=== PATIENT | female | born 1940 | race Caucasian/White ===

== ENCOUNTER → 2017-05-21 | Day surgery (SDC) | payer MEDICARE, OTHER ==
[2017-05-18 13:59] VITALS: BMI 57.5
== END ==
LOC: ORWHC2ENDO 09:18
PROVIDERS: ATTEND Internal Medicine Gastroenterology
DX: K29.70 Gastritis, unspecified, without bleeding (principal); K63.5 Polyp of colon; D50.9 Iron deficiency anemia, unspecified; R19.5 Other fecal abnormalities
CPT/HCPCS: 91110

== ENCOUNTER 2022-07-19 18:55 | Inpatient (IN) | payer MEDICARE, OTHER ==
[2022-07-19 19:47] LABS: Basophils % (A) 0 %; Eosinophils # (A) 0.2 k/uL (0-0.7); Eosinophils % (A) 2 %; HCT 33.3 % (34.0-46.0); Lymphocytes % (A) 31 %; MCH 34.3 pg (25.0-35.0); Macrocytosis Moderate; Mean Platelet Volume 8.3; Monocytes # (A) 0.5 k/uL (0-1.0); Monocytes % (A) 5 %; Neutrophils # (A) 5.8 k/uL (1.3-7.7); Neutrophils % (A) 60 %; Platelet Count 232 k/uL (150-450); RDW 14.8 % (11.5-15.5); WBC 9.7 k/uL (3.8-10.6)
[2022-07-19 20:03] LABS: Albumin 3.4 g/dL (3.5-5.0); Calcium 10.3 mg/dL (8.4-10.2); Potassium 3.9 mmol/L (3.5-5.1); Total Bilirubin 0.6 mg/dL (0.2-1.3); Total Protein 5.9 g/dL (6.3-8.2)
[2022-07-19 20:05] LABS: Glucose,Whole Blood 98 mg/dL (70-110)
[2022-07-19] MEDS ORDERED: SODIUM CHLORIDE 0.9% 1,000 ML IV ONE (20:17)
[2022-07-19 20:32] LABS: C Reactive Protein 3.2 mg/dL (<1.0)
[2022-07-19 21:44] LABS: Glucose,Whole Blood 142 mg/dL (70-110)
[2022-07-20 02:28] LABS: Glucose,Whole Blood 134 mg/dL (70-110)
[2022-07-20] MEDS: MORPHINE SULFATE 2 MG/ML SYRINGE IVP PRN ×2 (04:43→09:49)
[2022-07-20 06:15] LABS: Glucose,Whole Blood 133 mg/dL (70-110)
[2022-07-20] MEDS ORDERED: DEXTROSE 50% SYRINGE 50 ML IVP PRN ×2 (07:17)
[2022-07-20] MEDS: PANTOPRAZOLE 40 MG TABLET PO SCH (07:48)
[2022-07-20] MEDS: SODIUM CHLORIDE 0.9% 1,000 ML IV SCH ×2 (07:48→17:16)
[2022-07-20] MEDS: MAGNESIUM OXIDE 400 MG TAB PO SCH ×2 (07:48→20:31)
[2022-07-20] MEDS: allopurinoL 300 MG TAB PO SCH (07:48)
[2022-07-20] MEDS: LEVOTHYROXINE 100 MCG TAB PO SCH (07:51)
[2022-07-20 11:26] LABS: Glucose,Whole Blood 140 mg/dL (70-110)
[2022-07-20] MEDS: INSULIN ASPART (NovoLOG) 100 UNIT/ML VIAL SQ SCH ×3 (11:30→17:16)
--- NOTE | 2022-07-20 13:37 | P.GSCN ---
History of Present Illness Consult date: 07/20/22 History of present illness: CHIEF COMPLAINT: Abdominal pain HISTORY OF PRESENT ILLNESS: This is a 81-year-old female with a known history of chronic abdominal pain. She also has a history of abdominal wall hernia status post repair with mesh 30 years ago. Patient was a transfer from [facility]. She reports she has not had a bowel movement in 2 days. She denies any nausea or vomiting. She denies any flatus. She had recently been receiving treatment for UTI and on antibiotics. She had a CT scan of the abdomen completed at [place] that had shown clinical consideration for incarcerated hernia within the anterior lateral left lower abdomen. Obstruction is not evident at this time. Patient required a transfer for surgical evaluation. Patient's white count was normal. She does have a history of dealing with constipation and diarrhea. PAST MEDICAL HISTORY: Diabetes, hypothyroidism, morbid obesity, uterine cancer status post hysterectomy, breast cancer status post lumpectomy PAST SURGICAL HISTORY: Ventral hernia repair with mesh, cholecystectomy, hysterectomy MEDICATIONS: See list. ALLERGIES: See list. SOCIAL HISTORY: No illicit drug use. REVIEW OF SYSTEMS: CONSTITUTIONAL: Denies fever or chills. HEENT: Denies blurred vision, vision changes, or eye pain. Denies hemoptysis ENDOCRINE: Denies heat or cold intolerance. CARDIOVASCULAR: Denies chest pain or pressure. RESPIRATORY: No shortness of breath. GASTROINTESTINAL: Please refer to HPI with remarkable NEURO: Denies history of seizures. PSYCH: No depression or suicidal ideation HEMATOLOGIC: Denies bleeding disorders. LYMPHATIC: The patient denies any lumps and bumps around the neck. GENITOURINARY: Denies any blood in urine or increased urinary frequency. MUSCULOSKELETAL: Denies myalgias. Denies joint swelling. Denies decreased range of motion beyond patients baseline. SKIN: Denies pruitis. Denies rash. PHYSICAL EXAM: VITAL SIGNS: Reviewed GENERAL: Well-developed in no acute distress. HEENT: No sclera icterus. Extraocular movements grossly intact. Moist buccal mucosa. Head is atraumatic, normocephalic. Hears conversational speech. No nasal drainage. NECK: Supple without lymphadenopathy. CHEST: Non-labored respirations and equal bilateral excursions. CARDIOVASCULAR: Palpable 2+ radial pulses. ABDOMEN: Obese. Soft. Nondistended. Firmness noted above the umbilicus. Ventral wall hernia bulge noted when patient sits up MUSCULOSKELETAL: No clubbing or cyanosis. NEUROLOGIC: No focal or lateralizing signs. Cranial nerves II through XII grossly intact. PSYCH: Appropriate affect. Alert and oriented to person, place and time. SKIN: Well perfused. Good skin turgor. LABORATORY DATA: WBC is 9.7 hgb 11 platelets 104 Sodium 137 potassium 3.9 creatinine 1.41 Glucose 140 total bilirubin 0.6 AST 25 ALT 24 CRP 3.2 lipase 148 IMAGING: Computed tomography scan as stated above ASSESSMENT: 1. Abdominal pain 2. Incarcerated hernia within the anterior lateral lower left abdomen with no obstruction noted on computed tomography scan from [facility] 3. Diabetes mellitus 4. Acute kidney injury 5. History of ventral hernia repair with mesh 30 years ago 5. Morbid obesity PLAN: -Repeat computed tomography scan abdomen and pelvis with oral contrast for further evaluation of abdominal pain and possible incarcerated hernia -Nothing by mouth except for ice chips -Continue supportive care -continue IV fluids Physician Fish Drier note has been reviewed by physician. Signing provider agrees with the documented findings, assessment, and plan of care. Past Medical History Past Medical History: Cancer, Diabetes Mellitus, GERD/Reflux, Hypertension, Skin Disorder Additional Past Medical History / Comment(s): HX BREAST CA. HIATAL HERNIA. ABN HGB, HAD BLOOD TRANSFUSION X2, 04/05/17; HAD EGD, COLONSCOPY, BOTH POS FOR POLYPS. RECENT UTI. LT BREAST LUMPECTOMY 04/04/17, NOT HEALED YET. History of Any Multi-Drug Resistant Organisms: None Reported Past Surgical History: Breast Surgery, Cholecystectomy, Hernia Repair, Hysterectomy Additional Past Surgical History / Comment(s): LT BREAST LUMPECTOMY 04/04/17. EGD, COLONOSCOPY 04/09/17. Past Anesthesia/Blood Transfusion Reactions: Motion Sickness Past Psychological History: Anxiety, Depression Smoking Status: Never smoker Past Alcohol Use History: None Reported Past Drug Use History: None Reported - Past Family History Brother(s) Family Medical History: Cancer Medications and Allergies Home Medications Medication Instructions Recorded Confirmed Type Aspirin [Adult Low Dose Aspirin EC] 81 mg PO DAILY 05/18/17 07/19/22 History Cetirizine HCl [Zyrtec] 10 mg PO DAILY 05/18/17 07/19/22 History Levothyroxine Sodium [Synthroid] 100 mcg PO DAILY 05/18/17 07/19/22 History allopurinoL [Zyloprim] 300 mg PO DAILY 05/18/17 07/19/22 History glipiZIDE [Glucotrol] 10 mg PO DAILY 05/18/17 07/19/22 History metFORMIN HCL [Glucophage] 1,000 mg PO BID 05/18/17 07/19/22 History Ergocalciferol (Vitamin D2) 1,250 mcg PO TUFR 07/19/22 07/19/22 History [Drisdol (50,000 Iu)] Ferrous Sulfate [Feosol] 325 mg PO TUFR 07/19/22 07/19/22 History Magnesium Oxide [Mag-Ox] 400 mg PO BID 07/19/22 07/19/22 History Pantoprazole Sodium [Protonix] 20 mg PO DAILY 07/19/22 07/19/22 History Txk-Thky-Phton Acid 1 cap PO DAILY 07/19/22 07/19/22 History [-U Capsule (formulary)] hydroCHLOROthiazide 12.5 mg PO DAILY 07/19/22 07/19/22 History Allergies Allergy/AdvReac Type Severity Reaction Status Date / Time Iodinated Contrast Media Allergy Dyspnea Verified 07/19/22 20:57 [Iodinated Contrast- Oral and IV Dye] Penicillins Allergy Rash/Hives Verified 07/19/22 20:57 banana AdvReac CRAMPS IN Verified 07/19/22 20:57 LEGS pineapple AdvReac CRAMPS IN Verified 07/19/22 20:57 LEGS Surgical - Exam Vital Signs Temp Pulse Resp BP Pulse Ox 98.1 F 91 18 151/70 98 07/19/22 19:04 07/19/22 19:04 07/19/22 19:04 07/19/22 19:04 07/19/22 19:04 Results - Labs 07/19/22 19:36 07/19/22 19:36 Abnormal Lab Results - Last 24 Hours (Table) 07/19/22 07/19/22 07/19/22 Range/Units 19:36 19:36 21:42 RBC 3.20 L (3.80-5.40) m/uL Hgb 11.0 L (11.4-16.0) gm/dL Hct 33.3 L (34.0-46.0) % MCV 104.0 H (80.0-100.0) fL BUN 31 H (7-17) mg/dL Creatinine 1.41 H (0.52-1.04) mg/dL POC Glucose (mg/dL) 142 H (70-110) mg/dL Calcium 10.3 H (8.4-10.2) mg/dL C-Reactive Protein 3.2 H (<1.0) mg/dL Total Protein 5.9 L (6.3-8.2) g/dL Albumin 3.4 L (3.5-5.0) g/dL 07/20/22 07/20/22 Range/Units 02:25 06:14 RBC (3.80-5.40) m/uL Hgb (11.4-16.0) gm/dL Hct (34.0-46.0) % MCV (80.0-100.0) fL BUN (7-17) mg/dL Creatinine (0.52-1.04) mg/dL POC Glucose (mg/dL) 134 H 133 H (70-110) mg/dL Calcium (8.4-10.2) mg/dL C-Reactive Protein (<1.0) mg/dL Total Protein (6.3-8.2) g/dL Albumin (3.5-5.0) g/dL Diabetes panel 07/19/22 Range/Units 19:36 Sodium 137 (137-145) mmol/L Potassium 3.9 (3.5-5.1) mmol/L Chloride 101 (98-107) mmol/L Carbon Dioxide 29 (22-30) mmol/L BUN 31 H (7-17) mg/dL Creatinine 1.41 H (0.52-1.04) mg/dL Glucose 97 (74-99) mg/dL Calcium 10.3 H (8.4-10.2) mg/dL AST 25 (14-36) U/L ALT 24 (4-34) U/L Alkaline Phosphatase 57 (38-126) U/L Total Protein 5.9 L (6.3-8.2) g/dL Albumin 3.4 L (3.5-5.0) g/dL Calcium panel 07/19/22 Range/Units 19:36 Calcium 10.3 H (8.4-10.2) mg/dL Albumin 3.4 L (3.5-5.0) g/dL Pituitary panel 07/19/22 Range/Units 19:36 Sodium 137 (137-145) mmol/L Potassium 3.9 (3.5-5.1) mmol/L Chloride 101 (98-107) mmol/L Carbon Dioxide 29 (22-30) mmol/L BUN 31 H (7-17) mg/dL Creatinine 1.41 H (0.52-1.04) mg/dL Glucose 97 (74-99) mg/dL Calcium 10.3 H (8.4-10.2) mg/dL Adrenal panel 07/19/22 Range/Units 19:36 Sodium 137 (137-145) mmol/L Potassium 3.9 (3.5-5.1) mmol/L Chloride 101 (98-107) mmol/L Carbon Dioxide 29 (22-30) mmol/L BUN 31 H (7-17) mg/dL Creatinine 1.41 H (0.52-1.04) mg/dL Glucose 97 (74-99) mg/dL Calcium 10.3 H (8.4-10.2) mg/dL Total Bilirubin 0.6 (0.2-1.3) mg/dL AST 25 (14-36) U/L ALT 24 (4-34) U/L Alkaline Phosphatase 57 (38-126) U/L Total Protein 5.9 L (6.3-8.2) g/dL Albumin 3.4 L (3.5-5.0) g/dL
[2022-07-20] MEDS: BARIUM SULFATE 450 ML ORAL.SUSP BOTTLE PO PRN ×2 (13:45→16:41)
--- NOTE | 2022-07-20 16:07 | ED ---
Abdominal Pain HPI - General Chief Complaint: Abdominal Pain Stated Complaint: hernia Time Seen by Provider: 07/19/22 19:05 Source: patient Mode of arrival: EMS Limitations: no limitations - History of Present Illness Initial Comments: Please note this is a repeat dictation, the original has been lost in the system This patient is an 81-year-old woman transferred here from [facility]. The patient had gone there for 2 days of abdominal pain. She indicates the pain across the lower abdomen and periumbilical area. The other hospital had ordered computed tomography scan which showed a possible incarcerated left-sided abdominal hernia. On arrival here, the patient is denying symptoms of obstruction, no vomiting. Her last bowel movement was 2 days ago but she has passed flatus. No fevers. MD Complaint: abdominal pain Onset/Timin -: days(s) Location: periumbilical Radiation: none Migration to: no migration Severity: moderate Quality: aching Consistency: constant Improves With: nothing Worsens With: nothing Associated Symptoms: nausea - Related Data Home Medications Medication Instructions Recorded Confirmed Aspirin [Adult Low Dose Aspirin EC] 81 mg PO DAILY 05/18/17 07/19/22 Cetirizine HCl [Zyrtec] 10 mg PO DAILY 05/18/17 07/19/22 Levothyroxine Sodium [Synthroid] 100 mcg PO DAILY 05/18/17 07/19/22 allopurinoL [Zyloprim] 300 mg PO DAILY 05/18/17 07/19/22 glipiZIDE [Glucotrol] 10 mg PO DAILY 05/18/17 07/19/22 metFORMIN HCL [Glucophage] 1,000 mg PO BID 05/18/17 07/19/22 Ergocalciferol (Vitamin D2) 1,250 mcg PO TUFR 07/19/22 07/19/22 [Drisdol (50,000 Iu)] Ferrous Sulfate [Feosol] 325 mg PO FR 07/19/22 07/19/22 Magnesium Oxide [Mag-Ox] 400 mg PO BID 07/19/22 07/19/22 Pantoprazole Sodium [Protonix] 20 mg PO DAILY 07/19/22 07/19/22 Luw-Ruil-Ktwgi Acid 1 cap PO DAILY 07/19/22 07/19/22 [-U Capsule (formulary)] hydroCHLOROthiazide 12.5 mg PO DAILY 07/19/22 07/19/22 Allergies Allergy/AdvReac Type Severity Reaction Status Date / Time Iodinated Contrast Media Allergy Dyspnea Verified 07/19/22 20:57 [Iodinated Contrast- Oral and IV Dye] Penicillins Allergy Rash/Hives Verified 07/19/22 20:57 banana AdvReac CRAMPS IN Verified 07/19/22 20:57 LEGS pineapple AdvReac CRAMPS IN Verified 07/19/22 20:57 LEGS Review of Systems ROS Statement: Those systems with pertinent positive or pertinent negative responses have been documented in the HPI. ROS Other: All systems not noted in ROS Statement are negative. Constitutional: Denies: fever, chills Respiratory: Denies: cough, dyspnea Cardiovascular: Denies: chest pain, palpitations Gastrointestinal: Reports: abdominal pain, nausea. Denies: vomiting, diarrhea, constipation, melena, hematochezia Genitourinary: Denies: dysuria, hematuria Musculoskeletal: Denies: back pain Skin: Denies: rash Neurological: Denies: headache, weakness, numbness Past Medical History Past Medical History: Cancer, Diabetes Mellitus, GERD/Reflux, Hypertension, Skin Disorder Additional Past Medical History / Comment(s): HX BREAST CA. HIATAL HERNIA. ABN HGB, HAD BLOOD TRANSFUSION X2, 04/05/17; HAD EGD, COLONSCOPY, BOTH POS FOR POLYPS. RECENT UTI. LT BREAST LUMPECTOMY 04/04/17, NOT HEALED YET. History of Any Multi-Drug Resistant Organisms: None Reported Past Surgical History: Breast Surgery, Cholecystectomy, Hernia Repair, Hysterectomy Additional Past Surgical History / Comment(s): LT BREAST LUMPECTOMY 04/04/17. EGD, COLONOSCOPY 04/09/17. Past Anesthesia/Blood Transfusion Reactions: Motion Sickness Past Psychological History: Anxiety, Depression Smoking Status: Never smoker Past Alcohol Use History: None Reported Past Drug Use History: None Reported - Past Family History Brother(s) Family Medical History: Cancer General Exam General appearance: alert, in no apparent distress Head exam: Present: atraumatic, normocephalic Eye exam: Present: normal appearance. Absent: scleral icterus, conjunctival injection ENT exam: Present: normal oropharynx Neck exam: Present: normal inspection Respiratory exam: Present: normal lung sounds bilaterally. Absent: respiratory distress, wheezes, rales, rhonchi, stridor Cardiovascular Exam: Present: regular rate, normal rhythm, normal heart sounds. Absent: systolic murmur, diastolic murmur, rubs, gallop GI/Abdominal exam: Present: soft, tenderness (There is mild diffuse tenderness without rebound or guarding). Absent: distended, guarding, rebound, rigid, mass, pulsatile mass, hernia Extremities exam: Present: normal inspection, normal capillary refill. Absent: pedal edema, calf tenderness Back exam: Present: normal inspection. Absent: CVA tenderness (R), CVA tenderness (L) Neurological exam: Present: alert Skin exam: Present: warm, dry, intact, normal color. Absent: rash Course Vital Signs 07/19/22 07/19/22 19:04 21:00 Temperature 98.1 F Pulse Rate 91 86 Respiratory 18 16 Rate Blood Pressure 151/70 155/76 O2 Sat by Pulse 98 96 Oximetry Medical Decision Making - Medical Decision Making Patient is an 81-year-old woman transferred here from [facility] with concerns of possible incarcerated hernia. Review of the computed tomography scan with Dr. Ashley. Patient be admitted to have further evaluation but at this point does not appear to be obstructed. Was pt. sent in by a medical professional or institution (, PA, ASSISTANT SCIENTIST, urgent care, hospital, or usp...) When possible be specific @ -This patient is transferred from outside hospital Did you speak to anyone other than the patient for history (EMS, parent, family, police, friend...)? What history was obtained from this source @ -[No] Did you review nursing and triage notes (agree or disagree)? Why? @ -[I reviewed and agree with nursing and triage notes] Were old charts reviewed (outside hosp., previous admission, EMS record, old EKG, old radiological studies, urgent care reports/EKG's, usp records)? Report findings @ -[No old charts were reviewed] Differential Diagnosis (chest pain, altered mental status, abdominal pain women, abdominal pain men, vaginal bleeding, weakness, fever, dyspnea, syncope, headache, dizziness, GI bleed, back pain, seizure, CVA, palpatations, mental health, musculoskeletal)? @ -[Differential Abdominal Pain Women: Appendicitis, Cholecystitis, diverticulosis, ischemic bowel, pancreatitis, hepatitis, UTI, gastroenteritis, AAA, incarcerated hernia, bowel obstruction, constipation, inflammatory bowel, hepatitis, peptic ulcer disease, splenic infarction, perforated viscus, vulvitis, ovarian torsion, PID, kidney stone, placenta abruption, this is not meant to be an all-inclusive list EKG interpreted by me (3pts min.). @ -[] X-rays interpreted by me (1pt min.). @ -[None done] CT interpreted by me (1pt min.). @ -[None done] U/S interpreted by me (1pt. min.). @ -[None done] What testing was considered but not performed or refused? (CT, X-rays, U/S, labs)? Why? @ -[None] What meds were considered but not given or refused? Why? @ -[None] Did you discuss the management of the patient with other professionals (professionals i.e. , PA, ASSISTANT SCIENTIST, lab, RT, psych nurse, social services designee, lot attendant, teacher, event security officer, onsite case manager)? Give summary @ -[Case discussed with admitting physician and with Dr. Ashley Was smoking cessation discussed for >3mins.? @ -[No] Was critical care preformed (if so, how long)? @ -[No] Were there social determinants of health that impacted care today? How? (Homelessness, low income, unemployed, alcoholism, drug addiction, transporta tion, low edu. Level, literacy, decrease access to med. care, custodial, rehab)? @ -[No] Was there de-escalation of care discussed even if they declined (Discuss DNR or withdrawal of care, Hospice)? DNR status @ -[No] What co-morbidities impacted this encounter? (DM, HTN, Smoking, COPD, CAD, Cancer, CVA, ARF, Chemo, Hep., AIDS, mental health diagnosis, sleep apnea, morbid obesity)? @ -[None] Was patient admitted / discharged? Hospital course, mention meds given and route, prescriptions, significant lab abnormalities, going to OR and other pertinent info. @ -[Patient admitted Undiagnosed new problem with uncertain prognosis? @ -[No] Drug Therapy requiring intensive monitoring for toxicity (Heparin, Nitro, I nsulin, Cardizem)? @ -[No] Were any procedures done? @ -[No] Diagnosis/symptom? @ -[Abdominal pain, acute Possible incarcerated hernia Acute, or Chronic, or Acute on Chronic? @ -[default] Uncomplicated (without systemic symptoms) or Complicated (systemic symptoms)? @ -[Uncomplicated Side effects of treatment? @ -[No] Exacerbation, Progression, or Severe Exacerbation? @ -[No] Poses a threat to life or bodily function? How? (Chest pain, USA, VT, pneumonia, PE, COPD, DKA, ARF, appy, cholecystitis, CVA, Diverticulitis, Homicidal, Ramirez icidal, threat to staff... and all critical care pts) @ -[No] - Lab Data Result diagrams: 07/19/22 19:36 07/22/22 05:31 Lab Results 07/19/22 07/19/22 07/19/22 Range/Units 19:36 19:36 20:04 WBC 9.7 (3.8-10.6) k/uL RBC 3.20 L (3.80-5.40) m/uL Hgb 11.0 L (11.4-16.0) gm/dL Hct 33.3 L (34.0-46.0) % MCV 104.0 H (80.0-100.0) fL MCH 34.3 (25.0-35.0) pg MCHC 33.0 (31.0-37.0) g/dL RDW 14.8 (11.5-15.5) % Plt Count 232 (150-450) k/uL MPV 8.3 Neutrophils % 60 % Lymphocytes % 31 % Monocytes % 5 % Eosinophils % 2 % Basophils % 0 % Neutrophils # 5.8 (1.3-7.7) k/uL Lymphocytes # 3.0 (1.0-4.8) k/uL Monocytes # 0.5 (0-1.0) k/uL Eosinophils # 0.2 (0-0.7) k/uL Basophils # 0.0 (0-0.2) k/uL Macrocytosis Moderate Sodium 137 (137-145) mmol/L Potassium 3.9 (3.5-5.1) mmol/L Chloride 101 (98-107) mmol/L Carbon Dioxide 29 (22-30) mmol/L Anion Gap 7 mmol/L BUN 31 H (7-17) mg/dL Creatinine 1.41 H (0.52-1.04) mg/dL Est GFR (CKD-EPI)AfAm 40 (>60 ml/min/1.73 sqM) Est GFR (CKD-EPI)NonAf 35 (>60 ml/min/1.73 sqM) Glucose 97 (74-99) mg/dL POC Glucose (mg/dL) 98 (70-110) mg/dL POC Glu Reciprocating Drill Operator ID Beatrice Payne Calcium 10.3 H (8.4-10.2) mg/dL Total Bilirubin 0.6 (0.2-1.3) mg/dL AST 25 (14-36) U/L ALT 24 (4-34) U/L Alkaline Phosphatase 57 (38-126) U/L C-Reactive Protein 3.2 H (<1.0) mg/dL Total Protein 5.9 L (6.3-8.2) g/dL Albumin 3.4 L (3.5-5.0) g/dL Amylase 41 (30-110) U/L Lipase 142 (23-300) U/L Disposition Clinical Impression: Abdominal pain, Abdominal wall hernia Disposition: ADMITTED IP TO THIS HOSP Condition: Fair Is patient prescribed a controlled substance at d/c from ED?: No
--- NOTE | 2022-07-20 16:13 | P.HPIM ---
History of Present Illness H&P Date: 07/20/22 Chief Complaint: Abdominal pain This is a pleasant 81-year-old, follows with Dr. Church. Chronic stable medical conditions include diabetes, GERD, hypertension, hiatal hernia, anxiety depression. Patient does use electric chair to get about. Patient's had chronic abdominal p ain. Pain doesn't radiate. Normally has a bowel movement every 2 or 3 days. No fever no chills. Does not need between diarrhea and constipation. Patient initially presented to [facility]. Computed tomography scan showed possible incarcerated hernia within the anterior lateral left lower abdomen. No obvious obstruction. Patient was sent down here for higher level of care for surgical evaluation by Dr. Andre. Patient's appetite is otherwise fair. Review of systems: GEN.: None EYES: None HEENT: None NECK: None RESPIRATORY: None CARDIOVASCULAR: None GASTROINTESTINAL: As above GENITOURINARY: None MUSCULOSKELETAL: None LYMPHATICS: None HEMATOLOGICAL: None PSYCHIATRY: None NEUROLOGICAL: Uses a wheelchair Past medical history to include: Diabetes, GERD, hypertension, hiatal hernia, anxiety depression Social history: No smoking or alcohol. Does use electric chair. Lives in a senior apartment. Patient's daughter is the caregiver. Physical examination: VITAL SIGNS: 98.4, 92, 16, 1 27 x 64, 95% room air GENERAL: BMI 48.5, laying in bed awake not in distress. EYES: Pupils equal. Conjunctiva normal. HEENT: External appearance of nose and ears normal, oral cavity grossly normal. NECK: JVD unable to assess; masses not palpable. HEART: Heart sounds distant; no edema. LUNGS: Respiratory rate normal; breath sounds distant. ABDOMEN: Soft, left-sided tenderness, no guarding rigidity, liver spleen not palpable, no masses palpable. PSYCH: Alert and oriented x3; mood and affect normal. MUSCULOSKELETAL:No Clubbing/cyanosis;muscles-grossly intact NEUROLOGICAL: Cranial nerves grossly intact; no facial asymmetry, power and sensation grossly intact. LYMPHATICS: No lymph nodes palpable in the axilla and neck INVESTIGATIONS, reviewed in the clinical context: White count 9.7 hemoglobin 11.1 platelets 232 sodium 137 potassium 3.9 BUN 31 and creatinine 1.41 CRP 3.2 Computed tomography scan was done at [facility] Assessment and plan: -Possible left abdominal ventral wall hernia questionable incarcerated Patient was nothing by mouth. Dr. Andre consulted. IV fluids -Morbid obesity BMI 48.5 Weight loss measures -Hypothyroid Synthroid 100 g a day -Hyperuricemia Allopurinol 300 mg a day -Diabetes mellitus type 2 and oral hypoglycemic Hold Glucophage and Glucotrol. Follow Accu-Cheks with sliding scale -GERD Protonix -Evaluate for chronic kidney disease Renal ultrasound. Should repeat BMP in the morning. -Chronic medical debility, patient is at baseline uses electric wheelchair Nothing by mouth except medications. General surgery consulted. Care was discussed with the patient. IV fluids. Repeat labs in the morning. Past Medical History Past Medical History: Cancer, Diabetes Mellitus, GERD/Reflux, Hypertension, Skin Disorder Additional Past Medical History / Comment(s): HX BREAST CA. HIATAL HERNIA. ABN HGB, HAD BLOOD TRANSFUSION X2, 04/05/17; HAD EGD, COLONSCOPY, BOTH POS FOR POLYPS. RECENT UTI. LT BREAST LUMPECTOMY 04/04/17, NOT HEALED YET. History of Any Multi-Drug Resistant Organisms: None Reported Past Surgical History: Breast Surgery, Cholecystectomy, Hernia Repair, Hysterectomy Additional Past Surgical History / Comment(s): LT BREAST LUMPECTOMY 04/04/17. EGD, COLONOSCOPY 04/09/17. Past Anesthesia/Blood Transfusion Reactions: Motion Sickness Past Psychological History: Anxiety, Depression Smoking Status: Never smoker Past Alcohol Use History: None Reported Past Drug Use History: None Reported - Past Family History Brother(s) Family Medical History: Cancer Medications and Allergies Home Medications Medication Instructions Recorded Confirmed Type Aspirin [Adult Low Dose Aspirin EC] 81 mg PO DAILY 05/18/17 07/19/22 History Cetirizine HCl [Zyrtec] 10 mg PO DAILY 05/18/17 07/19/22 History Levothyroxine Sodium [Synthroid] 100 mcg PO DAILY 05/18/17 07/19/22 History allopurinoL [Zyloprim] 300 mg PO DAILY 05/18/17 07/19/22 History glipiZIDE [Glucotrol] 10 mg PO DAILY 05/18/17 07/19/22 History metFORMIN HCL [Glucophage] 1,000 mg PO BID 05/18/17 07/19/22 History Ergocalciferol (Vitamin D2) 1,250 mcg PO TUFR 07/19/22 07/19/22 History [Drisdol (50,000 Iu)] Ferrous Sulfate [Feosol] 325 mg PO TUFR 07/19/22 07/19/22 History Magnesium Oxide [Mag-Ox] 400 mg PO BID 07/19/22 07/19/22 History Pantoprazole Sodium [Protonix] 20 mg PO DAILY 07/19/22 07/19/22 History Cil-Tzpl-Stmms Acid 1 cap PO DAILY 07/19/22 07/19/22 History [-U Capsule (formulary)] hydroCHLOROthiazide 12.5 mg PO DAILY 07/19/22 07/19/22 History Allergies Allergy/AdvReac Type Severity Reaction Status Date / Time Iodinated Contrast Media Allergy Dyspnea Verified 07/19/22 20:57 [Iodinated Contrast- Oral and IV Dye] Penicillins Allergy Rash/Hives Verified 07/19/22 20:57 banana AdvReac CRAMPS IN Verified 07/19/22 20:57 LEGS pineapple AdvReac CRAMPS IN Verified 07/19/22 20:57 LEGS Physical Exam Vitals: Vital Signs Temp Pulse Pulse Resp BP BP Pulse Ox 07/20/22 02:00 97.7 F 90 17 147/77 95 07/19/22 21:39 98.1 F 87 18 162/74 97 07/19/22 21:00 86 16 155/76 96 07/19/22 19:04 98.1 F 91 18 151/70 98 Intake and Output 07/19/22 07/20/22 07/20/22 22:59 06:59 14:59 Output Total 250 Balance -250 Output: Urine 250 Other: Voiding Method External Catheter Weight 108.862 kg Results CBC & Chem 7: 07/19/22 19:36 07/19/22 19:36 Labs: Abnormal Lab Results - Last 24 Hours (Table) 07/19/22 07/19/22 07/19/22 Range/Units 19:36 19:36 21:42 RBC 3.20 L (3.80-5.40) m/uL Hgb 11.0 L (11.4-16.0) gm/dL Hct 33.3 L (34.0-46.0) % MCV 104.0 H (80.0-100.0) fL BUN 31 H (7-17) mg/dL Creatinine 1.41 H (0.52-1.04) mg/dL POC Glucose (mg/dL) 142 H (70-110) mg/dL Calcium 10.3 H (8.4-10.2) mg/dL C-Reactive Protein 3.2 H (<1.0) mg/dL Total Protein 5.9 L (6.3-8.2) g/dL Albumin 3.4 L (3.5-5.0) g/dL 07/20/22 07/20/22 Range/Units 02:25 06:14 RBC (3.80-5.40) m/uL Hgb (11.4-16.0) gm/dL Hct (34.0-46.0) % MCV (80.0-100.0) fL BUN (7-17) mg/dL Creatinine (0.52-1.04) mg/dL POC Glucose (mg/dL) 134 H 133 H (70-110) mg/dL Calcium (8.4-10.2) mg/dL C-Reactive Protein (<1.0) mg/dL Total Protein (6.3-8.2) g/dL Albumin (3.5-5.0) g/dL
[2022-07-20 16:40] LABS: Glucose,Whole Blood 150 mg/dL (70-110)
--- NOTE | 2022-07-20 18:24 | CT ---
EXAMINATION TYPE: CT abdomen pelvis wo con CT DLP: 1853.2 mGycm, Automated exposure control for dose reduction was used. DATE OF EXAM: 07/20/2022 6:09 PM COMPARISON: None CLINICAL INDICATION:Female, 81 years old with history of abdominal pain; evaluate for hernia left low er abdomen, abdominal pain TECHNIQUE: Axial CT of the abdomen and pelvis. Sagittal and coronal reformats were created on a [employer] workstation. Contrast used: None Oral contrast used: with Oral Contrast FINDINGS: LOWER CHEST: Unremarkable ABDOMEN LIVER: Unremarkable GALLBLADDER AND BILE DUCTS: Unremarkable. PANCREAS: Unremarkable. SPLEEN: Unremarkable. ADRENAL GLANDS: Mild nodular thickening suggested of adenomatous hypertrophy changes. The right adren al gland is unremarkable. KIDNEYS AND URETERS: No evidence of hydronephrosis or renal calculus. The ureters are unremarkable. PELVIS BLADDER: Unremarkable REPRODUCTIVE: The uterus is surgically absent. ABDOMEN & PELVIS STOMACH AND BOWEL: No evidence of bowel obstruction. PERITONEUM/RETROPERITONEUM: No evidence of pneumoperitoneum or free fluid. VASCULATURE: Mild atherosclerotic calcifications are present throughout the abdominal aorta and its b ranches. No evidence of aortic aneurysm. MUSCULOSKELETAL: No acute osseous abnormalities. Mild disc degeneration changes are present throughou t the thoracolumbar spine. LYMPH NODES: No gross evidence for lymphadenopathy. SOFT TISSUE/ABDOMINAL WALL: Left lower anterior abdominal wall fat stranding changes in the superfici al subcutaneous tissues near the abdominal wall with pocket of gas measuring 1.7 cm. There may be sma ll area of increased density which could represent oral contrast series 202 image 28. No evidence for bowel obstruction. The small bowel immediately adjacent to this is small bowel. Evaluation for wall thickness in this hernia is limited due to the blunting of soft tissues with similar density. IMPRESSION: Left lower abdominal wall subcutaneous fat stranding changes near the abdominal musculature with smal l focus of high density suggesting small bowel herniation possibly Painter's herniation. If there has been recent instrumentation this could represent infection/fistula in the appropriate clinical setti ng. Clinical correlation advised. Evaluation of the bowel rose within this possible hernia is extrem zoe limited for evaluation for stricture angulation given soft tissues and fat stranding changes whic h blended together.
--- NOTE | 2022-07-20 18:26 | P.PN ---
Progress Note - Text Progress Note Date: 07/20/22 Patient seen and evaluated. Her daughter is at bedside. Additional history obtained including hernia surgery and gynecological/pelvic surgery over 30 years ago. She reports hernia repair with mesh placement. Patient reports chronic abdominal pain for several months. She does report feeling somewhat better today compared to yesterday of the lower abdomen. She has pre-existing history of breast cancer and she has concerns of metastases to the abdomen. Clinical exam demonstrates questionable subcutaneous mass versus hernia of the left lower quadrant. CT of the abdomen and pelvis obtained. CT of the abdomen and pelvis independently reviewed demonstrating questionable incarcerated hernia with involvement of small bowel. Recommend urgent cardiac risk assessment for surgical intervention. We'll order an echo and recycle driver risk assessment. Overall, patient presents with elevated risks due to pre- existing comorbidities and morbid obesity, BMI over 40
[2022-07-20 19:02] LABS: Glucose,Whole Blood 139 mg/dL (70-110)
--- NOTE | 2022-07-20 20:06 | US ---
EXAMINATION TYPE: US kidneys/renal and bladder DATE OF EXAM: 07/20/2022 COMPARISON: CT: Today CLINICAL INDICATION: Female, 81 years old with history of Evaluate for CKd; eval for CKD EXAM MEASUREMENTS: Right Kidney: 9.2 x 5.2 x 5.1 cm Left Kidney: 9.5 x 4.4 x 4.4 cm Right Kidney: Hyperechoic area seen lateral kid measuring 1.1 x 1.0 x 0.5cm scattered cortical thinn ing. Left Kidney: No hydronephrosis or masses seen. scattered cortical thinning. Bladder: wnl Bilateral Jets seen: No, pt said it hurt scanning in the area. IMPRESSION: 1. No evidence of obstructive uropathy. 2. Right renal sinus hyperechoic lesion could represent prominent renal sinus fat versus ossificatio n.
[2022-07-21] MEDS: ONDANSETRON 4 MG/2 ML VIAL IVP PRN (00:38)
[2022-07-21] MEDS: MORPHINE SULFATE 2 MG/ML SYRINGE IVP PRN (00:38)
[2022-07-21] MEDS: LEVOTHYROXINE 100 MCG TAB PO SCH (05:25)
[2022-07-21 06:23] LABS: Glucose,Whole Blood 137 mg/dL (70-110)
[2022-07-21] MEDS: SODIUM CHLORIDE 0.9% 1,000 ML IV SCH ×2 (07:32→15:09)
[2022-07-21] MEDS: INSULIN ASPART (NovoLOG) 100 UNIT/ML VIAL SQ SCH ×4 (07:33→17:23)
[2022-07-21] MEDS: PANTOPRAZOLE 40 MG TABLET PO SCH (08:42)
[2022-07-21] MEDS: allopurinoL 300 MG TAB PO SCH (08:42)
[2022-07-21] MEDS: MAGNESIUM OXIDE 400 MG TAB PO SCH ×2 (08:42→21:27)
[2022-07-21 08:59] LABS: African American GFR (CKD) 48 (>60 ml/min/1.73 sqM); Anion Gap 8 mmol/L; Blood Urea Nitrogen 21 mg/dL (7-17); Calcium 8.9 mg/dL (8.4-10.2); Carbon Dioxide 26 mmol/L (22-30); Chloride 102 mmol/L (98-107); Glucose 137 mg/dL (74-99); Non-African American GFR(CKD) 41 (>60 ml/min/1.73 sqM); Potassium 3.9 mmol/L (3.5-5.1); Sodium 136 mmol/L (137-145)
[2022-07-21] MEDS ORDERED: ERGOCALCIFEROL 1,250 MCG (50,000 IU) CAPSULE PO SCH (09:00)
--- NOTE | 2022-07-21 09:00 | P.CRDCN ---
History of Present Illness Consult date: 07/21/22 Reason for Consult (text): cardiac arrhythmia preop clearance History of present illness: History of present illness: This is an 81-year-old female patient that does not follow with cardiology with past medical history of hypertension, diabetes mellitus type 2, gastroesophageal reflux disease, hypothyroidism, seasonal ALLERGIES. We have been asked to evaluate the patient for heart attack arrhythmia and clearance for surgery. She is scheduled for ventral hernia repair and bowel resection. Patient states that she normally is nonambulatory and uses a power chair due to deformities of the bilateral feet. She denies having any chest pain or shortness of breath. Blood pressure is 119/70 and heart rate in the 70s to 90s. We have no previous echocardiogram. EKG normal sinus rhythm WBC 9.7, hemoglobin 11, platelet count 232. Electrolytes normal. BUN 31 creatinine 1.41. Liver function tests within normal limits. Calcium 10.3. B lood sugar 142. C-reactive protein 3.2. Lipase 142. Echocardiogram reveals normal LV systolic function Home cardiac medications: Aspirin 81 mg daily, hydrochlorothiazide 12.5 mg daily, levothyroxine 100 g daily. Review Of Systems: At the time of my evaluation: Constitutional: No fever, no chills. EENT: No headache. No dizziness. Lungs: No shortness of breath, cough, no sputum production. No wheezing. Cardiovascular: No chest pain, no lower extremity edema. No palpitations. No paroxysmal nocturnal dyspnea. No orthopnea. No lightheadedness or dizziness. No syncopal episodes. Abdominal: No abdominal pain. No nausea, vomiting. No diarrhea. Musculoskeletal: No myalgias. INeurologic: No aphasia. No facial droop. No change in mentation. No head injury. No headache. Physical examination: Gen: This is a morbidly obese 81-year-old female. She is resting in bed and appears to be comfortable at rest. No respiratory distress is noted VS: reviewed HEENT: Head is atraumatic, normocephalic. Pupils equal, round. Sclerae is anicteric. NECK: Supple. No JVD. . LUNGS: Clear to auscultation. No wheezes or rhonchi. No intercostal retractions. HEART: Regular rate and rhythm. No murmur. ABDOMEN: Soft No tenderness. EXTREMITIES: No pedal edema. NEUROLOGICAL: Patient is awake, alert and oriented x3. Assessment: Abdominal pain with plan for ventral hernia repair and bowel resection Hypertension Diabetes mellitus type 2 Gastroesophageal reflux disease Hypothyroidism Seasonal ALLERGIES Morbid obesity with BMI of 48 Plan: Continue patient's current cardiac medications Patient found to have LV systolic function normal. She is sedentary and does not ambulate. Stress test was not done at this time and patient is a moderate to high risk for surgical intervention. Please use cautious fluid resuscitation and provide DVT prophylaxis. Patient is scheduled for surgical intervention on Sunday. We will follow-up with the patient following surgery. Thank you kindly for this consultation. Nurse practitioner note has been reviewed, I agree with documented findings and plan of care. Patient was seen and examined. Past Medical History Past Medical History: Cancer, Diabetes Mellitus, GERD/Reflux, Hypertension, Skin Disorder Additional Past Medical History / Comment(s): HX BREAST CA. HIATAL HERNIA. ABN HGB, HAD BLOOD TRANSFUSION X2, 04/05/17; HAD EGD, COLONSCOPY, BOTH POS FOR POLYPS. RECENT UTI. LT BREAST LUMPECTOMY 04/04/17, NOT HEALED YET. History of Any Multi-Drug Resistant Organisms: None Reported Past Surgical History: Breast Surgery, Cholecystectomy, Hernia Repair, Hysterectomy Additional Past Surgical History / Comment(s): LT BREAST LUMPECTOMY 04/04/17. EGD, COLONOSCOPY 04/09/17. Past Anesthesia/Blood Transfusion Reactions: Motion Sickness Past Psychological History: Anxiety, Depression Smoking Status: Never smoker Past Alcohol Use History: None Reported Past Drug Use History: None Reported - Past Family History Brother(s) Family Medical History: Cancer Medications and Allergies Home Medications Medication Instructions Recorded Confirmed Type Aspirin [Adult Low Dose Aspirin EC] 81 mg PO DAILY 05/18/17 07/19/22 History Cetirizine HCl [Zyrtec] 10 mg PO DAILY 05/18/17 07/19/22 History Levothyroxine Sodium [Synthroid] 100 mcg PO DAILY 05/18/17 07/19/22 History allopurinoL [Zyloprim] 300 mg PO DAILY 05/18/17 07/19/22 History glipiZIDE [Glucotrol] 10 mg PO DAILY 05/18/17 07/19/22 History metFORMIN HCL [Glucophage] 1,000 mg PO BID 05/18/17 07/19/22 History Ergocalciferol (Vitamin D2) 1,250 mcg PO TUFR 07/19/22 07/19/22 History [Drisdol (50,000 Iu)] Ferrous Sulfate [Feosol] 325 mg PO TUFR 07/19/22 07/19/22 History Magnesium Oxide [Mag-Ox] 400 mg PO BID 07/19/22 07/19/22 History Pantoprazole Sodium [Protonix] 20 mg PO DAILY 07/19/22 07/19/22 History Yps-Tqye-Wfltv Acid 1 cap PO DAILY 07/19/22 07/19/22 History [-U Capsule (formulary)] hydroCHLOROthiazide 12.5 mg PO DAILY 07/19/22 07/19/22 History Allergies Allergy/AdvReac Type Severity Reaction Status Date / Time Iodinated Contrast Media Allergy Dyspnea Verified 07/19/22 20:57 [Iodinated Contrast- Oral and IV Dye] Penicillins Allergy Rash/Hives Verified 07/19/22 20:57 banana AdvReac CRAMPS IN Verified 07/19/22 20:57 LEGS pineapple AdvReac CRAMPS IN Verified 07/19/22 20:57 LEGS Physical Exam Vitals: Vital Signs Temp Pulse Resp BP Pulse Ox 07/21/22 06:59 98.3 F 78 18 119/70 96 07/21/22 02:00 98.8 F 80 18 149/76 96 07/20/22 20:00 97.8 F 86 16 175/74 96 07/20/22 13:47 97.6 F 92 16 145/75 95 Intake and Output 07/20/22 07/21/22 07/21/22 22:59 06:59 14:59 Output Total 425 500 Balance -425 -500 Output: Urine 425 500 Other: Voiding Method External Catheter Results 07/19/22 19:36 07/21/22 07:17 Current Medications Generic Name Dose Route Start Last Admin Trade Name Freq PRN Reason Stop Dose Admin Allopurinol 300 mg 07/20/22 09:00 07/21/22 08:42 Allopurinol 300 Mg Tab PO 300 mg DAILY KRISTIN Administration Barium Sulfate 450 ml 07/20/22 13:14 07/20/22 16:41 Barium Sulfate 450 Ml Oral.Susp Bottle PO 07/21/22 13:16 450 ml Q3HR PRN Administration CT Scan Dextrose/Water 25 ml 07/20/22 07:17 Dextrose 50% Syringe 50 Ml IVP PER PROTOCOL PRN Hypoglycemia Protocol Dextrose/Water 50 ml 07/20/22 07:17 Dextrose 50% Syringe 50 Ml IVP PER PROTOCOL PRN Hypoglycemia Protocol Ergocalciferol 1,250 mcg 07/21/22 09:00 07/21/22 08:42 Ergocalciferol 1,250 Mcg (50,000 Iu) Capsule PO 1,250 mcg TUFR KRISTIN Administration Sodium Chloride 1,000 mls @ 100 mls/hr 07/20/22 07:45 07/21/22 07:32 Saline 0.9% IV Not Given .Q10H KRISTIN Insulin Aspart 0 unit 07/20/22 07:30 07/21/22 07:33 Insulin Aspart (Novolog) 100 Unit/Ml Vial SQ Not Given [facility] Protocol Levothyroxine Sodium 100 mcg 07/20/22 07:30 07/21/22 05:25 Levothyroxine 100 Mcg Tab PO Not Given 0630 [facility] Magnesium Oxide 400 mg 07/20/22 09:00 07/21/22 08:42 Magnesium Oxide 400 Mg Tab PO 400 mg BID KRISTIN Administration Morphine Sulfate 1 mg 07/20/22 03:16 07/21/22 00:38 Morphine Sulfate 2 Mg/Ml Syringe IVP 1 mg Q4HR PRN Administration Pain Ondansetron HCl 4 mg 07/20/22 13:36 07/21/22 00:38 Ondansetron 4 Mg/2 Ml Vial IVP 4 mg Q6HR PRN Administration Nausea And Vomiting Pantoprazole Sodium 40 mg 07/20/22 09:00 07/21/22 08:42 Pantoprazole 40 Mg Tablet PO 40 mg DAILY KRISTIN Administration Intake and Output 07/20/22 07/21/22 07/21/22 22:59 06:59 14:59 Output Total 425 500 Balance -425 -500 Output: Urine 425 500 Other: Voiding Method External Catheter 07/19/22 19:36 07/19/22 19:36
--- NOTE | 2022-07-21 09:57 | CA ---
Transthoracic Echo Report Name: Samanta Alvarenga Age: 81 Gender: F : 1940 Exam Date: 07/21/2022 08:05 Exam Location: [facility] Ht (in): 59 Wt (lb): 240 Ordering Physician: Sahra Ashley MD Attending/Referring Phys: Gabi GOLDSTEIN Incising Machine Operator Erma Wilder RDCS Procedure CPT: Indications: cardiac arrhythmia Cardiac Hx: Technical Quality: Fair Contrast 1: Total Dose (mL): Contrast 2: Total Dose (mL): MEASUREMENTS (Male / Female) Normal Values 2D ECHO LV Diastolic Diameter PLAX 4.8 cm 4.2 - 5.9 / 3.9 - 5.3 cm LV Systolic Diameter PLAX 3.4 cm IVS Diastolic Thickness 1.2 cm 0.6 - 1.0 / 0.6 - 0.9 cm LVPW Diastolic Thickness 1.3 cm 0.6 - 1.0 / 0.6 - 0.9 cm LV Relative Wall Thickness 0.5 RV Internal Dim ED PLAX 2.8 cm LA Systolic Diameter LX 3.6 cm 3.0 - 4.0 / 2.7 - 3.8 cm LV Diastolic Volume MOD 4C 76.8 cm??? LV Systolic Volume MOD 4C 46.5 cm??? LV Ejection Fraction MOD 4C 39.4 % LV Diastolic Length 4C 7.5 cm LV Systolic Length 4C 6.5 cm LV Diastolic Volume MOD 2C 106.5 cm??? LV Systolic Volume MOD 2C 59.7 cm??? LV Ejection Fraction MOD 2C 43.9 % LV Diastolic Length 2C 7.7 cm LV Systolic Length 2C 7.0 cm LA Volume 49.7 cm??? 18 - 58 / 22 - 52 cm??? M-MODE Aortic Root Diameter MM 3.0 cm MV E Point Septal Separation 0.6 cm AV Cusp Separation MM 1.7 cm DOPPLER AV Peak Velocity 140.5 cm/s AV Peak Gradient 7.9 mmHg MV Area PHT 4.2 cm??? Mitral E Point Velocity 92.1 cm/s Mitral A Point Velocity 127.0 cm/s Mitral E to A Ratio 0.7 MV Deceleration Time 181.1 ms MV E' Velocity 5.7 cm/s Mitral E to MV E' Ratio 16.1 FINDINGS Left Ventricle Left ventricular ejection fraction is estimated at 55 %. Left ventricular cavity size normal. Mild concentric left ventricular hypertrophy. Overall LV function is fairly well-preserved. Endocardial margins are not well seen Right Ventricle Normal right ventricular size and function. Unable to estimate the right ventricular systolic pressure. Right Atrium Normal right atrial size. Left Atrium Normal left atrial size. Mitral Valve Structurally normal mitral valve. No mitral stenosis, regurgitation or prolapse. Aortic Valve Trileaflet aortic valve. No aortic valve stenosis or regurgitation. Tricuspid Valve Structurally normal tricuspid valve. No tricuspid stenosis, regurgitation or prolapse. Pulmonic Valve Pulmonic valve not well visualized. Pericardium Normal pericardium. No pericardial effusion. Aorta Normal size aortic root and proximal ascending aorta. CONCLUSIONS Normal LV size and systolic function. No significant abnormality on the Doppler exam. No pericardial effusion. Endocardial margins are not very well seen. Previewed by: Dr. Kassie Grace MD (Electronically Signed) Final Date: 21 Jul 2022 09:56
[2022-07-21 11:15] LABS: Glucose,Whole Blood 184 mg/dL (70-110)
--- NOTE | 2022-07-21 16:05 | P.PN ---
Subjective Progress Note Date: 07/21/22 CHIEF COMPLAINT: Abdominal pain HISTORY OF PRESENT ILLNESS: Patient continues to complain of the same abdominal discomfort. She reports pain is controlled. Denies any nausea vomiting she did have a small bowel movement. She has been seen by cardiology and consider her a moderate to high risk for surgical intervention. Afebrile. Creatinine is down from 1.41-1.23 PHYSICAL EXAM: VITAL SIGNS: Reviewed GENERAL: Well-developed in no acute distress. HEENT: No sclera icterus. Extraocular movements grossly intact. Moist buccal mucosa. Head is atraumatic, normocephalic. Hears conversational speech. No nasal drainage. NECK: Supple without lymphadenopathy. CHEST: Non-labored respirations and equal bilateral excursions. CARDIOVASCULAR: Palpable 2+ radial pulses. ABDOMEN: Soft. Nondistended. Tender with palpation in the mid abdomen and left lower abdomen MUSCULOSKELETAL: No clubbing or cyanosis. NEUROLOGIC: No focal or lateralizing signs. Cranial nerves II through XII grossly intact. PSYCH: Appropriate affect. Alert and oriented to person, place and time. SKIN: Well perfused. Good skin turgor. ASSESSMENT: 1. Incarcerated ventral hernia with involvement of small bowel PLAN: -Patient scheduled for Robotic incarcerated ventral hernia repair with bowel resection on 07/24/[address] Ashley -Continue regular diet -Continue supportive care Physician Detention Officer note has been reviewed by physician. Signing provider agrees with the documented findings, assessment, and plan of care. Objective - Vital Signs Vital signs: Vital Signs Temp 98.3 F 07/21/22 06:59 Pulse 78 07/21/22 06:59 Resp 18 07/21/22 06:59 BP 119/70 07/21/22 06:59 Pulse Ox 96 07/21/22 06:59 FiO2 Intake & Output 07/20/22 07/21/22 07/21/22 18:59 06:59 18:59 Output Total 425 500 Balance -425 -500 Output: Urine 425 500 Other: Voiding Method External Catheter External Catheter - Labs CBC & Chem 7: 07/19/22 19:36 07/21/22 07:17 Labs: Abnormal Lab Results - Last 24 Hours (Table) 07/20/22 07/20/22 07/21/22 Range/Units 16:38 19:00 06:22 Sodium (137-145) mmol/L BUN (7-17) mg/dL Creatinine (0.52-1.04) mg/dL Glucose (74-99) mg/dL POC Glucose (mg/dL) 150 H 139 H 137 H (70-110) mg/dL 07/21/22 07/21/22 Range/Units 07:17 11:14 Sodium 136 L (137-145) mmol/L BUN 21 H (7-17) mg/dL Creatinine 1.23 H (0.52-1.04) mg/dL Glucose 137 H (74-99) mg/dL POC Glucose (mg/dL) 184 H (70-110) mg/dL
[2022-07-21 16:30] LABS: Glucose,Whole Blood 219 mg/dL (70-110)
--- NOTE | 2022-07-21 19:16 | P.PN ---
Progress Note - Text Progress Note Date: 07/21/22 Chief Complaint: Abdominal pain This is a pleasant 81-year-old, follows with Dr. Church. Chronic stable medical conditions include diabetes, GERD, hypertension, hiatal hernia, anxiety depression. Patient does use electric chair to get about. Patient's had chronic abdominal pain. Pain doesn't radiate. Normally has a bowel movement every 2 or 3 days. No fever no chills. Does not need between diarrhea and constipation. Patient initially presented to [facility]. Computed tomography scan showed possible incarcerated hernia within the anterior lateral left lower abdomen. No obvious obstruction. Patient was sent down here for higher level of care for surgical evaluation by Dr. Andre. Patient's appetite is otherwise fair. July 21: Still has abdominal pain. Some decrease in diarrhea. Patient placed on regular diet by surgery. Scheduled for surgery on Sunday by Dr. Andre. Active Medications Allopurinol (Allopurinol 300 Mg Tab) 300 mg PO DAILY [facility] Last Admin: 07/21/22 08:42 Dose: 300 mg Dextrose/Water (Dextrose 50% Syringe 50 Ml) 25 ml IVP PER PROTOCOL PRN; Protocol PRN Reason: Hypoglycemia Dextrose/Water (Dextrose 50% Syringe 50 Ml) 50 ml IVP PER PROTOCOL PRN; Protocol PRN Reason: Hypoglycemia Ergocalciferol (Ergocalciferol 1,250 Mcg (50,000 Iu) Capsule) 1,250 mcg PO TUFR [facility] Last Admin: 07/21/22 08:42 Dose: 1,250 mcg Sodium Chloride (Saline 0.9%) 1,000 mls @ 100 mls/hr IV .Q10H [facility] Last Admin: 07/21/22 15:09 Dose: Not Given Insulin Aspart (Insulin Aspart (Novolog) 100 Unit/Ml Vial) 0 unit SQ AC-TID [facility]; Protocol Last Admin: 07/21/22 17:23 Dose: 4 unit Levothyroxine Sodium (Levothyroxine 100 Mcg Tab) 100 mcg PO 0630 [facility] Last Admin: 07/21/22 05:25 Dose: Not Given Magnesium Oxide (Magnesium Oxide 400 Mg Tab) 400 mg PO BID [facility] Last Admin: 07/21/22 08:42 Dose: 400 mg Morphine Sulfate (Morphine Sulfate 2 Mg/Ml Syringe) 1 mg IVP Q4HR PRN PRN Reason: Pain Last Admin: 07/21/22 00:38 Dose: 1 mg Ondansetron HCl (Ondansetron 4 Mg/2 Ml Vial) 4 mg IVP Q6HR PRN PRN Reason: Nausea And Vomiting Last Admin: 07/21/22 00:38 Dose: 4 mg Pantoprazole Sodium (Pantoprazole 40 Mg Tablet) 40 mg PO DAILY [facility] Last Admin: 07/21/22 08:42 Dose: 40 mg Past medical history to include: Diabetes, GERD, hypertension, hiatal hernia, anxiety depression Social history: No smoking or alcohol. Does use electric chair. Lives in a senior apartment. Patient's daughter is the caregiver. Physical examination: VITAL SIGNS: 98.3, 78, 18, 119 with 70, 96% room air GENERAL: BMI 48.5, laying in bed , not in distress. EYES: Pupils equal. Conjunctiva normal. HEENT: External appearance of nose and ears normal, oral cavity grossly normal. NECK: JVD unable to assess; masses not palpable. HEART: Heart sounds distant; no edema. LUNGS: Respiratory rate normal; breath sounds distant. ABDOMEN: Soft, left-sided tenderness, no guarding rigidity, liver spleen not palpable, no masses palpable. PSYCH: Alert and oriented x3; mood and affect normal. MUSCULOSKELETAL:No Clubbing/cyanosis;muscles-grossly intact INVESTIGATIONS, reviewed in the clinical context: 2-D echocardiogram: EF 55%. Renal ultrasound: Right kidney some cortical thinning. Left kidney some cortica l thinning. July 21: Potassium 3.9 BUN 21 creatinine 1.23 White count 9.7 hemoglobin 11.1 platelets 232 sodium 137 potassium 3.9 BUN 31 and creatinine 1.41 CRP 3.2 Computed tomography scan was done at [facility] Assessment and plan: -Possible left abdominal ventral wall hernia possibly incarcerated on regular diet by Dr. Andre and patient scheduled for surgery on Sunday -Morbid obesity BMI 48.5 Weight loss measures -Hypothyroid Synthroid 100 g a day -Hyperuricemia Allopurinol 300 mg a day -Diabetes mellitus type 2 and oral hypoglycemic Hold Glucophage and Glucotrol. 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 -Chronic medical debility, patient is at baseline uses electric wheelchair Put on regular diet by surgery. Surgery scheduled on Sunday.
[2022-07-21 19:50] LABS: Glucose,Whole Blood 285 mg/dL (70-110)
[2022-07-21] MEDS: ENOXAPARIN 30 MG/0.3 ML SYRINGE SQ SCH (21:27)
[2022-07-21] MEDS: INSULIN DETEMIR (LEVEMIR) 100 UNIT/ML SYR SQ SCH (21:27)
[2022-07-22 05:57] LABS: Glucose,Whole Blood 187 mg/dL (70-110)
[2022-07-22] MEDS: SODIUM CHLORIDE 0.9% 1,000 ML IV SCH (06:22)
[2022-07-22] MEDS: LEVOTHYROXINE 100 MCG TAB PO SCH (06:23)
[2022-07-22] MEDS: INSULIN ASPART (NovoLOG) 100 UNIT/ML VIAL SQ SCH ×4 (06:23→17:12)
[2022-07-22 07:53] LABS: African American GFR (CKD) 45 (>60 ml/min/1.73 sqM); Anion Gap 6 mmol/L; Blood Urea Nitrogen 16 mg/dL (7-17); Calcium 8.6 mg/dL (8.4-10.2); Carbon Dioxide 28 mmol/L (22-30); Chloride 103 mmol/L (98-107); Glucose 152 mg/dL (74-99); Non-African American GFR(CKD) 39 (>60 ml/min/1.73 sqM); Potassium 4.1 mmol/L (3.5-5.1); Sodium 137 mmol/L (137-145)
[2022-07-22] MEDS: ENOXAPARIN 30 MG/0.3 ML SYRINGE SQ SCH (07:59)
[2022-07-22] MEDS: allopurinoL 300 MG TAB PO SCH (08:01)
[2022-07-22] MEDS: PANTOPRAZOLE 40 MG TABLET PO SCH (08:01)
[2022-07-22] MEDS: MAGNESIUM OXIDE 400 MG TAB PO SCH ×2 (08:01→20:39)
--- NOTE | 2022-07-22 10:40 | P.PN ---
Subjective Progress Note Date: 07/22/22 Principal diagnosis: Incarcerated ventral hernia Patient doing well today. She is sitting up in in the chair. Tolerating diet. No nausea or vomiting. Only mild abdominal discomfort. Objective - Vital Signs Vital signs: Vital Signs Temp 97.6 F 07/22/22 08:00 Pulse 75 07/22/22 08:00 Resp 17 07/22/22 08:00 BP 152/70 07/22/22 08:00 Pulse Ox 95 07/22/22 08:00 FiO2 Intake & Output 07/21/22 07/22/22 07/22/22 18:59 06:59 18:59 Intake Total 1080 Output Total 800 950 Balance 280 -950 Intake: Oral 1080 Output: Urine 800 950 Other: Voiding Method External Catheter External Catheter - Exam Abdomen: Soft, nondistended, mild tenderness at hernia site - Labs CBC & Chem 7: 07/19/22 19:36 07/22/22 05:31 Labs: Abnormal Lab Results - Last 24 Hours (Table) 07/21/22 07/21/22 07/21/22 Range/Units 11:14 16:29 19:49 Creatinine (0.52-1.04) mg/dL Glucose (74-99) mg/dL POC Glucose (mg/dL) 184 H 219 H 285 H (70-110) mg/dL 07/22/22 07/22/22 Range/Units 05:31 05:56 Creatinine 1.29 H (0.52-1.04) mg/dL Glucose 152 H (74-99) mg/dL POC Glucose (mg/dL) 187 H (70-110) mg/dL Assessment and Plan (1) Abdominal pain Narrative/Plan: 81-year-old female with abdominal wall hernia. Continue diet for now. Patient is scheduled for surgery on Sunday. Patient is requesting a sleeping pill. We'll provide. Current Visit: Yes Status: Acute Code(s): R10.9 - UNSPECIFIED ABDOMINAL PAIN SNOMED Code(s): 91279356
[2022-07-22] MEDS: MORPHINE SULFATE 2 MG/ML SYRINGE IVP PRN ×2 (10:57→21:36)
[2022-07-22 11:12] LABS: Glucose,Whole Blood 253 mg/dL (70-110)
--- NOTE | 2022-07-22 14:01 | P.PN ---
Progress Note - Text Progress Note Date: 07/22/22 Chief Complaint: Abdominal pain This is a pleasant 81-year-old, follows with Dr. Church. Chronic stable medical conditions include diabetes, GERD, hypertension, hiatal hernia, anxiety depression. Patient does use electric chair to get about. Patient's had chronic abdominal pain. Pain doesn't radiate. Normally has a bowel movement every 2 or 3 days. No fever no chills. Does not need between diarrhea and constipation. Patient initially presented to [facility]. Computed tomography scan showed possible incarcerated hernia within the anterior lateral left lower abdomen. No obvious obstruction. Patient was sent down here for higher level of care for surgical evaluation by Dr. Andre. Patient's appetite is otherwise fair. July 21: Still has abdominal pain. Some decrease in diarrhea. Patient placed on regular diet by surgery. Scheduled for surgery on Sunday by Dr. Andre. July 22: Up in a recliner. Some abdominal pain. Tolerating diet. Scheduled for surgery Sunday. No nausea vomiting. Active Medications Allopurinol (Allopurinol 300 Mg Tab) 300 mg PO DAILY [facility] Last Admin: 07/22/22 08:01 Dose: 300 mg Dextrose/Water (Dextrose 50% Syringe 50 Ml) 25 ml IVP PER PROTOCOL PRN; Protocol PRN Reason: Hypoglycemia Dextrose/Water (Dextrose 50% Syringe 50 Ml) 50 ml IVP PER PROTOCOL PRN; Protocol PRN Reason: Hypoglycemia Enoxaparin Sodium (Enoxaparin 30 Mg/0.3 Ml Syringe) 30 mg SQ DAILY [facility] Last Admin: 07/22/22 07:59 Dose: 30 mg Ergocalciferol (Ergocalciferol 1,250 Mcg (50,000 Iu) Capsule) 1,250 mcg PO TUFR [facility] Last Admin: 07/21/22 08:42 Dose: 1,250 mcg Sodium Chloride (Saline 0.9%) 1,000 mls @ 50 mls/hr IV .Q20H [facility] Last Admin: 07/22/22 06:22 Dose: 50 mls/hr Insulin Aspart (Insulin Aspart (Novolog) 100 Unit/Ml Vial) 0 unit SQ AC-TID [facility]; Protocol Last Admin: 07/22/22 12:03 Dose: 6 unit Insulin Detemir (Insulin Detemir (Levemir) 100 Unit/Ml Syr) 10 unit SQ HS [facility] Last Admin: 07/21/22 21:27 Dose: 10 unit Levothyroxine Sodium (Levothyroxine 100 Mcg Tab) 100 mcg PO 0630 [facility] Last Admin: 07/22/22 06:23 Dose: 100 mcg Magnesium Oxide (Magnesium Oxide 400 Mg Tab) 400 mg PO BID [facility] Last Admin: 07/22/22 08:01 Dose: 400 mg Morphine Sulfate (Morphine Sulfate 2 Mg/Ml Syringe) 1 mg IVP Q4HR PRN PRN Reason: Pain Last Admin: 07/22/22 10:57 Dose: 1 mg Ondansetron HCl (Ondansetron 4 Mg/2 Ml Vial) 4 mg IVP Q6HR PRN PRN Reason: Nausea And Vomiting Last Admin: 07/21/22 00:38 Dose: 4 mg Pantoprazole Sodium (Pantoprazole 40 Mg Tablet) 40 mg PO DAILY [facility] Last Admin: 07/22/22 08:01 Dose: 40 mg Zolpidem Tartrate (Zolpidem 5 Mg Tab) 5 mg PO HS PRN PRN Reason: Insomnia Past medical history to include: Diabetes, GERD, hypertension, hiatal hernia, anxiety depression Social history: No smoking or alcohol. Does use electric chair. Lives in a senior apartment. Patient's daughter is the caregiver. Physical examination: VITAL SIGNS: 97.6, 75, 17, 152/70, 95% room air GENERAL: BMI 48.5, and a recliner, not in distress. EYES: Pupils equal. Conjunctiva normal. HEENT: External appearance of nose and ears normal, oral cavity grossly normal. NECK: JVD unable to assess; masses not palpable. HEART: Heart sounds distant; no edema. LUNGS: Respiratory rate normal; breath sounds distant. ABDOMEN: Soft, left-sided tenderness, no guarding rigidity, liver spleen not palpable, no masses palpable. PSYCH: Alert and oriented x3; mood and affect normal. MUSCULOSKELETAL:No Clubbing/cyanosis;muscles-grossly intact INVESTIGATIONS, reviewed in the clinical context: July 22: Potassium 4.1 creatinine 1.29 2-D echocardiogram: EF 55%. Renal ultrasound: Right kidney some cortical thinning. Left kidney some cortical thinning. July 21: Potassium 3.9 BUN 21 creatinine 1.23 White count 9.7 hemoglobin 11.1 platelets 232 sodium 137 potassium 3.9 BUN 31 and creatinine 1.41 CRP 3.2 Computed tomography scan was done at [facility] Assessment and plan: -Possible left abdominal ventral wall hernia possibly incarcerated on regular diet by Dr. Andre and patient scheduled for surgery on Sunday -Morbid obesity BMI 48.5 Weight loss measures -Hypothyroid Synthroid 100 g a day -Hyperuricemia Allopurinol 300 mg a day -Diabetes mellitus type 2 and oral hypoglycemic Hold Glucophage and Glucotrol. 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 -Chronic medical debility, patient is at baseline uses electric wheelchair On regular diet. Scheduled for surgery Sunday. Discussed with patient.
[2022-07-22 16:27] LABS: Glucose,Whole Blood 217 mg/dL (70-110)
[2022-07-22] MEDS: INSULIN DETEMIR (LEVEMIR) 100 UNIT/ML SYR SQ SCH (20:39)
[2022-07-22] MEDS: ZOLPIDEM 5 MG TAB PO PRN (20:41)
[2022-07-22 21:27] LABS: Glucose,Whole Blood 200 mg/dL (70-110)
[2022-07-23] MEDS: SODIUM CHLORIDE 0.9% 1,000 ML IV SCH ×2 (00:50→20:54)
[2022-07-23 06:22] LABS: Glucose,Whole Blood 148 mg/dL (70-110)
[2022-07-23] MEDS: INSULIN ASPART (NovoLOG) 100 UNIT/ML VIAL SQ SCH ×3 (06:41→16:59)
[2022-07-23] MEDS: LEVOTHYROXINE 100 MCG TAB PO SCH (06:52)
[2022-07-23] MEDS: MORPHINE SULFATE 2 MG/ML SYRINGE IVP PRN ×3 (07:32→20:53)
[2022-07-23] MEDS: ENOXAPARIN 30 MG/0.3 ML SYRINGE SQ SCH (07:32)
[2022-07-23] MEDS: allopurinoL 300 MG TAB PO SCH (07:32)
[2022-07-23] MEDS: MAGNESIUM OXIDE 400 MG TAB PO SCH ×2 (07:32→20:53)
[2022-07-23] MEDS: PANTOPRAZOLE 40 MG TABLET PO SCH (07:32)
[2022-07-23] MEDS: LACTATED RINGERS 1,000 ML IV SCH (07:34)
--- NOTE | 2022-07-23 10:08 | P.PN ---
Subjective Progress Note Date: 07/23/22 Principal diagnosis: Incarcerated ventral hernia Patient doing well today. Denies pain. Tolerating diet. No nausea or vomiting. Objective - Vital Signs Vital signs: Vital Signs Temp 98 F 07/23/22 06:47 Pulse 71 07/23/22 06:47 Resp 20 07/23/22 06:47 BP 150/69 07/23/22 06:47 Pulse Ox 96 07/23/22 06:47 FiO2 Intake & Output 07/22/22 07/23/22 07/23/22 18:59 06:59 18:59 Intake Total 100 180 Output Total 900 250 Balance 100 -900 -70 Weight 108.862 kg Intake: Oral 100 180 Output: Urine 900 250 Other: Voiding Method External Catheter External Catheter # Voids 4 - Exam Abdomen: Soft, nondistended, mild tenderness at hernia site - Labs CBC & Chem 7: 07/19/22 19:36 07/22/22 05:31 Labs: Abnormal Lab Results - Last 24 Hours (Table) 07/22/22 07/22/22 07/22/22 Range/Units 11:11 16:26 21:26 POC Glucose (mg/dL) 253 H 217 H 200 H (70-110) mg/dL 07/23/22 Range/Units 06:21 POC Glucose (mg/dL) 148 H (70-110) mg/dL Assessment and Plan (1) Abdominal pain Narrative/Plan: Patient doing well at this time. Nothing by mouth after midnight for re-repair tomorrow. Current Visit: Yes Status: Acute Code(s): R10.9 - UNSPECIFIED ABDOMINAL PAIN SNOMED Code(s): 70320681
[2022-07-23 11:24] LABS: Glucose,Whole Blood 231 mg/dL (70-110)
[2022-07-23 16:48] LABS: Glucose,Whole Blood 250 mg/dL (70-110)
[2022-07-23 20:32] LABS: Glucose,Whole Blood 255 mg/dL (70-110)
[2022-07-23] MEDS: INSULIN DETEMIR (LEVEMIR) 100 UNIT/ML SYR SQ SCH (20:53)
[2022-07-23] MEDS: ZOLPIDEM 5 MG TAB PO PRN (20:53)
[2022-07-24] MEDS: LEVOTHYROXINE 100 MCG TAB PO SCH (05:24)
[2022-07-24 05:41] LABS: Glucose,Whole Blood 178 mg/dL (70-110)
[2022-07-24] MEDS: INSULIN ASPART (NovoLOG) 100 UNIT/ML VIAL SQ SCH ×3 (06:03→19:42)
[2022-07-24] MEDS ORDERED: HYDROmorphone 0.5 MG/0.5 ML SYRINGE IVP PRN (07:00)
[2022-07-24] MEDS: MORPHINE SULFATE 2 MG/ML SYRINGE IVP PRN ×2 (07:34→12:05)
[2022-07-24] MEDS: ENOXAPARIN 30 MG/0.3 ML SYRINGE SQ SCH (07:38)
[2022-07-24] MEDS: MAGNESIUM OXIDE 400 MG TAB PO SCH (07:38)
[2022-07-24] MEDS: PANTOPRAZOLE 40 MG TABLET PO SCH (07:38)
[2022-07-24] MEDS: allopurinoL 300 MG TAB PO SCH (07:38)
[2022-07-24 11:31] LABS: Glucose,Whole Blood 145 mg/dL (70-110)
[2022-07-24] MEDS: ONDANSETRON 4 MG/2 ML VIAL IVP PRN (12:05)
--- NOTE | 2022-07-24 16:12 | P.PN ---
Progress Note - Text Progress Note Date: 07/23/22 Chief Complaint: Abdominal pain This is a pleasant 81-year-old, follows with Dr. Church. Chronic stable medical conditions include diabetes, GERD, hypertension, hiatal hernia, anxiety depression. Patient does use electric chair to get about. Patient's had chronic abdominal pain. Pain doesn't radiate. Normally has a bowel movement every 2 or 3 days. No fever no chills. Does not need between diarrhea and constipation. Patient initially presented to [facility]. Computed tomography scan showed possible incarcerated hernia within the anterior lateral left lower abdomen. No obvious obstruction. Patient was sent down here for higher level of care for surgical evaluation by Dr. Andre. Patient's appetite is otherwise fair. July 21: Still has abdominal pain. Some decrease in diarrhea. Patient placed on regular diet by surgery. Scheduled for surgery on Sunday by Dr. Andre. July 22: Up in a recliner. Some abdominal pain. Tolerating diet. Scheduled for surgery Sunday. No nausea vomiting. July 23: Reclining in bed. Tired all pain present. No fever no chills. Pending surgery Current medications reviewed Past medical history to include: Diabetes, GERD, hypertension, hiatal hernia, anxiety depression Social history: No smoking or alcohol. Does use electric chair. Lives in a senior apartment. Patient's daughter is the caregiver. Physical examination: VITAL SIGNS: 98, 71, 20, 150/69, 96% room air GENERAL: BMI 48.5, in bed not in distress. EYES: Pupils equal. Conjunctiva normal. HEENT: External appearance of nose and ears normal, oral cavity grossly normal. NECK: JVD unable to assess; masses not palpable. HEART: Heart sounds distant; no edema. LUNGS: Respiratory rate normal; breath sounds distant. ABDOMEN: Soft, left-sided tenderness, no guarding rigidity, liver spleen not palpable, no masses palpable. PSYCH: Alert and oriented x3; mood and affect normal. MUSCULOSKELETAL:No Clubbing/cyanosis;muscles-grossly intact INVESTIGATIONS, reviewed in the clinical context: July 22: Potassium 4.1 creatinine 1.29 2-D echocardiogram: EF 55%. Renal ultrasound: Right kidney some cortical thinning. Left kidney some cortical thinning. July 21: Potassium 3.9 BUN 21 creatinine 1.23 White count 9.7 hemoglobin 11.1 platelets 232 sodium 137 potassium 3.9 BUN 31 and creatinine 1.41 CRP 3.2 Computed tomography scan was done at [facility] Assessment and plan: -Possible left abdominal ventral wall hernia possibly incarcerated on regular diet by Dr. Andre and patient scheduled for surgery on Sunday -Morbid obesity BMI 48.5 Weight loss measures -Hypothyroid Synthroid 100 g a day -Hyperuricemia Allopurinol 300 mg a day -Diabetes mellitus type 2 and oral hypoglycemic Hold Glucophage and Glucotrol. 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 -Chronic medical debility, patient is at baseline uses electric wheelchair regular diet. Scheduled for surgery Sunday. Continue current treatment.
--- NOTE | 2022-07-24 16:13 | P.PN ---
Progress Note - Text Progress Note Date: 07/24/22 Chief Complaint: Abdominal pain This is a pleasant 81-year-old, follows with Dr. Church. Chronic stable medical conditions include diabetes, GERD, hypertension, hiatal hernia, anxiety depression. Patient does use electric chair to get about. Patient's had chronic abdominal pain. Pain doesn't radiate. Normally has a bowel movement every 2 or 3 days. No fever no chills. Does not need between diarrhea and constipation. Patient initially presented to [facility]. Computed tomography scan showed possible incarcerated hernia within the anterior lateral left lower abdomen. No obvious obstruction. Patient was sent down here for higher level of care for surgical evaluation by Dr. Andre. Patient's appetite is otherwise fair. July 21: Still has abdominal pain. Some decrease in diarrhea. Patient placed on regular diet by surgery. Scheduled for surgery on Sunday by Dr. Andre. July 22: Up in a recliner. Some abdominal pain. Tolerating diet. Scheduled for surgery Sunday. No nausea vomiting. July 23: Reclining in bed. Tired all pain present. No fever no chills. Pending surgery July 24: Patient seen this morning. Pending surgery later today. Abdominal pain present. Nothing by mouth. Active Medications Allopurinol (Allopurinol 300 Mg Tab) 300 mg PO DAILY [facility] Last Admin: 07/24/22 07:38 Dose: Not Given Dextrose/Water (Dextrose 50% Syringe 50 Ml) 25 ml IVP PER PROTOCOL PRN; Protocol PRN Reason: Hypoglycemia Dextrose/Water (Dextrose 50% Syringe 50 Ml) 50 ml IVP PER PROTOCOL PRN; Protocol PRN Reason: Hypoglycemia Enoxaparin Sodium (Enoxaparin 30 Mg/0.3 Ml Syringe) 30 mg SQ DAILY [facility] Last Admin: 07/24/22 07:38 Dose: Not Given Ergocalciferol (Ergocalciferol 1,250 Mcg (50,000 Iu) Capsule) 1,250 mcg PO TUFR [facility] Last Admin: 07/21/22 08:42 Dose: 1,250 mcg Hydromorphone HCl (Hydromorphone 0.5 Mg/0.5 Ml Syringe) 0.5 mg IVP Q5M PRN PRN Reason: Phase 1 or 2 - Pain Control Stop: 07/24/22 23:00 Sodium Chloride (Saline 0.9%) 1,000 mls @ 50 mls/hr IV .Q20H [facility] Last Admin: 07/23/22 20:54 Dose: 50 mls/hr Lactated Ringer's (Lactated Ringers) 1,000 mls @ 20 mls/hr IV .Q24H [facility] Last Admin: 07/23/22 07:34 Dose: Not Given Insulin Aspart (Insulin Aspart (Novolog) 100 Unit/Ml Vial) 0 unit SQ AC-TID [facility]; Protocol Last Admin: 07/24/22 11:59 Dose: Not Given Insulin Detemir (Insulin Detemir (Levemir) 100 Unit/Ml Syr) 10 unit SQ HS [facility] Last Admin: 07/23/22 20:53 Dose: 10 unit Levothyroxine Sodium (Levothyroxine 100 Mcg Tab) 100 mcg PO 0630 [facility] Last Admin: 07/24/22 05:24 Dose: Not Given Magnesium Oxide (Magnesium Oxide 400 Mg Tab) 400 mg PO BID [facility] Last Admin: 07/24/22 07:38 Dose: Not Given Morphine Sulfate (Morphine Sulfate 2 Mg/Ml Syringe) 1 mg IVP Q4HR PRN PRN Reason: Pain Last Admin: 07/24/22 12:05 Dose: 1 mg Ondansetron HCl (Ondansetron 4 Mg/2 Ml Vial) 4 mg IVP Q6HR PRN PRN Reason: Nausea And Vomiting Last Admin: 07/24/22 12:05 Dose: 4 mg Pantoprazole Sodium (Pantoprazole 40 Mg Tablet) 40 mg PO DAILY [facility] Last Admin: 07/24/22 07:38 Dose: Not Given Zolpidem Tartrate (Zolpidem 5 Mg Tab) 5 mg PO HS PRN PRN Reason: Insomnia Last Admin: 07/23/22 20:53 Dose: 5 mg Past medical history to include: Diabetes, GERD, hypertension, hiatal hernia, anxiety depression Social history: No smoking or alcohol. Does use electric chair. Lives in a senior apartment. Patient's daughter is the caregiver. Physical examination: VITAL SIGNS: 98.7, 82, 18, 135/86, 94% room air GENERAL: BMI 48.5, in bed not in distress. EYES: Pupils equal. Conjunctiva normal. HEENT: External appearance of nose and ears normal, oral cavity grossly normal. NECK: JVD unable to assess; masses not palpable. HEART: Heart sounds distant; no edema. LUNGS: Respiratory rate normal; breath sounds distant. ABDOMEN: Soft, left-sided tenderness, no guarding rigidity, liver spleen not palpable, no masses palpable. PSYCH: Alert and oriented x3; mood and affect normal. MUSCULOSKELETAL:No Clubbing/cyanosis;muscles-grossly intact INVESTIGATIONS, reviewed in the clinical context: July 22: Potassium 4.1 creatinine 1.29 2-D echocardiogram: EF 55%. Renal ultrasound: Right kidney some cortical thinning. Left kidney some cortical thinning. July 21: Potassium 3.9 BUN 21 creatinine 1.23 White count 9.7 hemoglobin 11.1 platelets 232 sodium 137 potassium 3.9 BUN 31 and creatinine 1.41 CRP 3.2 Computed tomography scan was done at [facility] Assessment and plan: -Possible left abdominal ventral wall hernia possibly incarcerated Pending surgery this afternoon -Morbid obesity BMI 48.5 Weight loss measures -Hypothyroid Synthroid 100 g a day -Hyperuricemia Allopurinol 300 mg a day -Diabetes mellitus type 2 and oral hypoglycemic Hold Glucophage and Glucotrol. 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 -Chronic medical debility, patient is at baseline uses electric wheelchair Nothing by mouth. Pending surgery this afternoon.
[2022-07-24 16:22] LABS: Glucose,Whole Blood 149 mg/dL (70-110)
[2022-07-24] MEDS ORDERED: NEOSTIGMINE 1 MG/ML 10 ML VIAL ONE (18:06)
[2022-07-24] MEDS ORDERED: fentaNYL (PF) 50 MCG/ML 2 ML AMP ONE (18:06)
[2022-07-24] MEDS ORDERED: LIDOCAINE 2% INJ 20 MG/ML (2 ML VIAL) ONE (18:06)
[2022-07-24] MEDS ORDERED: ROCURONIUM 10 MG/ML (5 ML VIAL) IV ONE (18:06)
[2022-07-24] MEDS ORDERED: KETAMINE 10 MG/ML 20 ML VIAL ONE (18:06)
[2022-07-24] MEDS ORDERED: GLYCOPYRROLATE 0.2 MG/ML 2 ML VIAL ONE (18:06)
[2022-07-24] MEDS ORDERED: PROPOFOL 10 MG/ML 20 ML VIAL IV ONE (18:06)
[2022-07-24] MEDS ORDERED: SODIUM CHLORIDE 0.9% 50 ML with ceFAZolin 3,000 MG IV ONE ×2 (18:10)
[2022-07-24] MEDS ORDERED: SODIUM CHLORIDE 0.9% 1,000 ML IV ONE (18:10)
[2022-07-24] MEDS ORDERED: BUPIVACAINE (PF) 0.5% 30 ML VIAL SQ ONE (18:52)
[2022-07-24] MEDS: SODIUM CHLORIDE 0.9% 1,000 ML IV SCH (19:42)
[2022-07-24] MEDS: LACTATED RINGERS 1,000 ML IV SCH (19:46)
[2022-07-24] MEDS ORDERED: LACTATED RINGERS 1,000 ML IV ONE ×2 (19:54→23:40)
[2022-07-24] MEDS ORDERED: HYDROmorphone 0.5 MG/0.5 ML SYRINGE IVP ONE (23:57)
[2022-07-24] MEDS ORDERED: MIDAZOLAM 2 MG/2 ML VIAL IVP ONE (23:57)
[2022-07-25] MEDS ORDERED: HYDROmorphone 0.5 MG/0.5 ML SYRINGE IVP ONE ×2 (00:11→00:34)
[2022-07-25] MEDS ORDERED: MIDAZOLAM 2 MG/2 ML VIAL IVP ONE (00:12)
[2022-07-25] MEDS ORDERED: ACETAMINOPHEN IV (For NPO) 1,000 MG in EMPTY BAG 1 BAG IVPB ONE (00:15)
[2022-07-25] MEDS ORDERED: NALOXONE 0.4 MG/ML 1 ML VIAL IV PRN (00:15)
[2022-07-25 00:33] LABS: Glucose,Whole Blood 260 mg/dL (70-110)
--- NOTE | 2022-07-25 00:52 | P.OP ---
Date of Procedure: 07/24/22 Description of Procedure: SURGEON: EVELYN DUBOSE MD PREOPERATIVE DIAGNOSES: 1. Incarcerated recurrent incisional hernia abdominal pain 2. Morbid obesity due to excess calories 3. Body mass index of 48.5 4. Diabetes type 2, [id number]-sujymspgg 5. Gastroesophageal reflux disease 6. Gout 7. Hypothyroidism 8. History of breast cancer 9. Hiatal hernia 10. Generalized anxiety disorder 11. Depressive disorder 12. Chronic deficiency anemia POSTOPERATIVE DIAGNOSES: 1. 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 Morbid obesity due to excess calories 3. Body mass index of 48.5 4. Diabetes type 2, [id number]-thyyzinao 5. Gastroesophageal reflux disease 6. Gout 7. Hypothyroidism 8. History of breast cancer 9. Hiatal hernia 10. Generalized anxiety disorder 11. Depressive disorder 12. Chronic deficiency anemia 13. Severe intra-abdominal adhesions OPERATION: 1. Robotic assisted da Vicki Xi laparoscopic lysis of adhesions over 2 hours 2. Robotic assisted da Vicki Xi laparoscopic small bowel resection of enterocutaneous fistula with primary anastomosis 3. Robotic assisted da Vicki Xi laparoscopic repair of recurrent incarcerated incisional hernia with strangulation, 7 x 6 cm 4. Placement of flat #10 Kit-Mcneil drain in subcutaneous tissue ANESTHESIA: GETA and local ESTIMATED BLOOD LOSS: 10 mL SPECIMENS REMOVED: None. COMPLICATIONS: NONE. Operative Findings: 1. Recurrent incisional ventral hernia of the lower midline, 10 x 15 cm 2. Swish cheese defect of prior incisional hernia 3. Enterocutaneous fistula with the small bowel adherent to prior mesh repair from prior strangulated small bowel, left lateral abdominal wall 4. Resection of enterocutaneous fistula with 7 x 6 cm defect subcutaneous and fascial defect repaired with primary anastomosis and utilizing previous mesh 5. Small bowel resection, 20 cm of distal jejunum 6. Castellano catheter placed at the end of the case. INDICATIONS: Samanta Alvarenga is a 81-year-old female who presented as an emergency transfer from outside facility due to abnormal CT findings of incarcerated incisional hernia with abdominal pain. Cardiac risk assessment was obtained. Due to findings on computed tomography scan, repair of incisional hernia with possible small bowel resection was reviewed. Risks of bleeding, infection, need for further surgery, implantation of mesh were reviewed. Informed consent was obtained. DESCRIPTION: The patient was brought into the operating room theater. She was placed supine. She had received heparin subcutaneously for DVT prophylaxis. Second-generation was given preoperatively. After general induction, the abdomen was prepped and draped in standard sterile fashion. Ioban draping was placed along the abdomen. A timeout protocol was confirmed with the surgical team. A robotic da Vicki Xi system was prepped and primed. Incisions were proposed along the left lateral abdominal wall as her hernia was palpated just inferior to the umbilicus. A 5 mm 0 degrees laparoscopic trocar entry was performed along the left upper quadrant. The abdomen was insufflated to 15 mmHg pressure, which she tolerated well. Diagnostic laparoscopy demonstrated no injury to bowel, viscera, or mesentery. Severe midline adhesions from recurrent hernia was identified involving the small bowel and interloop adhesions. Three (3) Robotic 8 mm trochars were placed along the left lateral abdominal wall. The 5 mm trocar was exchanged for a 12 mm trocar. The patient was positioned with left side up, 3. The robot was docked over the left side of the patient. Using grasper for arm 3, a grasper for arm 1, including vessel sealer for arm 4, the robotic system was docked and primed as described. Instruments were interchanged by the certified physical therapist assistant including endoscissors, the needle limo driver, and stapler. I had sat at the console. Extensive lysis of adhesions using blunt dissection, vessel sealer and scissors with cauthery was used to free the small bowel from the abdominal wall including the mesh. Features of mesh was consistent with Marlex mesh. The small bowel was freed without enterotomy. Swish cheese defect was identified of a recurrent incisional hernia. Along the left lateral abdominal wall, the small bowel was densely adherent. Dissection was performed with finding of incarcerated small bowel creating an enterocutaneous fistula within the subcutaneous tissue. The small bowel was prepared for resection proximal and distal to the enterocutaneous fistula. Using robotic blue staple load 60 mm, the small bowel involving the enterocutaneous fistula was dissected. The mesentery was mobilized using vessel sealer. Hemostasis was excellent. Fascial defect corresponding to entero-cutaneous surgical resection was 6 cm width 7-cm length. To address the pocket, I re-scrubbed into the case for placement of a drain. #10 flat Kit-Mcneil drain was cut and placed within the subcutaneous tissue through the skin using a hemostat. I returned to the robot console. The fascia was closed using nonabsorbable #1 V LOC for the recurrent incisional hernia and incorporating the prior intact mesh with closure of small gambian cheese defects. I re-scrubbed into the case and the drain was tacked to the skin using 2-0 nylon. I had sat at the console. Attention was now brought to primary anastomosis of the small bowel resection. Enterotomies were placed along the antimesenteric border using hook cautery. 60 mm blue staple load was fired across to create a new lumen. The enterotomies were closed using similar 60 mm blue staple load. A stay suture 3-0 silk was placed on the seat of the anastomosis. The mesenteric defect was closed using absorbable 2-0 VLOC. An Endo Catch bag #10 was used for removal of the specimen at the left upper quadrant. I re-scrubbed into the case for removal specimens on the left upper quadrant trocar site. Turner Whiteside with 0 Vicryl was used to close the fascial defect. All instruments and pneumoperitoneum were evacuated from the abdominal cavity. The port correlating with the EEA stapler device was cleansed with normal saline solution and hydrogen peroxide. Optifoam dressing was placed. A bulb drain was placed to suction. The rest of incisions were reapproximated using 4-0 Monocryl in an interrupted subcuticular fashion. Local anesthetic was infiltrated along the skin for postop analgesia. Liquid glue was applied to the skin. OptiFoam dressing was placed along the EEA stapler and drain site. Castellano catheter was placed at the end of the case. At the end of the procedure, needle, sponge and instrument count had been ve rified correct by the surgical nurse practitioner. The patient had tolerated the procedure well and was extubated and taken to the postanesthesia unit in stable condition.
[2022-07-25] MEDS ORDERED: propofoL 100 ML IV ONE (01:34)
[2022-07-25 01:36] LABS: Glucose,Whole Blood 252 mg/dL (70-110)
[2022-07-25] MEDS ORDERED: INSULIN ASPART (NovoLOG) 100 UNIT/ML VIAL SQ SCH (01:45)
[2022-07-25] MEDS: INSULIN DETEMIR (LEVEMIR) 100 UNIT/ML SYR SQ SCH ×2 (02:13→21:04)
[2022-07-25 02:26] LABS: ABG Base Excess -3.5 mmol/L; ABG HCO3 23 mmol/L (21-25); ABG Oxygen Saturation 99.9 % (94-97); ABG PCO2 50 mmHg (35-45); ABG PH 7.28 (7.35-7.45); ABG PO2 239 mmHg (83-108); ABG TCO2 25 mmol/L (19-24); Allen Test Performed? Yes
[2022-07-25 02:46] LABS: Glucose,Whole Blood 254 mg/dL (70-110)
--- NOTE | 2022-07-25 03:06 | XR ---
EXAM: XR Chest, 1 View CLINICAL HISTORY: ITS.REASON XR Reason: Tube placement TECHNIQUE: Frontal view of the chest. COMPARISON: No relevant prior studies available. FINDINGS: Lungs: Shallow inspiration with vascular congestion and bibasilar atelectasis. Pleural space: Unremarkable. No pneumothorax. No pleural effusions. Heart: Unremarkable. No cardiomegaly. Mediastinum: Rotated film but otherwise unremarkable. Bones/joints: No acute osseous abnormalities. Tubes, lines and devices: Endotracheal tube with tip in the right mainstem bronchus. Nasogastric tube in position with tip coursing off the film. IMPRESSION: 1. Endotracheal tube with tip in the right mainstem bronchus. 2. Shallow inspiration with vascular congestion and bibasilar atelectasis.
[2022-07-25] MEDS: IPRATROPIUM-ALBUTEROL 3 ML NEB INHALATION SCH ×6 (04:05→20:45)
[2022-07-25 04:10] LABS: Basophils % (A) 0 %; Eosinophils % (A) 0 %; HCT 35.9 % (34.0-46.0); HGB 11.3 gm/dL (11.4-16.0); Hypochromasia Slight; Lymphocytes # (A) 0.7 k/uL (1.0-4.8); Lymphocytes % (A) 4 %; MCHC 31.5 g/dL (31.0-37.0); MCV 107.8 fL (80.0-100.0); Macrocytosis Marked; Mean Platelet Volume 9.1; Monocytes # (A) 0.8 k/uL (0-1.0); Monocytes % (A) 4 %; Neutrophils # (A) 19.1 k/uL (1.3-7.7); Neutrophils % (A) 92 %; Platelet Count 214 k/uL (150-450); RBC 3.33 m/uL (3.80-5.40); RDW 15.3 % (11.5-15.5); WBC 20.7 k/uL (3.8-10.6)
[2022-07-25 04:20] LABS: African American GFR (CKD) 49 (>60 ml/min/1.73 sqM); Anion Gap 9 mmol/L; Blood Urea Nitrogen 18 mg/dL (7-17); Calcium 8.5 mg/dL (8.4-10.2); Carbon Dioxide 23 mmol/L (22-30); Chloride 104 mmol/L (98-107); Glucose 269 mg/dL (74-99); Non-African American GFR(CKD) 42 (>60 ml/min/1.73 sqM); Sodium 136 mmol/L (137-145)
[2022-07-25 04:27] LABS: Magnesium 1.4 mg/dL (1.6-2.3); Potassium 5.1 mmol/L (3.5-5.1)
--- NOTE | 2022-07-25 04:46 | P.CNPUL ---
History of Present Illness Consult date: 07/25/22 Requesting physician: Sahra Ashley Reason for consult: other (ICU management) Chief complaint: post ventral hernia repair History of present illness: I am seeing this patient in new consultation today 07/25/2022 in the intensive care unit post incarcerated ventral hernia repair. Patient is a 81-year-old female with significant past medical history of previous ventral hernia repair, diabetes mellitus type 2, hypertension, hypothyroidism, GERD, breast cancer. Patient was transferred from [facility] on July 20. Apparently, the patient the patient had been experiencing abdominal pain the previous [address] of the abdomen pelvis without contrast on arrival to our facility showed left lower abdominal wall subcutaneous fat stranding changes near the abdominal musculature with small focus of high density suggesting small bowel herniation possibly a Painter's hernia. The patient was originally admitted to the general medical floor with supportive care. 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 While in recovery, the patient was initially extubated, but did reportedly have to be reintubated due to failure to progress. Patient was then transferred to the intensive care unit. Chest x-ray on arrival to the intensive care unit showed the endotracheal tube within the right mainstem bronchus, vascular congestion and bibasilar atelectasis, and an orogastric tube coursing below the diaphragm. The ET tube was withdrawn 3 cm. Initial ventilator settings were assist control, respiratory 18, tidal volume 350, FiO2 100%, and PEEP of 5. ABGs on these settings show a pO2 239, pCO2 50, pH is 7.28. Patient's respiratory rate was increased to 22 and FiO2 was dropped to 50%. Patient appears fairly comfortable, and is synchronous with mechanical ventilator. Propofol is infusing at 30 mics per kilogram per minute. Normal saline is infusing at 50 L per hour. Patient has not required any vasopressors. Repeat labs are pending. orogastric tube is to LIS. Vital signs are stable at this time. Patient will be monitored in the intensive care unit at least overnight. Review of Systems ROS unobtainable: due to endotracheal tube Past Medical History Past Medical History: Cancer, Diabetes Mellitus, GERD/Reflux, Hypertension, Skin Disorder Additional Past Medical History / Comment(s): HX BREAST CA. HIATAL HERNIA. ABN HGB, HAD BLOOD TRANSFUSION X2, 04/05/17; HAD EGD, COLONSCOPY, BOTH POS FOR POLYPS. RECENT UTI. LT BREAST LUMPECTOMY 04/04/17, NOT HEALED YET. History of Any Multi-Drug Resistant Organisms: None Reported Past Surgical History: Breast Surgery, Cholecystectomy, Hernia Repair, Hysterectomy Additional Past Surgical History / Comment(s): LT BREAST LUMPECTOMY 04/04/17. EGD, COLONOSCOPY 04/09/17. Past Anesthesia/Blood Transfusion Reactions: Motion Sickness Past Psychological History: Anxiety, Depression Smoking Status: Never smoker Past Alcohol Use History: None Reported Past Drug Use History: None Reported - Past Family History Brother(s) Family Medical History: Cancer Medications and Allergies Home Medications Medication Instructions Recorded Confirmed Type Aspirin [Adult Low Dose Aspirin EC] 81 mg PO DAILY 05/18/17 07/19/22 History Cetirizine HCl [Zyrtec] 10 mg PO DAILY 05/18/17 07/19/22 History Levothyroxine Sodium [Synthroid] 100 mcg PO DAILY 05/18/17 07/19/22 History allopurinoL [Zyloprim] 300 mg PO DAILY 05/18/17 07/19/22 History glipiZIDE [Glucotrol] 10 mg PO DAILY 05/18/17 07/19/22 History metFORMIN HCL [Glucophage] 1,000 mg PO BID 05/18/17 07/19/22 History Ergocalciferol (Vitamin D2) 1,250 mcg PO TUFR 07/19/22 07/19/22 History [Drisdol (50,000 Iu)] Ferrous Sulfate [Feosol] 325 mg PO FR 07/19/22 07/19/22 History Magnesium Oxide [Mag-Ox] 400 mg PO BID 07/19/22 07/19/22 History Pantoprazole Sodium [Protonix] 20 mg PO DAILY 07/19/22 07/19/22 History Nqh-Ormw-Pzxyt Acid 1 cap PO DAILY 07/19/22 07/19/22 History [-U Capsule (formulary)] hydroCHLOROthiazide 12.5 mg PO DAILY 07/19/22 07/19/22 History Allergies Allergy/AdvReac Type Severity Reaction Status Date / Time Iodinated Contrast Media Allergy Dyspnea Verified 07/19/22 20:57 [Iodinated Contrast- Oral and IV Dye] latex Allergy Rash/Hives Verified 07/24/22 12:10 Penicillins Allergy Rash/Hives Verified 07/19/22 20:57 banana AdvReac CRAMPS IN Verified 07/19/22 20:57 LEGS pineapple AdvReac CRAMPS IN Verified 07/19/22 20:57 LEGS Physical Exam Vitals: Vital Signs Temp Pulse Pulse Resp BP BP Pulse Ox 07/25/22 03:30 77 22 134/71 96 07/25/22 03:00 81 22 127/71 96 07/25/22 02:30 85 18 138/75 98 07/25/22 02:26 07/25/22 02:00 94 9 L 148/98 99 07/25/22 01:49 07/25/22 01:40 07/25/22 01:35 96.7 F L 129/60 98 07/25/22 01:30 07/25/22 01:15 94 16 173/79 100 07/25/22 01:00 93 16 167/74 100 07/25/22 00:45 92 16 156/72 100 07/25/22 00:30 93 16 160/74 100 07/25/22 00:15 91 16 119/58 99 07/25/22 00:00 98 16 129/53 98 07/24/22 23:30 72 14 124/72 90 L 07/24/22 13:56 98.8 F 95 18 125/64 91 L 07/24/22 07:16 98.7 F 82 18 135/86 94 L FiO2 07/25/22 03:30 07/25/22 03:00 07/25/22 02:30 07/25/22 02:26 50 07/25/22 02:00 07/25/22 01:49 100 07/25/22 01:40 100 07/25/22 01:35 07/25/22 01:30 100 07/25/22 01:15 07/25/22 01:00 07/25/22 00:45 07/25/22 00:30 07/25/22 00:15 07/25/22 00:00 07/24/22 23:30 07/24/22 13:56 07/24/22 07:16 Intake and Output 07/24/22 07/24/2223 14:59 22:59 06:59 Intake Total 1950 188.064 Output Total 210 Balance 1950 -21.936 Intake: IV 1950 175 Sodium Chloride 0.9% 1, 75 000 ml @ 50 mls/hr IV . Q20H KRISTIN Rx#:[id number] Intake, IV Titration 13.064 Amount propofoL 1,000 mg In 13.064 Empty Bag 1 bag @ 15 MCG/ KG/MIN 9.798 mls/hr IV . [id number] KRISTIN Rx#:[id number] Output: Urine 200 Estimated Blood Loss 10 Other: Voiding Method Diaper GENERAL EXAM: Sedated 81-year-old white female, intubated and synchronous with the mechanical ventilator HEAD: Normocephalic and atraumatic EYES: Normal reaction of pupils, equal size. NOSE: Clear with pink turbinates. THROAT: No erythema or exudates. NECK: No masses, no JVD. CHEST: No chest wall deformity. LUNGS: Diminished left-sided lung sounds. Intubated to the mechanical ventilator CVS: S1 and S2 normal with no audible murmur, regular rhythm. No extra heart sounds ABDOMEN: Obese abdomen, with multiple laparoscopic incisional sites which are c lean, dry, intact. No hepatosplenomegaly, bowel sounds are hypoactive, no guarding or rigidity. SPINE: No scoliosis or deformity SKIN: No rashes CENTRAL NERVOUS SYSTEM: No focal deficits, tone is normal in all 4 extremities. EXTREMITIES: There is no peripheral edema, clubbing, or cyanosis. Peripheral pulses are intact. Results - Laboratory Findings CBC and BMP: 07/19/22 19:36 07/22/22 05:31 ABG ABG pH 7.28 (7.35-7.45) L 07/25/22 02:23 ABG pCO2 50 mmHg (35-45) H 07/25/22 02:23 ABG pO2 239 mmHg (83-108) H 07/25/22 02:23 ABG O2 Saturation 99.9 % (94-97) H 07/25/22 02:23 Abnormal lab findings: Abnormal Labs 07/19/22 07/19/22 07/19/22 19:36 19:36 21:42 RBC 3.20 L Hgb 11.0 L Hct 33.3 L MCV 104.0 H ABG pH ABG pCO2 ABG pO2 ABG Total CO2 ABG O2 Saturation Sodium BUN 31 H Creatinine 1.41 H Glucose POC Glucose (mg/dL) 142 H Calcium 10.3 H C-Reactive Protein 3.2 H Total Protein 5.9 L Albumin 3.4 L 07/20/22 07/20/22 07/20/22 02:25 06:14 11:24 RBC Hgb Hct MCV ABG pH ABG pCO2 ABG pO2 ABG Total CO2 ABG O2 Saturation Sodium BUN Creatinine Glucose POC Glucose (mg/dL) 134 H 133 H 140 H Calcium C-Reactive Protein Total Protein Albumin 07/20/22 07/20/22 07/21/22 16:38 19:00 06:22 RBC Hgb Hct MCV ABG pH ABG pCO2 ABG pO2 ABG Total CO2 ABG O2 Saturation Sodium BUN Creatinine Glucose POC Glucose (mg/dL) 150 H 139 H 137 H Calcium C-Reactive Protein Total Protein Albumin 07/21/22 07/21/22 07/21/22 07:17 11:14 16:29 RBC Hgb Hct MCV ABG pH ABG pCO2 ABG pO2 ABG Total CO2 ABG O2 Saturation Sodium 136 L BUN 21 H Creatinine 1.23 H Glucose 137 H POC Glucose (mg/dL) 184 H 219 H Calcium C-Reactive Protein Total Protein Albumin 07/21/22 07/22/22 07/22/22 19:49 05:31 05:56 RBC Hgb Hct MCV ABG pH ABG pCO2 ABG pO2 ABG Total CO2 ABG O2 Saturation Sodium BUN Creatinine 1.29 H Glucose 152 H POC Glucose (mg/dL) 285 H 187 H Calcium C-Reactive Protein Total Protein Albumin 07/22/22 07/22/22 07/22/22 11:11 16:26 21:26 RBC Hgb Hct MCV ABG pH ABG pCO2 ABG pO2 ABG Total CO2 ABG O2 Saturation Sodium BUN Creatinine Glucose POC Glucose (mg/dL) 253 H 217 H 200 H Calcium C-Reactive Protein Total Protein Albumin 07/23/22 07/23/22 07/23/22 06:21 11:21 16:45 RBC Hgb Hct MCV ABG pH ABG pCO2 ABG pO2 ABG Total CO2 ABG O2 Saturation Sodium BUN Creatinine Glucose POC Glucose (mg/dL) 148 H 231 H 250 H Calcium C-Reactive Protein Total Protein Albumin 07/23/22 07/24/22 07/24/22 20:31 05:39 11:29 RBC Hgb Hct MCV ABG pH ABG pCO2 ABG pO2 ABG Total CO2 ABG O2 Saturation Sodium BUN Creatinine Glucose POC Glucose (mg/dL) 255 H 178 H 145 H Calcium C-Reactive Protein Total Protein Albumin 07/24/22 07/25/22 07/25/22 16:20 00:31 01:35 RBC Hgb Hct MCV ABG pH ABG pCO2 ABG pO2 ABG Total CO2 ABG O2 Saturation Sodium BUN Creatinine Glucose POC Glucose (mg/dL) 149 H 260 H 252 H Calcium C-Reactive Protein Total Protein Albumin 07/25/22 07/25/22 02:23 02:45 RBC Hgb Hct MCV ABG pH 7.28 L ABG pCO2 50 H ABG pO2 239 H ABG Total CO2 25 H ABG O2 Saturation 99.9 H Sodium BUN Creatinine Glucose POC Glucose (mg/dL) 254 H Calcium C-Reactive Protein Total Protein Albumin - Diagnostic Findings Chest x-ray: image reviewed Assessment and Plan Assessment: Postoperative day #1 for a robotic-assisted laparoscopic ventral hernia repair, small bowel resection of a enterocutaneous fistula with primary anastomosis, and lysis of adhesions. Postoperatively, the patient was extubated, however, developed some respiratory distress and required reintubation. diabetes mellitus type 2 hypertension hypothyroidism GERD History of previous ventral hernia repair History of breast cancer status post lumpectomy Plan: Patient's medications, labs, chest x-ray reviewed Continue mechanical ventilator Withdrawal the ET tube 3 cm Increase respiratory rate to 22 bpm and drop FIO2 to 50% Propofol for sedation Currently not requiring any vasopressors Repeat ABGs in the morning Repeat chest x-ray in the morning Postoperative labs are pending NovoLog insulin to scale Pain management DVT prophylaxis per surgical services Protonix for GI prophylaxis No further attempts to extubate tonight, and patient will continue to be monitored in the intensive care unit. I have personally seen and examined the patient, performed the documentation and the assessment and plan as written. Number of minutes spent on the visit:20 Time with Patient: Greater than 30
[2022-07-25 05:43] LABS: Glucose,Whole Blood 324 mg/dL (70-110)
[2022-07-25] MEDS ORDERED: SODIUM CHLORIDE 0.9% 1,000 ML IV ONE ×2 (06:07→18:29)
[2022-07-25] MEDS: INSULIN ASPART (NovoLOG) 100 UNIT/ML VIAL SQ SCH ×3 (06:11→17:56)
[2022-07-25] MEDS: MAGNESIUM SULFATE-D5W PMX 1 GM in DEXTROSE/WATER 1 100ML.BAG IVPB SCH ×2 (06:36→09:03)
--- NOTE | 2022-07-25 06:54 | XR ---
EXAMINATION TYPE: XR chest 1V portable DATE OF EXAM: 07/25/2022 Comparison: Earlier today Clinical History: 81-year-old female Tube placement Findings: ET tube and NG tube are satisfactory. Low lung volumes. Heart mild to moderately enlarged. Patient ro tated towards the right. Ectatic/tortuous thoracic aorta. Diffuse interstitial densities and some pat marylin retrocardiac opacity. Impression: 1. Fknm-mg-eaguaqme cardiomegaly and interstitial densities. Correlate for possible CHF with pulmonar y vascular congestion. 2. Overall low lung volumes. 3. Tortuous/ectatic thoracic aorta.
[2022-07-25] MEDS: SODIUM CHLORIDE 0.9% 1,000 ML IV SCH (07:38)
[2022-07-25] MEDS: HYDROmorphone 1 MG/ML 1 ML SYRINGE IVP PRN ×3 (08:58→21:04)
[2022-07-25] MEDS ORDERED: CHLORHEXIDINE GLUCONATE 15 ML CUP MUCOUS MEM SCH (09:00)
[2022-07-25] MEDS: ENOXAPARIN 30 MG/0.3 ML SYRINGE SQ SCH (09:04)
[2022-07-25] MEDS: PANTOPRAZOLE 40 MG TABLET PO SCH (09:04)
[2022-07-25] MEDS: LEVOTHYROXINE IVP 100 MCG/5 ML VIAL IV SCH (09:04)
[2022-07-25] MEDS ORDERED: FUROSEMIDE 10 MG/ML 4 ML VIAL IV STA (09:49)
[2022-07-25] MEDS ORDERED: FUROSEMIDE 10 MG/ML 4 ML VIAL ONE (09:51)
[2022-07-25 11:28] LABS: Glucose,Whole Blood 304 mg/dL (70-110)
[2022-07-25] MEDS: MORPHINE SULFATE 2 MG/ML SYRINGE IVP PRN (11:59)
--- NOTE | 2022-07-25 13:58 | P.PN ---
Subjective Progress Note Date: 07/25/22 CHIEF COMPLAINT: Abdominal pain HISTORY OF PRESENT ILLNESS: Patient is postop day #1 status post robotic- assisted laparoscopic lysis of adhesions, small bowel resection of enterocutaneous fistula with primary anastomosis, repair of recurrent incarcerated incisional hernia with strangulation. Patient is in the ICU. She's undergoing weaning trials today. JUAN LUIS drain with 40 mL serosanguineous output. Patient did have low urine output she was given IV fluid bolus and a dose of IV Lasix by critical care service. Afebrile. WBC is up at 20.7 H 11.3 platelets 214 signs 136 potassium is 5.1 creatinine 1.21 magnesium 1.4 Tachycardic PHYSICAL EXAM: VITAL SIGNS: Reviewed GENERAL: Well-developed in no acute distress. HEENT: No sclera icterus. Extraocular movements grossly intact. Moist buccal mucosa. Head is atraumatic, normocephalic. Hears conversational speech. No nasal drainage. NECK: Supple without lymphadenopathy. CHEST: Non-labored respirations and equal bilateral excursions. CARDIOVASCULAR: Palpable 2+ radial pulses. ABDOMEN: Soft. Nondistended. Incision sites clean dry and intact. JUAN LUIS drain with serous output. MUSCULOSKELETAL: No clubbing or cyanosis. NEUROLOGIC: Patient is intubated. Able to open her eyes. No focal or lateralizing signs. Cranial nerves II through XII grossly intact. SKIN: Well perfused. Good skin turgor. ASSESSMENT: 1. 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 Morbid obesity due to excess calories 3. Body mass index of 48.5 4. Diabetes type 2, fos-loizath-kjwefhrwr 5. Gastroesophageal reflux disease 6. Gout 7. Hypothyroidism 8. History of breast cancer 9. Hiatal hernia 10. Generalized anxiety disorder 11. Depressive disorder 12. Chronic deficiency anemia 13. Severe intra-abdominal adhesions PLAN: -Continue ICU management -Continue supportive care -Vent weaning management per critical care service -Continue monitor urine output -Magnesium is being replaced -Continue IV fluid -DVT prophylaxis Lovenox Physician Phlebotomy Lab Assistant note has been reviewed by physician. Signing provider agrees with the documented findings, assessment, and plan of care. Objective - Vital Signs Vital signs: Vital Signs Temp 97.5 F L 07/25/22 08:00 Pulse 111 H 07/25/22 10:00 Resp 22 07/25/22 10:00 BP 139/61 07/25/22 10:00 Pulse Ox 96 07/25/22 10:00 FiO2 50 07/25/22 08:00 Intake & Output 07/24/22 07/25/22 07/25/22 18:59 06:59 18:59 Intake Total 1050 1307.790 341.476 Output Total 290 35 Balance 1050 1017.790 306.476 Weight 117.8 kg Intake: IV 1050 1225 200 Sodium Chloride 0.9% 1, 225 200 000 ml @ 50 mls/hr IV . Q20H KRISTIN Rx#:[id number] Intake, IV Titration 82.790 141.476 Amount Magnesium Sulfate-D5w Pmx 100 1 gm In Dextrose/Water 1 100ml.bag @ 100 mls/hr IVPB Q1H KRISTIN Rx#: [id number] propofoL 1,000 mg In 82.790 41.476 Empty Bag 1 bag @ 15 MCG/ KG/MIN 9.798 mls/hr IV . [id number] KRISTIN Rx#:[id number] Output: Urine 280 35 Estimated Blood Loss 10 Other: Voiding Method Diaper Indwelling Catheter Indwelling Catheter - Labs CBC & Chem 7: 07/25/22 03:47 07/25/22 03:47 Labs: Abnormal Lab Results - Last 24 Hours (Table) 07/24/22 07/24/22 07/25/22 Range/Units 11:29 16:20 00:31 WBC (3.8-10.6) k/uL RBC (3.80-5.40) m/uL Hgb (11.4-16.0) gm/dL MCV (80.0-100.0) fL Neutrophils # (1.3-7.7) k/uL Lymphocytes # (1.0-4.8) k/uL Macrocytosis ABG pH (7.35-7.45) ABG pCO2 (35-45) mmHg ABG pO2 (83-108) mmHg ABG Total CO2 (19-24) mmol/L ABG O2 Saturation (94-97) % Sodium (137-145) mmol/L BUN (7-17) mg/dL Creatinine (0.52-1.04) mg/dL Glucose (74-99) mg/dL POC Glucose (mg/dL) 145 H 149 H 260 H (70-110) mg/dL Magnesium (1.6-2.3) mg/dL 07/25/22 07/25/22 07/25/22 Range/Units 01:35 02:23 02:45 WBC (3.8-10.6) k/uL RBC (3.80-5.40) m/uL Hgb (11.4-16.0) gm/dL MCV (80.0-100.0) fL Neutrophils # (1.3-7.7) k/uL Lymphocytes # (1.0-4.8) k/uL Macrocytosis ABG pH 7.28 L (7.35-7.45) ABG pCO2 50 H (35-45) mmHg ABG pO2 239 H (83-108) mmHg ABG Total CO2 25 H (19-24) mmol/L ABG O2 Saturation 99.9 H (94-97) % Sodium (137-145) mmol/L BUN (7-17) mg/dL Creatinine (0.52-1.04) mg/dL Glucose (74-99) mg/dL POC Glucose (mg/dL) 252 H 254 H (70-110) mg/dL Magnesium (1.6-2.3) mg/dL 07/25/22 07/25/22 07/25/22 Range/Units 03:47 03:47 05:41 WBC 20.7 H (3.8-10.6) k/uL RBC 3.33 L (3.80-5.40) m/uL Hgb 11.3 L (11.4-16.0) gm/dL MCV 107.8 H (80.0-100.0) fL Neutrophils # 19.1 H (1.3-7.7) k/uL Lymphocytes # 0.7 L (1.0-4.8) k/uL Macrocytosis Marked A ABG pH (7.35-7.45) ABG pCO2 (35-45) mmHg ABG pO2 (83-108) mmHg ABG Total CO2 (19-24) mmol/L ABG O2 Saturation (94-97) % Sodium 136 L (137-145) mmol/L BUN 18 H (7-17) mg/dL Creatinine 1.21 H (0.52-1.04) mg/dL Glucose 269 H (74-99) mg/dL POC Glucose (mg/dL) 324 H (70-110) mg/dL Magnesium 1.4 L (1.6-2.3) mg/dL Microbiology - Last 24 Hours (Table) 07/25/22 02:23 Sputum Culture - Preliminary Sputum
--- NOTE | 2022-07-25 14:27 | P.PN ---
Progress Note - Text Progress Note Date: 07/25/22 Chief Complaint: Abdominal pain This is a pleasant 81-year-old, follows with Dr. Church. Chronic stable medical conditions include diabetes, GERD, hypertension, hiatal hernia, anxiety depression. Patient does use electric chair to get about. Patient's had chronic abdominal pain. Pain doesn't radiate. Normally has a bowel movement every 2 or 3 days. No fever no chills. Does not need between diarrhea and constipation. Patient initially presented to [facility]. Computed tomography scan showed possible incarcerated hernia within the anterior lateral left lower abdomen. No obvious obstruction. Patient was sent down here for higher level of care for surgical evaluation by Dr. Andre. Patient's appetite is otherwise fair. July 21: Still has abdominal pain. Some decrease in diarrhea. Patient placed on regular diet by surgery. Scheduled for surgery on Sunday by Dr. Andre. July 22: Up in a recliner. Some abdominal pain. Tolerating diet. Scheduled for surgery Sunday. No nausea vomiting. July 23: Reclining in bed. Tired all pain present. No fever no chills. Pending surgery July 24: Patient seen this morning. Pending surgery later today. Abdominal pain present. Nothing by mouth. July 25: ICU. Yesterday on July [address] Andre patient underwent abdominal surgery. Several adhesions were removed. Partial small bowel was attached to the previous mesh for the enterocutaneous fistula. About 7 cm small bowel was removed. N to end anastomosis. JUAN LUIS drain was placed. Patient was extubated this morning. Propofol was removed. Remains on 3 L of oxygen. Abdominal binder in place. Nothing by mouth. Active Medications Albuterol/Ipratropium (Ipratropium-Albuterol 3 Ml Neb) 3 ml INHALATION RT-Q4H [facility] Last Admin: 07/25/22 11:32 Dose: 3 ml Chlorhexidine Gluconate (Chlorhexidine Gluconate 15 Ml Cup) 15 ml MUCOUS MEM BID [facility] Last Admin: 07/25/22 09:04 Dose: 15 ml Dextrose/Water (Dextrose 50% Syringe 50 Ml) 25 ml IVP PER PROTOCOL PRN; Protocol PRN Reason: Hypoglycemia Dextrose/Water (Dextrose 50% Syringe 50 Ml) 50 ml IVP PER PROTOCOL PRN; Protocol PRN Reason: Hypoglycemia Enoxaparin Sodium (Enoxaparin 30 Mg/0.3 Ml Syringe) 30 mg SQ DAILY [facility] Last Admin: 07/25/22 09:04 Dose: 30 mg Hydromorphone HCl (Hydromorphone 1 Mg/Ml 1 Ml Syringe) 1 mg IVP Q4HR PRN PRN Reason: Severe Pain (Scale 7 to 10) Last Admin: 07/25/22 08:58 Dose: 1 mg Sodium Chloride (Saline 0.9%) 1,000 mls @ 50 mls/hr IV .Q20H [facility] Last Admin: 07/25/22 07:38 Dose: 50 mls/hr Propofol 1,000 mg/ IV Solution 100 mls @ 9.798 mls/hr IV .[id number] [facility]; Protocol Last Titration: 07/25/22 07:40 Dose: 0 mcg/kg/min, 0 mls/hr Insulin Aspart (Insulin Aspart (Novolog) 100 Unit/Ml Vial) 0 unit SQ Q6H [facility]; Protocol Last Admin: 07/25/22 11:30 Dose: 8 unit Insulin Detemir (Insulin Detemir (Levemir) 100 Unit/Ml Syr) 10 unit SQ HS [facility] Last Admin: 07/25/22 02:13 Dose: Not Given Levothyroxine Sodium (Levothyroxine Ivp 100 Mcg/5 Ml Vial) 62.5 mcg IV DAILY [facility] Last Admin: 07/25/22 09:04 Dose: 62.5 mcg Morphine Sulfate (Morphine Sulfate 2 Mg/Ml Syringe) 1 mg IVP Q4HR PRN PRN Reason: Pain Last Admin: 07/25/22 11:59 Dose: 1 mg Naloxone HCl (Naloxone 0.4 Mg/Ml 1 Ml Vial) 0.2 mg IV Q2M PRN PRN Reason: Opioid Reversal Ondansetron HCl (Ondansetron 4 Mg/2 Ml Vial) 4 mg IVP Q6HR PRN PRN Reason: Nausea And Vomiting Last Admin: 07/24/22 12:05 Dose: 4 mg Pantoprazole Sodium (Pantoprazole 40 Mg Tablet) 40 mg PO DAILY [facility] Last Admin: 07/25/22 09:04 Dose: 40 mg Past medical history to include: Diabetes, GERD, hypertension, hiatal hernia, anxiety depression Social history: No smoking or alcohol. Does use electric chair. Lives in a senior apartment. Patient's daughter is the caregiver. Physical examination: VITAL SIGNS: 97.5, 105, 15, 126/56, 95% on 3 daughters GENERAL: Reclining in bed, awake, tired EYES: Pupils equal. Conjunctiva normal. HEENT: External appearance of nose and ears normal, oral cavity grossly normal. NECK: JVD unable to assess; masses not palpable. HEART: Heart sounds distant; no edema. LUNGS: Respiratory rate normal; breath sounds distant. ABDOMEN: Soft, abdominal binder, tenderness, no guarding rigidity, liver spleen not palpable, no masses palpable. JUAN LUIS drain PSYCH: Alert and oriented x3; mood and affect normal. MUSCULOSKELETAL:No Clubbing/cyanosis;muscles-grossly intact INVESTIGATIONS, reviewed in the clinical context: July 25: White count 20.7 hemoglobin 11.3 platelets 214 potassium 5.1 BUN 18 creatinine 1.21 July 22: Potassium 4.1 creatinine 1.29 2-D echocardiogram: EF 55%. Renal ultrasound: Right kidney some cortical thinning. Left kidney some cortical thinning. July 21: Potassium 3.9 BUN 21 creatinine 1.23 White count 9.7 hemoglobin 11.1 platelets 232 sodium 137 potassium 3.9 BUN 31 and creatinine 1.41 CRP 3.2 Computed tomography scan was done at [facility] Assessment and plan: - left abdominal ventral wall hernia possibly incarcerated July 24: Dr. Andre carried out lysis of adhesions. Next section of enterocutaneous fistula. 7 cm of small bowel removed. JUAN LUIS drain. Binder in place. Nothing by mouth -Ventilator assist overnight. Extubated this morning. -Morbid obesity BMI 48.5 Weight loss measures -Hypothyroid Synthroid 100 g a day -Hyperuricemia Allopurinol 300 mg a day -Diabetes mellitus type 2 and oral hypoglycemic Hold Glucophage and Glucotrol. 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 -Chronic medical debility, patient is at baseline uses electric wheelchair Nothing by mouth. IV fluids. JUAN LUIS drain. 3 L nasal cannula. Status post ventilator assist.
[2022-07-25] MEDS ORDERED: IPRATROPIUM-ALBUTEROL 3 ML NEB INHALATION PRN (15:40)
[2022-07-25 17:49] LABS: Glucose,Whole Blood 194 mg/dL (70-110)
[2022-07-25 20:49] LABS: Glucose,Whole Blood 134 mg/dL (70-110)
[2022-07-26 00:09] LABS: Glucose,Whole Blood 161 mg/dL (70-110)
[2022-07-26] MEDS ORDERED: Magnesium Replacement Protocol 1 EACH MISC MISCELLANE PRN (00:20)
[2022-07-26] MEDS: INSULIN ASPART (NovoLOG) 100 UNIT/ML VIAL SQ SCH ×5 (00:30→21:33)
[2022-07-26] MEDS: HYDROmorphone 1 MG/ML 1 ML SYRINGE IVP PRN ×3 (01:56→19:44)
[2022-07-26] MEDS: ONDANSETRON 4 MG/2 ML VIAL IVP PRN (01:56)
[2022-07-26 04:40] LABS: Basophils % (A) 0 %; Eosinophils % (A) 0 %; HCT 31.6 % (34.0-46.0); HGB 10.1 gm/dL (11.4-16.0); Lymphocytes # (A) 1.6 k/uL (1.0-4.8); Lymphocytes % (A) 12 %; MCH 33.9 pg (25.0-35.0); MCHC 31.8 g/dL (31.0-37.0); MCV 106.4 fL (80.0-100.0); Macrocytosis Moderate; Mean Platelet Volume 8.9; Monocytes # (A) 0.6 k/uL (0-1.0); Monocytes % (A) 4 %; Neutrophils # (A) 10.8 k/uL (1.3-7.7); Neutrophils % (A) 82 %; Platelet Count 218 k/uL (150-450); RBC 2.97 m/uL (3.80-5.40); WBC 13.3 k/uL (3.8-10.6)
[2022-07-26 04:53] LABS: Albumin 2.8 g/dL (3.5-5.0); Calcium 7.9 mg/dL (8.4-10.2); Potassium 4.3 mmol/L (3.5-5.1); Total Bilirubin 0.6 mg/dL (0.2-1.3); Total Protein 5.1 g/dL (6.3-8.2)
[2022-07-26 05:42] LABS: Glucose,Whole Blood 153 mg/dL (70-110)
--- NOTE | 2022-07-26 07:30 | XR ---
EXAMINATION TYPE: XR chest 1V portable DATE OF EXAM: 07/26/2022 6:14 AM COMPARISON: Chest radiographs from 07/26/2019 day TECHNIQUE: XR chest 1V portable Frontal view of the chest. CLINICAL INDICATION:Female, 81 years old with history of dyspnea; FINDINGS: Lungs/Pleura: Left lower lung airspace opacities. There is no evidence of pleural effusion or pneumot horax. Pulmonary vascularity: Unremarkable. Heart/mediastinum: Cardiomediastinal silhouette is enlarged and stable. Musculoskeletal: Degenerative changes of the shoulder joints. Interval removal of endotracheal nasogastric tubes. IMPRESSION: Improved aeration of the lungs. Interval removal of endotracheal nasogastric tubes. There remains shanda e left lower lung airspace opacities could represent atelectasis correlate for developing pneumonia.
[2022-07-26] MEDS ORDERED: MAGNESIUM SULFATE-D5W PMX 1 GM in DEXTROSE/WATER 1 100ML.BAG IVPB ONE (07:45)
[2022-07-26] MEDS: LEVOTHYROXINE IVP 100 MCG/5 ML VIAL IV SCH (08:04)
[2022-07-26] MEDS: ENOXAPARIN 30 MG/0.3 ML SYRINGE SQ SCH (08:05)
[2022-07-26] MEDS: PANTOPRAZOLE 40 MG/10 ML VIAL IVP SCH (08:06)
[2022-07-26] MEDS: IPRATROPIUM-ALBUTEROL 3 ML NEB INHALATION SCH ×4 (09:34→20:15)
--- NOTE | 2022-07-26 10:13 | P.PN ---
Subjective Progress Note Date: 07/26/22 I am seeing this patient in new consultation today 07/25/2022 in the intensive care unit post incarcerated ventral hernia repair. Patient is a 81-year-old female with significant past medical history of previous ventral hernia repair, diabetes mellitus type 2, hypertension, hypothyroidism, GERD, breast cancer. Patient was transferred from [facility] on July 20. Apparently, the patient the patient had been experiencing abdominal pain the previous [address] of the abdomen pelvis without contrast on arrival to our facility showed left lower abdominal wall subcutaneous fat stranding changes near the abdominal musculature with small focus of high density suggesting small bowel herniation p ossibly a Painter's hernia. The patient was originally admitted to the general medical floor with supportive care. 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 While in recovery, the patient was initially extubated, but did reportedly have to be reintubated due to failure to progress. Patient was then transferred to the intensive care unit. Chest x-ray on arrival to the intensive care unit showed the endotracheal tube within the right mainstem bronchus, vascular congestion and bibasilar atelectasis, and an orogastric tube coursing below the diaphragm. The ET tube was withdrawn 3 cm. Initial ventilator settings were assist control, respiratory 18, tidal volume 350, FiO2 100%, and PEEP of 5. ABGs on these settings show a pO2 239, pCO2 50, pH is 7.28. Patient's respiratory rate was increased to 22 and FiO2 was dropped to 50%. Patient appears fairly comfortable, and is synchronous with mechanical ventilator. Propofol is infusing at 30 mics per kilogram per minute. Normal saline is infusing at 50 L per hour. Patient has not required any vasopressors. Repeat labs are pending. orogastric tube is to LIS. Vital signs are stable at this time. Patient will be monitored in the intensive care unit at least overnight. The patient is seen today 07/26/2022 in follow-up in the intensive care unit. She was successfully extubated yesterday 07/25/2022 and is currently resting comfortably in bed. She is awake and alert. She is on oxygen 2 L/m per nasal cannula. Normal saline at 50 mL per hour. Chest x-ray shows improved aeration of the lungs. Some atelectasis in the left lower lobe. She is educated and encouraged regarding the increased use of the incentive spirometer. Sputum culture pending. White count 13.3. Hemoglobin 10.1. Platelets 218. Sodium 137. Potassium 4.3. Bicarb 24. BUN 23. Creatinine 1.57. Glucose 143. AST 24. ALT 23. She is continued on DuoNeb inhalations. Lovenox for DVT prophylaxis. She's been started on a clear liquid diet. Objective - Vital Signs Vital signs: Vital Signs Temp 99.3 F 07/26/22 08:00 Pulse 108 H 07/26/22 10:00 Resp 15 07/26/22 10:00 BP 106/60 07/26/22 10:00 Pulse Ox 93 L 07/26/22 10:00 FiO2 50 07/25/22 11:39 Intake & Output 07/25/22 07/26/22 07/26/22 18:59 06:59 18:59 Intake Total 579.671 4027 150 Output Total 560 355 130 Balance 137.337 2697 20 Weight 117.8 kg 123.2 kg Intake: IV 600 650 150 Sodium Chloride 0.9% 1, 600 650 150 000 ml @ 50 mls/hr IV . Q20H [facility] Rx#:[id number] Intake, IV Titration 177.545 3377 Amount Magnesium Sulfate-D5w Pmx 100 1 gm In Dextrose/Water 1 100ml.bag @ 100 mls/hr IVPB Q1H [facility] Rx#: [id number] Sodium Chloride 0.9% 1, 1000 000 ml @ 999 mls/hr IV . Q1H1M [facility] Rx#:[id number] propofoL 1,000 mg In 41.476 Empty Bag 1 bag @ 15 MCG/ KG/MIN 9.798 mls/hr IV . [id number] [facility] Rx#:[id number] Output: Gastric Drainage 150 Drainage 20 45 Right Abdomen 20 45 Urine 390 355 85 Other: Voiding Method Indwelling Catheter Indwelling Catheter Indwelling Catheter - Exam GENERAL EXAM: Awake, alert pleasant 81-year-old female, on 2 L nasal cannula, in no acute distress HEAD: Normocephalic and atraumatic EYES: Normal reaction of pupils, equal size. NOSE: Clear with pink turbinates. THROAT: No erythema or exudates. NECK: No masses, no JVD. CHEST: No chest wall deformity. LUNGS: Diminished left-sided lung sounds. CVS: S1 and S2 normal with no audible murmur, regular rhythm. No extra heart sounds ABDOMEN: Obese abdomen, with multiple laparoscopic incisional sites which are clean, dry, intact. Bowel sounds are hypoactive, no guarding or rigidity. SPINE: No scoliosis or deformity SKIN: No rashes CENTRAL NERVOUS SYSTEM: No focal deficits, tone is normal in all 4 extremities. EXTREMITIES: There is no peripheral edema, clubbing, or cyanosis. Peripheral pulses are intact. - Labs CBC & Chem 7: 07/26/22 04:01 07/26/22 04:01 Labs: Abnormal Lab Results - Last 24 Hours (Table) 07/25/22 07/25/22 07/25/22 Range/Units 11:26 17:47 20:47 WBC (3.8-10.6) k/uL RBC (3.80-5.40) m/uL Hgb (11.4-16.0) gm/dL Hct (34.0-46.0) % MCV (80.0-100.0) fL RDW (11.5-15.5) % Neutrophils # (1.3-7.7) k/uL BUN (7-17) mg/dL Creatinine (0.52-1.04) mg/dL Glucose (74-99) mg/dL POC Glucose (mg/dL) 304 H 194 H 134 H (70-110) mg/dL Calcium (8.4-10.2) mg/dL Total Protein (6.3-8.2) g/dL Albumin (3.5-5.0) g/dL 07/26/22 07/26/22 07/26/22 Range/Units 00:08 04:01 04:01 WBC 13.3 H (3.8-10.6) k/uL RBC 2.97 L (3.80-5.40) m/uL Hgb 10.1 L (11.4-16.0) gm/dL Hct 31.6 L (34.0-46.0) % MCV 106.4 H (80.0-100.0) fL RDW 16.0 H (11.5-15.5) % Neutrophils # 10.8 H (1.3-7.7) k/uL BUN 23 H (7-17) mg/dL Creatinine 1.57 H (0.52-1.04) mg/dL Glucose 143 H (74-99) mg/dL POC Glucose (mg/dL) 161 H (70-110) mg/dL Calcium 7.9 L (8.4-10.2) mg/dL Total Protein 5.1 L (6.3-8.2) g/dL Albumin 2.8 L (3.5-5.0) g/dL 07/26/22 Range/Units 05:41 WBC (3.8-10.6) k/uL RBC (3.80-5.40) m/uL Hgb (11.4-16.0) gm/dL Hct (34.0-46.0) % MCV (80.0-100.0) fL RDW (11.5-15.5) % Neutrophils # (1.3-7.7) k/uL BUN (7-17) mg/dL Creatinine (0.52-1.04) mg/dL Glucose (74-99) mg/dL POC Glucose (mg/dL) 153 H (70-110) mg/dL Calcium (8.4-10.2) mg/dL Total Protein (6.3-8.2) g/dL Albumin (3.5-5.0) g/dL Microbiology - Last 24 Hours (Table) 07/25/22 02:23 Sputum Culture - Preliminary Sputum Assessment and Plan Assessment: Postoperative day #2 for a robotic-assisted laparoscopic ventral hernia repair, small bowel resection of a enterocutaneous fistula with primary anastomosis, and lysis of adhesions. Postoperatively, the patient was extubated, however, developed some respiratory distress and required reintubation. Successfully extubated on 07/25/2022. Currently on 2 L nasal cannula. Diabetes mellitus type 2 Hypertension Hypothyroidism GERD History of previous ventral hernia repair History of breast cancer status post lumpectomy Plan: The patient was seen and evaluated Chest x-ray, labs and medications reviewed Currently stable and on 2 L nasal cannula Bonny bronchodilators Lovenox for DVT prophylaxis Advance diet per surgical services Increase her activity as tolerated We will continue to follow I have personally seen and examined the patient, performed the documentation and the assessment and plan as written. Number of minutes spent on the visit: 10.
--- NOTE | 2022-07-26 10:31 | P.PN ---
Subjective Progress Note Date: 07/26/22 CHIEF COMPLAINT: Abdominal pain HISTORY OF PRESENT ILLNESS: Patient is postop day #2 status post robotic- assisted laparoscopic lysis of adhesions, small bowel resection of enterocutaneous fistula with primary anastomosis, repair of recurrent incarcerated incisional hernia with strangulation. Patient is in the ICU. She was extubated yesterday. She is currently on 3 L of oxygen. She'll be transferred to [facility] floor later today. She did have a low-grade temp of 100.1 yesterday evening. White count has dropped from 20-13.3. Hgb is 10.1 platelets 218 na 137 potassium is 4.3 creatinine 1.56. mg 1.8 Patient has had no bowel movement or flatus. Denies any nausea or vomiting. Does complain of pain mid abdomen, JUAN LUIS drain 45ml output PHYSICAL EXAM: VITAL SIGNS: Reviewed GENERAL: Well-developed in no acute distress. HEENT: No sclera icterus. Extraocular movements grossly intact. Moist buccal mucosa. Head is atraumatic, normocephalic. Hears conversational speech. No nasal drainage. NECK: Supple without lymphadenopathy. CHEST: Non-labored respirations and equal bilateral excursions. CARDIOVASCULAR: Palpable 2+ radial pulses. ABDOMEN: Soft. Nondistended. Incision sites clean dry and intact. JUAN LUIS drain with serous output. MUSCULOSKELETAL: No clubbing or cyanosis. NEUROLOGIC: Patient is intubated. Able to open her eyes. No focal or lateralizing signs. Cranial nerves II through XII grossly intact. SKIN: Well perfused. Good skin turgor. ASSESSMENT: 1. 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 Morbid obesity due to excess calories 3. Body mass index of 48.5 4. Diabetes type 2, [id number] 5. Gastroesophageal reflux disease 6. Gout 7. Hypothyroidism 8. History of breast cancer 9. Hiatal hernia 10. Generalized anxiety disorder 11. Depressive disorder 12. Chronic deficiency anemia 13. Severe intra-abdominal adhesions PLAN: -Patient can be transferred out of the ICU to [facility] floor from surgical standpoint -Start clear liquid diet -Add IV Tylenol for pain -Continue supportive care -Continue IV fluid -DVT prophylaxis Lovenox Physician Organizational Effectiveness Director note has been reviewed by physician. Signing provider agrees with the documented findings, assessment, and plan of care. Objective - Vital Signs Vital signs: Vital Signs Temp 99.3 F 07/26/22 08:00 Pulse 110 H 07/26/22 09:44 Resp 18 07/26/22 09:44 BP 112/47 07/26/22 08:00 Pulse Ox 95 07/26/22 08:00 FiO2 50 07/25/22 11:39 Intake & Output 07/25/22 07/26/22 07/26/22 18:59 06:59 18:59 Intake Total 582.475 8087 50 Output Total 560 355 35 Balance 282.564 2469 15 Weight 117.8 kg 123.2 kg Intake: IV 600 650 50 Sodium Chloride 0.9% 1, 600 650 50 000 ml @ 50 mls/hr IV . Q20H [facility] Rx#:[id number] Intake, IV Titration 958.776 7735 Amount Magnesium Sulfate-D5w Pmx 100 1 gm In Dextrose/Water 1 100ml.bag @ 100 mls/hr IVPB Q1H [facility] Rx#: [id number] Sodium Chloride 0.9% 1, 1000 000 ml @ 999 mls/hr IV . Q1H1M [facility] Rx#:[id number] propofoL 1,000 mg In 41.476 Empty Bag 1 bag @ 15 MCG/ KG/MIN 9.798 mls/hr IV . [id number] [facility] Rx#:[id number] Output: Gastric Drainage 150 Drainage 20 15 Right Abdomen 20 15 Urine 390 355 20 Other: Voiding Method Indwelling Catheter Indwelling Catheter Indwelling Catheter - Labs CBC & Chem 7: 07/26/22 04:01 07/26/22 04:01 Labs: Abnormal Lab Results - Last 24 Hours (Table) 07/25/22 07/25/22 07/25/22 Range/Units 11:26 17:47 20:47 WBC (3.8-10.6) k/uL RBC (3.80-5.40) m/uL Hgb (11.4-16.0) gm/dL Hct (34.0-46.0) % MCV (80.0-100.0) fL RDW (11.5-15.5) % Neutrophils # (1.3-7.7) k/uL BUN (7-17) mg/dL Creatinine (0.52-1.04) mg/dL Glucose (74-99) mg/dL POC Glucose (mg/dL) 304 H 194 H 134 H (70-110) mg/dL Calcium (8.4-10.2) mg/dL Total Protein (6.3-8.2) g/dL Albumin (3.5-5.0) g/dL 07/26/22 07/26/22 07/26/22 Range/Units 00:08 04:01 04:01 WBC 13.3 H (3.8-10.6) k/uL RBC 2.97 L (3.80-5.40) m/uL Hgb 10.1 L (11.4-16.0) gm/dL Hct 31.6 L (34.0-46.0) % MCV 106.4 H (80.0-100.0) fL RDW 16.0 H (11.5-15.5) % Neutrophils # 10.8 H (1.3-7.7) k/uL BUN 23 H (7-17) mg/dL Creatinine 1.57 H (0.52-1.04) mg/dL Glucose 143 H (74-99) mg/dL POC Glucose (mg/dL) 161 H (70-110) mg/dL Calcium 7.9 L (8.4-10.2) mg/dL Total Protein 5.1 L (6.3-8.2) g/dL Albumin 2.8 L (3.5-5.0) g/dL 07/26/22 Range/Units 05:41 WBC (3.8-10.6) k/uL RBC (3.80-5.40) m/uL Hgb (11.4-16.0) gm/dL Hct (34.0-46.0) % MCV (80.0-100.0) fL RDW (11.5-15.5) % Neutrophils # (1.3-7.7) k/uL BUN (7-17) mg/dL Creatinine (0.52-1.04) mg/dL Glucose (74-99) mg/dL POC Glucose (mg/dL) 153 H (70-110) mg/dL Calcium (8.4-10.2) mg/dL Total Protein (6.3-8.2) g/dL Albumin (3.5-5.0) g/dL Microbiology - Last 24 Hours (Table) 07/25/22 02:23 Sputum Culture - Preliminary Sputum
--- NOTE | 2022-07-26 10:55 | P.PN ---
Progress Note - Text Progress Note Date: 07/26/22 Chief Complaint: Abdominal pain This is a pleasant 81-year-old, follows with Dr. Church. Chronic stable medical conditions include diabetes, GERD, hypertension, hiatal hernia, anxiety depression. Patient does use electric chair to get about. Patient's had chronic abdominal pain. Pain doesn't radiate. Normally has a bowel movement every 2 or 3 days. No fever no chills. Does not need between diarrhea and constipation. Patient initially presented to [facility]. Computed tomography scan showed possible incarcerated hernia within the anterior lateral left lower abdomen. No obvious obstruction. Patient was sent down here for higher level of care for surgical evaluation by Dr. Andre. Patient's appetite is otherwise fair. July 21: Still has abdominal pain. Some decrease in diarrhea. Patient placed on regular diet by surgery. Scheduled for surgery on Sunday by Dr. Andre. July 22: Up in a recliner. Some abdominal pain. Tolerating diet. Scheduled for surgery Sunday. No nausea vomiting. July 23: Reclining in bed. Tired all pain present. No fever no chills. Pending surgery July 24: Patient seen this morning. Pending surgery later today. Abdominal pain present. Nothing by mouth. July 25: ICU. Yesterday on July [address] Andre patient underwent abdominal surgery. Several adhesions were removed. Partial small bowel was attached to the previous mesh for the enterocutaneous fistula. About 7 cm small bowel was removed. N to end anastomosis. JUAN LUIS drain was placed. Patient was extubated this morning. Propofol was removed. Remains on 3 L of oxygen. Abdominal binder in place. Nothing by mouth. July 26: ICU. On 2 L nasal cannula. Nothing by mouth. No flatus. Abdominal binder. Little output through the JUAN LUIS. Started on clear liquids poor surgery. Sinus tachycardia. Some abdominal pain. Active Medications Albuterol/Ipratropium (Ipratropium-Albuterol 3 Ml Neb) 3 ml INHALATION RT-QID KRISTIN Last Admin: 07/26/22 09:34 Dose: 3 ml Albuterol/Ipratropium (Ipratropium-Albuterol 3 Ml Neb) 3 ml INHALATION RT-Q2H PRN PRN Reason: Shortness Of Breath Or Wheezing Dextrose/Water (Dextrose 50% Syringe 50 Ml) 25 ml IVP PER PROTOCOL PRN; Protocol PRN Reason: Hypoglycemia Dextrose/Water (Dextrose 50% Syringe 50 Ml) 50 ml IVP PER PROTOCOL PRN; Protocol PRN Reason: Hypoglycemia Enoxaparin Sodium (Enoxaparin 30 Mg/0.3 Ml Syringe) 30 mg SQ DAILY [facility] Last Admin: 07/26/22 08:05 Dose: 30 mg Hydromorphone HCl (Hydromorphone 1 Mg/Ml 1 Ml Syringe) 1 mg IVP Q4HR PRN PRN Reason: Severe Pain (Scale 7 to 10) Last Admin: 07/26/22 07:03 Dose: 1 mg Sodium Chloride (Saline 0.9%) 1,000 mls @ 50 mls/hr IV .Q20H [facility] Last Admin: 07/25/22 07:38 Dose: 50 mls/hr Acetaminophen 1,000 mg/ IV (Solution) 100 mls @ 400 mls/hr IVPB Q6HR [facility] Stop: 07/27/22 06:01 Insulin Aspart (Insulin Aspart (Novolog) 100 Unit/Ml Vial) 0 unit SQ [facility]; Protocol Insulin Detemir (Insulin Detemir (Levemir) 100 Unit/Ml Syr) 10 unit SQ [facility] Last Admin: 07/25/22 21:04 Dose: 10 unit Levothyroxine Sodium (Levothyroxine Ivp 100 Mcg/5 Ml Vial) 62.5 mcg IV DAILY [facility] Last Admin: 07/26/22 08:04 Dose: 62.5 mcg Miscellaneous Information (Magnesium Replacement Protocol 1 Each Misc) 1 each MISCELLANE DAILY PRN; Protocol PRN Reason: Per Protocol Morphine Sulfate (Morphine Sulfate 2 Mg/Ml Syringe) 1 mg IVP Q4HR PRN PRN Reason: Pain Last Admin: 07/25/22 11:59 Dose: 1 mg Naloxone HCl (Naloxone 0.4 Mg/Ml 1 Ml Vial) 0.2 mg IV Q2M PRN PRN Reason: Opioid Reversal Ondansetron HCl (Ondansetron 4 Mg/2 Ml Vial) 4 mg IVP Q6HR PRN PRN Reason: Nausea And Vomiting Last Admin: 07/26/22 01:56 Dose: 4 mg Pantoprazole Sodium (Pantoprazole 40 Mg/10 Ml Vial) 40 mg IVP DAILY [facility] Last Admin: 07/26/22 08:06 Dose: 40 mg Past medical history to include: Diabetes, GERD, hypertension, hiatal hernia, anxiety depression Social history: No smoking or alcohol. Does use electric chair. Lives in a senior apartment. Patient's daughter is the caregiver. Physical examination: VITAL SIGNS: 99.3, 110, 18, 106/60, 93% on 2 L GENERAL: Reclining in bed, awake, tired EYES: Pupils equal. Conjunctiva normal. HEENT: External appearance of nose and ears normal, oral cavity grossly normal. NECK: JVD unable to assess; masses not palpable. HEART: Heart sounds distant; no edema. LUNGS: Respiratory rate normal; breath sounds distant. ABDOMEN: Soft, abdominal binder, tenderness, no guarding rigidity, liver spleen not palpable, no masses palpable. JUAN LUIS drain PSYCH: Alert and oriented x3; mood and affect normal. MUSCULOSKELETAL:No Clubbing/cyanosis;muscles-grossly intact INVESTIGATIONS, reviewed in the clinical context: July 26: WBC 13.3 hemoglobin 10.1 platelets 200 potassium 4.3 BUN 23 creatinine 1.57 July 25: White count 20.7 hemoglobin 11.3 platelets 214 potassium 5.1 BUN 18 creatinine 1.21 July 22: Potassium 4.1 creatinine 1.29 2-D echocardiogram: EF 55%. Renal ultrasound: Right kidney some cortical thinning. Left kidney some cortical thinning. July 21: Potassium 3.9 BUN 21 creatinine 1.23 White count 9.7 hemoglobin 11.1 platelets 232 sodium 137 potassium 3.9 BUN 31 and creatinine 1.41 CRP 3.2 Computed tomography scan was done at [facility] Assessment and plan: - left abdominal ventral wall hernia possibly incarcerated July 24: Dr. Andre carried out lysis of adhesions. Next section of enterocutaneous fistula. 7 cm of small bowel removed. JUAN LUIS drain. Binder in place. Started on clear liquids -Status post Ventilator assist overnight -Morbid obesity BMI 48.5 Weight loss measures -Hypothyroid Synthroid 100 g a day -Hyperuricemia Allopurinol 300 mg a day -Diabetes mellitus type 2 and oral hypoglycemic Hold Glucophage and Glucotrol. 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 -Chronic medical debility, patient is at baseline uses electric wheelchair Liquids. IV fluids. JUAN LUIS drain. 2 L nasal cannula. Patient moved out of the ICU
[2022-07-26 11:27] LABS: Glucose,Whole Blood 176 mg/dL (70-110)
[2022-07-26] MEDS: SODIUM CHLORIDE 0.9% 1,000 ML IV SCH (11:29)
[2022-07-26] MEDS: ACETAMINOPHEN IV (For NPO) 1,000 MG in EMPTY BAG 1 BAG IVPB SCH ×3 (11:31→23:45)
[2022-07-26] MEDS: LACTATED RINGERS 1,000 ML IV SCH ×2 (11:32→19:09)
[2022-07-26] MEDS: guaiFENesin 600 MG TABLET.ER PO SCH ×3 (12:34→21:33)
[2022-07-26 17:00] LABS: Glucose,Whole Blood 187 mg/dL (70-110)
[2022-07-26] MEDS: MAGNESIUM OXIDE 400 MG TAB PO SCH (19:09)
[2022-07-26 21:22] LABS: Glucose,Whole Blood 183 mg/dL (70-110)
[2022-07-26] MEDS: ZOLPIDEM 5 MG TAB PO PRN (21:33)
[2022-07-26] MEDS: INSULIN DETEMIR (LEVEMIR) 100 UNIT/ML SYR SQ SCH (21:33)
[2022-07-27 06:22] LABS: Glucose,Whole Blood 128 mg/dL (70-110)
[2022-07-27] MEDS: INSULIN ASPART (NovoLOG) 100 UNIT/ML VIAL SQ SCH ×4 (06:25→21:01)
[2022-07-27] MEDS: ACETAMINOPHEN IV (For NPO) 1,000 MG in EMPTY BAG 1 BAG IVPB SCH (06:29)
[2022-07-27] MEDS: IPRATROPIUM-ALBUTEROL 3 ML NEB INHALATION SCH ×4 (07:20→20:19)
[2022-07-27] MEDS: PANTOPRAZOLE 40 MG/10 ML VIAL IVP SCH (07:45)
[2022-07-27] MEDS: HYDROmorphone 1 MG/ML 1 ML SYRINGE IVP PRN ×3 (07:45→21:04)
[2022-07-27] MEDS: ENOXAPARIN 30 MG/0.3 ML SYRINGE SQ SCH (07:45)
[2022-07-27] MEDS: guaiFENesin 600 MG TABLET.ER PO SCH ×4 (07:45→21:01)
[2022-07-27] MEDS: LEVOTHYROXINE IVP 100 MCG/5 ML VIAL IV SCH (08:56)
[2022-07-27 09:35] LABS: African American GFR (CKD) 38 (>60 ml/min/1.73 sqM); Anion Gap 4 mmol/L; Blood Urea Nitrogen 23 mg/dL (7-17); Calcium 7.8 mg/dL (8.4-10.2); Carbon Dioxide 24 mmol/L (22-30); Chloride 105 mmol/L (98-107); Glucose 118 mg/dL (74-99); Non-African American GFR(CKD) 33 (>60 ml/min/1.73 sqM); Potassium 4.3 mmol/L (3.5-5.1); Sodium 133 mmol/L (137-145)
[2022-07-27 10:53] LABS: HCT 26.5 % (37.2-46.3); HGB 8.5 g/dL (12.0-15.0); MCH 33.7 pg (27.0-32.0); MCHC 32.1 g/dL (32.0-37.0); MCV 105.2 fL (80.0-97.0); Mean Platelet Volume 11.2 fL (9.5-12.2); NRBC Per 100 WBC 0 /100 WBCS (0.0-0.0); Platelet Count 201 X 10*3/uL (140-440); RBC 2.52 X 10*6/uL (4.10-5.20); RDW 15.7 % (11.5-14.5); WBC 10.76 X 10*3/uL (4.50-10.00)
[2022-07-27 11:30] LABS: Glucose,Whole Blood 177 mg/dL (70-110)
[2022-07-27] MEDS: LACTATED RINGERS 1,000 ML IV SCH ×2 (11:54)
--- NOTE | 2022-07-27 11:59 | P.PN ---
Subjective Progress Note Date: 07/27/22 Principal diagnosis: Abdominal pain. I am seeing this patient in new consultation today 07/25/2022 in the intensive care unit post incarcerated ventral hernia repair. Patient is a 81-year-old female with significant past medical history of previous ventral hernia repair, diabetes mellitus type 2, hypertension, hypothyroidism, GERD, breast cancer. Patient was transferred from [facility] on July 20. Apparently, the patient the patient had been experiencing abdominal pain the previous [address] of the abdomen pelvis without contrast on arrival to our facility showed left lower abdominal wall subcutaneous fat stranding changes near the abdominal musculature with small focus of high density suggesting small bowel herniation possibly a Painter's hernia. The patient was originally admitted to the general medical floor with supportive care. 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 While in recovery, the patient was initially extubated, but did reportedly have to be reintubated due to failure to progress. Patient was then transferred to the intensive care unit. Chest x-ray on arrival to the intensive care unit showed the endotracheal tube within the right mainstem bronchus, vascular congestion and bibasilar atelectasis, and an orogastric tube coursing below the diaphragm. The ET tube was withdrawn 3 cm. Initial ventilator settings were assist control, respiratory 18, tidal volume 350, FiO2 100%, and PEEP of 5. ABGs on these settings show a pO2 239, pCO2 50, pH is 7.28. Patient's respiratory rate was increased to 22 and FiO2 was dropped to 50%. Patient appears fairly comfortable, and is synchronous with mechanical ventilator. Propofol is infusing at 30 mics per kilogram per minute. Normal saline is infusing at 50 L per hour. Patient has not required any vasopressors. Repeat labs are pending. orogastric tube is to LIS. Vital signs are stable at this time. Patient will be monitored in the intensive care unit at least overnight. The patient is seen today 07/26/2022 in follow-up in the intensive care unit. She was successfully extubated yesterday 07/25/2022 and is currently resting comfortably in bed. She is awake and alert. She is on oxygen 2 L/m per nasal cannula. Normal saline at 50 mL per hour. Chest x-ray shows improved aeration of the lungs. Some atelectasis in the left lower lobe. She is educated and encouraged regarding the increased use of the incentive spirometer. Sputum culture pending. White count 13.3. Hemoglobin 10.1. Platelets 218. Sodium 137. Potassium 4.3. Bicarb 24. BUN 23. Creatinine 1.57. Glucose 143. AST 24. ALT 23. She is continued on DuoNeb inhalations. Lovenox for DVT prophylaxis. She's been started on a clear liquid diet. Progress note dated 07/27/2022. The patient is seen today in room 450. She was admitted with a diagnosis of incarcerated hernia. She's currently on room air. She's getting lactated Ringer's at 75 mL an hour. The patient has no complaints today. She was successfully extubated from mechanical ventilation on July 25. White count 10.76, hemoglobin 8.5, hematocrit 26.5, with a normal platelet count. Sodium 133, potassium 4.3, chlorides 105, CO2 24, BUN 23, and creatinine 1.48. Chest x-rays from yesterday shows either atelectasis, or pneumonic infiltrate, left lung base. Objective - Vital Signs Vital signs: Vital Signs Temp 98.4 F 07/27/22 07:05 Pulse 100 07/27/22 11:23 Resp 16 07/27/22 07:05 BP 113/65 07/27/22 07:05 Pulse Ox 92 L 07/27/22 07:05 FiO2 50 07/25/22 11:39 Intake & Output 07/26/22 07/27/22 07/27/22 18:59 06:59 18:59 Intake Total 150 110 Output Total 130 Balance 20 110 Intake: IV 150 Sodium Chloride 0.9% 1, 150 000 ml @ 50 mls/hr IV . Q20H [facility] Rx#:[id number] Oral 110 Output: Drainage 45 Right Abdomen 45 Urine 85 Other: Voiding Method Indwelling Catheter Indwelling Catheter Indwelling Catheter - Exam No acute distress, oriented 3. Currently on room air. No respiratory distress or difficulty. HEENT examination is grossly unremarkable. Neck supple. Full range of motion. No adenopathy thyromegaly or neck vein distention. Cardiovascular examination reveals regular rhythm rate. S1-S2 normal. No S3 or S4. No discernible murmur noted. Heart rate 100 bpm. Lungs reveal mostly normal breath sounds. Minimal scattered rhonchi. No wheezes. No crackles. Breath sounds equal bilaterally. Room air saturation is 94%. Abdomen soft, with minimal tenderness. Extremities are intact. No cyanosis clubbing or edema. Skin is without rash or lesion. Neurologic examination is brief but nonfocal. - Labs CBC & Chem 7: 07/27/22 07:22 07/27/22 07:22 Labs: Abnormal Lab Results - Last 24 Hours (Table) 07/26/22 07/26/22 07/27/22 Range/Units 16:58 21:20 06:20 WBC (4.50-10.00) X 10*3/uL RBC (4.10-5.20) X 10*6/uL Hgb (12.0-15.0) g/dL Hct (37.2-46.3) % MCV (80.0-97.0) fL MCH (27.0-32.0) pg RDW (11.5-14.5) % Sodium (137-145) mmol/L BUN (7-17) mg/dL Creatinine (0.52-1.04) mg/dL Glucose (74-99) mg/dL POC Glucose (mg/dL) 187 H 183 H 128 H (70-110) mg/dL Calcium (8.4-10.2) mg/dL 07/27/22 07/27/22 07/27/22 Range/Units 07:22 07:22 11:29 WBC 10.76 H (4.50-10.00) X 10*3/uL RBC 2.52 L (4.10-5.20) X 10*6/uL Hgb 8.5 L (12.0-15.0) g/dL Hct 26.5 L (37.2-46.3) % MCV 105.2 H (80.0-97.0) fL MCH 33.7 H (27.0-32.0) pg RDW 15.7 H (11.5-14.5) % Sodium 133 L (137-145) mmol/L BUN 23 H (7-17) mg/dL Creatinine 1.48 H (0.52-1.04) mg/dL Glucose 118 H (74-99) mg/dL POC Glucose (mg/dL) 177 H (70-110) mg/dL Calcium 7.8 L (8.4-10.2) mg/dL Microbiology - Last 24 Hours (Table) 07/25/22 02:23 Gram Stain - Final Sputum Sputum Culture - Final Assessment and Plan Assessment: Postop day #3, status post robotically assisted laparoscopic ventral hernia repair, 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 Status post extubation from mechanical ventilation, 07/25/2022. Type 2 diabetes mellitus. Essential hypertension. Hypothyroidism. GERD. Previous history of ventral hernia repair. History of breast cancer, status post lumpectomy. Plan: Plan dated 07/27/2022. The patient appears to be doing relatively well. The patient is currently on room air. She's getting lactated Ringer's at 75 mL an hour. She denies any significant abdominal pain or discomfort. She's not having any respiratory distress or difficulty. Labs, x-rays, and medications are reviewed. Prognosis is guarded. We continue to recommend deep breathing, coughing, and clearing his secretions, and hourly use of the incentive spirometer. Time with Patient: Less than 30
[2022-07-27 12:28] LABS: Basophils # (A) 0.03 X 10*3/uL (0.00-0.10); Basophils % (A) 0.3 %; Eosinophils # (A) 0.24 X 10*3/uL (0.04-0.35); Eosinophils % (A) 2.2 %; Immature Grans, Automated 0.6 %; Lymphocytes # (A) 2.26 X 10*3/uL (0.90-5.00); Monocytes # (A) 0.74 X 10*3/uL (0.20-1.00); Monocytes % (A) 6.9 %; Neutrophils # (A) 7.43 X 10*3/uL (1.80-7.70)
--- NOTE | 2022-07-27 15:27 | P.PN ---
Subjective Progress Note Date: 07/27/22 CHIEF COMPLAINT: Abdominal pain HISTORY OF PRESENT ILLNESS: Patient is postop day #3 status post robotic- assisted laparoscopic lysis of adhesions, small bowel resection of enterocutaneous fistula with primary anastomosis, repair of recurrent incarcerated incisional hernia with strangulation. Patient on regular medical floor. She did work with physical therapy and was able to sit up in bed. She denies any bowel activity. Denies any nausea or vomiting. She does complain of abdominal pain. But her pain is controlled. Patient did have a low-grade temp of 100.2 yesterday afternoon. WBC is down from 13.3-10.76 Hgb is 8.5 platelets 201 creatinine 1.48 PHYSICAL EXAM: VITAL SIGNS: Reviewed GENERAL: Well-developed in no acute distress. HEENT: No sclera icterus. Extraocular movements grossly intact. Moist buccal mucosa. Head is atraumatic, normocephalic. Hears conversational speech. No nasal drainage. NECK: Supple without lymphadenopathy. CHEST: Non-labored respirations and equal bilateral excursions. CARDIOVASCULAR: Palpable 2+ radial pulses. ABDOMEN: Soft. Nondistended. Incision sites clean dry and intact. JUAN LUIS drain with serosanguineous output. MUSCULOSKELETAL: No clubbing or cyanosis. NEUROLOGIC: Patient is intubated. Able to open her eyes. No focal or lateralizing signs. Cranial nerves II through XII grossly intact. SKIN: Well perfused. Good skin turgor. ASSESSMENT: 1. 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 Morbid obesity due to excess calories 3. Body mass index of 48.5 4. Diabetes type 2, [id number] 5. Gastroesophageal reflux disease 6. Gout 7. Hypothyroidism 8. History of breast cancer 9. Hiatal hernia 10. Generalized anxiety disorder 11. Depressive disorder 12. Chronic deficiency anemia 13. Severe intra-abdominal adhesions PLAN: -Advance diet to full liquids -Add Entereg to help stimulate bowel movement -Encouraged patient to work with physical therapy -Continue supportive care -Continue IV fluid -Encouraged patient to use incentive spirometer -DVT prophylaxis Lovenox Physician Glost Tile Sorter note has been reviewed by physician. Signing provider agrees with the documented findings, assessment, and plan of care. Objective - Vital Signs Vital signs: Vital Signs Temp 98.4 F 07/27/22 13:30 Pulse 100 07/27/22 15:14 Resp 16 07/27/22 13:30 BP 123/75 07/27/22 13:30 Pulse Ox 97 07/27/22 13:30 FiO2 50 07/25/22 11:39 Intake & Output 07/26/22 07/27/22 07/27/22 18:59 06:59 18:59 Intake Total 150 110 Output Total 130 Balance 20 110 Intake: IV 150 Sodium Chloride 0.9% 1, 150 000 ml @ 50 mls/hr IV . Q20H [facility] Rx#:[id number] Oral 110 Output: Drainage 45 Right Abdomen 45 Urine 85 Other: Voiding Method Indwelling Catheter Indwelling Catheter Indwelling Catheter - Labs CBC & Chem 7: 07/27/22 07:22 07/27/22 07:22 Labs: Abnormal Lab Results - Last 24 Hours (Table) 07/26/22 07/26/22 07/27/22 Range/Units 16:58 21:20 06:20 WBC (4.50-10.00) X 10*3/uL RBC (4.10-5.20) X 10*6/uL Hgb (12.0-15.0) g/dL Hct (37.2-46.3) % MCV (80.0-97.0) fL MCH (27.0-32.0) pg RDW (11.5-14.5) % Immature Gran # (0.00-0.04) X 10*3/uL Sodium (137-145) mmol/L BUN (7-17) mg/dL Creatinine (0.52-1.04) mg/dL Glucose (74-99) mg/dL POC Glucose (mg/dL) 187 H 183 H 128 H (70-110) mg/dL Calcium (8.4-10.2) mg/dL 07/27/22 07/27/22 07/27/22 Range/Units 07:22 07:22 11:29 WBC 10.76 H (4.50-10.00) X 10*3/uL RBC 2.52 L (4.10-5.20) X 10*6/uL Hgb 8.5 L (12.0-15.0) g/dL Hct 26.5 L (37.2-46.3) % MCV 105.2 H (80.0-97.0) fL MCH 33.7 H (27.0-32.0) pg RDW 15.7 H (11.5-14.5) % Immature Gran # 0.06 H (0.00-0.04) X 10*3/uL Sodium 133 L (137-145) mmol/L BUN 23 H (7-17) mg/dL Creatinine 1.48 H (0.52-1.04) mg/dL Glucose 118 H (74-99) mg/dL POC Glucose (mg/dL) 177 H (70-110) mg/dL Calcium 7.8 L (8.4-10.2) mg/dL Microbiology - Last 24 Hours (Table) 07/25/22 02:23 Gram Stain - Final Sputum Sputum Culture - Final
[2022-07-27 16:26] LABS: Glucose,Whole Blood 161 mg/dL (70-110)
--- NOTE | 2022-07-27 16:49 | P.PN ---
Progress Note - Text Progress Note Date: 07/27/22 Chief Complaint: Abdominal pain This is a pleasant 81-year-old, follows with Dr. Church. Chronic stable medical conditions include diabetes, GERD, hypertension, hiatal hernia, anxiety depression. Patient does use electric chair to get about. Patient's had chronic abdominal pain. Pain doesn't radiate. Normally has a bowel movement every 2 or 3 days. No fever no chills. Does not need between diarrhea and constipation. Patient initially presented to [facility]. Computed tomography scan showed possible incarcerated hernia within the anterior lateral left lower abdomen. No obvious obstruction. Patient was sent down here for higher level of care for surgical evaluation by Dr. Andre. Patient's appetite is otherwise fair. July 21: Still has abdominal pain. Some decrease in diarrhea. Patient placed on regular diet by surgery. Scheduled for surgery on Sunday by Dr. Andre. July 22: Up in a recliner. Some abdominal pain. Tolerating diet. Scheduled for surgery Sunday. No nausea vomiting. July 23: Reclining in bed. Tired all pain present. No fever no chills. Pending surgery July 24: Patient seen this morning. Pending surgery later today. Abdominal pain present. Nothing by mouth. July 25: ICU. Yesterday on July [address] Andre patient underwent abdominal surgery. Several adhesions were removed. Partial small bowel was attached to the previous mesh for the enterocutaneous fistula. About 7 cm small bowel was removed. N to end anastomosis. JUAN LUIS drain was placed. Patient was extubated this morning. Propofol was removed. Remains on 3 L of oxygen. Abdominal binder in place. Nothing by mouth. July 26: ICU. On 2 L nasal cannula. Nothing by mouth. No flatus. Abdominal binder. Little output through the JUAN LUIS. Started on clear liquids poor surgery. Sinus tachycardia. Some abdominal pain. July 27: Reclining in bed. Comfortable. No flatus. Some output through the JUAN LUIS drain. Abdominal binder in place. On clear liquid diet. Advance to full liquids by surgery. Active Medications Albuterol/Ipratropium (Ipratropium-Albuterol 3 Ml Neb) 3 ml INHALATION RT-QID KRI[facility] Last Admin: 07/27/22 15:02 Dose: 3 ml Albuterol/Ipratropium (Ipratropium-Albuterol 3 Ml Neb) 3 ml INHALATION RT-Q2H PRN PRN Reason: Shortness Of Breath Or Wheezing Alvimopan (Alvimopan 12 Mg Capsule) 12 mg PO BID [facility] Stop: 08/03/22 09:01 Dextrose/Water (Dextrose 50% Syringe 50 Ml) 25 ml IVP PER PROTOCOL PRN; Protoc ol PRN Reason: Hypoglycemia Dextrose/Water (Dextrose 50% Syringe 50 Ml) 50 ml IVP PER PROTOCOL PRN; Protocol PRN Reason: Hypoglycemia Enoxaparin Sodium (Enoxaparin 30 Mg/0.3 Ml Syringe) 30 mg SQ DAILY [facility] Last Admin: 07/27/22 07:45 Dose: 30 mg Guaifenesin (Guaifenesin 600 Mg Tablet.Er) 600 mg PO QID [facility] Last Admin: 07/27/22 11:53 Dose: 600 mg Hydromorphone HCl (Hydromorphone 1 Mg/Ml 1 Ml Syringe) 1 mg IVP Q4HR PRN PRN Reason: Severe Pain (Scale 7 to 10) Last Admin: 07/27/22 12:58 Dose: 1 mg Lactated Ringer's (Lactated Ringers) 1,000 mls @ 75 mls/hr IV .[id number] [facility] Last Admin: 07/27/22 11:54 Dose: 75 mls/hr Insulin Aspart (Insulin Aspart (Novolog) 100 Unit/Ml Vial) 0 unit SQ ACHS [facility]; Protocol Last Admin: 07/27/22 11:54 Dose: 2 unit Insulin Detemir (Insulin Detemir (Levemir) 100 Unit/Ml Syr) 10 unit SQ HS [facility] Last Admin: 07/26/22 21:33 Dose: 10 unit Levothyroxine Sodium (Levothyroxine Ivp 100 Mcg/5 Ml Vial) 62.5 mcg IV DAILY [facility] Last Admin: 07/27/22 08:56 Dose: 62.5 mcg Miscellaneous Information (Magnesium Replacement Protocol 1 Each Misc) 1 each MISCELLANE DAILY PRN; Protocol PRN Reason: Per Protocol Morphine Sulfate (Morphine Sulfate 2 Mg/Ml Syringe) 1 mg IVP Q4HR PRN PRN Reason: Pain Last Admin: 07/25/22 11:59 Dose: 1 mg Naloxone HCl (Naloxone 0.4 Mg/Ml 1 Ml Vial) 0.2 mg IV Q2M PRN PRN Reason: Opioid Reversal Ondansetron HCl (Ondansetron 4 Mg/2 Ml Vial) 4 mg IVP Q6HR PRN PRN Reason: Nausea And Vomiting Last Admin: 07/26/22 01:56 Dose: 4 mg Pantoprazole Sodium (Pantoprazole 40 Mg/10 Ml Vial) 40 mg IVP DAILY [facility] Last Admin: 07/27/22 07:45 Dose: 40 mg Zolpidem Tartrate (Zolpidem 5 Mg Tab) 5 mg PO HS PRN PRN Reason: Insomnia Last Admin: 07/26/22 21:33 Dose: 5 mg Past medical history include: Diabetes, GERD, hypertension, hiatal hernia, anxiety depression Social history: No smoking or alcohol. Does use electric chair. Lives in a senior apartment. Patient's daughter is the caregiver. Physical examination: VITAL SIGNS: 98.4, 95, 16, 123% he 5, 97% room air GENERAL: Reclining in bed, awake, EYES: Pupils equal. Conjunctiva normal. HEENT: External appearance of nose and ears normal, oral cavity grossly normal. NECK: JVD unable to assess; masses not palpable. HEART: Heart sounds distant; no edema. LUNGS: Respiratory rate normal; breath sounds distant. ABDOMEN: Soft, abdominal binder, tenderness, no guarding rigidity, liver spleen not palpable, no masses palpable. JUAN LUIS drain PSYCH: Alert and oriented x3; mood and affect normal. MUSCULOSKELETAL:No Clubbing/cyanosis;muscles-grossly intact INVESTIGATIONS, reviewed in the clinical context: Weight 25th: WBC 10.7 hemoglobin 8.5 platelets 201 potassium 4.3 BUN 23 creatinine 1.48 July 26: WBC 13.3 hemoglobin 10.1 platelets 200 potassium 4.3 BUN 23 creatinine 1.57 July 25: White count 20.7 hemoglobin 11.3 platelets 214 potassium 5.1 BUN 18 creatinine 1.21 July 22: Potassium 4.1 creatinine 1.29 2-D echocardiogram: EF 55%. Renal ultrasound: Right kidney some cortical thinning. Left kidney some cortical thinning. July 21: Potassium 3.9 BUN 21 creatinine 1.23 White count 9.7 hemoglobin 11.1 platelets 232 sodium 137 potassium 3.9 BUN 31 and creatinine 1.41 CRP 3.2 Computed tomography scan was done at [facility] Assessment and plan: - left abdominal ventral wall hernia - incarcerated July 24: Dr. Andre carried out lysis of adhesions. Resection of enterocutaneous fistula. 7 cm of small bowel removed. JUAN LUIS drain. Binder in place. Advance to full liquids -Status post Ventilator assist overnight -Morbid obesity BMI 48.5 Weight loss measures -Hypothyroid Synthroid 100 g a day -Hyperuricemia Allopurinol 300 mg a day -Diabetes mellitus type 2 and oral hypoglycemic Resume Follow Accu-Cheks with sliding scale -GERD Protonix -Chronic kidney disease stage III likely nephrosclerosis and diabetic nephropathy Renal ultrasound shows cortical thinning. -Chronic medical debility, patient is at baseline uses electric wheelchair Follow Liquids. IV fluids. JUAN LUIS drain. Resume Glucophage
[2022-07-27] MEDS: metFORMIN 500 MG TAB PO SCH (17:18)
[2022-07-27 20:39] LABS: Glucose,Whole Blood 179 mg/dL (70-110)
[2022-07-27] MEDS: ALVIMOPAN 12 MG CAPSULE PO SCH (21:01)
[2022-07-27] MEDS: INSULIN DETEMIR (LEVEMIR) 100 UNIT/ML SYR SQ SCH (21:02)
[2022-07-28] MEDS: HYDROmorphone 1 MG/ML 1 ML SYRINGE IVP PRN ×5 (02:19→20:35)
[2022-07-28] MEDS: LACTATED RINGERS 1,000 ML IV SCH (04:22)
[2022-07-28 06:10] LABS: Glucose,Whole Blood 98 mg/dL (70-110)
[2022-07-28] MEDS: INSULIN ASPART (NovoLOG) 100 UNIT/ML VIAL SQ SCH ×4 (06:11→21:36)
[2022-07-28] MEDS: metFORMIN 500 MG TAB PO SCH ×2 (06:16→17:15)
[2022-07-28 06:44] LABS: Glucose,Whole Blood 98 mg/dL (70-110)
[2022-07-28] MEDS: ENOXAPARIN 30 MG/0.3 ML SYRINGE SQ SCH (08:37)
[2022-07-28] MEDS: PANTOPRAZOLE 40 MG/10 ML VIAL IVP SCH (08:37)
[2022-07-28] MEDS: ALVIMOPAN 12 MG CAPSULE PO SCH ×2 (08:38→21:36)
[2022-07-28] MEDS: LEVOTHYROXINE IVP 100 MCG/5 ML VIAL IV SCH (08:38)
[2022-07-28] MEDS: guaiFENesin 600 MG TABLET.ER PO SCH ×4 (08:38→21:36)
[2022-07-28] MEDS: IPRATROPIUM-ALBUTEROL 3 ML NEB INHALATION SCH ×4 (08:55→21:26)
[2022-07-28] MEDS ORDERED: HEPARIN SODIUM 1,000 UN/ML (10ML VL) IV ONE (10:06)
[2022-07-28] MEDS: METOPROLOL SUCCINATE (ER) 50 MG TAB.ER.24H PO SCH (10:40)
--- NOTE | 2022-07-28 10:52 | P.PN ---
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 This morning, patient went into atrial fibrillation. Case discussed with cardiology. May start heparin drip for 48 hours followed by Johanna with stable hemoglobin. Patient does report abdominal distention with full liquid diet. We'll obtain abdominal x-rays. Currently, patient is a regular diet. Overall, patient clinically doing well. Continue Entereg. Ambulation encouraged. PTOT advised. Will need inpatient rehab Objective - Vital Signs Vital signs: Vital Signs Temp 97.9 F 07/28/22 07:01 Pulse 92 07/28/22 09:06 Resp 16 07/28/22 07:01 BP 148/67 07/28/22 07:01 Pulse Ox 93 L 07/28/22 07:01 FiO2 50 07/25/22 11:39 Intake & Output 07/27/22 07/28/22 07/28/22 18:59 06:59 18:59 Intake Total 960 Output Total 1230 1425 800 Balance -1230 -465 -800 Intake: Intake, IV Titration 600 Amount Lactated Ringers 1,000 ml 600 @ 75 mls/hr IV .[id number] [facility] Rx#:[id number] Oral 360 Output: Drainage 30 Right Abdomen 30 Urine 1200 1425 800 Uretheral (Castellano) 800 800 Other: Voiding Method Indwelling Catheter Indwelling Catheter Indwelling Catheter - Labs CBC & Chem 7: 07/27/22 07:22 07/27/22 07:22 Labs: Abnormal Lab Results - Last 24 Hours (Table) 07/27/22 07/27/22 07/27/22 Range/Units 07:22 11:29 16:25 WBC 10.76 H (4.50-10.00) X 10*3/uL RBC 2.52 L (4.10-5.20) X 10*6/uL Hgb 8.5 L (12.0-15.0) g/dL Hct 26.5 L (37.2-46.3) % MCV 105.2 H (80.0-97.0) fL MCH 33.7 H (27.0-32.0) pg RDW 15.7 H (11.5-14.5) % Immature Gran # 0.06 H (0.00-0.04) X 10*3/uL POC Glucose (mg/dL) 177 H 161 H (70-110) mg/dL 07/27/22 Range/Units 20:35 WBC (4.50-10.00) X 10*3/uL RBC (4.10-5.20) X 10*6/uL Hgb (12.0-15.0) g/dL Hct (37.2-46.3) % MCV (80.0-97.0) fL MCH (27.0-32.0) pg RDW (11.5-14.5) % Immature Gran # (0.00-0.04) X 10*3/uL POC Glucose (mg/dL) 179 H (70-110) mg/dL Microbiology - Last 24 Hours (Table) 07/25/22 02:23 Gram Stain - Final Sputum Sputum Culture - Final
[2022-07-28 11:11] LABS: Glucose,Whole Blood 157 mg/dL (70-110)
[2022-07-28 11:28] LABS: INR 0.9 (<1.2); Partial Thromboplastin Time 24.8 sec (22.0-30.0); Prothrombin Time 10.1 sec (9.0-12.0)
[2022-07-28 11:36] LABS: Basophils % (A) 0 %; Eosinophils # (A) 0.2 k/uL (0-0.7); Eosinophils % (A) 2 %; HCT 31.9 % (34.0-46.0); HGB 10.2 gm/dL (11.4-16.0); Hypochromasia Moderate; Lymphocytes # (A) 1.8 k/uL (1.0-4.8); Lymphocytes % (A) 18 %; MCH 34.9 pg (25.0-35.0); Macrocytosis Marked; Mean Platelet Volume 9.6; Monocytes # (A) 0.5 k/uL (0-1.0); Monocytes % (A) 5 %; Neutrophils # (A) 7.4 k/uL (1.3-7.7); Neutrophils % (A) 74 %; Platelet Count 234 k/uL (150-450); RBC 2.93 m/uL (3.80-5.40); RDW 15.5 % (11.5-15.5)
--- NOTE | 2022-07-28 11:49 | P.CRDCN ---
History of Present Illness History of present illness: HISTORY OF PRESENT ILLNESS: This is a 81-year-old female with a past medical history significant for hypertension and diabetes. Patient does not follow with a flight engineer performance qualified. We have been asked to see the patient in consultation for onset atrial fibrillation. Patient examined at the bedside. Patient is status post hernia repair with Dr. Ashley. Patient went into atrial fibrillation with RVR yesterday. The EKG is in the patient's chart and is supposed to be scanned into the EMR by the admin secretary. She is maintaining sinus mechanism this morning. She denies a history of atrial fibrillation. She denies chest pain or pressure. She denies shortness of breath. * EKG reveals atrial fibrillation with RVR. * Chest xray improved aeration of the lungs. * Laboratory data: WBC 10.0. Hemoglobin 10.2. Platelet count 234. Sodium 133. Potassium 4.3. BUN 23. Creatinine 1.48. * Current home cardiac medications include hydrochlorothiazide 12.5 mg daily. * Most recent echocardiogram obtained in July 2022 revealed ejection fraction 55% REVIEW OF SYSTEMS: At the time of my exam: CONSTITUTIONAL: Denies fever or chills. HEENT: Denies blurred vision, vision changes, or eye pain. Denies hemoptysis CARDIOVASCULAR: Denies chest pain. Denies orthopnea. Denies PND. Denies palpitations RESPIRATORY: Denies shortness of breath. GASTROINTESTINAL: Denies abdominal pain. Denies nausea or vomiting. HEMATOLOGIC: Denies bleeding disorders. GENITOURINARY: Denies any blood in urine. SKIN: Denies pruitis. Denies rash. PHYSICAL EXAM: VITAL SIGNS: Reviewed. GENERAL: Well-developed in no acute distress. HEENT: Head is normocephalic. Pupils are equal, round. Sclerae anicteric. Mucous membranes of the mouth are moist. Neck supple. No JVD or thyromegaly LUNGS: Respirations even and unlabored. Lungs essentially clear to auscultation bilaterally. HEART: Regular rate and rhythm. S1 and S2 heard. ABDOMEN: Soft. Nondistended. Nontender. EXTREMITIES: Normal range of motion. No clubbing or cyanosis. Peripheral pul ses intact. No lower extremity edema NEUROLOGIC: Awake and alert. Oriented x 3. ASSESSMENT: Status post repair of incarcerated recurrent incisional hernia New-onset atrial fibrillation with RVR, currently maintaining sinus mechanism Chronic kidney disease Hypertension Diabetes PLAN: No need to repeat echocardiogram as this was performed earlier this month Add metoprolol succinate 50 mg daily Case discussed with Dr. Ashley who is agreeable to beginning anticoagulation. She is requesting IV heparin for 48 hours and then will transition to Eliquis 5mg BID Check TSH Continue telemetry monitoring Further recommendations pending patient's course Nurse practitioner note has been reviewed by physician. Signing provider agrees with the documented findings, assessment, and plan of care. Past Medical History Past Medical History: Cancer, Diabetes Mellitus, GERD/Reflux, Hypertension, Skin Disorder Additional Past Medical History / Comment(s): HX BREAST CA. HIATAL HERNIA. ABN HGB, HAD BLOOD TRANSFUSION X2, 04/05/17; HAD EGD, COLONSCOPY, BOTH POS FOR POLYPS. RECENT UTI. LT BREAST LUMPECTOMY 04/04/17, NOT HEALED YET. History of Any Multi-Drug Resistant Organisms: None Reported Past Surgical History: Breast Surgery, Cholecystectomy, Hernia Repair, Hysterectomy Additional Past Surgical History / Comment(s): LT BREAST LUMPECTOMY 04/04/17. EGD, COLONOSCOPY 04/09/17. Past Anesthesia/Blood Transfusion Reactions: Motion Sickness Past Psychological History: Anxiety, Depression Smoking Status: Never smoker Past Alcohol Use History: None Reported Past Drug Use History: None Reported - Past Family History Brother(s) Family Medical History: Cancer Medications and Allergies Home Medications Medication Instructions Recorded Confirmed Type Aspirin [Adult Low Dose Aspirin EC] 81 mg PO DAILY 05/18/17 07/19/22 History Cetirizine HCl [Zyrtec] 10 mg PO DAILY 05/18/17 07/19/22 History Levothyroxine Sodium [Synthroid] 100 mcg PO DAILY 05/18/17 07/19/22 History allopurinoL [Zyloprim] 300 mg PO DAILY 05/18/17 07/19/22 History glipiZIDE [Glucotrol] 10 mg PO DAILY 05/18/17 07/19/22 History metFORMIN HCL [Glucophage] 1,000 mg PO BID 05/18/17 07/19/22 History Ergocalciferol (Vitamin D2) 1,250 mcg PO TUFR 07/19/22 07/19/22 History [Drisdol (50,000 Iu)] Ferrous Sulfate [Feosol] 325 mg PO TUFR 07/19/22 07/19/22 History Magnesium Oxide [Mag-Ox] 400 mg PO BID 07/19/22 07/19/22 History Pantoprazole Sodium [Protonix] 20 mg PO DAILY 07/19/22 07/19/22 History Her-Nmik-Vgyaj Acid 1 cap PO DAILY 07/19/22 07/19/22 History [-U Capsule (formulary)] hydroCHLOROthiazide 12.5 mg PO DAILY 07/19/22 07/19/22 History Allergies Allergy/AdvReac Type Severity Reaction Status Date / Time Iodinated Contrast Media Allergy Dyspnea Verified 07/19/22 20:57 [Iodinated Contrast- Oral and IV Dye] latex Allergy Rash/Hives Verified 07/24/22 12:10 Penicillins Allergy Rash/Hives Verified 07/19/22 20:57 banana AdvReac CRAMPS IN Verified 07/19/22 20:57 LEGS pineapple AdvReac CRAMPS IN Verified 07/19/22 20:57 LEGS Physical Exam Vitals: Vital Signs Temp Pulse Pulse Pulse Pulse Resp BP 07/28/22 11:30 88 07/28/22 09:06 92 07/28/22 08:55 90 07/28/22 07:01 97.9 F 84 16 148/67 07/28/22 01:52 98.6 F 97 18 131/73 07/27/22 20:38 104 H 07/27/22 20:19 100 07/27/22 20:00 97.8 F 105 H 19 153/60 07/27/22 15:14 100 07/27/22 15:02 100 07/27/22 13:30 98.4 F 95 16 123/75 Pulse Ox 07/28/22 11:30 07/28/22 09:06 07/28/22 08:55 07/28/22 07:01 93 L 07/28/22 01:52 100 07/27/22 20:38 07/27/22 20:19 07/27/22 20:00 99 07/27/22 15:14 07/27/22 15:02 07/27/22 13:30 97 Intake and Output 07/27/22 07/28/22 07/28/22 22:59 06:59 14:59 Intake Total 960 Output Total 2029 966 800 Balance -2029 335 -800 Intake: Intake, IV Titration 600 Amount Lactated Ringers 1,000 ml 600 @ 75 mls/hr IV .[id number] [facility] Rx#:[id number] Oral 360 Output: Drainage 30 Right Abdomen 30 Urine 2000 625 800 Uretheral (Castellano) 800 800 Other: Voiding Method Indwelling Catheter Indwelling Catheter Results 07/28/22 10:22 07/27/22 07:22 Coagulation 07/28/22 Range/Units 10: PT 10.1 (9.0-12.0) sec APTT 24.8 (22.0-30.0) sec CBC 07/28/22 Range/Units 10: WBC 10.0 (3.8-10.6) k/uL RBC 2.93 L (3.80-5.40) m/uL Hgb 10.2 L (11.4-16.0) gm/dL Hct 31.9 L (34.0-46.0) % Plt Count 234 (150-450) k/uL Current Medications Generic Name Dose Route Start Last Admin Trade Name Freq PRN Reason Stop Dose Admin Albuterol/Ipratropium 3 ml 07/25/22 16:00 07/28/22 11:30 Ipratropium-Albuterol 3 Ml Neb INHALATION 3 ml RT-QID [facility] Administration Albuterol/Ipratropium 3 ml 07/25/22 15:40 Ipratropium-Albuterol 3 Ml Neb INHALATION RT-Q2H PRN Shortness Of Breath Or Wheezing Alvimopan 12 mg 07/27/22 21:00 07/28/22 08:38 Alvimopan 12 Mg Capsule PO 08/03/22 09:01 12 mg BID KRISTIN Administration Dextrose/Water 25 ml 07/20/22 07:17 Dextrose 50% Syringe 50 Ml IVP PER PROTOCOL PRN Hypoglycemia Protocol Dextrose/Water 50 ml 07/20/22 07:17 Dextrose 50% Syringe 50 Ml IVP PER PROTOCOL PRN Hypoglycemia Protocol Guaifenesin 600 mg 07/26/22 13:00 07/28/22 08:38 Guaifenesin 600 Mg Tablet.Er PO 600 mg QID [facility] Administration Heparin Sodium (Porcine) 0 unit 07/28/22 10:06 Heparin Sodium 1,000 Un/Ml (10ml Vl) IV PER PROTOCOL PRN Low PTT Protocol Hydromorphone HCl 1 mg 05/23/23 00:15 07/28/22 10:41 Hydromorphone 1 Mg/Ml 1 Ml Syringe IVP 1 mg Q4HR PRN Administration Severe Pain (Scale 7 to 10) Lactated Ringer's 1,000 mls @ 75 mls/hr 07/26/22 11:00 07/28/22 04:22 Lactated Ringers IV Not Given .[id number] [facility] Heparin Sodium/Sodium Chloride 250 mls @ 10 mls/hr 07/28/22 10:15 25,000 unit/ Sodium Chloride IV .Q24H [facility] Protocol 8.1168 UNITS/KG/HR Insulin Aspart 0 unit 07/26/22 12:30 07/28/22 06:11 Insulin Aspart (Novolog) 100 Unit/Ml Vial SQ Not Given ACHS [facility] Protocol Insulin Detemir 10 unit 07/21/22 21:00 07/27/22 21:02 Insulin Detemir (Levemir) 100 Unit/Ml Syr SQ 10 unit HS [facility] Administration Levothyroxine Sodium 62.5 mcg 07/25/22 09:00 07/28/22 08:38 Levothyroxine Ivp 100 Mcg/5 Ml Vial IV 62.5 mcg DAILY [facility] Administration Metformin HCl 1,000 mg 07/27/22 17:30 07/28/22 06:16 Metformin 500 Mg Tab PO 1,000 mg AC-BID [facility]IS[facility] Administration Metoprolol Succinate 50 mg 07/28/22 09:30 07/28/22 10:40 Metoprolol Succinate (Er) 50 Mg Tab.Er.24h PO 50 mg DAILY [facility] Administration Miscellaneous Information 1 each 07/26/22 00:20 Magnesium Replacement Protocol 1 Each Misc MISCELLANE DAILY PRN Per Protocol Protocol Morphine Sulfate 1 mg 07/20/22 03:16 07/25/22 11:59 Morphine Sulfate 2 Mg/Ml Syringe IVP 1 mg Q4HR PRN Administration Pain Naloxone HCl 0.2 mg 07/25/22 00:15 Naloxone 0.4 Mg/Ml 1 Ml Vial IV Q2M PRN Opioid Reversal Ondansetron HCl 4 mg 07/20/22 13:36 07/26/22 01:56 Ondansetron 4 Mg/2 Ml Vial IVP 4 mg Q6HR PRN Administration Nausea And Vomiting Pantoprazole Sodium 40 mg 07/26/22 09:00 07/28/22 08:37 Pantoprazole 40 Mg/10 Ml Vial IVP 40 mg DAILY [facility] Administration Simethicone 160 mg 07/28/22 11:15 Simethicone 80 Mg Chewable PO TID [facility] Zolpidem Tartrate 5 mg 07/26/22 19:56 07/26/22 21:33 Zolpidem 5 Mg Tab PO 5 mg HS PRN Administration Insomnia Intake and Output 07/27/22 07/28/22 07/28/22 22:59 06:59 14:59 Intake Total 960 Output Total 2029 625 800 Balance -2029 335 -800 Intake: Intake, IV Titration 600 Amount Lactated Ringers 1,000 ml 600 @ 75 mls/hr IV .[id number] [facility] Rx#:[id number] Oral 360 Output: Drainage 30 Right Abdomen 30 Urine 2000 625 800 Uretheral (Castellano) 800 800 Other: Voiding Method Indwelling Catheter Indwelling Catheter 07/28/22 10:22 07/27/22 07:22
--- NOTE | 2022-07-28 12:12 | P.PN ---
Progress Note - Text Progress Note Date: 07/28/22 Chief Complaint: Abdominal pain This is a pleasant 81-year-old, follows with Dr. Church. Chronic stable medical conditions include diabetes, GERD, hypertension, hiatal hernia, anxiety depression. Patient does use electric chair to get about. Patient's had chronic abdominal pain. Pain doesn't radiate. Normally has a bowel movement every 2 or 3 days. No fever no chills. Does not need between diarrhea and constipation. Patient initially presented to [facility]. Computed tomography scan showed possible incarcerated hernia within the anterior lateral left lower abdomen. No obvious obstruction. Patient was sent down here for higher level of care for surgical evaluation by Dr. Andre. Patient's appetite is otherwise fair. July 21: Still has abdominal pain. Some decrease in diarrhea. Patient placed on regular diet by surgery. Scheduled for surgery on Sunday by Dr. Andre. July 22: Up in a recliner. Some abdominal pain. Tolerating diet. Scheduled for surgery Sunday. No nausea vomiting. July 23: Reclining in bed. Tired all pain present. No fever no chills. Pending surgery July 24: Patient seen this morning. Pending surgery later today. Abdominal pain present. Nothing by mouth. July 25: ICU. Yesterday on July [address] Andre patient underwent abdominal surgery. Several adhesions were removed. Partial small bowel was attached to the previous mesh for the enterocutaneous fistula. About 7 cm small bowel was removed. N to end anastomosis. JUAN LUIS drain was placed. Patient was extubated this morning. Propofol was removed. Remains on 3 L of oxygen. Abdominal binder in place. Nothing by mouth. July 26: ICU. On 2 L nasal cannula. Nothing by mouth. No flatus. Abdominal binder. Little output through the JUAN LUIS. Started on clear liquids poor surgery. Sinus tachycardia. Some abdominal pain. July 27: Reclining in bed. Comfortable. No flatus. Some output through the JUAN LUIS drain. Abdominal binder in place. On clear liquid diet. Advance to full liquids by surgery. July 28: Patient went into A. fib with rapid ventricular rate. Overnight. This morning went back into sinus rhythm. Was started on Toprol XL 50 mg day. Cardiology discussed with surgery and IV heparin for 48 hours then transitioned eliquis. No flatus. By surgery advanced to regular diet. Active Medications Albuterol/Ipratropium (Ipratropium-Albuterol 3 Ml Neb) 3 ml INHALATION RT-QID [facility] Last Admin: 07/28/22 11:30 Dose: 3 ml Albuterol/Ipratropium (Ipratropium-Albuterol 3 Ml Neb) 3 ml INHALATION RT-Q2H PRN PRN Reason: Shortness Of Breath Or Wheezing Alvimopan (Alvimopan 12 Mg Capsule) 12 mg PO BID [facility] Stop: 08/03/22 09:01 Last Admin: 07/28/22 08:38 Dose: 12 mg Dextrose/Water (Dextrose 50% Syringe 50 Ml) 25 ml IVP PER PROTOCOL PRN; Protocol PRN Reason: Hypoglycemia Dextrose/Water (Dextrose 50% Syringe 50 Ml) 50 ml IVP PER PROTOCOL PRN; Protocol PRN Reason: Hypoglycemia Guaifenesin (Guaifenesin 600 Mg Tablet.Er) 600 mg PO QID [facility] Last Admin: 07/28/22 08:38 Dose: 600 mg Heparin Sodium (Porcine) (Heparin Sodium 1,000 Un/Ml (10ml Vl)) 0 unit IV PER PROTOCOL PRN; Protocol PRN Reason: Low PTT Hydromorphone HCl (Hydromorphone 1 Mg/Ml 1 Ml Syringe) 1 mg IVP Q4HR PRN PRN Reason: Severe Pain (Scale 7 to 10) Last Admin: 07/28/22 10:41 Dose: 1 mg Lactated Ringer's (Lactated Ringers) 1,000 mls @ 75 mls/hr IV .[id number] [facility] Last Admin: 07/28/22 04:22 Dose: Not Given Heparin Sodium/Sodium Chloride (25,000 unit/ Sodium Chloride) 250 mls @ 10 mls/hr IV .Q24H [facility]; Protocol Insulin Aspart (Insulin Aspart (Novolog) 100 Unit/Ml Vial) 0 unit SQ ACHS [facility]; Protocol Last Admin: 07/28/22 06:11 Dose: Not Given Insulin Detemir (Insulin Detemir (Levemir) 100 Unit/Ml Syr) 10 unit SQ HS [facility] Last Admin: 07/27/22 21:02 Dose: 10 unit Levothyroxine Sodium (Levothyroxine Ivp 100 Mcg/5 Ml Vial) 62.5 mcg IV DAILY [facility] Last Admin: 07/28/22 08:38 Dose: 62.5 mcg Metformin HCl (Metformin 500 Mg Tab) 1,000 mg PO AC-BID [facility] Last Admin: 07/28/22 06:16 Dose: 1,000 mg Metoprolol Succinate (Metoprolol Succinate (Er) 50 Mg Tab.Er.24h) 50 mg PO DAILY [facility] Last Admin: 07/28/22 10:40 Dose: 50 mg Miscellaneous Information (Magnesium Replacement Protocol 1 Each Misc) 1 each MISCELLANE DAILY PRN; Protocol PRN Reason: Per Protocol Morphine Sulfate (Morphine Sulfate 2 Mg/Ml Syringe) 1 mg IVP Q4HR PRN PRN Reason: Pain Last Admin: 07/25/22 11:59 Dose: 1 mg Naloxone HCl (Naloxone 0.4 Mg/Ml 1 Ml Vial) 0.2 mg IV Q2M PRN PRN Reason: Opioid Reversal Ondansetron HCl (Ondansetron 4 Mg/2 Ml Vial) 4 mg IVP Q6HR PRN PRN Reason: Nausea And Vomiting Last Admin: 07/26/22 01:56 Dose: 4 mg Pantoprazole Sodium (Pantoprazole 40 Mg/10 Ml Vial) 40 mg IVP DAILY [facility] Last Admin: 07/28/22 08:37 Dose: 40 mg Simethicone (Simethicone 80 Mg Chewable) 160 mg PO TID [facility] Zolpidem Tartrate (Zolpidem 5 Mg Tab) 5 mg PO HS PRN PRN Reason: Insomnia Last Admin: 07/26/22 21:33 Dose: 5 mg Past medical history include: Diabetes, GERD, hypertension, hiatal hernia, anxiety depression Social history: No smoking or alcohol. Does use electric chair. Lives in a senior apartment. Patient's daughter is the caregiver. Physical examination: VITAL SIGNS: 97.9, 84, 16, 140 /67, 93% room air GENERAL: Reclining in bed, awake, EYES: Pupils equal. Conjunctiva normal. HEENT: External appearance of nose and ears normal, oral cavity grossly normal. NECK: JVD unable to assess; masses not palpable. HEART: Heart sounds distant; no edema. LUNGS: Respiratory rate normal; breath sounds distant. ABDOMEN: Soft, abdominal binder, tenderness, no guarding rigidity, liver spleen not palpable, no masses palpable. JUAN LUIS drain PSYCH: Alert and oriented x3; mood and affect normal. MUSCULOSKELETAL:No Clubbing/cyanosis;muscles-grossly intact INVESTIGATIONS, reviewed in the clinical context: July 28: WBC 10 hemoglobin 10.2 July 27: WBC 10.7 hemoglobin 8.5 platelets 201 potassium 4.3 BUN 23 creatinine 1.48 July 26: WBC 13.3 hemoglobin 10.1 platelets 200 potassium 4.3 BUN 23 creatinine 1.57 July 25: White count 20.7 hemoglobin 11.3 platelets 214 potassium 5.1 BUN 18 creatinine 1.21 July 22: Potassium 4.1 creatinine 1.29 2-D echocardiogram: EF 55%. Renal ultrasound: Right kidney some cortical thinning. Left kidney some cortical thinning. July 21: Potassium 3.9 BUN 21 creatinine 1.23 White count 9.7 hemoglobin 11.1 platelets 232 sodium 137 potassium 3.9 BUN 31 and creatinine 1.41 CRP 3.2 Computed tomography scan was done at [facility] Assessment and plan: - left abdominal ventral wall hernia - incarcerated July 24: Dr. Andre carried out lysis of adhesions. Resection of enterocutaneous fistula. 7 cm of small bowel removed. JUAN LUIS drain. Binder in place. Advance to regular diet -Paroxysmal atrial fibrillation with rapid ventricular rate. Now back in sinus rhythm. Seen by cardiology. IV heparin. Transition to eliquis in 48 hours -Status post Ventilator assist overnight -Morbid obesity BMI 48.5 Weight loss measures -Hypothyroid Synthroid 100 g a day -Hyperuricemia Allopurinol 300 mg a day -Diabetes mellitus type 2 and oral hypoglycemic Resume Follow Accu-Cheks with sliding scale -GERD Protonix -Chronic kidney disease stage III likely nephrosclerosis and diabetic nephropathy Renal ultrasound shows cortical thinning. -Chronic medical debility, patient is at baseline uses electric wheelchair Per surgery advanced to regular diet. IV heparin. Discussed with patient.
[2022-07-28] MEDS: HEPARIN SOD,PORK IN 0.45% NACL 25,000 UNIT in 0.45% NACL 1 250ML.BAG IV SCH (12:13)
[2022-07-28] MEDS: SIMETHICONE 80 MG CHEWABLE PO SCH ×3 (12:16→21:36)
[2022-07-28 12:29] VITALS: BMI 54.8
--- NOTE | 2022-07-28 13:48 | XR ---
EXAMINATION TYPE: XR abdomen complete w decub DATE OF EXAM: 07/28/2022 CLINICAL HISTORY: Distention following recent bowel resection. TECHNIQUE: Supine and upright views of the abdomen are obtained. COMPARISON: CT abdomen and pelvis 8 days ago FINDINGS: Gas seen in nondistended stomach. Some Paucity of bowel gas. Some gas seen in nondistended small and large bowel loops. Prominent gas-filled bowel loop in the left lower quadrant. Residual Con trast seen in nondistended distal colon. Percutaneous drainage catheter overlies the pelvis. Cholecys tectomy clips are redemonstrated. Multilevel spurring throughout the thoracolumbar spine. No free air . Surgical sutures suspected in the right pelvis. IMPRESSION: Overall nonspecific bowel gas pattern.
[2022-07-28] MEDS: ONDANSETRON 4 MG/2 ML VIAL IVP PRN (13:53)
--- NOTE | 2022-07-28 14:02 | P.PN ---
Subjective Progress Note Date: 07/28/22 Principal diagnosis: Abdominal pain. I am seeing this patient in new consultation today 07/25/2022 in the intensive care unit post incarcerated ventral hernia repair. Patient is a 81-year-old female with significant past medical history of previous ventral hernia repair, diabetes mellitus type 2, hypertension, hypothyroidism, GERD, breast cancer. Patient was transferred from [facility] on July 20. Apparently, the patient the patient had been experiencing abdominal pain the previous [address] of the abdomen pelvis without contrast on arrival to our facility showed left lower abdominal wall subcutaneous fat stranding changes near the abdominal musculature with small focus of high density suggesting small bowel herniation possibly a Painter's hernia. The patient was originally admitted to the general medical floor with supportive care. 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 While in recovery, the patient was initially extubated, but did reportedly have to be reintubated due to failure to progress. Patient was then transferred to the intensive care unit. Chest x-ray on arrival to the intensive care unit showed the endotracheal tube within the right mainstem bronchus, vascular congestion and bibasilar atelectasis, and an orogastric tube coursing below the diaphragm. The ET tube was withdrawn 3 cm. Initial ventilator settings were assist control, respiratory 18, tidal volume 350, FiO2 100%, and PEEP of 5. ABGs on these settings show a pO2 239, pCO2 50, pH is 7.28. Patient's respiratory rate was increased to 22 and FiO2 was dropped to 50%. Patient appears fairly comfortable, and is synchronous with mechanical ventilator. Propofol is infusing at 30 mics per kilogram per minute. Normal saline is infusing at 50 L per hour. Patient has not required any vasopressors. Repeat labs are pending. orogastric tube is to LIS. Vital signs are stable at this time. Patient will be monitored in the intensive care unit at least overnight. The patient is seen today 07/26/2022 in follow-up in the intensive care unit. She was successfully extubated yesterday 07/25/2022 and is currently resting comfortably in bed. She is awake and alert. She is on oxygen 2 L/m per nasal cannula. Normal saline at 50 mL per hour. Chest x-ray shows improved aeration of the lungs. Some atelectasis in the left lower lobe. She is educated and encouraged regarding the increased use of the incentive spirometer. Sputum culture pending. White count 13.3. Hemoglobin 10.1. Platelets 218. Sodium 137. Potassium 4.3. Bicarb 24. BUN 23. Creatinine 1.57. Glucose 143. AST 24. ALT 23. She is continued on DuoNeb inhalations. Lovenox for DVT prophylaxis. She's been started on a clear liquid diet. Progress note dated 07/27/2022. The patient is seen today in room 450. She was admitted with a diagnosis of incarcerated hernia. She's currently on room air. She's getting lactated Ringer's at 75 mL an hour. The patient has no complaints today. She was successfully extubated from mechanical ventilation on July 25. White count 10.76, hemoglobin 8.5, hematocrit 26.5, with a normal platelet count. Sodium 133, potassium 4.3, chlorides 105, CO2 24, BUN 23, and creatinine 1.48. Chest x-rays from yesterday shows either atelectasis, or pneumonic infiltrate, left lung base. Progress note dated 07/28/2022. This is a 81-year-old female again seen in room 450. She was admitted with a diagnosis of incarcerated hernia, and had it repaired by one of the surgeons. Currently, the patient's doing very well. She is on room air. She is getting lactated Ringer's at 75 mL an hour. White count is 10, hemoglobin 10.2, hematocrit 31.9, with a normal platelet count. Coagulation studies are normal. TSH is normal. Glucose is 157. Her respiratory status is been stable for a number of days. Objective - Vital Signs Vital signs: Vital Signs Temp 97.9 F 07/28/22 07:01 Pulse 88 07/28/22 11:47 Resp 16 07/28/22 07:01 BP 148/67 07/28/22 07:01 Pulse Ox 93 L 07/28/22 07:01 FiO2 50 07/25/22 11:39 Intake & Output 07/27/22 07/28/22 07/28/22 18:59 06:59 18:59 Intake Total 960 Output Total 1230 1425 800 Balance -1230 -465 -800 Weight 123.2 kg Intake: Intake, IV Titration 600 Amount Lactated Ringers 1,000 ml 600 @ 75 mls/hr IV .[id number] [facility] Rx#:[id number] Oral 360 Output: Drainage 30 Right Abdomen 30 Urine 1200 1425 800 Uretheral (Castellano) 800 800 Other: Voiding Method Indwelling Catheter Indwelling Catheter Indwelling Catheter - Exam No acute distress, oriented 3. Currently on room air. No respiratory distress or difficulty. HEENT examination is grossly unremarkable. Neck supple. Full range of motion. No adenopathy thyromegaly or neck vein distention. Cardiovascular examination reveals regular rhythm rate. S1-S2 normal. No S3 or S4. No discernible murmur noted. Heart rate 88 bpm. Lungs reveal mostly normal breath sounds. Minimal scattered rhonchi. No wheezes. No crackles. Breath sounds equal bilaterally. Room air saturation is 95 %. Abdomen soft, with minimal tenderness. Extremities are intact. No cyanosis clubbing or edema. Skin is without rash or lesion. Neurologic examination is brief but nonfocal. - Labs CBC & Chem 7: 07/28/22 10:22 07/27/22 07:22 Labs: Abnormal Lab Results - Last 24 Hours (Table) 07/27/22 07/27/22 07/28/22 Range/Units 16:25 20:35 10:22 RBC 2.93 L (3.80-5.40) m/uL Hgb 10.2 L (11.4-16.0) gm/dL Hct 31.9 L (34.0-46.0) % MCV 109.0 H (80.0-100.0) fL Macrocytosis Marked A POC Glucose (mg/dL) 161 H 179 H (70-110) mg/dL 07/28/22 Range/Units 11:09 RBC (3.80-5.40) m/uL Hgb (11.4-16.0) gm/dL Hct (34.0-46.0) % MCV (80.0-100.0) fL Macrocytosis POC Glucose (mg/dL) 157 H (70-110) mg/dL Microbiology - Last 24 Hours (Table) 07/25/22 02:23 Gram Stain - Final Sputum Sputum Culture - Final Assessment and Plan Assessment: Postop day #4, status post robotically assisted laparoscopic ventral hernia repair, 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 Status post extubation from mechanical ventilation, 07/25/2022. Type 2 diabetes mellitus. Essential hypertension. Hypothyroidism. GERD. Previous history of ventral hernia repair. History of breast cancer, status post lumpectomy. Plan: Plan dated 07/27/2022. The patient appears to be doing relatively well. The patient is currently on room air. She's getting lactated Ringer's at 75 mL an hour. She denies any significant abdominal pain or discomfort. She's not having any respiratory distress or difficulty. Labs, x-rays, and medications are reviewed. Prognosis is guarded. We continue to recommend deep breathing, coughing, and clearing his secretions, and hourly use of the incentive spirometer. Plan dated 07/28/2022. The patient's doing well. Her respiratory status is been stable. We continue to encourage her to deep breathe, cough, and clear any secretions. In addition, we recommended continued use of incentive spirometer. We will continue to follow the patient, only if she develops any respiratory issues. Since that portion of her evaluation is stable, we will see her when necessary, moving forward. Time with Patient: Less than 30
[2022-07-28 16:48] LABS: Glucose,Whole Blood 168 mg/dL (70-110)
[2022-07-28 18:54] LABS: Glucose,Whole Blood 184 mg/dL (70-110)
[2022-07-28] MEDS: INSULIN DETEMIR (LEVEMIR) 100 UNIT/ML SYR SQ SCH (21:37)
[2022-07-29] MEDS: LACTATED RINGERS 1,000 ML IV SCH ×3 (01:43→15:32)
[2022-07-29] MEDS: HYDROmorphone 1 MG/ML 1 ML SYRINGE IVP PRN ×4 (02:31→19:28)
[2022-07-29] MEDS: metFORMIN 500 MG TAB PO SCH ×2 (06:10→17:08)
[2022-07-29 06:17] LABS: Glucose,Whole Blood 137 mg/dL (70-110)
[2022-07-29] MEDS: INSULIN ASPART (NovoLOG) 100 UNIT/ML VIAL SQ SCH ×4 (06:40→20:50)
[2022-07-29] MEDS: guaiFENesin 600 MG TABLET.ER PO SCH ×4 (08:15→20:50)
[2022-07-29] MEDS: ALVIMOPAN 12 MG CAPSULE PO SCH ×2 (08:16→20:50)
[2022-07-29] MEDS: METOPROLOL SUCCINATE (ER) 50 MG TAB.ER.24H PO SCH (08:16)
[2022-07-29] MEDS: PANTOPRAZOLE 40 MG/10 ML VIAL IVP SCH (08:17)
[2022-07-29] MEDS: LEVOTHYROXINE IVP 100 MCG/5 ML VIAL IV SCH (08:17)
[2022-07-29] MEDS: SIMETHICONE 80 MG CHEWABLE PO SCH ×3 (08:18→20:50)
[2022-07-29] MEDS: IPRATROPIUM-ALBUTEROL 3 ML NEB INHALATION SCH ×4 (08:20→20:43)
--- NOTE | 2022-07-29 09:53 | P.PN ---
Progress Note - Text Progress Note Date: 07/29/22 Patient is resting in her bed. She has complaints of incisional pain and nausea. On exam vital signs are stable. Abdomen soft. Wound is stable. Patient will be observed. She'll K receive supportive care.
[2022-07-29 10:55] LABS: Basophils # (A) 0.1 X 10*3/uL (0.00-0.10); Basophils % (A) 0 %; Eosinophils # (A) 0.3 X 10*3/uL (0.04-0.35); Eosinophils % (A) 3 %; HCT 28.2 % (37.2-46.3); HGB 8.9 g/dL (12.0-15.0); Immature Grans, Automated 0.9 %; Lymphocytes # (A) 2.8 X 10*3/uL (0.90-5.00); Lymphocytes % (A) 24 %; MCH 33.1 pg (27.0-32.0); MCHC 31.6 g/dL (32.0-37.0); MCV 104.8 fL (80.0-97.0); Mean Platelet Volume 11.7 fL (9.5-12.2); Monocytes # (A) 0.9 X 10*3/uL (0.20-1.00); Monocytes % (A) 8 %; NRBC Per 100 WBC 0.3 /100 WBCS (0.0-0.0); Neutrophils # (A) 7.6 X 10*3/uL (1.80-7.70); Neutrophils % (A) 65 %; Platelet Count 250 X 10*3/uL (140-440); RBC 2.69 X 10*6/uL (4.10-5.20); RDW 15.4 % (11.5-14.5); WBC 11.7 X 10*3/uL (4.50-10.00)
[2022-07-29] MEDS: HEPARIN SODIUM 1,000 UN/ML (10ML VL) IV PRN (11:14)
[2022-07-29] MEDS: HEPARIN SOD,PORK IN 0.45% NACL 25,000 UNIT in 0.45% NACL 1 250ML.BAG IV SCH (11:16)
[2022-07-29 11:21] LABS: Glucose,Whole Blood 156 mg/dL (70-110)
--- NOTE | 2022-07-29 12:22 | P.PN ---
Subjective Progress Note Date: 07/29/22 This is Marcus Tucker NP, I'm dictating on behalf of Dr. Arroyo's H&P and A&P. Patient was interviewed and examined. Patient is a pleasant 81-year-old female who presented to the hospital with a hernia repair, and went into atrial fibrillation postop. Patient is feeling okay today. She is still appreciating some postoperative pain, but denies heart palpitations, chest pain, shortness of breath. Patient is maintaining normal sinus rhythm at this time, with the addition of metoprolol. Patient continues on heparin. GENERAL: Well-appearing, well-nourished and in no acute distress. NECK: Supple without JVD or thyromegaly. LUNGS: Breath sounds clear to auscultation bilaterally. Respiration equal and unlabored. No wheezes, rales or rhonchi. HEART: Regular rate and rhythm without murmurs, rubs or gallops. S1 and S2 heard. EXTREMITIES: Normal range of motion, no edema. No clubbing or cyanosis. Peripheral pulses intact and strong. VITALS: Temp 98.6, pulse 76, respirations 18, blood pressure 155/76, O2 saturation 95% on room air TELEMETRY: Normal sinus rhythm LABS: White count 11.7, hemoglobin 8.9, platelets 250, TSH 2.65 IMPRESSION: 1. Status post repair of incarcerated recurrent incisional hernia 2. New-onset atrial fibrillation with rapid ventricular response, currently maintaining sinus mechanism 3. Chronic kidney disease 4. Hypertension 5. Diabetes PLAN: Continue metoprolol succinate 50 mg daily Continue heparin. Plan to discontinue heparin tomorrow and transitioned Eliquis 5 mg twice a day. Continue telemetry monitoring. Further recommendations based on patient's clinical course. Objective - Vital Signs Vital signs: Vital Signs Temp 98.6 F 07/29/22 07:06 Pulse 82 07/29/22 12:01 Resp 18 07/29/22 07:06 BP 155/76 07/29/22 07:06 Pulse Ox 95 07/29/22 07:06 FiO2 50 07/25/22 11:39 Intake & Output 07/28/22 07/29/22 07/29/22 18:59 06:59 18:59 Intake Total 1080 900 231.403 Output Total 820 10 Balance 260 900 221.403 Weight 123.2 kg Intake: Intake, IV Titration 900 231.403 Amount Heparin Sod,Pork in 0.45% 231.403 NaCl 25,000 unit In 0.45 % NaCl 1 250ml.bag @ 8. 1168 UNITS/KG/HR 10 mls/ hr IV .Q24H [facility] Rx#: [id number] Lactated Ringers 1,000 ml 900 @ 75 mls/hr IV .[id number] [facility] Rx#:[id number] Oral 1080 Output: Drainage 20 10 Right Abdomen 20 10 Urine 800 Uretheral (Castellano) 800 Other: Voiding Method Indwelling Catheter Diaper Diaper # Voids 3 1 - Labs CBC & Chem 7: 07/29/22 05:51 07/27/22 07:22 Labs: Abnormal Lab Results - Last 24 Hours (Table) 07/28/22 07/28/22 07/28/22 Range/Units 16:46 17:59 18:52 WBC (4.50-10.00) k/uL RBC (4.10-5.20) m/uL Hgb (12.0-15.0) gm/dL Hct (37.2-46.3) % MCV (80.0-97.0) fL MCH (27.0-32.0) pg MCHC (32.0-37.0) g/dL RDW (11.5-14.5) % Absolute Nucleated RBC (0.00-0.00) X 10*3/uL Immature Gran # (0.00-0.04) X 10*3/uL NRBC/100 WBC Diff (0.0-0.0) /100 WBCS APTT 44.8 H (22.0-30.0) sec POC Glucose (mg/dL) 168 H 184 H (70-110) mg/dL 07/29/22 07/29/22 07/29/22 Range/Units 05:51 06:16 10:17 WBC 11.7 H (4.50-10.00) k/uL RBC 2.69 L (4.10-5.20) m/uL Hgb 8.9 L (12.0-15.0) gm/dL Hct 28.2 L (37.2-46.3) % MCV 104.8 H (80.0-97.0) fL MCH 33.1 H (27.0-32.0) pg MCHC 31.6 L (32.0-37.0) g/dL RDW 15.4 H (11.5-14.5) % Absolute Nucleated RBC 0.03 H (0.00-0.00) X 10*3/uL Immature Gran # 0.10 H (0.00-0.04) X 10*3/uL NRBC/100 WBC Diff 0.3 H (0.0-0.0) /100 WBCS APTT 39.1 H (22.0-30.0) sec POC Glucose (mg/dL) 137 H (70-110) mg/dL 07/29/22 Range/Units 11:20 WBC (4.50-10.00) k/uL RBC (4.10-5.20) m/uL Hgb (12.0-15.0) gm/dL Hct (37.2-46.3) % MCV (80.0-97.0) fL MCH (27.0-32.0) pg MCHC (32.0-37.0) g/dL RDW (11.5-14.5) % Absolute Nucleated RBC (0.00-0.00) X 10*3/uL Immature Gran # (0.00-0.04) X 10*3/uL NRBC/100 WBC Diff (0.0-0.0) /100 WBCS APTT (22.0-30.0) sec POC Glucose (mg/dL) 156 H (70-110) mg/dL
[2022-07-29 13:23] LABS: INR 0.97 (0.90-1.11)
[2022-07-29 16:51] LABS: Glucose,Whole Blood 137 mg/dL (70-110)
--- NOTE | 2022-07-29 17:42 | P.PN ---
Subjective Progress Note Date: 07/29/22 81-year-old, follows with Dr. Church. Chronic stable medical conditions include diabetes, GERD, hypertension, hiatal hernia, anxiety depression. Patient does use electric chair to get about. Patient's had chronic abdominal pain. Pain doesn't radiate. Normally has a bowel movement every 2 or 3 days. No fever no chills. Does not need between diarrhea and constipation. Patient initially presented to [facility]. Computed tomography scan showed possible incarcerated hernia within the anterior lateral left lower abdomen. No obvious obstruction. Patient was sent down here for higher level of care for surgical evaluation by Dr. Andre. Patient's appetite is otherwise fair. Objective - Vital Signs Vital signs: Vital Signs Temp 98.6 F 07/29/22 07:06 Pulse 82 07/29/22 12:01 Resp 18 07/29/22 07:06 BP 155/76 07/29/22 07:06 Pulse Ox 95 07/29/22 07:06 FiO2 50 07/25/22 11:39 Intake & Output 07/28/22 07/29/22 07/29/22 18:59 06:59 18:59 Intake Total 1080 900 231.403 Output Total 820 10 Balance 260 900 221.403 Weight 123.2 kg Intake: Intake, IV Titration 900 231.403 Amount Heparin Sod,Pork in 0.45% 231.403 NaCl 25,000 unit In 0.45 % NaCl 1 250ml.bag @ 8. 1168 UNITS/KG/HR 10 mls/ hr IV .Q24H [facility] Rx#: [id number] Lactated Ringers 1,000 ml 900 @ 75 mls/hr IV .[id number] [facility] Rx#:[id number] Oral 1080 Output: Drainage 20 10 Right Abdomen 20 10 Urine 800 Uretheral (Castellano) 800 Other: Voiding Method Indwelling Catheter Diaper Diaper # Voids 3 1 - Exam GENERAL: Reclining in bed, awake, EYES: Pupils equal. Conjunctiva normal. HEENT: External appearance of nose and ears normal, oral cavity grossly normal. NECK: JVD unable to assess; masses not palpable. HEART: Heart sounds distant; no edema. LUNGS: Respiratory rate normal; breath sounds distant. ABDOMEN: Soft, abdominal binder, tenderness, no guarding rigidity, liver spleen not palpable, no masses palpable. JUAN LUIS drain PSYCH: Alert and oriented x3; mood and affect normal. MUSCULOSKELETAL:No Clubbing/cyanosis;muscles-grossly intact - Labs CBC & Chem 7: 07/29/22 05:51 07/27/22 07:22 Labs: Abnormal Lab Results - Last 24 Hours (Table) 07/28/22 07/28/22 07/28/22 Range/Units 16:46 17:59 18:52 WBC (4.50-10.00) k/uL RBC (4.10-5.20) m/uL Hgb (12.0-15.0) gm/dL Hct (37.2-46.3) % MCV (80.0-97.0) fL MCH (27.0-32.0) pg MCHC (32.0-37.0) g/dL RDW (11.5-14.5) % Absolute Nucleated RBC (0.00-0.00) X 10*3/uL Immature Gran # (0.00-0.04) X 10*3/uL NRBC/100 WBC Diff (0.0-0.0) /100 WBCS APTT 44.8 H (22.0-30.0) sec POC Glucose (mg/dL) 168 H 184 H (70-110) mg/dL 07/29/22 07/29/22 07/29/22 Range/Units 05:51 06:16 10:17 WBC 11.7 H (4.50-10.00) k/uL RBC 2.69 L (4.10-5.20) m/uL Hgb 8.9 L (12.0-15.0) gm/dL Hct 28.2 L (37.2-46.3) % MCV 104.8 H (80.0-97.0) fL MCH 33.1 H (27.0-32.0) pg MCHC 31.6 L (32.0-37.0) g/dL RDW 15.4 H (11.5-14.5) % Absolute Nucleated RBC 0.03 H (0.00-0.00) X 10*3/uL Immature Gran # 0.10 H (0.00-0.04) X 10*3/uL NRBC/100 WBC Diff 0.3 H (0.0-0.0) /100 WBCS APTT 39.1 H (22.0-30.0) sec POC Glucose (mg/dL) 137 H (70-110) mg/dL 07/29/22 Range/Units 11:20 WBC (4.50-10.00) k/uL RBC (4.10-5.20) m/uL Hgb (12.0-15.0) gm/dL Hct (37.2-46.3) % MCV (80.0-97.0) fL MCH (27.0-32.0) pg MCHC (32.0-37.0) g/dL RDW (11.5-14.5) % Absolute Nucleated RBC (0.00-0.00) X 10*3/uL Immature Gran # (0.00-0.04) X 10*3/uL NRBC/100 WBC Diff (0.0-0.0) /100 WBCS APTT (22.0-30.0) sec POC Glucose (mg/dL) 156 H (70-110) mg/dL Assessment and Plan Assessment: - left abdominal ventral wall hernia - incarcerated July 24: Dr. Andre carried out lysis of adhesions. Resection of enterocutaneous fistula. 7 cm of small bowel removed. JUAN LUIS drain. Binder in place. Advance to regular diet -Paroxysmal atrial fibrillation with rapid ventricular rate. Now back in sinus rhythm. Seen by cardiology. IV heparin. Transition to eliquis in 48 hours -Status post Ventilator assist overnight -Morbid obesity BMI 48.5 Weight loss measures -Hypothyroid Synthroid 100 g a day -Hyperuricemia Allopurinol 300 mg a day -Diabetes mellitus type 2 and oral hypoglycemic Resume Follow Accu-Cheks with sliding scale -GERD Protonix -Chronic kidney disease stage III likely nephrosclerosis and diabetic nephropathy Renal ultrasound shows cortical thinning. -Chronic medical debility, patient is at baseline uses electric wheelchair
[2022-07-29 20:35] LABS: Glucose,Whole Blood 178 mg/dL (70-110)
[2022-07-29] MEDS: INSULIN DETEMIR (LEVEMIR) 100 UNIT/ML SYR SQ SCH (20:50)
[2022-07-29] MEDS: ZOLPIDEM 5 MG TAB PO PRN (20:50)
[2022-07-30] MEDS: HYDROmorphone 1 MG/ML 1 ML SYRINGE IVP PRN ×4 (03:47→20:43)
[2022-07-30 05:57] LABS: Glucose,Whole Blood 104 mg/dL (70-110)
[2022-07-30] MEDS: INSULIN ASPART (NovoLOG) 100 UNIT/ML VIAL SQ SCH ×4 (06:19→20:50)
[2022-07-30] MEDS: metFORMIN 500 MG TAB PO SCH ×2 (06:20→16:48)
[2022-07-30] MEDS: PANTOPRAZOLE 40 MG/10 ML VIAL IVP SCH (08:33)
[2022-07-30] MEDS: METOPROLOL SUCCINATE (ER) 50 MG TAB.ER.24H PO SCH (08:33)
[2022-07-30] MEDS: guaiFENesin 600 MG TABLET.ER PO SCH ×4 (08:33→20:44)
[2022-07-30] MEDS: LEVOTHYROXINE IVP 100 MCG/5 ML VIAL IV SCH (08:34)
[2022-07-30] MEDS: SIMETHICONE 80 MG CHEWABLE PO SCH ×3 (08:34→20:44)
[2022-07-30] MEDS: LACTATED RINGERS 1,000 ML IV SCH ×2 (08:35→20:50)
[2022-07-30] MEDS: IPRATROPIUM-ALBUTEROL 3 ML NEB INHALATION SCH ×4 (08:42→20:17)
[2022-07-30] MEDS: HEPARIN SOD,PORK IN 0.45% NACL 25,000 UNIT in 0.45% NACL 1 250ML.BAG IV SCH (10:22)
--- NOTE | 2022-07-30 10:30 | P.PN ---
Progress Note - Text Progress Note Date: 07/30/22 Patient remains stable. She is sleeping in her bed. She states she does have some abdominal discomfort. She appears to be tolerating her diet. On exam vital signs appear stable. Abdomen soft. Status post repair of incisional hernia with small bowel resection. Patient can receive supportive care.
[2022-07-30] MEDS: HEPARIN SODIUM 1,000 UN/ML (10ML VL) IV PRN (10:31)
[2022-07-30] MEDS: APIXABAN 5 MG TAB PO SCH ×2 (10:56→20:44)
[2022-07-30 11:05] LABS: Glucose,Whole Blood 144 mg/dL (70-110)
--- NOTE | 2022-07-30 12:17 | P.PN ---
Subjective Progress Note Date: 07/30/22 This is Marcus Tucker NP, I'm dictating on behalf of Dr. Arroyo's H&P and A&P. Patient was interviewed and examined. Patient is a pleasant 81-year-old female who presented to the hospital with a hernia repair, and went into atrial fibrillation postop. Patient is feeling "lousy" today. She is still appreciating some postoperative incisional pain, but denies heart palpitations, chest pain, shortness of breath. Patient is maintaining normal sinus rhythm at this time, with the addition of metoprolol. Patient continues on heparin. GENERAL: Well-appearing, well-nourished and in no acute distress. NECK: Supple without JVD or thyromegaly. LUNGS: Breath sounds clear to auscultation bilaterally. Respiration equal and unlabored. No wheezes, rales or rhonchi. HEART: Regular rate and rhythm without murmurs, rubs or gallops. S1 and S2 heard. EXTREMITIES: Normal range of motion, no edema. No clubbing or cyanosis. Peripheral pulses intact and strong. VITALS: Temp 98.1, pulse 67, respirations 18, blood pressure 146/71, O2 saturation 97% on room air TELEMETRY: Normal sinus rhythm LABS: Reviewed, no new labs since 07/29/2022 IMPRESSION: 1. Status post repair of incarcerated recurrent incisional hernia 2. New-onset atrial fibrillation with rapid ventricular response, currently maintaining sinus mechanism 3. Chronic kidney disease 4. Hypertension 5. Diabetes PLAN: Continue metoprolol succinate 50 mg daily Discontinue heparin. Begin Eliquis 5 mg twice a day. Continue telemetry monitoring. Further recommendations based on patient's clinical course. Objective - Vital Signs Vital signs: Vital Signs Temp 98.1 F 07/30/22 07:01 Pulse 72 07/30/22 11:33 Resp 18 07/30/22 07:01 BP 146/71 07/30/22 07:01 Pulse Ox 97 07/30/22 07:01 FiO2 50 07/25/22 11:39 Intake & Output 07/29/22 07/30/22 07/30/22 18:59 06:59 18:59 Intake Total 231.403 250 Output Total 10 900 Balance 221.403 -900 250 Intake: Intake, IV Titration 231.403 250 Amount Heparin Sod,Pork in 0.45% 231.403 250 NaCl 25,000 unit In 0.45 % NaCl 1 250ml.bag @ 8. 1168 UNITS/KG/HR 10 mls/ hr IV .Q24H [facility] Rx#: [id number] Output: Drainage 10 Right Abdomen 10 Urine 900 Other: Voiding Method Diaper Diaper # Voids 1 3 # Bowel Movements 2 1 - Labs CBC & Chem 7: 07/29/22 05:51 07/27/22 07:22 Labs: Abnormal Lab Results - Last 24 Hours (Table) 07/29/22 07/29/22 07/29/22 Range/Units 16:33 16:49 20:33 APTT 56.1 H (22.0-30.0) sec POC Glucose (mg/dL) 137 H 178 H (70-110) mg/dL 07/30/22 Range/Units 11:04 APTT (22.0-30.0) sec POC Glucose (mg/dL) 144 H (70-110) mg/dL
[2022-07-30 16:09] LABS: Glucose,Whole Blood 193 mg/dL (70-110)
--- NOTE | 2022-07-30 17:05 | P.PN ---
Subjective Progress Note Date: 07/30/22 81-year-old, follows with Dr. Church. Chronic stable medical conditions include diabetes, GERD, hypertension, hiatal hernia, anxiety depression. Patient does use electric chair to get about. Patient's had chronic abdominal pain. Pain doesn't radiate. Normally has a bowel movement every 2 or 3 days. No fever no chills. Does not need between diarrhea and constipation. Patient initially presented to [facility]. Computed tomography scan showed possible incarcerated hernia within the anterior lateral left lower abdomen. No obvious obstruction. Patient was sent down here for higher level of care for surgical evaluation by Dr. Andre. Patient's appetite is otherwise fair. 24 hour interval change 07/30/2022 Patient is seen and evaluated in room at bedside; discussed with nursing staff; no specific complaints reported Patient is status post robot-assisted laparoscopic ventral hernia repair for incarcerated hernia; POD #5 -- Complicated by A. fib with RVR; patient has been placed on IV heparin and is recommended oral anticoagulation -- Cardiology on board; recommending to discontinue heparin and start patient on L Garrido for new onset atrial fibrillation Objective - Vital Signs Vital signs: Vital Signs Temp 98.1 F 07/30/22 07:01 Pulse 72 07/30/22 11:33 Resp 18 07/30/22 07:01 BP 146/71 07/30/22 07:01 Pulse Ox 97 07/30/22 07:01 FiO2 50 07/25/22 11:39 Intake & Output 07/29/22 07/30/22 07/30/22 18:59 06:59 18:59 Intake Total 231.403 250 Output Total 10 900 20 Balance 221.403 -900 230 Intake: Intake, IV Titration 231.403 250 Amount Heparin Sod,Pork in 0.45% 231.403 250 NaCl 25,000 unit In 0.45 % NaCl 1 250ml.bag @ 8. 1168 UNITS/KG/HR 10 mls/ hr IV .Q24H [facility] Rx#: [id number] Output: Drainage 10 20 Right Abdomen 10 20 Urine 900 Other: Voiding Method Diaper Diaper # Voids 1 3 # Bowel Movements 2 1 - Exam GENERAL: Reclining in bed, awake, EYES: Pupils equal. Conjunctiva normal. HEENT: External appearance of nose and ears normal, oral cavity grossly normal. NECK: JVD unable to assess; masses not palpable. HEART: Heart sounds distant; no edema. LUNGS: Respiratory rate normal; breath sounds distant. ABDOMEN: Soft, abdominal binder, tenderness, no guarding rigidity, liver spleen not palpable, no masses palpable. JUAN LUIS drain PSYCH: Alert and oriented x3; mood and affect normal. MUSCULOSKELETAL:No Clubbing/cyanosis;muscles-grossly intact - Labs CBC & Chem 7: 07/29/22 05:51 07/27/22 07:22 Labs: Abnormal Lab Results - Last 24 Hours (Table) 07/29/22 07/29/22 07/29/22 Range/Units 16:33 16:49 20:33 APTT 56.1 H (22.0-30.0) sec POC Glucose (mg/dL) 137 H 178 H (70-110) mg/dL 07/30/22 Range/Units 11:04 APTT (22.0-30.0) sec POC Glucose (mg/dL) 144 H (70-110) mg/dL Assessment and Plan Assessment: - left abdominal ventral wall hernia - incarcerated July 24: Dr. Andre carried out lysis of adhesions. Resection of enterocutaneous fistula. 7 cm of small bowel removed. JUAN LUIS drain. Binder in place. Advance to regular diet -Paroxysmal atrial fibrillation with rapid ventricular rate. Now back in sinus rhythm. Seen by cardiology. IV heparin. Transition to eliquis in 48 hours -Status post Ventilator assist overnight -Morbid obesity BMI 48.5 Weight loss measures -Hypothyroid Synthroid 100 g a day -Hyperuricemia Allopurinol 300 mg a day -Diabetes mellitus type 2 and oral hypoglycemic Resume Follow Accu-Cheks with sliding scale -GERD Protonix -Chronic kidney disease stage III likely nephrosclerosis and diabetic n ephropathy Renal ultrasound shows cortical thinning. -Chronic medical debility, patient is at baseline uses electric wheelchair
[2022-07-30] MEDS: INSULIN DETEMIR (LEVEMIR) 100 UNIT/ML SYR SQ SCH (20:43)
[2022-07-30] MEDS: ZOLPIDEM 5 MG TAB PO PRN (20:44)
[2022-07-30 20:45] LABS: Glucose,Whole Blood 142 mg/dL (70-110)
[2022-07-31] MEDS: HYDROmorphone 1 MG/ML 1 ML SYRINGE IVP PRN ×4 (05:48→21:03)
[2022-07-31] MEDS: metFORMIN 500 MG TAB PO SCH ×2 (05:57→16:45)
[2022-07-31 06:18] LABS: Glucose,Whole Blood 153 mg/dL (70-110)
[2022-07-31] MEDS: LEVOTHYROXINE IVP 100 MCG/5 ML VIAL IV SCH (07:29)
[2022-07-31] MEDS: PANTOPRAZOLE 40 MG/10 ML VIAL IVP SCH (07:29)
[2022-07-31] MEDS: INSULIN ASPART (NovoLOG) 100 UNIT/ML VIAL SQ SCH ×4 (07:29→21:03)
[2022-07-31] MEDS: APIXABAN 5 MG TAB PO SCH ×2 (07:30→21:03)
[2022-07-31] MEDS: guaiFENesin 600 MG TABLET.ER PO SCH ×4 (07:30→21:03)
[2022-07-31] MEDS: METOPROLOL SUCCINATE (ER) 50 MG TAB.ER.24H PO SCH (07:30)
[2022-07-31] MEDS: LACTATED RINGERS 1,000 ML IV SCH (07:31)
[2022-07-31] MEDS: SIMETHICONE 80 MG CHEWABLE PO SCH ×3 (07:31→21:02)
[2022-07-31] MEDS: IPRATROPIUM-ALBUTEROL 3 ML NEB INHALATION SCH ×4 (08:33→21:50)
[2022-07-31 09:11] LABS: Basophils # (A) 0.04 X 10*3/uL (0.00-0.10); Basophils % (A) 0.4 %; Eosinophils # (A) 0.26 X 10*3/uL (0.04-0.35); Eosinophils % (A) 2.5 %; HCT 30.5 % (37.2-46.3); HGB 9.6 g/dL (12.0-15.0); Immature Grans, Automated 1.4 %; Lymphocytes # (A) 2.48 X 10*3/uL (0.90-5.00); Lymphocytes % (A) 23.7 %; MCHC 31.5 g/dL (32.0-37.0); MCV 108.2 fL (80.0-97.0); Mean Platelet Volume 11.2 fL (9.5-12.2); Monocytes # (A) 0.75 X 10*3/uL (0.20-1.00); Monocytes % (A) 7.2 %; NRBC Per 100 WBC 0.5 /100 WBCS (0.0-0.0); Neutrophils # (A) 6.79 X 10*3/uL (1.80-7.70); Neutrophils % (A) 64.8 %; Platelet Count 247 X 10*3/uL (140-440); RBC 2.82 X 10*6/uL (4.10-5.20); RDW 15.9 % (11.5-14.5); WBC 10.47 X 10*3/uL (4.50-10.00)
--- NOTE | 2022-07-31 09:29 | P.PN ---
Progress Note - Text Progress Note Date: 07/31/22 The patient is resting in bed. She states she feels about the same. She has some complaints of some mild nausea and abdominal pain. On exam vital signs appear stable. Abdomen soft. Incision sites are clean dry tach. Status post repair of incisional hernia. Patient can receive supportive care.
[2022-07-31 11:20] LABS: Glucose,Whole Blood 112 mg/dL (70-110)
--- NOTE | 2022-07-31 11:42 | P.PN ---
Subjective Progress Note Date: 07/31/22 This is Marcus Tucker NP, I'm dictating on behalf of Dr. Arroyo's H&P and A&P. Patient was interviewed and examined. Patient is a pleasant 81-year-old female who presented to the hospital with a hernia repair, and went into atrial fibrillation postop. Patient reports that she is doing better today. Her heart rate is controlled on metoprolol. Blood pressure has remained stable. She is denying chest pain, shortness of breath and heart palpitations today. Patient was transitioned from heparin to Eliquis yesterday. GENERAL: Well-appearing, well-nourished and in no acute distress. NECK: Supple without JVD or thyromegaly. LUNGS: Breath sounds clear to auscultation bilaterally. Respiration equal and unlabored. No wheezes, rales or rhonchi. HEART: Regular rate and rhythm without murmurs, rubs or gallops. S1 and S2 heard. EXTREMITIES: Normal range of motion, no edema. No clubbing or cyanosis. Peripheral pulses intact and strong. VITALS: Temp 98.0, pulse 73, respirations 18, blood pressure 114/56, O2 saturation 96% on room air TELEMETRY: Normal sinus rhythm LABS: White count 10.4, hemoglobin 9.6, platelet 247 IMPRESSION: 1. Status post repair of incarcerated recurrent incisional hernia 2. New-onset atrial fibrillation with rapid ventricular response, currently maintaining sinus mechanism 3. Chronic kidney disease 4. Hypertension 5. Diabetes PLAN: Continue metoprolol succinate 50 mg daily at discharge. Continue Eliquis 5 mg twice a day. Patient may be discharged from a cardiology standpoint. Thank you for allowing us to participate in the care of this patient. Objective - Vital Signs Vital signs: Vital Signs Temp 98.0 F 07/31/22 06:50 Pulse 73 07/31/22 06:50 Resp 18 07/31/22 06:50 BP 114/56 07/31/22 06:50 Pulse Ox 96 07/31/22 06:50 FiO2 50 07/25/22 11:39 Intake & Output 07/30/22 07/31/22 07/31/22 18:59 06:59 18:59 Intake Total 250 Output Total 7942 078 174 Balance -2143 -756 -229 Intake: Intake, IV Titration 250 Amount Heparin Sod,Pork in 0.45% 250 NaCl 25,000 unit In 0.45 % NaCl 1 250ml.bag @ 8. 1168 UNITS/KG/HR 10 mls/ hr IV .Q24H [facility] Rx#: [id number] Output: Drainage 20 Right Abdomen 20 Urine 1825 690 300 Other: Voiding Method Diaper Diaper External Catheter # Bowel Movements 1 - Labs CBC & Chem 7: 07/31/22 05:23 07/27/22 07:22 Labs: Abnormal Lab Results - Last 24 Hours (Table) 07/30/22 07/30/22 07/31/22 Range/Units 16:08 20:43 05:23 WBC 10.47 H (4.50-10.00) X 10*3/uL RBC 2.82 L (4.10-5.20) X 10*6/uL Hgb 9.6 L (12.0-15.0) g/dL Hct 30.5 L (37.2-46.3) % MCV 108.2 H (80.0-97.0) fL MCH 34.0 H (27.0-32.0) pg MCHC 31.5 L (32.0-37.0) g/dL RDW 15.9 H (11.5-14.5) % Absolute Nucleated RBC 0.05 H (0.00-0.00) X 10*3/uL Immature Gran # 0.15 H (0.00-0.04) X 10*3/uL NRBC/100 WBC Diff 0.5 H (0.0-0.0) /100 WBCS POC Glucose (mg/dL) 193 H 142 H (70-110) mg/dL 07/31/22 07/31/22 Range/Units 06:15 11:19 WBC (4.50-10.00) X 10*3/uL RBC (4.10-5.20) X 10*6/uL Hgb (12.0-15.0) g/dL Hct (37.2-46.3) % MCV (80.0-97.0) fL MCH (27.0-32.0) pg MCHC (32.0-37.0) g/dL RDW (11.5-14.5) % Absolute Nucleated RBC (0.00-0.00) X 10*3/uL Immature Gran # (0.00-0.04) X 10*3/uL NRBC/100 WBC Diff (0.0-0.0) /100 WBCS POC Glucose (mg/dL) 153 H 112 H (70-110) mg/dL
[2022-07-31 13:06] LABS: African American GFR (CKD) 53.4 (60.0-200.0); Anion Gap 12.3 mmol/L (10.00-18.00); BUN/Creat Ratio 13.13 Ratio (12.00-20.00); Blood Urea Nitrogen 14.7 mg/dL (9.0-27.0); Calcium 8.6 mg/dL (8.7-10.3); Carbon Dioxide 20.8 mmol/L (20.0-27.5); Potassium 4.2 mmol/L (3.5-5.5)
--- NOTE | 2022-07-31 15:38 | P.PN ---
Subjective Progress Note Date: 07/31/22 81-year-old, follows with Dr. Church. Chronic stable medical conditions include diabetes, GERD, hypertension, hiatal hernia, anxiety depression. Patient does use electric chair to get about. Patient's had chronic abdominal pain. Pain doesn't radiate. Normally has a bowel movement every 2 or 3 days. No fever no chills. Does not need between diarrhea and constipation. Patient initially presented to [facility]. Computed tomography scan showed possible incarcerated hernia within the anterior lateral left lower abdomen. No obvious obstruction. Patient was sent down here for higher level of care for surgical evaluation by Dr. Andre. Patient's appetite is otherwise fair. 24 hour interval change 07/31/2022 Patient is seen and evaluated in room at bedside; She is denying chest pain, shortness of breath and heart palpitations today. Patient was transitioned from heparin to Eliquis yesterday. Patient is status post robot-assisted laparoscopic ventral hernia repair for incarcerated hernia; POD #5 -- Complicated by A. fib with RVR; patient has been placed on IV heparin and is recommended oral anticoagulation -- Cardiology on board; recommending to discontinue heparin and start patient on Eliquiss for new onset atrial fibrillation. Continue metoprolol succinate 50 mg daily at discharge Objective - Vital Signs Vital signs: Vital Signs Temp 98.0 F 07/31/22 06:50 Pulse 73 07/31/22 06:50 Resp 18 07/31/22 06:50 BP 114/56 07/31/22 06:50 Pulse Ox 96 07/31/22 06:50 FiO2 50 07/25/22 11:39 Intake & Output 07/30/22 07/31/22 07/31/22 18:59 06:59 18:59 Intake Total 250 Output Total 1845 690 Balance -3430 -690 Intake: Intake, IV Titration 250 Amount Heparin Sod,Pork in 0.45% 250 NaCl 25,000 unit In 0.45 % NaCl 1 250ml.bag @ 8. 1168 UNITS/KG/HR 10 mls/ hr IV .Q24H [facility] Rx#: [id number] Output: Drainage 20 Right Abdomen 20 Urine 1825 690 Other: Voiding Method Diaper Diaper External Catheter # Bowel Movements 1 - Exam GENERAL: Reclining in bed, awake, EYES: Pupils equal. Conjunctiva normal. HEENT: External appearance of nose and ears normal, oral cavity grossly normal. NECK: JVD unable to assess; masses not palpable. HEART: Heart sounds distant; no edema. LUNGS: Respiratory rate normal; breath sounds distant. ABDOMEN: Soft, abdominal binder, tenderness, no guarding rigidity, liver spleen not palpable, no masses palpable. JUAN LUIS drain PSYCH: Alert and oriented x3; mood and affect normal. MUSCULOSKELETAL:No Clubbing/cyanosis;muscles-grossly intact - Labs CBC & Chem 7: 07/31/22 05:07/31/22 05: Labs: Abnormal Lab Results - Last 24 Hours (Table) 07/30/22 07/30/22 07/30/22 Range/Units 11:04 16:08 20:43 WBC (4.50-10.00) X 10*3/uL RBC (4.10-5.20) X 10*6/uL Hgb (12.0-15.0) g/dL Hct (37.2-46.3) % MCV (80.0-97.0) fL MCH (27.0-32.0) pg MCHC (32.0-37.0) g/dL RDW (11.5-14.5) % Absolute Nucleated RBC (0.00-0.00) X 10*3/uL Immature Gran # (0.00-0.04) X 10*3/uL NRBC/100 WBC Diff (0.0-0.0) /100 WBCS POC Glucose (mg/dL) 144 H 193 H 142 H (70-110) mg/dL 07/31/22 07/31/22 Range/Units 05:23 06:15 WBC 10.47 H (4.50-10.00) X 10*3/uL RBC 2.82 L (4.10-5.20) X 10*6/uL Hgb 9.6 L (12.0-15.0) g/dL Hct 30.5 L (37.2-46.3) % MCV 108.2 H (80.0-97.0) fL MCH 34.0 H (27.0-32.0) pg MCHC 31.5 L (32.0-37.0) g/dL RDW 15.9 H (11.5-14.5) % Absolute Nucleated RBC 0.05 H (0.00-0.00) X 10*3/uL Immature Gran # 0.15 H (0.00-0.04) X 10*3/uL NRBC/100 WBC Diff 0.5 H (0.0-0.0) /100 WBCS POC Glucose (mg/dL) 153 H (70-110) mg/dL Assessment and Plan Assessment: - left abdominal ventral wall hernia - incarcerated July 24: Dr. Andre carried out lysis of adhesions. Resection of enterocutaneous fistula. 7 cm of small bowel removed. JUAN LUIS drain. Binder in place. Advance to regular diet -Paroxysmal atrial fibrillation with rapid ventricular rate. Now back in sinus rhythm. Seen by cardiology. IV heparin. Transition to eliquis in 48 hours -Status post Ventilator assist overnight -Morbid obesity BMI 48.5 Weight loss measures -Hypothyroid Synthroid 100 g a day -Hyperuricemia Allopurinol 300 mg a day -Diabetes mellitus type 2 and oral hypoglycemic Resume Follow Accu-Cheks with sliding scale -GERD Protonix -Chronic kidney disease stage III likely nephrosclerosis and diabetic nephropathy Renal ultrasound shows cortical thinning. -Chronic medical debility, patient is at baseline uses electric wheelchair
[2022-07-31 16:34] LABS: Glucose,Whole Blood 177 mg/dL (70-110)
[2022-07-31 20:28] LABS: Glucose,Whole Blood 176 mg/dL (70-110)
[2022-07-31] MEDS: ZOLPIDEM 5 MG TAB PO PRN (21:02)
[2022-07-31] MEDS: INSULIN DETEMIR (LEVEMIR) 100 UNIT/ML SYR SQ SCH (21:03)
[2022-08-01 05:59] LABS: Glucose,Whole Blood 134 mg/dL (70-110)
[2022-08-01] MEDS: INSULIN ASPART (NovoLOG) 100 UNIT/ML VIAL SQ SCH ×5 (06:42→21:56)
[2022-08-01] MEDS: LACTATED RINGERS 1,000 ML IV SCH ×2 (06:42→15:13)
[2022-08-01] MEDS: metFORMIN 500 MG TAB PO SCH ×2 (06:44→17:02)
[2022-08-01] MEDS: HYDROmorphone 1 MG/ML 1 ML SYRINGE IVP PRN ×3 (06:46→22:09)
[2022-08-01] MEDS: IPRATROPIUM-ALBUTEROL 3 ML NEB INHALATION SCH ×4 (08:59→20:14)
[2022-08-01] MEDS ORDERED: ACETAMINOPHEN TAB 325 MG TAB PO PRN (09:28)
[2022-08-01] MEDS: LEVOTHYROXINE IVP 100 MCG/5 ML VIAL IV SCH (09:33)
[2022-08-01] MEDS ORDERED: LEVOTHYROXINE 100 MCG TAB PO STA (09:35)
[2022-08-01] MEDS: SIMETHICONE 80 MG CHEWABLE PO SCH ×3 (09:39→22:02)
[2022-08-01] MEDS: traMADol 50 MG TAB PO PRN ×2 (09:40→15:33)
[2022-08-01] MEDS: guaiFENesin 600 MG TABLET.ER PO SCH ×4 (09:41→22:02)
[2022-08-01] MEDS: METOPROLOL SUCCINATE (ER) 50 MG TAB.ER.24H PO SCH (09:41)
[2022-08-01] MEDS: PANTOPRAZOLE 40 MG/10 ML VIAL IVP SCH (09:42)
[2022-08-01] MEDS: APIXABAN 5 MG TAB PO SCH ×2 (09:42→22:02)
[2022-08-01 11:05] LABS: African American GFR (CKD) 54.5 (60.0-200.0); Anion Gap 11.3 mmol/L (10.00-18.00); BUN/Creat Ratio 12.36 Ratio (12.00-20.00); Blood Urea Nitrogen 13.6 mg/dL (9.0-27.0); Calcium 8.8 mg/dL (8.7-10.3); Carbon Dioxide 24.7 mmol/L (20.0-27.5); Potassium 4.3 mmol/L (3.5-5.5)
[2022-08-01 11:18] LABS: Glucose,Whole Blood 157 mg/dL (70-110)
[2022-08-01] MEDS ORDERED: bisacodyL 10 MG SUPP RECTAL STA (13:01)
--- NOTE | 2022-08-01 13:35 | P.PN ---
Subjective Progress Note Date: 08/01/22 CHIEF COMPLAINT: Abdominal pain HISTORY OF PRESENT ILLNESS: Patient is status post robotic-assisted laparoscopic lysis of adhesions, small bowel resection of enterocutaneous fistula with primary anastomosis, repair of recurrent incarcerated incisional hernia with strangulation on 07/25/22. Patient is lying in bed comfortably. Reports that her abdominal pain is improving. It is been a few days since her last bowel movement. She is passing flatus. Denies any nausea or vomiting. She is tolerating regular diet. Afebrile. Sodium 137 potassium is 4.3 creatinine 1.1 PHYSICAL EXAM: VITAL SIGNS: Reviewed GENERAL: Well-developed in no acute distress. HEENT: No sclera icterus. Extraocular movements grossly intact. Moist buccal mucosa. Head is atraumatic, normocephalic. Hears conversational speech. No nasal drainage. NECK: Supple without lymphadenopathy. CHEST: Non-labored respirations and equal bilateral excursions. CARDIOVASCULAR: Palpable 2+ radial pulses. ABDOMEN: Soft. Nondistended. Incision sites clean dry and intact. MUSCULOSKELETAL: No clubbing or cyanosis. NEUROLOGIC: Patient is intubated. Able to open her eyes. No focal or lateralizing signs. Cranial nerves II through XII grossly intact. SKIN: Well perfused. Good skin turgor. ASSESSMENT: 1. 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 Morbid obesity due to excess calories 3. Body mass index of 48.5 4. Diabetes type 2, [id number] 5. Gastroesophageal reflux disease 6. Gout 7. Hypothyroidism 8. History of breast cancer 9. Hiatal hernia 10. Generalized anxiety disorder 11. Depressive disorder 12. Chronic deficiency anemia 13. Severe intra-abdominal adhesions PLAN: -Dulcolax suppository ordered for constipation -Patient can be discharged from surgical standpoint when medically cleared -Agree with discharging patient to ECF -Continue Tylenol PRN for pain management at discharge -Patient can shower Physician Hose Tender note has been reviewed by physician. Signing provider agrees with the documented findings, assessment, and plan of care. Objective - Vital Signs Vital signs: Vital Signs Temp 98.4 F 08/01/22 06:35 Pulse 70 08/01/22 08:59 Resp 16 08/01/22 06:35 BP 155/77 08/01/22 06:35 Pulse Ox 97 08/01/22 06:35 FiO2 50 07/25/22 11:39 Intake & Output 07/31/22 08/01/22 08/01/22 18:59 06:59 18:59 Output Total 806 660 393 Balance -466 -956 -001 Output: Drainage 5 Right Abdomen 5 Urine 800 800 850 Other: Voiding Method Diaper Diaper External Catheter External Catheter External Catheter - Labs CBC & Chem 7: 07/31/22 05:23 08/01/22 06:39 Labs: Abnormal Lab Results - Last 24 Hours (Table) 07/31/22 07/31/22 07/31/22 Range/Units 05: 16:32 20:21 Est GFR (CKD-EPI)AfAm 53.4 L (60.0-200.0) Est GFR (CKD-EPI)NonAf 46.0 L (60.0-200.0) Glucose 130 H (70-110) mg/dL POC Glucose (mg/dL) 177 H 176 H (70-110) mg/dL Calcium 8.6 L (8.7-10.3) mg/dL 08/01/22 08/01/22 08/01/22 Range/Units 05:55 06:39 11:17 Est GFR (CKD-EPI)AfAm 54.5 L (60.0-200.0) Est GFR (CKD-EPI)NonAf 47.0 L (60.0-200.0) Glucose 126 H (70-110) mg/dL POC Glucose (mg/dL) 134 H 157 H (70-110) mg/dL Calcium (8.7-10.3) mg/dL
[2022-08-01] MEDS: LORATADINE 10 MG TAB PO SCH (15:34)
[2022-08-01] MEDS: FLUTICASONE 50MCG/SPRAY NASAL 16GM EA NOSTRIL SCH (15:37)
[2022-08-01 16:42] LABS: Glucose,Whole Blood 156 mg/dL (70-110)
--- NOTE | 2022-08-01 17:45 | P.PN ---
Subjective Progress Note Date: 08/01/22 This is an 81 year old female reported to the hospital for abdominal pain and was found to have a possible incarcerated hernia within the anterior lateral left lower abdomen. No obvious obstruction. Patient was sent down here for higher level of care for surgical evaluation by Dr. Andre. Patient is now postoperative day #6 laproscopic hernia repair. JUAN LUIS drain in place with minimal output which will be removed prior to discharge. Patient reports passing some gas today after sitting on the edge of the bed has had 1 BM since surgery, abdomen is soft and nondistended, patient will be given a suppository today. Patient does complain of sinus congestion mucous and reports ear pain and fullness to the right ear. Patient will be given mucinex, claritin and daily flonase and monitor symptoms. Cleared by cardiology and general surgery for discharge patient is pending authorization for [place] swing bed possibly in the next 24. Patient uses an electric wheel chair at baseline currently with diffuse weakness unable to bear weight and has fallen in the hospital after attempting to transfer back to bed. Patients labs remain stable, kidney function is normal, and white count is trending down, afebrile and on room air. Review of Systems Constitutional: Reports fatigue denied any fever. Cardio vascular: denied any chest pain, palpitations Gastrointestinal: denied any nausea, vomiting, diarrhea, reports abdominal pain and soreness Pulmonary: Denied any shortness of breath cough Neurologic denied any new focal deficits All inpatient medications were reviewed and appropriate changes in these medications as dictated in the interval history and assessment and plan. PHYSICAL EXAMINATION: GENERAL: The patient is alert and oriented x3, not in any acute distress. Well developed, well nourished. Obese HEENT: Pupils are round and equally reacting to light. EOMI. No scleral icterus. No conjunctival pallor. Normocephalic, atraumatic. No pharyngeal erythema. No thyromegaly. CARDIOVASCULAR: S1 and S2 present. No murmurs, rubs, or gallops. PULMONARY: Chest is clear to auscultation, no wheezing or crackles. ABDOMEN: Soft, nontender, nondistended, normoactive bowel sounds. No palpable or ganomegaly. Post surgical abdomen with small shadowing on dresssing over the laproscopic umbilical surgery site. MUSCULOSKELETAL: No joint swelling or deformity. EXTREMITIES: No cyanosis, clubbing, or pedal edema. NEUROLOGICAL: Gross neurological examination did not reveal any focal deficits. Diffuse generalized weakness. SKIN: No rashes. Assessment Left abdominal ventral wall hernia - incarcerated, status post lysis of adhesions, resection of enterocutaneous fistula, 7 cm of small bowel removed. Paroxysmal atrial fibrillation with rapid ventricular rate currently in sinus rhythm and anticoagulated with eliquis -Morbid obesity BMI 54.9 -Hypothyroid -Hyperuricemia -Diabetes mellitus type 2 -GERD -Chronic kidney disease stage III likely nephrosclerosis and diabetic nephropathy -Chronic medical debility, uses electric wheelchair with increased weakness post surgical -Leukocytosis improving -Acute sinusitis likely allergic with supportive care in place -Hypertension GI prophylaxis DVT prophylaxis Eliquis Full Code Plan JUAN LUIS drain to be removed and patient is given suppository, tolerating oral diet Patient is started on oral pain medication and recommend to use dilaudid for break through pain Transitioned back to oral levothyroxine Encourage incentive spirometer Flonase, Claritin, and Mucinex Patient to discharge to [facility] in the next 24 hours The impression and plan of care has been dictated by Tracey Mckeon, Nurse Practitioner as directed. Dr. Carlos MD I have performed a history and physical examination and medical decision making of this patient, discussed the same with the dictator, and agree with the dictators assessment and plan as written, documented as a scribe. Based on total visit time, I have performed more than 50% of this visit. Objective - Vital Signs Vital signs: Vital Signs Temp 98.2 F 08/01/22 13:38 Pulse 65 08/01/22 13:38 Resp 18 08/01/22 13:38 BP 145/65 08/01/22 13:38 Pulse Ox 97 08/01/22 13:38 FiO2 50 07/25/22 11:39 Intake & Output 07/31/22 08/01/22 08/01/22 18:59 06:59 18:59 Output Total 805 800 850 Balance -804 -800 -850 Weight 123.2 kg Output: Drainage 5 Right Abdomen 5 Urine 800 800 850 Other: Voiding Method Diaper Diaper External Catheter External Catheter External Catheter - Labs CBC & Chem 7: 07/31/22 05:23 08/01/22 06:39 Labs: Abnormal Lab Results - Last 24 Hours (Table) 07/31/22 07/31/22 08/01/22 Range/Units 16:32 20:21 05:55 Est GFR (CKD-EPI)AfAm (60.0-200.0) Est GFR (CKD-EPI)NonAf (60.0-200.0) Glucose (70-110) mg/dL POC Glucose (mg/dL) 177 H 176 H 134 H (70-110) mg/dL 08/01/22 08/01/22 Range/Units 06:39 11:17 Est GFR (CKD-EPI)AfAm 54.5 L (60.0-200.0) Est GFR (CKD-EPI)NonAf 47.0 L (60.0-200.0) Glucose 126 H (70-110) mg/dL POC Glucose (mg/dL) 157 H (70-110) mg/dL Assessment and Plan Time with Patient: Less than 30
[2022-08-01 20:56] LABS: Glucose,Whole Blood 144 mg/dL (70-110)
[2022-08-01] MEDS: INSULIN DETEMIR (LEVEMIR) 100 UNIT/ML SYR SQ SCH (22:01)
[2022-08-02] MEDS: LACTATED RINGERS 1,000 ML IV SCH (03:30)
[2022-08-02 05:25] LABS: Glucose,Whole Blood 113 mg/dL (70-110)
[2022-08-02] MEDS: HYDROmorphone 1 MG/ML 1 ML SYRINGE IVP PRN ×2 (05:27→11:55)
[2022-08-02] MEDS: INSULIN ASPART (NovoLOG) 100 UNIT/ML VIAL SQ SCH ×2 (06:14→11:53)
[2022-08-02] MEDS ORDERED: LEVOTHYROXINE 100 MCG TAB PO SCH (06:30)
[2022-08-02] MEDS: metFORMIN 500 MG TAB PO SCH (06:36)
[2022-08-02] MEDS: PANTOPRAZOLE 40 MG/10 ML VIAL IVP SCH (08:41)
[2022-08-02] MEDS: SIMETHICONE 80 MG CHEWABLE PO SCH (08:42)
[2022-08-02] MEDS: LORATADINE 10 MG TAB PO SCH (08:43)
[2022-08-02] MEDS: METOPROLOL SUCCINATE (ER) 50 MG TAB.ER.24H PO SCH (08:44)
[2022-08-02] MEDS: APIXABAN 5 MG TAB PO SCH (08:44)
[2022-08-02] MEDS: guaiFENesin 600 MG TABLET.ER PO SCH ×2 (08:44→11:52)
[2022-08-02] MEDS ORDERED: bisacodyL 5 MG TABLET.DR PO PRN (08:47)
[2022-08-02] MEDS: IPRATROPIUM-ALBUTEROL 3 ML NEB INHALATION SCH ×2 (08:52→11:50)
[2022-08-02] MEDS: traMADol 50 MG TAB PO PRN (08:56)
[2022-08-02] MEDS: FLUTICASONE 50MCG/SPRAY NASAL 16GM EA NOSTRIL SCH (10:02)
[2022-08-02] MEDS ORDERED: LACTULOSE 20 GM/30 ML CUP PO ONE (10:24)
[2022-08-02] MEDS ORDERED: MAGNESIUM HYDROXIDE 2,400 MG/10 ML CUP PO ONE (10:24)
--- NOTE | 2022-08-02 11:30 | P.PN ---
Subjective Progress Note Date: 08/02/22 CHIEF COMPLAINT: Abdominal pain HISTORY OF PRESENT ILLNESS: Patient is status post robotic-assisted laparoscopic lysis of adhesions, small bowel resection of enterocutaneous fistula with primary anastomosis, repair of recurrent incarcerated incisional hernia with strangulation on 07/25/22. Patient is lying in bed and receiving a breathing treatment. She complains of pain throughout her whole body. She reports that she's had this pain, even the chest discomfort that does improve with ice pack, since she had her fall a few days ago. She reports her abdominal pain is controlled. Patient is having flatus. She does still do not have a bowel movement with the Dulcolax suppository. JUAN LUIS drain was removed yesterday. She is afebrile. She is awaiting insurance authorization for ECF placement. She is tolerating diet. PHYSICAL EXAM: VITAL SIGNS: Reviewed GENERAL: Well-developed in no acute distress. HEENT: No sclera icterus. Extraocular movements grossly intact. Moist buccal mucosa. Head is atraumatic, normocephalic. Hears conversational speech. No nasal drainage. NECK: Supple without lymphadenopathy. CHEST: Non-labored respirations and equal bilateral excursions. CARDIOVASCULAR: Palpable 2+ radial pulses. ABDOMEN: Soft. Nondistended. Incision sites clean dry and intact. MUSCULOSKELETAL: No clubbing or cyanosis. NEUROLOGIC: Patient is intubated. Able to open her eyes. No focal or lateralizing signs. Cranial nerves II through XII grossly intact. SKIN: Well perfused. Good skin turgor. ASSESSMENT: 1. 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 Morbid obesity due to excess calories 3. Body mass index of 48.5 4. Diabetes type 2, [id number]-vjprogsad 5. Gastroesophageal reflux disease 6. Gout 7. Hypothyroidism 8. History of breast cancer 9. Hiatal hernia 10. Generalized anxiety disorder 11. Depressive disorder 12. Chronic deficiency anemia 13. Severe intra-abdominal adhesions PLAN: -Lactulose and milk of magnesia x1 ordered for constipation -Patient can be discharged from surgical standpoint when medically cleared -Agree with discharging patient to ECF -Continue Tylenol PRN for pain management at discharge -Patient can shower Physician Customer Servicer note has been reviewed by physician. Signing provider agrees with the documented findings, assessment, and plan of care. Objective - Vital Signs Vital signs: Vital Signs Temp 98.1 F 08/02/22 07:00 Pulse 64 08/02/22 09:01 Resp 18 08/02/22 09:01 BP 158/75 08/02/22 07:00 Pulse Ox 95 08/02/22 07:00 FiO2 50 07/25/22 11:39 Intake & Output 08/01/22 08/02/22 08/02/22 18:59 06:59 18:59 Output Total 1465 700 900 Balance -1465 -700 -900 Weight 123.2 kg Output: Drainage 15 Right Abdomen 15 Urine 1450 700 900 Other: Voiding Method External Catheter Diaper Incontinent External Catheter # Voids 1 2 1 # Bowel Movements 1 - Labs CBC & Chem 7: 07/31/22 05:23 08/01/22 06:39 Labs: Abnormal Lab Results - Last 24 Hours (Table) 08/01/22 08/01/22 08/02/22 Range/Units 16:41 20:55 05:23 POC Glucose (mg/dL) 156 H 144 H 113 H (70-110) mg/dL
[2022-08-02 11:35] LABS: Glucose,Whole Blood 153 mg/dL (70-110)
[2022-08-02] MEDS ORDERED: ACETAMINOPHEN TAB 500 MG TAB PO SCH (12:00)
--- NOTE | 2022-08-02 13:09 | P.DS ---
Providers Date of admission: 07/21/22 12:27 Attending physician: Dano Perez Consults: 07/19/22 20:17 Consult Physician Routine Consulting Provider: Sahra Ashley Consult Reason/Comments: abdominal pain Do you want consulting provider notified?: Already Contacted 07/25/22 01:17 Consult Physician Stat Consulting Provider: Georgi Ulloa Consult Reason/Comments: Mech Vent post op Do you want consulting provider notified?: Yes 07/27/22 22:24 Consult Physician Urgent Consulting Provider: Tee Selby Consult Reason/Comments: new onset A-Fib Do you want consulting provider notified?: Yes Primary care physician: Georges Church [facility] Course: Final Diagnosis -Left abdominal ventral wall hernia - incarcerated, status post lysis of adhesions, resection of enterocutaneous fistula, 7 cm of small bowel removed. -Paroxysmal atrial fibrillation with rapid ventricular rate currently in sinus rhythm and anticoagulated with eliquis -Leukocytosis improving -Acute sinusitis likely allergic with supportive care in place -Hypertension -Morbid obesity BMI 54.9 -Hypothyroid -Hyperuricemia -Diabetes mellitus type 2 -GERD -Chronic kidney disease stage III likely nephrosclerosis and diabetic nephropathy -Chronic medical debility, uses electric wheelchair with increased weakness post surgical Full Code Discharge Disposition Patient is stable for discharge to [facility]hab[facility]. Patient recommended to follow up with primary provider Dr. Church, General surgeon Dr. Ashley, and cardiology. Patient recommended to stop hydrochlorothiazide on discharge. Patient has been started on eliquis BID and metoprolol for the atrial fibrillation. Tramadol for pain management. Patient needs encouragement to work with physical therapy and recommend to continue with incentive spirometer 10 x an hour while awake. Patient to continue supportive care with claritin, flonase and mucinex for the acute sinusitis. Recommend to repeat labs in 2 to 3 days. Hospital Course This is an 81 year old female who follows with Dr. Church, chronic stable medical conditions include diabetes, GERD, hypertension, hiatal hernia, anxiety depression. Patient presented to [facility] for abdominal pain with alternating diarrhea/constipation. Patient was found to have a possible incarcerated hernia within the anterior lateral left lower abdomen. No obvious obstruction. Patient was sent down here for higher level of care for surgical evaluation by Dr. Andre. Hospital stay was complicated by atrial fibrillation with rapid ventricular rate, patient was evaluated by cardiology and started on metoprolol and eliquis. Had echocardiogram done showing normal LV size and systolic function no pericardial effusions, endocardial margins are not very well seen. Patient is now postoperative day #7 laproscopic hernia repair for the left abdominal ventral wall hernia which was incarcerated patient also underwent lysis of adhesions, resection of enterocutaneous fistula with 7 cm of small bowel removed. Patient had JUAN LUIS drain in place with minimal output which has been removed. Patient reports passing gas and had bowel movement. Abdomen is soft and nondistended. Patient does complain of sinus congestion mucous and reports ear pain and fullness to the right ear. Patient will be given mucinex, claritin and daily flonase and monitor symptoms. Cleared by cardiology and general surgery for discharge. Patient uses an electric wheel chair at baseline currently with diffuse weakness unable to bear weight and has fallen in the hospital after attempting to transfer back to bed. Patient does report some musculoskeletal discomfort across the chest since the fall mostly from trying to get herself back up with help from staff. Pain is reproducible with no limited mobility. Patient denies shortness of breath, no chest pain. No nausea vomiting or diarrhea. Tolerating diet. Alert x 3 with diffuse generalized weakness and no focal neurological deficits. Lungs are clear, S1 S2 auscultated, abdomen is soft and nontender. Patients labs remain stable, kidney function is normal, and white count is at 10.47. Patient remains afebrile, heart rate 64, blood pressure 158/75, 95% on room air. Discharge to subacute rehab. Please see medication reconciliation for a list of current medication. Thank you for allowing us to participate in the care of this patient. The impression and plan of care has been dictated by Tracey Mckeon, Nurse Practitioner as directed. Dr. Carlos MD I have performed a history and physical examination and medical decision making of this patient, discussed the same with the dictator, and agree with the dictators assessment and plan as written, documented as a scribe. Based on total visit time, I have performed more than 50% of this visit. Patient Condition at Discharge: Fair Plan - Discharge Summary Discharge Rx Participant: No New Discharge Prescriptions: New Apixaban [Eliquis] 5 mg PO BID tab Insulin Detemir (Levemir) [Levemir] 10 unit SQ HS each guaiFENesin [Mucinex] 600 mg PO QID tab Simethicone Chew [Mylicon Chew] 160 mg PO TID PRN tab PRN Reason: Gi Upset INSULIN ASPART (NovoLOG) [NovoLOG (formulary)] 0 unit SQ ACHS each Metoprolol Succinate (ER) [Toprol XL] 50 mg PO DAILY tab Levothyroxine Sodium [Synthroid] 100 mcg PO DAILY@0630 tab traMADol HCl [Ultram] 50 mg PO QID PRN #8 tab PRN Reason: Moderate Pain (Scale 4 To 6) Acetaminophen Tab [Tylenol] 1,000 mg PO Q6HR PRN #30 tablet PRN Reason: Pain Continue Cetirizine HCl [Zyrtec] 10 mg PO DAILY metFORMIN HCL [Glucophage] 1,000 mg PO BID glipiZIDE [Glucotrol] 10 mg PO DAILY allopurinoL [Zyloprim] 300 mg PO DAILY Aspirin [Adult Low Dose Aspirin EC] 81 mg PO DAILY Gke-Omjo-Btfso Acid [-U Capsule (formulary)] 1 cap PO DAILY Ergocalciferol (Vitamin D2) [Drisdol (50,000 Iu)] 1,250 mcg PO TUFR Pantoprazole Sodium [Protonix] 20 mg PO DAILY Magnesium Oxide [Mag-Ox] 400 mg PO BID Ferrous Sulfate [Iron (65 MG Elemental)] 325 mg PO TUFR Discontinued Levothyroxine Sodium [Synthroid] 100 mcg PO DAILY hydroCHLOROthiazide 12.5 mg PO DAILY Discharge Medication List Aspirin [Adult Low Dose Aspirin EC] 81 mg PO DAILY 05/18/17 [History] Cetirizine HCl [Zyrtec] 10 mg PO DAILY 05/18/17 [History] allopurinoL [Zyloprim] 300 mg PO DAILY 05/18/17 [History] glipiZIDE [Glucotrol] 10 mg PO DAILY 05/18/17 [History] metFORMIN HCL [Glucophage] 1,000 mg PO BID 05/18/17 [History] Ergocalciferol (Vitamin D2) [Drisdol (50,000 Iu)] 1,250 mcg PO TUFR 07/19/22 [History] Ferrous Sulfate [Iron (65 MG Elemental)] 325 mg PO TUFR 07/19/22 [History] Magnesium Oxide [Mag-Ox] 400 mg PO BID 07/19/22 [History] Pantoprazole Sodium [Protonix] 20 mg PO DAILY 07/19/22 [History] Cxf-Woca-Ypntf Acid [-U Capsule (formulary)] 1 cap PO DAILY 07/19/22 [History] Apixaban [Eliquis] 5 mg PO BID tab 08/01/22 [Rx] INSULIN ASPART (NovoLOG) [NovoLOG (formulary)] 0 unit SQ ACHS each 08/01/22 [Rx] Insulin Detemir (Levemir) [Levemir] 10 unit SQ HS each 08/01/22 [Rx] Levothyroxine Sodium [Synthroid] 100 mcg PO DAILY@0630 tab 08/01/22 [Rx] Metoprolol Succinate (ER) [Toprol XL] 50 mg PO DAILY tab 08/01/22 [Rx] Simethicone Chew [Mylicon Chew] 160 mg PO TID PRN tab 08/01/22 [Rx] guaiFENesin [Mucinex] 600 mg PO QID tab 08/01/22 [Rx] traMADol HCl [Ultram] 50 mg PO QID PRN #8 tab 08/01/22 [Rx] Acetaminophen Tab [Tylenol] 1,000 mg PO Q6HR PRN #30 tablet 08/02/22 [Rx] Follow up Appointment(s)/Referral(s): [facility] [NON-STAFF] - 1-2 Days Anselmo Arroyo MD [STAFF PHYSICIAN] - 1 Week Georges Church MD [Primary Care Provider] - 1 Week Sahra Ashley MD [STAFF PHYSICIAN] - 1 Week Ambulatory/Diagnostic Orders: Basic Metabolic Panel [LAB.AMB] Time Frame: 3 Days, Location: None Selected Complete Blood Count w/diff [LAB.AMB] Time Frame: 3 Days, Location: None Selected Activity/Diet/Wound Care/Special Instructions: [facility] Discharge Disposition: TRANSFER TO SNF/F
[2022-08-02 14:12] VITALS: BP 135/82; PULSE 70; RESP 16; TEMP 98.2
--- NOTE | 2022-08-04 10:35 | CDI ---
Documentation Clarification Form Date: 08/04/2022 10:30:06 AM From: Deborah Thompson Admit Date: 07/21/2022 12:27:00 PM Patient Name: Samanta Alvarenga Visit Number: [id number] Discharge Date: 08/02/2022 02:59:00 PM ATTENTION: The Clinical Documentation Specialists (CDI) and [facility] Coding Staff appreciate your assistance in clarifying documentation. Please respond to the clarification below the line at the bottom and electronically sign. The CDI & [facility] Coding staff will review the response and follow-up if needed. Please note: Queries are made part of the Legal Health Record. If you have any questions, please contact the author of this message via ITS. Dr. Georgi Ulloa Per your consult "Postoperatively the patient was extubated, however, developed some respiratory distress and required reintubation." Additional clarification regarding the etiology of respiratory distress is requested. History/Risk Factors: Clinical Indicators: ABG/CBG: pH 7.28 pCO2 50 pHCO3 23 Lactate Vital Signs: Respirations 16 129/53 98% on mechanical vent Treatment: reintubation mechanical vent Please clarify the etiology of respiratory distress, if known: [ ] Acute Respiratory Distress [ ] Acute Respiratory Failure [ ] Acute on Chronic Respiratory Failure [ ] Chronic Respiratory Failure [ ] Postoperative complication [ ] Other, please specify [ ] Unable to determine MTDD
--- NOTE | 2022-08-07 11:59 | CDI ---
Documentation Clarification Form Date: 08/07/2022 11:53:02 AM From: Deborah Thompson Admit Date: 07/21/2022 12:27:00 PM Patient Name: Samanta Alvarenga Visit Number: [id number] Discharge Date: 08/02/2022 02:59:00 PM ATTENTION: The Clinical Documentation Specialists (CDI) and [facility] Coding Staff appreciate your assistance in clarifying documentation. Please respond to the clarification below the line at the bottom and electronically sign. The CDI & [facility] Coding staff will review the response and follow-up if needed. Please note: Queries are made part of the Legal Health Record. If you have any questions, please contact the author of this message via ITS. Dr. Georgi Ulloa Per your consult: "Postoperatively, the patient was extubated, however, developed some respiratory distress and rquired reintubation." Additional clarification regarding the etiology of respiratory distress is requested. History/Risk Factors: Clinical Indicators: ABG/CBG: pH 7.28 pCO2 50 pHCO3 23 Vital Signs: Respirations 16 129/53 98% on mechanical vents Treatment: Re-intubation on mechanical vent Please clarify the etiology of respiratory distress, if known: [ ] Acute Respiratory Distress [ ] Postoperative Complication [ ] Acute Respiratory Failure [ ] Acute on Chronic Respiratory Failure [ ] Chronic Respiratory Failure [ ] Other, please specify [ ] Unable to determine Acute Resp. Distress MTDD
== END 2022-08-02 14:59 | DRG 330 ==
LOC: EC 18:55 → 4SSUR 20:20 → OBSVTOIN 07-21 12:27 → 2SICU 07-25 02:27 → 4SSUR 07-26 18:12
PROVIDERS: ADMIT Hospitalist; ATTEND Hospitalist
PROC: 0WBF4ZZ Excision of Abdominal Wall, Percutaneous Endoscopic Approach (ICD-10-PCS; principal; 2022-07-25)
PROC: 8E0W4CZ Robotic Assisted Procedure of Trunk Region, Percutaneous Endoscopic Approach (ICD-10-PCS; principal; 2022-07-25)
PROC: 0WQF4ZZ Repair Abdominal Wall, Percutaneous Endoscopic Approach (ICD-10-PCS; principal; 2022-07-25)
PROC: 0DB84ZZ Excision of Small Intestine, Percutaneous Endoscopic Approach (ICD-10-PCS; principal; 2022-07-25)
PROC: 0DN84ZZ Release Small Intestine, Percutaneous Endoscopic Approach (ICD-10-PCS; principal; 2022-07-25)
PROC: 5A1935Z Respiratory Ventilation, Less than 24 Consecutive Hours (ICD-10-PCS; 2022-07-25)
PROC: 0BH17EZ Insertion of Endotracheal Airway into Trachea, Via Natural or Artificial Opening (ICD-10-PCS; 2022-07-25)
DX: K46.0 Unspecified abdominal hernia with obstruction, without gangrene (principal); J98.11 Atelectasis; K63.2 Fistula of intestine; Z68.42 Body mass index [BMI] 45.0-49.9, adult; K43.0 Incisional hernia with obstruction, without gangrene; D53.9 Nutritional anemia, unspecified; E03.9 Hypothyroidism, unspecified; E11.22 Type 2 diabetes mellitus with diabetic chronic kidney disease; E11.649 Type 2 diabetes mellitus with hypoglycemia without coma; E66.01 Morbid (severe) obesity due to excess calories; F32.A Depression, unspecified; F41.1 Generalized anxiety disorder; G47.00 Insomnia, unspecified; G89.29 Other chronic pain; I12.9 Hypertensive chronic kidney disease with stage 1 through stage 4 chronic kidney disease, or unspecified chronic kidney disease; I48.0 Paroxysmal atrial fibrillation; J01.90 Acute sinusitis, unspecified; J30.2 Other seasonal allergic rhinitis; N18.30 Chronic kidney disease, stage 3 unspecified; K21.9 Gastro-esophageal reflux disease without esophagitis; K44.9 Diaphragmatic hernia without obstruction or gangrene; K66.0 Peritoneal adhesions (postprocedural) (postinfection); R06.03 Acute respiratory distress; M10.9 Gout, unspecified; Z87.440 Personal history of urinary (tract) infections; Z79.01 Long term (current) use of anticoagulants; Z79.4 Long term (current) use of insulin; Z79.82 Long term (current) use of aspirin; Z79.84 Long term (current) use of oral hypoglycemic drugs; Z79.890 Hormone replacement therapy; Z79.899 Other long term (current) drug therapy; Z85.3 Personal history of malignant neoplasm of breast; Z85.42 Personal history of malignant neoplasm of other parts of uterus; Z90.710 Acquired absence of both cervix and uterus; Z86.010 Personal history of colon polyps
CPT/HCPCS: 36415; 36600; 71045; 74021; 74176; 76770; 80048; 80053; 82150; 82805; 83690; 83735; 84443; 85025; 85610; 85730; 86140; 87070; 87205; 88307; 93005; 93306; 94002; 94640; 96360; 99285

== ENCOUNTER 2022-08-29 12:25 | Inpatient (IN) | payer MEDICARE, OTHER ==
[2022-08-29] MEDS ORDERED: methylPREDNISolone SOD SUCCI 125 MG/2 ML VIAL IV STA (12:41)
[2022-08-29] MEDS ORDERED: FAMOTIDINE 20 MG/2 ML VIAL IV STA (12:41)
[2022-08-29] MEDS ORDERED: diphenhydrAMINE 50 MG/ML 1 ML VIAL IVP STA (12:41)
[2022-08-29 13:06] LABS: Basophils % (A) 0 %; Eosinophils # (A) 0.2 k/uL (0-0.7); Eosinophils % (A) 2 %; HCT 32.8 % (34.0-46.0); HGB 10.5 gm/dL (11.4-16.0); Hypochromasia Slight; Lymphocytes # (A) 3.3 k/uL (1.0-4.8); Lymphocytes % (A) 39 %; MCV 106.3 fL (80.0-100.0); Macrocytosis Moderate; Monocytes # (A) 0.5 k/uL (0-1.0); Monocytes % (A) 6 %; Neutrophils # (A) 4.2 k/uL (1.3-7.7); Neutrophils % (A) 51 %; Platelet Count 295 k/uL (150-450); RBC 3.09 m/uL (3.80-5.40); RDW 15.2 % (11.5-15.5); WBC 8.3 k/uL (3.8-10.6)
[2022-08-29 13:37] LABS: ALT 16 U/L (4-34); AST 19 U/L (14-36); African American GFR (CKD) 46 (>60 ml/min/1.73 sqM); Albumin 3.4 g/dL (3.5-5.0); Alkaline Phosphatase 46 U/L (38-126); Anion Gap 6 mmol/L; Blood Urea Nitrogen 32 mg/dL (7-17); Calcium 9.9 mg/dL (8.4-10.2); Carbon Dioxide 27 mmol/L (22-30); Chloride 102 mmol/L (98-107); Glucose 135 mg/dL (74-99); Non-African American GFR(CKD) 40 (>60 ml/min/1.73 sqM); Potassium 4.7 mmol/L (3.5-5.1); Sodium 135 mmol/L (137-145); Total Bilirubin 0.4 mg/dL (0.2-1.3); Total Protein 5.8 g/dL (6.3-8.2)
--- NOTE | 2022-08-29 15:14 | CT ---
EXAMINATION TYPE: CT abdomen pelvis w con DATE OF EXAM: 08/29/2022 HISTORY: Post op hernia, pain, bleeding at incision. CT DLP: 2701.9mGycm Automated Exposure Control for Dose Reduction was Utilized. CONTRAST: CT scan of the abdomen and pelvis is performed without oral and with IV Contrast, patient injected wi th 80 mL of Isovue 300. COMPARISON: Prior CT July 20, 2022 FINDINGS: LUNG BASES: No significant abnormality is appreciated. LIVER/GB: Cholecystectomy clips are redemonstrated. PANCREAS: No significant abnormality is seen. SPLEEN: No significant abnormality is seen. ADRENALS: Some thickening to both adrenal glands with slight nodularity on the right axial image 32 i s redemonstrated favored benign. KIDNEYS: No significant abnormality is seen. BOWEL: Surgical sutures involving bowel loop anterior left pelvis axial image 67 now present. No susp icious small or large bowel dilatation. UTERUS/ADNEXA: Uterus is surgically absent or markedly atrophic. LYMPH NODES: No greater than 1cm abdominal or pelvic lymph nodes are appreciated. OSSEOUS STRUCTURES: Moderate to severe axial joint space loss in both hips redemonstrated. Slight sco liotic curvature with multilevel spurring in the thoracolumbar spine redemonstrated. Multilevel disc space narrowing greatest in the upper lumbar spine redemonstrated. OTHER: There are small thin walled fluid collection in the anterior wall of the pelvis measuring appr oximately 5.9 x 2.1 cm. Ill-defined fluid extends superiorly where there is focal linear scarring casimiro r axial image 67 on current study. Mild subcutaneous edema involving the left lateral abdominal wall is now present. There is additional mild fluid or fat stranding over the anterior wall of the pelvis near axial image 86 with slightly more focal fluid and air near axial image 84 is redemonstrated. No herniated bowel on current study. IMPRESSION: There is new Nonspecific 5.9 x 2.1 cm focal thin-walled fluid collection in the deep subc utaneous tissue of the anterior pelvis. Postsurgical seroma would be favored. Some adjacent ill-defin ed fluid and fat stranding redemonstrated slightly more prominent versus prior study. No herniated aris wel clearly seen on current study. There are new surgical sutures suspected in the anterior bowel loo ps left of midline in the pelvis.
[2022-08-29] MEDS ORDERED: NALOXONE 0.4 MG/ML 1 ML VIAL IV PRN (16:03)
--- NOTE | 2022-08-29 16:03 | ED ---
Abdominal Pain HPI - General Chief Complaint: Abdominal Pain Stated Complaint: Recheck Time Seen by Provider: 08/29/22 16:00 Source: patient Mode of arrival: EMS Limitations: no limitations - History of Present Illness Initial Comments: 82-year-old female presents to the emergency department from [facility]. Patient had surgery by Dr. Andre on the . She had an incarcerated hernia and had a bowel resection. States that starting yesterday she began having increasing drainage from her surgical site. States it's purulent. Denies fevers. Does admit to some increasing abdominal pain. [facility] performed an ultrasound which demonstrated abscess versus seroma. No changes in her bowel or bladder habits. No other alleviating, precipitating or modifying factors - Related Data Home Medications Medication Instructions Recorded Confirmed Aspirin [Adult Low Dose Aspirin EC] 81 mg PO DAILY 05/18/17 08/29/22 Cetirizine HCl [Zyrtec] 10 mg PO DAILY 05/18/17 08/29/22 allopurinoL [Zyloprim] 300 mg PO DAILY 05/18/17 08/29/22 Ergocalciferol (Vitamin D2) 1,250 mcg PO Q7D 07/19/22 08/29/22 [Drisdol (50,000 Iu)] Ferrous Sulfate [Iron (65 MG 325 mg PO TUFR 07/19/22 08/29/22 Elemental)] Magnesium Oxide [Mag-Ox] 400 mg PO BID 07/19/22 08/29/22 Cyanocobalamin (Vitamin B-12) 1,000 mcg PO DAILY 08/29/22 08/29/22 [Vitamin B-12] Insulin Glargine-Yfgn [Semglee 10 units SQ HS 08/29/22 08/29/22 (Yfgn) Pen] Levothyroxine Sodium [Synthroid] 100 mcg PO DAILY 08/29/22 08/29/22 Omeprazole [PriLOSEC] 20 mg PO DAILY 08/29/22 08/29/22 Simethicone Chew [Mylicon Chew] 160 mg PO PC-TID 08/29/22 08/29/22 glipiZIDE 5 mg PO DAILY 08/29/22 08/29/22 guaiFENesin [guaiFENesin ER] 600 mg PO BID 08/29/22 08/29/22 metFORMIN HCL [Glucophage] 850 mg PO BID 08/29/22 08/29/22 Previous Rx's Medication Instructions Recorded Apixaban [Eliquis] 5 mg PO BID tab 08/01/22 Metoprolol Succinate (ER) [Toprol 50 mg PO DAILY tab 08/01/22 XL] Acetaminophen Tab [Tylenol] 1,000 mg PO Q6HR PRN #30 tablet 08/02/22 Ciprofloxacin HCl [Cipro] 500 mg PO Q12HR 10 Days #20 tab 09/01/22 metroNIDAZOLE [Flagyl] 500 mg PO TID 10 Days #30 tab 09/01/22 Lactulose [Cephulac] 20 gm PO DAILY ml 09/04/22 Psyllium Husk (with Sugar) 0 gm PO DAILY #575 gm 09/04/22 [Metamucil Powder] Allergies Allergy/AdvReac Type Severity Reaction Status Date / Time Iodinated Contrast Media Allergy Dyspnea Verified 08/30/22 19:05 [Iodinated Contrast- Oral and IV Dye] latex Allergy Rash/Hives Verified 08/30/22 19:05 Penicillins Allergy Rash/Hives Verified 08/30/22 19:05 banana AdvReac CRAMPS IN Verified 08/30/22 19:05 LEGS pineapple AdvReac CRAMPS IN Verified 08/30/22 19:05 LEGS Review of Systems ROS Statement: Those systems with pertinent positive or pertinent negative responses have been documented in the HPI. ROS Other: All systems not noted in ROS Statement are negative. Past Medical History Past Medical History: Cancer, Diabetes Mellitus, GERD/Reflux, Hypertension, Skin Disorder Additional Past Medical History / Comment(s): HX BREAST CA. HIATAL HERNIA. ABN HGB, HAD BLOOD TRANSFUSION X2, 04/05/17; HAD EGD, COLONSCOPY, BOTH POS FOR POLYPS. RECENT UTI. LT BREAST LUMPECTOMY 04/04/17, NOT HEALED YET. History of Any Multi-Drug Resistant Organisms: None Reported Past Surgical History: Breast Surgery, Cholecystectomy, Hernia Repair, Hysterectomy Additional Past Surgical History / Comment(s): LT BREAST LUMPECTOMY 04/04/17. EGD, COLONOSCOPY 04/09/17. Past Anesthesia/Blood Transfusion Reactions: Motion Sickness Past Psychological History: Anxiety, Depression Smoking Status: Never smoker Past Alcohol Use History: None Reported Past Drug Use History: None Reported - Past Family History Brother(s) Family Medical History: Cancer General Exam Limitations: no limitations General appearance: alert, in no apparent distress Head exam: Present: atraumatic, normocephalic, normal inspection Eye exam: Present: normal appearance, PERRL, EOMI. Absent: scleral icterus, conjunctival injection, periorbital swelling ENT exam: Present: normal exam, mucous membranes moist Neck exam: Present: normal inspection. Absent: tenderness, meningismus, lymphadenopathy Respiratory exam: Present: normal lung sounds bilaterally. Absent: respiratory distress, wheezes, rales, rhonchi, stridor Cardiovascular Exam: Present: regular rate, normal rhythm, normal heart sounds. Absent: systolic murmur, diastolic murmur, rubs, gallop, clicks GI/Abdominal exam: Present: soft, normal bowel sounds, other (midline incision draining purulent perez discharge. adjacent area is indurated). Absent: di stended, tenderness, guarding, rebound, rigid Extremities exam: Present: normal inspection, full ROM, normal capillary refill. Absent: tenderness, pedal edema, joint swelling, calf tenderness Back exam: Present: normal inspection Neurological exam: Present: alert, oriented X3, CN II-XII intact Psychiatric exam: Present: normal affect, normal mood Skin exam: Present: warm, dry, intact, normal color. Absent: rash Course Vital Signs 08/29/22 08/29/22 08/29/22 17:21 19:00 20:43 Temperature 98.8 F Pulse Rate 71 68 66 Respiratory 18 16 18 Rate Blood Pressure 157/66 157/66 152/79 O2 Sat by Pulse 97 96 98 Oximetry Procedures - [place] Protocol (Time Out) Nurse: Marlene Gregory Medical Decision Making - Medical Decision Making Was pt. sent in by a medical professional or institution ([facility] Carpenter, MECHANICAL OXIDIZER, urgent care, hospital, or group home...) When possible be specific @ -ECF Did you speak to anyone other than the patient for history (EMS, parent, family, police, friend...)? What history was obtained from this source @ -EMS Did you review nursing and triage notes (agree or disagree)? Why? @ -I reviewed and agree with nursing and triage notes Were old charts reviewed (outside hosp., previous admission, EMS record, old EKG, old radiological studies, urgent care reports/EKG's, group home records)? Report findings @ -old charts were reviewed - operative note from dr. avendano. ECF notes - us completed yesterday of abdomen showing seroma vs abscess Differential Diagnosis (chest pain, altered mental status, abdominal pain women, abdominal pain men, vaginal bleeding, weakness, fever, dyspnea, syncope, headache, dizziness, GI bleed, back pain, seizure, CVA, palpatations, mental health, musculoskeletal)? @ -seroma, abscess, fistula, sepsis EKG interpreted by me (3pts min.). @ -not done X-rays interpreted by me (1pt min.). @ -None done CT interpreted by me (1pt min.). @ -yes- abscess vs seroma U/S interpreted by me (1pt. min.). @ -None done What testing was considered but not performed or refused? (CT, X-rays, U/S, labs)? Why? @ -None What meds were considered but not given or refused? Why? @ -None Did you discuss the management of the patient with other professionals (professionals i.e. , PA, MECHANICAL OXIDIZER, lab, RT, psych nurse, social media sr strategy manager, powder blender, teacher, principal gifts officer, geriatric case manager)? Give summary @ -dr avendano who accepts admission of patient Was smoking cessation discussed for >3mins.? @ -No Was critical care preformed (if so, how long)? @ -No Were there social determinants of health that impacted care today? How? (Homelessness, low income, unemployed, alcoholism, drug addiction, transportation, low edu. Level, literacy, decrease access to med. care, alf, rehab)? @ -No Was there de-escalation of care discussed even if they declined (Discuss DNR or withdrawal of care, Hospice)? DNR status @ -No What co-morbidities impacted this encounter? (DM, HTN, Smoking, COPD, CAD, Cancer, CVA, ARF, Chemo, Hep., AIDS, mental health diagnosis, sleep apnea, morbid obesity)? @ -obesity Was patient admitted / discharged? Hospital course, mention meds given and route, prescriptions, significant lab abnormalities, going to OR and other pertinent info. @ -Upon arrival patient was placed into room 2. Thorough history and physical exam is performed. IV access established laboratory studies were conducted. Lactic acid 2.3. CT is performed which demonstrates abscess versus seroma m easuring 5.9 x 2.[address] Avendano. Patient will be covered with antibiotics and admitted for infectious disease consult Undiagnosed new problem with uncertain prognosis? @ -yes Drug Therapy requiring intensive monitoring for toxicity (Heparin, Nitro, Insulin, Cardizem)? @ -No Were any procedures done? @ -No Diagnosis/symptom? @ -acute abd pain, incisional drainage, abscess vs seroma Acute, or Chronic, or Acute on Chronic? @ -acute Uncomplicated (without systemic symptoms) or Complicated (systemic symptoms)? @ -complicated Side effects of treatment? @ -No Exacerbation, Progression, or Severe Exacerbation? @ -No Poses a threat to life or bodily function? How? (Chest pain, [place], [place], pneumonia, PE, COPD, DKA, ARF, appy, cholecystitis, CVA, Diverticulitis, Homicidal, Suicidal, threat to staff... and all critical care pts) @ -No - Lab Data Result diagrams: 09/03/22 04:37 09/03/22 04:37 Lab Results 08/29/22 08/29/22 08/29/22 Range/Units 12:46 12:46 12:46 WBC 8.3 (3.8-10.6) k/uL RBC 3.09 L (3.80-5.40) m/uL Hgb 10.5 L (11.4-16.0) gm/dL Hct 32.8 L (34.0-46.0) % MCV 106.3 H (80.0-100.0) fL MCH 34.0 (25.0-35.0) pg MCHC 32.0 (31.0-37.0) g/dL RDW 15.2 (11.5-15.5) % Plt Count 295 (150-450) k/uL MPV 8.0 Neutrophils % 51 % Lymphocytes % 39 % Monocytes % 6 % Eosinophils % 2 % Basophils % 0 % Neutrophils # 4.2 (1.3-7.7) k/uL Lymphocytes # 3.3 (1.0-4.8) k/uL Monocytes # 0.5 (0-1.0) k/uL Eosinophils # 0.2 (0-0.7) k/uL Basophils # 0.0 (0-0.2) k/uL Hypochromasia Slight Macrocytosis Moderate Sodium 135 L (137-145) mmol/L Potassium 4.7 (3.5-5.1) mmol/L Chloride 102 (98-107) mmol/L Carbon Dioxide 27 (22-30) mmol/L Anion Gap 6 mmol/L BUN 32 H (7-17) mg/dL Creatinine 1.26 H (0.52-1.04) mg/dL Est GFR (CKD-EPI)AfAm 46 (>60 ml/min/1.73 sqM) Est GFR (CKD-EPI)NonAf 40 (>60 ml/min/1.73 sqM) Glucose 135 H (74-99) mg/dL Lactic Ac Sepsis Rflx Plasma Lactic Acid Jalen 2.3 H* (0.7-2.0) mmol/L Calcium 9.9 (8.4-10.2) mg/dL Total Bilirubin 0.4 (0.2-1.3) mg/dL AST 19 (14-36) U/L ALT 16 (4-34) U/L Alkaline Phosphatase 46 (38-126) U/L Total Protein 5.8 L (6.3-8.2) g/dL Albumin 3.4 L (3.5-5.0) g/dL 08/29/22 08/29/22 Range/Units 13:28 15:44 WBC (3.8-10.6) k/uL RBC (3.80-5.40) m/uL Hgb (11.4-16.0) gm/dL Hct (34.0-46.0) % MCV (80.0-100.0) fL MCH (25.0-35.0) pg MCHC (31.0-37.0) g/dL RDW (11.5-15.5) % Plt Count (150-450) k/uL MPV Neutrophils % % Lymphocytes % % Monocytes % % Eosinophils % % Basophils % % Neutrophils # (1.3-7.7) k/uL Lymphocytes # (1.0-4.8) k/uL Monocytes # (0-1.0) k/uL Eosinophils # (0-0.7) k/uL Basophils # (0-0.2) k/uL Hypochromasia Macrocytosis Sodium (137-145) mmol/L Potassium (3.5-5.1) mmol/L Chloride (98-107) mmol/L Carbon Dioxide (22-30) mmol/L Anion Gap mmol/L BUN (7-17) mg/dL Creatinine (0.52-1.04) mg/dL Est GFR (CKD-EPI)AfAm (>60 ml/min/1.73 sqM) Est GFR (CKD-EPI)NonAf (>60 ml/min/1.73 sqM) Glucose (74-99) mg/dL Lactic Ac Sepsis Rflx Y Plasma Lactic Acid Jalen 2.0 (0.7-2.0) mmol/L Calcium (8.4-10.2) mg/dL Total Bilirubin (0.2-1.3) mg/dL AST (14-36) U/L ALT (4-34) U/L Alkaline Phosphatase (38-126) U/L Total Protein (6.3-8.2) g/dL Albumin (3.5-5.0) g/dL Disposition Clinical Impression: Drainage from surgical wound, Seroma Disposition: ADMITTED IP TO THIS [facility] Condition: Stable Is patient prescribed a controlled substance at d/c from ED?: No Time of Disposition: 16:03 Decision to Admit Reason: Admit from EC Decision Date: 08/29/22 Decision Time: 16:03
[2022-08-29] MEDS ORDERED: IBUPROFEN 400 MG TAB PO PRN (16:09)
[2022-08-29] MEDS ORDERED: CLINDAMYCIN 600 MG in DEXTROSE 5% IN WATER 50 ML IVPB ONE ×2 (16:15)
[2022-08-29] MEDS: ACETAMINOPHEN TAB 325 MG TAB PO PRN (17:27)
[2022-08-29] MEDS: CLINDAMYCIN 600 MG in DEXTROSE 5% IN WATER 50 ML IVPB SCH ×2 (22:42)
[2022-08-30 06:14] LABS: Glucose,Whole Blood 296 mg/dL (70-110)
[2022-08-30 08:50] LABS: BUN/Creat Ratio 23.71 Ratio (12.00-20.00); Blood Urea Nitrogen 33.2 mg/dL (9.0-27.0); Calcium 9.7 mg/dL (8.7-10.3); Carbon Dioxide 19.1 mmol/L (21.6-31.8); Chloride 98 mmol/L (96-109); Glucose 258 mg/dL (70-110); HCT 32.4 % (37.2-46.3); HGB 10.5 d/dL (12.0-15.0); MCH 33.9 pg (27.0-32.0); MCHC 32.4 d/dL (32.0-37.0); MCV 104.5 FL (80.0-97.0); Platelet Count 288 X 10*3/uL (140-440); Potassium 5.2 mmol/L (3.5-5.5); RDW 15.8 % (11.5-14.5); Sodium 135 mmol/L (135-145); WBC 8.96 X 10*3/uL (4.50-10.00)
[2022-08-30 08:51] LABS: Basophils # (A) 0.01 X 10*3/uL (0.00-0.10); Basophils % (A) 0.1 %; Eosinophils # (A) 0 X 10*3/uL (0.04-0.35); Eosinophils % (A) 0 %; Monocytes # (A) 0.09 X 10*3/uL (0.20-1.00); NRBC Per 100 WBC 0 X 10*3/uL (0.00-0.01); Neutrophils # (A) 7.08 X 10*3/uL (1.80-7.70)
[2022-08-30] MEDS: CLINDAMYCIN 600 MG in DEXTROSE 5% IN WATER 50 ML IVPB SCH ×2 (08:57)
[2022-08-30] MEDS ORDERED: VANCOMYCIN IV PER PHARMACY 1 EACH MISC MISCELLANE PRN (10:13)
[2022-08-30] MEDS ORDERED: CEFEPIME 2 GM in SODIUM CHLORIDE 0.9% 100 ML IVPB SCH (10:15)
[2022-08-30] MEDS: CEFEPIME 1 GM in SODIUM CHLORIDE 0.9% 50 ML IVPB SCH ×2 (10:50→22:04)
[2022-08-30] MEDS ORDERED: VANCOMYCIN 1,750 MG in SODIUM CHLORIDE 0.9% 500 ML 500 ML IVPB ONE (11:00)
[2022-08-30 11:22] LABS: Glucose,Whole Blood 307 mg/dL (70-110)
[2022-08-30 13:47] VITALS: BMI 50.5
[2022-08-30] MEDS ORDERED: traMADol 50 MG TAB PO PRN (14:10)
--- NOTE | 2022-08-30 14:20 | P.HPIM ---
History of Present Illness 82-year-old female came in for surgical site infection with in duration, nonpurulent drainage from the right lower quadrant incision from her recent bowel resection surgery for incarcerated hernia in of this month. Patient doesn't have any fever does have leukocytosis patient was on antibiotic doxycycline at home. Patient was started on the cefepime and vancomycin. Wound cultures were obtained patient the will probably will undergo incision and drainage. Patient is also on anticoagulation at home for atrial fibrillation which is being held as patient will undergo surgical intervention today.. REVIEW OF SYSTEMS: CONSTITUTIONAL: No fever, no malaise, no fatigue. HEENT: No recent visual problems or hearing problems. Denied any sore throat. CARDIOVASCULAR: No chest pain, orthopnea, PND, no palpitations, no syncope. PULMONARY: No shortness of breath, no cough, no hemoptysis. GASTROINTESTINAL: No diarrhea, no nausea, no vomiting, no abdominal pain. NEUROLOGICAL: No headaches, no weakness, no numbness. HEMATOLOGICAL: Denies any bleeding or petechiae. GENITOURINARY: Denies any burning micturition, frequency, or urgency. MUSCULOSKELETAL/RHEUMATOLOGICAL: Denies any joint pain, swelling, or any muscle pain. ENDOCRINE: Denies any polyuria or polydipsia. The rest of the 14-point review of systems is negative. PHYSICAL EXAMINATION: GENERAL: The patient is alert and oriented x3, not in any acute distress. Well developed, well nourished. HEENT: Pupils are round and equally reacting to light. EOMI. No scleral icterus. No conjunctival pallor. Normocephalic, atraumatic. No pharyngeal erythema. No thyromegaly. CARDIOVASCULAR: S1 and S2 present. No murmurs, rubs, or gallops. PULMONARY: Chest is clear to auscultation, no wheezing or crackles. ABDOMEN: Soft, nontender, nondistended, normoactive bowel sounds. No palpable organomegaly. MUSCULOSKELETAL: No joint swelling or deformity. EXTREMITIES: No cyanosis, clubbing, or pedal edema. NEUROLOGICAL: Gross neurological examination did not reveal any focal deficits. SKIN: Surgical site infection as mentioned above Assessment and plan DVT prophylaxis: -Infected surgical site: Continue with cefepime and vancomycin, follow-up on wound cultures possible incision and drainage. 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 HIATAL HERNIA. ABN HGB, HAD BLOOD TRANSFUSION X2, 04/05/17; HAD EGD, COLONSCOPY, BOTH POS FOR POLYPS. RECENT UTI. LT BREAST LUMPECTOMY 04/04/17, NOT HEALED YET. History of Any Multi-Drug Resistant Organisms: None Reported Past Surgical History: Breast Surgery, Cholecystectomy, Hernia Repair, Hysterectomy Additional Past Surgical History / Comment(s): LT BREAST LUMPECTOMY 04/04/17. EGD, COLONOSCOPY 04/09/17. Past Anesthesia/Blood Transfusion Reactions: Motion Sickness Past Psychological History: Anxiety, Depression Smoking Status: Never smoker Past Alcohol Use History: None Reported Past Drug Use History: None Reported - Past Family History Brother(s) Family Medical History: Cancer Medications and Allergies Home Medications Medication Instructions Recorded Confirmed Type Aspirin [Adult Low Dose Aspirin EC] 81 mg PO DAILY 05/18/17 08/29/22 History Cetirizine HCl [Zyrtec] 10 mg PO DAILY 05/18/17 08/29/22 History allopurinoL [Zyloprim] 300 mg PO DAILY 05/18/17 08/29/22 History Ergocalciferol (Vitamin D2) 1,250 mcg PO Q7D 07/19/22 08/29/22 History [Drisdol (50,000 Iu)] Ferrous Sulfate [Iron (65 MG 325 mg PO TUFR 07/19/22 08/29/22 History Elemental)] Magnesium Oxide [Mag-Ox] 400 mg PO BID 07/19/22 08/29/22 History Apixaban [Eliquis] 5 mg PO BID tab 08/01/22 08/29/22 Rx Metoprolol Succinate (ER) [Toprol 50 mg PO DAILY tab 08/01/22 08/29/22 Rx XL] traMADol HCl [Ultram] 50 mg PO QID PRN #8 tab 08/01/22 08/29/22 Rx Acetaminophen Tab [Tylenol] 1,000 mg PO Q6HR PRN #30 tablet 08/02/22 08/29/22 Rx Cyanocobalamin (Vitamin B-12) 1,000 mcg PO DAILY 08/29/22 08/29/22 History [Vitamin B-12] Doxycycline Monohydrate [Monodox] 100 mg PO BID 08/29/22 08/29/22 History Insulin Glargine-Yfgn [Semglee 10 units SQ HS 08/29/22 08/29/22 History (Yfgn) Pen] Levothyroxine Sodium [Synthroid] 100 mcg PO DAILY 08/29/22 08/29/22 History Omeprazole [PriLOSEC] 20 mg PO DAILY 08/29/22 08/29/22 History Simethicone Chew [Mylicon Chew] 160 mg PO PC-TID 08/29/22 08/29/22 History glipiZIDE 5 mg PO DAILY 08/29/22 08/29/22 History guaiFENesin [guaiFENesin ER] 600 mg PO BID 08/29/22 08/29/22 History metFORMIN HCL [Glucophage] 850 mg PO BID 08/29/22 08/29/22 History Allergies Allergy/AdvReac Type Severity Reaction Status Date / Time Iodinated Contrast Media Allergy Dyspnea Verified 08/29/22 16:27 [Iodinated Contrast- Oral and IV Dye] latex Allergy Rash/Hives Verified 08/29/22 16:27 Penicillins Allergy Rash/Hives Verified 08/29/22 16:27 banana AdvReac CRAMPS IN Verified 08/29/22 16:27 LEGS pineapple AdvReac CRAMPS IN Verified 08/29/22 16:27 LEGS Physical Exam Vitals: Vital Signs Temp Pulse Pulse Resp BP BP Pulse Ox 08/30/22 13:36 98.5 F 76 20 141/76 95 08/30/22 07:36 99.0 F 82 19 161/67 94 L 08/30/22 01:15 98.1 F 82 18 134/72 94 L 08/29/22 21:07 98.7 F 79 18 155/75 95 08/29/22 20:43 98.8 F 66 18 152/79 98 08/29/22 19:00 68 16 157/66 96 08/29/22 17:21 71 18 157/66 97 Intake and Output 08/29/22 08/30/22 08/30/22 22:59 06:59 14:59 Output Total 500 Balance -500 Output: Urine 500 Other: # Voids 1 Weight 113.398 kg 113.398 kg Results CBC & Chem 7: 08/30/22 05:12 08/30/22 05:12 Labs: Abnormal Lab Results - Last 24 Hours (Table) 08/30/22 08/30/22 08/30/22 Range/Units 05:12 05:12 06:12 RBC 3.10 L (4.10-5.20) X 10*6/uL Hgb 10.5 L (12.0-15.0) d/dL Hct 32.4 L (37.2-46.3) % MCV 104.5 H (80.0-97.0) FL MCH 33.9 H (27.0-32.0) pg RDW 15.8 H (11.5-14.5) % Monocytes # 0.09 L (0.20-1.00) X 10*3/uL Eosinophils # 0 L (0.04-0.35) X 10*3/uL Carbon Dioxide 19.1 L (21.6-31.8) mmol/L Anion Gap 17.90 H (4.00-12.00) mmol/L BUN 33.2 H (9.0-27.0) mg/dL Est GFR (CKD-EPI) 38 L (>=60) BUN/Creatinine Ratio 23.71 H (12.00-20.00) Ratio Glucose 258 H (70-110) mg/dL POC Glucose (mg/dL) 296 H (70-110) mg/dL 08/30/22 Range/Units 11:21 RBC (4.10-5.20) X 10*6/uL Hgb (12.0-15.0) d/dL Hct (37.2-46.3) % MCV (80.0-97.0) FL MCH (27.0-32.0) pg RDW (11.5-14.5) % Monocytes # (0.20-1.00) X 10*3/uL Eosinophils # (0.04-0.35) X 10*3/uL Carbon Dioxide (21.6-31.8) mmol/L Anion Gap (4.00-12.00) mmol/L BUN (9.0-27.0) mg/dL Est GFR (CKD-EPI) (>=60) BUN/Creatinine Ratio (12.00-20.00) Ratio Glucose (70-110) mg/dL POC Glucose (mg/dL) 307 H (70-110) mg/dL Microbiology - Last 24 Hours (Table) 08/29/22 15:51 Gram Stain - Preliminary Abdomen Thrombosis Risk Factor Assmnt - Choose All That Apply Each Risk Factor Represents 3 Points: Age 75 years or older Thrombosis Risk Factor Assessment Total Risk Factor Score: 3 Thrombosis Risk Factor Assessment Level: Moderate Risk
[2022-08-30] MEDS: metroNIDAZOLE 500 MG TAB PO SCH ×2 (16:15→22:05)
--- NOTE | 2022-08-30 16:22 | P.GSHP ---
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 Ashley. Patient has been currently at an [facility] for rehab. She was noted to have increased pain and purulent drainage from her surgical incision on the left of the abdomen. Patient reports that had been draining blood and pus. Patient reports that now that it's draining her pain has decreased. She denies any nausea or vomiting. She is tolerating regular diet. She had a computed tomography scan completed that reports a new nonspecific 5.9 x 2.1 cm focal thin-walled fluid collection in the deep subcutaneous tissue of the anterior pelvis. Postsurgical seroma would be favored. Some adjacent ill-defined fluid and fat stranding we demonstrated slightly more prominent versus prior study. No herniated bowel close seen on the current study. There are new surgical suture suspected in the anterior bowel loops left of the midline in the pelvis. Patient has been started on IV antibiotics and infectious disease has been consulted. Patient does take Eliquis for history of A. fib. PAST MEDICAL HISTORY: See list. PAST SURGICAL HISTORY: See list. MEDICATIONS: See list. ALLERGIES: See list. SOCIAL HISTORY: No illicit drug use. REVIEW OF SYSTEMS: CONSTITUTIONAL: Denies fever or chills. HEENT: Denies blurred vision, vision changes, or eye pain. Denies hemoptysis ENDOCRINE: Denies heat or cold intolerance. CARDIOVASCULAR: Denies chest pain or pressure. RESPIRATORY: No shortness of breath. GASTROINTESTINAL: Denies abdominal pain. Denies nausea or vomiting. NEURO: Denies history of seizures. PSYCH: No depression or suicidal ideation HEMATOLOGIC: Denies bleeding disorders. LYMPHATIC: The patient denies any lumps and bumps around the neck. GENITOURINARY: Denies any blood in urine or increased urinary frequency. MUSCULOSKELETAL: Denies myalgias. Denies joint swelling. Denies decreased range of motion beyond patients baseline. SKIN: Denies pruitis. Denies rash. PHYSICAL EXAM: VITAL SIGNS: Reviewed GENERAL: Well-developed in no acute distress. HEENT: No sclera icterus. Extraocular movements grossly intact. Moist buccal mucosa. Head is atraumatic, normocephalic. Hears conversational speech. No nasal drainage. NECK: Supple without lymphadenopathy. CHEST: Non-labored respirations and equal bilateral excursions. CARDIOVASCULAR: Palpable 2+ radial pulses. ABDOMEN: Soft. Nondistended. Surgical incision on the left side abdomen with purulent drainage. Mild area of induration. Mild tenderness with palpation MUSCULOSKELETAL: No clubbing or cyanosis. NEUROLOGIC: No focal or lateralizing signs. Cranial nerves II through XII grossly intact. PSYCH: Appropriate affect. Alert and oriented to person, place and time. SKIN: Well perfused. Good skin turgor. LABORATORY DATA: WBC is 8.96 Hgb 10.5 platelets 288 Sodium 135 potassium 5.2 creatinine 1.4 Glucose elevated at 307 Lactic acid 2.3-2.0 LFTs normal Culture of drainage pending IMAGING: Computed tomography scan as stated above ASSESSMENT: 1. Fluid collection in the deep subcutaneous tissue of the anterior pelvis possible postsurgical seroma vs abscess 2. Incisional drainage 3. Abdominal pain 4. 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 Diabetes with elevated blood sugar 6. History of atrial fibrillation PLAN: -Patient scheduled for drainage of complex abdominal wall abscess -Keep patient nothing by mouth -Consult infectious disease for antibiotic recommendations -Consult medicine service for medical management -Hold Eliquis for surgical intervention Physician Muffler Installer note has been reviewed by physician. Signing provider agrees with the documented findings, assessment, and plan of care. Past Medical History Past Medical History: Cancer, Diabetes Mellitus, GERD/Reflux, Hypertension, Skin Disorder Additional Past Medical History / Comment(s): HX BREAST CA. HIATAL HERNIA. ABN HGB, HAD BLOOD TRANSFUSION X2, 04/05/17; HAD EGD, COLONSCOPY, BOTH POS FOR POLYPS. RECENT UTI. LT BREAST LUMPECTOMY 04/04/17, NOT HEALED YET. History of Any Multi-Drug Resistant Organisms: None Reported Past Surgical History: Breast Surgery, Cholecystectomy, Hernia Repair, Hysterectomy Additional Past Surgical History / Comment(s): LT BREAST LUMPECTOMY 04/04/17. EGD, COLONOSCOPY 04/09/17. Past Anesthesia/Blood Transfusion Reactions: Motion Sickness Past Psychological History: Anxiety, Depression Smoking Status: Never smoker Past Alcohol Use History: None Reported Past Drug Use History: None Reported - Past Family History Brother(s) Family Medical History: Cancer Medications and Allergies Home Medications Medication Instructions Recorded Confirmed Type Aspirin [Adult Low Dose Aspirin EC] 81 mg PO DAILY 05/18/17 08/29/22 History Cetirizine HCl [Zyrtec] 10 mg PO DAILY 05/18/17 08/29/22 History allopurinoL [Zyloprim] 300 mg PO DAILY 05/18/17 08/29/22 History Ergocalciferol (Vitamin D2) 1,250 mcg PO Q7D 07/19/22 08/29/22 History [Drisdol (50,000 Iu)] Ferrous Sulfate [Iron (65 MG 325 mg PO TUFR 07/19/22 08/29/22 History Elemental)] Magnesium Oxide [Mag-Ox] 400 mg PO BID 07/19/22 08/29/22 History Apixaban [Eliquis] 5 mg PO BID tab 08/01/22 08/29/22 Rx Metoprolol Succinate (ER) [Toprol 50 mg PO DAILY tab 08/01/22 08/29/22 Rx XL] traMADol HCl [Ultram] 50 mg PO QID PRN #8 tab 08/01/22 08/29/22 Rx Acetaminophen Tab [Tylenol] 1,000 mg PO Q6HR PRN #30 tablet 08/02/22 08/29/22 Rx Cyanocobalamin (Vitamin B-12) 1,000 mcg PO DAILY 08/29/22 08/29/22 History [Vitamin B-12] Doxycycline Monohydrate [Monodox] 100 mg PO BID 08/29/22 08/29/22 History Insulin Glargine-Yfgn [Semglee 10 units SQ HS 08/29/22 08/29/22 History (Yfgn) Pen] Levothyroxine Sodium [Synthroid] 100 mcg PO DAILY 08/29/22 08/29/22 History Omeprazole [PriLOSEC] 20 mg PO DAILY 08/29/22 08/29/22 History Simethicone Chew [Mylicon Chew] 160 mg PO PC-TID 08/29/22 08/29/22 History glipiZIDE 5 mg PO DAILY 08/29/22 08/29/22 History guaiFENesin [guaiFENesin ER] 600 mg PO BID 08/29/22 08/29/22 History metFORMIN HCL [Glucophage] 850 mg PO BID 08/29/22 08/29/22 History Allergies Allergy/AdvReac Type Severity Reaction Status Date / Time Iodinated Contrast Media Allergy Dyspnea Verified 08/29/22 16:27 [Iodinated Contrast- Oral and IV Dye] latex Allergy Rash/Hives Verified 08/29/22 16:27 Penicillins Allergy Rash/Hives Verified 08/29/22 16:27 banana AdvReac CRAMPS IN Verified 08/29/22 16:27 LEGS pineapple AdvReac CRAMPS IN Verified 08/29/22 16:27 LEGS Surgical - Exam Vital Signs Pulse Resp BP Pulse Ox 71 18 157/66 97 08/29/22 17:21 08/29/22 17:21 08/29/22 17:21 08/29/22 17:21 Results - Labs 08/30/22 05:12 08/30/22 05:12 Abnormal Lab Results - Last 24 Hours (Table) 08/29/22 08/29/22 08/29/22 Range/Units 12:46 12:46 12:46 RBC 3.09 L (3.80-5.40) m/uL Hgb 10.5 L (11.4-16.0) gm/dL Hct 32.8 L (34.0-46.0) % MCV 106.3 H (80.0-100.0) fL MCH (27.0-32.0) pg RDW (11.5-14.5) % Monocytes # (0.20-1.00) X 10*3/uL Eosinophils # (0.04-0.35) X 10*3/uL Sodium 135 L (137-145) mmol/L Carbon Dioxide (21.6-31.8) mmol/L Anion Gap (4.00-12.00) mmol/L BUN 32 H (7-17) mg/dL Creatinine 1.26 H (0.52-1.04) mg/dL Est GFR (CKD-EPI) (>=60) BUN/Creatinine Ratio (12.00-20.00) Ratio Glucose 135 H (74-99) mg/dL POC Glucose (mg/dL) (70-110) mg/dL Plasma Lactic Acid Jalen 2.3 H* (0.7-2.0) mmol/L Total Protein 5.8 L (6.3-8.2) g/dL Albumin 3.4 L (3.5-5.0) g/dL 08/30/22 08/30/22 08/30/22 Range/Units 05:12 05:12 06:12 RBC 3.10 L (3.80-5.40) m/uL Hgb 10.5 L (11.4-16.0) gm/dL Hct 32.4 L (34.0-46.0) % MCV 104.5 H (80.0-100.0) fL MCH 33.9 H (27.0-32.0) pg RDW 15.8 H (11.5-14.5) % Monocytes # 0.09 L (0.20-1.00) X 10*3/uL Eosinophils # 0 L (0.04-0.35) X 10*3/uL Sodium (137-145) mmol/L Carbon Dioxide 19.1 L (21.6-31.8) mmol/L Anion Gap 17.90 H (4.00-12.00) mmol/L BUN 33.2 H (7-17) mg/dL Creatinine (0.52-1.04) mg/dL Est GFR (CKD-EPI) 38 L (>=60) BUN/Creatinine Ratio 23.71 H (12.00-20.00) Ratio Glucose 258 H (74-99) mg/dL POC Glucose (mg/dL) 296 H (70-110) mg/dL Plasma Lactic Acid Jalen (0.7-2.0) mmol/L Total Protein (6.3-8.2) g/dL Albumin (3.5-5.0) g/dL 08/30/22 Range/Units 11:21 RBC (3.80-5.40) m/uL Hgb (11.4-16.0) gm/dL Hct (34.0-46.0) % MCV (80.0-100.0) fL MCH (27.0-32.0) pg RDW (11.5-14.5) % Monocytes # (0.20-1.00) X 10*3/uL Eosinophils # (0.04-0.35) X 10*3/uL Sodium (137-145) mmol/L Carbon Dioxide (21.6-31.8) mmol/L Anion Gap (4.00-12.00) mmol/L BUN (7-17) mg/dL Creatinine (0.52-1.04) mg/dL Est GFR (CKD-EPI) (>=60) BUN/Creatinine Ratio (12.00-20.00) Ratio Glucose (74-99) mg/dL POC Glucose (mg/dL) 307 H (70-110) mg/dL Plasma Lactic Acid Jalen (0.7-2.0) mmol/L Total Protein (6.3-8.2) g/dL Albumin (3.5-5.0) g/dL Microbiology - Last 24 Hours (Table) 08/29/22 15:51 Gram Stain - Preliminary Abdomen Diabetes panel 08/29/22 08/30/22 Range/Units 12:46 05:12 Sodium 135 L 135 (137-145) mmol/L Potassium 4.7 5.2 (3.5-5.1) mmol/L Chloride 102 98 (98-107) mmol/L Carbon Dioxide 27 19.1 L (22-30) mmol/L BUN 32 H 33.2 H (7-17) mg/dL Creatinine 1.26 H 1.4 (0.52-1.04) mg/dL Glucose 135 H 258 H (74-99) mg/dL Calcium 9.9 9.7 (8.4-10.2) mg/dL AST 19 (14-36) U/L ALT 16 (4-34) U/L Alkaline Phosphatase 46 (38-126) U/L Total Protein 5.8 L (6.3-8.2) g/dL Albumin 3.4 L (3.5-5.0) g/dL Calcium panel 08/29/22 08/30/22 Range/Units 12:46 05:12 Calcium 9.9 9.7 (8.4-10.2) mg/dL Albumin 3.4 L (3.5-5.0) g/dL Pituitary panel 08/29/22 08/30/22 Range/Units 12:46 05:12 Sodium 135 L 135 (137-145) mmol/L Potassium 4.7 5.2 (3.5-5.1) mmol/L Chloride 102 98 (98-107) mmol/L Carbon Dioxide 27 19.1 L (22-30) mmol/L BUN 32 H 33.2 H (7-17) mg/dL Creatinine 1.26 H 1.4 (0.52-1.04) mg/dL Glucose 135 H 258 H (74-99) mg/dL Calcium 9.9 9.7 (8.4-10.2) mg/dL Adrenal panel 08/29/22 08/30/22 Range/Units 12:46 05:12 Sodium 135 L 135 (137-145) mmol/L Potassium 4.7 5.2 (3.5-5.1) mmol/L Chloride 102 98 (98-107) mmol/L Carbon Dioxide 27 19.1 L (22-30) mmol/L BUN 32 H 33.2 H (7-17) mg/dL Creatinine 1.26 H 1.4 (0.52-1.04) mg/dL Glucose 135 H 258 H (74-99) mg/dL Calcium 9.9 9.7 (8.4-10.2) mg/dL Total Bilirubin 0.4 (0.2-1.3) mg/dL AST 19 (14-36) U/L ALT 16 (4-34) U/L Alkaline Phosphatase 46 (38-126) U/L Total Protein 5.8 L (6.3-8.2) g/dL Albumin 3.4 L (3.5-5.0) g/dL
[2022-08-30 16:30] LABS: Glucose,Whole Blood 188 mg/dL (70-110)
[2022-08-30] MEDS: INSULIN ASPART (NovoLOG) 100 UNIT/ML VIAL SQ SCH ×2 (17:25→22:24)
[2022-08-30] MEDS: SIMETHICONE 80 MG CHEWABLE PO SCH (17:35)
[2022-08-30] MEDS ORDERED: LACTATED RINGERS 1,000 ML IV ONE (18:54)
[2022-08-30] MEDS ORDERED: IV FLUID CONTINUATION 1,000 ML IV ONE (18:54)
[2022-08-30] MEDS ORDERED: fentaNYL (PF) 50 MCG/ML 2 ML AMP ONE (19:23)
[2022-08-30] MEDS ORDERED: SUCCINYLCHOLINE CHLORIDE 200 MG/10 ML VIAL IV ONE (19:23)
[2022-08-30] MEDS ORDERED: PROPOFOL 10 MG/ML 20 ML VIAL IV ONE (19:23)
[2022-08-30] MEDS ORDERED: LIDOCAINE 2% INJ 20 MG/ML (2 ML VIAL) ONE (19:23)
--- NOTE | 2022-08-30 19:29 | P.HPADDEND ---
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 She reports spontaneous drainage in the last 2-3 days. Diagnostic studies outside institution including CT of the abdomen and pelvis times 2 subcutaneous abscess. Patient presents with moderate pain. Drainage of complex abdominal wall described with placement of [place] drain reviewed. Patient gave informed consent.
[2022-08-30] MEDS ORDERED: BUPIVACAINE (PF) 0.25% 30 ML VIAL SQ ONE (19:54)
[2022-08-30] MEDS: SODIUM CHLORIDE 0.9% 1,000 ML IV SCH (22:05)
[2022-08-30 22:10] LABS: Glucose,Whole Blood 171 mg/dL (70-110)
--- NOTE | 2022-08-30 22:15 | P.CONS ---
History of Present Illness - Reason for Consult Consult date: 08/30/22 abd wall abscess vs seroma Requesting physician: Aliya Villavicencio - Chief Complaint abd wall pain and draiange x 1 day - History of Present Illness Patient is a 82-year-old female with a past medical history significant for repair of incarcerated hernia and bowel resection patient was subsequently stabilized and discharged to the local [place] [facility] patient mention yesterday she noticed to have increasing drainage from her right lower abdominal surgical site patient complaining of pain patient went in touch mostly dull aching 5-6 out of 10 no radiation and did have some purulent drainage [place] [facility] perform ultrasound which demonstrated abscess versus seroma and the patient was subsequently transferred to [facility] for further evaluation on presentation to the hospital the patient was afebrile did have a low-grade fever of 99 F this morning patient was not tachycardic or hypotensive patient had normal white count creatinine has been normal patient did have a CT of abdominal pelvis new nonspecific 5.9X 2.1 cm focal thin of wall fluid collection in the deep subcutaneous tissue of anterior breath pelvis concerning for seroma local cultures were obtained patient was admitted to hospital she was started on clindamycin infectious disease was consulted for further management of antibiotic therapy Review of Systems Positive point and negatives has been mentioned in the HPI, complete review of systems was performed and all other systems are negative Past Medical History Past Medical History: Cancer, Diabetes Mellitus, GERD/Reflux, Hypertension, Skin Disorder Additional Past Medical History / Comment(s): HX BREAST CA. HIATAL HERNIA. ABN HGB, HAD BLOOD TRANSFUSION X2, 04/05/17; HAD EGD, COLONSCOPY, BOTH POS FOR POLYPS. RECENT UTI. LT BREAST LUMPECTOMY 04/04/17, NOT HEALED YET. History of Any Multi-Drug Resistant Organisms: None Reported Past Surgical History: Breast Surgery, Cholecystectomy, Hernia Repair, Hysterectomy Additional Past Surgical History / Comment(s): LT BREAST LUMPECTOMY 04/04/17. EGD, COLONOSCOPY 04/09/17. Past Anesthesia/Blood Transfusion Reactions: Motion Sickness Past Psychological History: Anxiety, Depression Smoking Status: Never smoker Past Alcohol Use History: None Reported Past Drug Use History: None Reported - Past Family History Brother(s) Family Medical History: Cancer Medications and Allergies Home Medications Medication Instructions Recorded Confirmed Type Aspirin [Adult Low Dose Aspirin EC] 81 mg PO DAILY 05/18/17 08/29/22 History Cetirizine HCl [Zyrtec] 10 mg PO DAILY 05/18/17 08/29/22 History allopurinoL [Zyloprim] 300 mg PO DAILY 05/18/17 08/29/22 History Ergocalciferol (Vitamin D2) 1,250 mcg PO Q7D 07/19/22 08/29/22 History [Drisdol (50,000 Iu)] Ferrous Sulfate [Iron (65 MG 325 mg PO TUFR 07/19/22 08/29/22 History Elemental)] Magnesium Oxide [Mag-Ox] 400 mg PO BID 07/19/22 08/29/22 History Apixaban [Eliquis] 5 mg PO BID tab 08/01/22 08/29/22 Rx Metoprolol Succinate (ER) [Toprol 50 mg PO DAILY tab 08/01/22 08/29/22 Rx XL] Acetaminophen Tab [Tylenol] 1,000 mg PO Q6HR PRN #30 tablet 08/02/22 08/29/22 Rx Cyanocobalamin (Vitamin B-12) 1,000 mcg PO DAILY 08/29/22 08/29/22 History [Vitamin B-12] Insulin Glargine-Yfgn [Semglee 10 units SQ HS 08/29/22 08/29/22 History (Yfgn) Pen] Levothyroxine Sodium [Synthroid] 100 mcg PO DAILY 08/29/22 08/29/22 History Omeprazole [PriLOSEC] 20 mg PO DAILY 08/29/22 08/29/22 History Simethicone Chew [Mylicon Chew] 160 mg PO PC-TID 08/29/22 08/29/22 History glipiZIDE 5 mg PO DAILY 08/29/22 08/29/22 History guaiFENesin [guaiFENesin ER] 600 mg PO BID 08/29/22 08/29/22 History metFORMIN HCL [Glucophage] 850 mg PO BID 08/29/22 08/29/22 History Ciprofloxacin HCl [Cipro] 500 mg PO Q12HR 10 Days #20 tab 09/01/22 Rx metroNIDAZOLE [Flagyl] 500 mg PO TID 10 Days #30 tab 09/01/22 Rx Lactulose [Cephulac] 20 gm PO DAILY ml 09/04/22 Rx Psyllium Husk (with Sugar) 0 gm PO DAILY #575 gm 09/04/22 Rx [Metamucil Powder] Allergies Allergy/AdvReac Type Severity Reaction Status Date / Time Iodinated Contrast Media Allergy Dyspnea Verified 08/30/22 19:05 [Iodinated Contrast- Oral and IV Dye] latex Allergy Rash/Hives Verified 08/30/22 19:05 Penicillins Allergy Rash/Hives Verified 08/30/22 19:05 banana AdvReac CRAMPS IN Verified 08/30/22 19:05 LEGS pineapple AdvReac CRAMPS IN Verified 08/30/22 19:05 LEGS Physical Exam Vitals: Vital Signs Temp Pulse Pulse Resp BP BP Pulse Ox 08/30/22 07:36 99.0 F 82 19 161/67 94 L 08/30/22 01:15 98.1 F 82 18 134/72 94 L 08/29/22 21:07 98.7 F 79 18 155/75 95 08/29/22 20:43 98.8 F 66 18 152/79 98 08/29/22 19:00 68 16 157/66 96 08/29/22 17:21 71 18 157/66 97 Intake and Output 08/29/22 08/30/22 08/30/22 22:59 06:59 14:59 Output Total 500 Balance -500 Output: Urine 500 Other: # Voids 1 Weight 113.398 kg GENERAL DESCRIPTION: Elderly female lying in bed, no distress. No tachypnea or accessory muscle of respiration use. HEENT: Shows Pallor , no scleral icterus. Oral mucous membrane is dry. NECK: Trachea central, no thyromegaly. LUNGS: Unlabored breathing. Clear to auscultation anteriorly. No wheeze or crackle. HEART: S1, S2, regular rate and rhythm. ABDOMEN: Soft, lower abd wall induration and tenderness EXTREMITIES: No edema of feet. SKIN: No rash, no masses palpable. NEUROLOGICAL: The patient is awake, alert, oriented x3, mood and affect normal. Results CBC & Chem 7: 09/03/22 04:37 09/03/22 04:37 Labs: Abnormal Lab Results - Last 24 Hours (Table) 08/29/22 08/29/22 08/29/22 Range/Units 12:46 12:46 12:46 RBC 3.09 L (3.80-5.40) m/uL Hgb 10.5 L (11.4-16.0) gm/dL Hct 32.8 L (34.0-46.0) % MCV 106.3 H (80.0-100.0) fL MCH (27.0-32.0) pg RDW (11.5-14.5) % Monocytes # (0.20-1.00) X 10*3/uL Eosinophils # (0.04-0.35) X 10*3/uL Sodium 135 L (137-145) mmol/L Carbon Dioxide (21.6-31.8) mmol/L Anion Gap (4.00-12.00) mmol/L BUN 32 H (7-17) mg/dL Creatinine 1.26 H (0.52-1.04) mg/dL Est GFR (CKD-EPI) (>=60) BUN/Creatinine Ratio (12.00-20.00) Ratio Glucose 135 H (74-99) mg/dL POC Glucose (mg/dL) (70-110) mg/dL Plasma Lactic Acid Jalen 2.3 H* (0.7-2.0) mmol/L Total Protein 5.8 L (6.3-8.2) g/dL Albumin 3.4 L (3.5-5.0) g/dL 08/30/22 08/30/22 08/30/22 Range/Units 05:12 05:12 06:12 RBC 3.10 L (3.80-5.40) m/uL Hgb 10.5 L (11.4-16.0) gm/dL Hct 32.4 L (34.0-46.0) % MCV 104.5 H (80.0-100.0) fL MCH 33.9 H (27.0-32.0) pg RDW 15.8 H (11.5-14.5) % Monocytes # 0.09 L (0.20-1.00) X 10*3/uL Eosinophils # 0 L (0.04-0.35) X 10*3/uL Sodium (137-145) mmol/L Carbon Dioxide 19.1 L (21.6-31.8) mmol/L Anion Gap 17.90 H (4.00-12.00) mmol/L BUN 33.2 H (7-17) mg/dL Creatinine (0.52-1.04) mg/dL Est GFR (CKD-EPI) 38 L (>=60) BUN/Creatinine Ratio 23.71 H (12.00-20.00) Ratio Glucose 258 H (74-99) mg/dL POC Glucose (mg/dL) 296 H (70-110) mg/dL Plasma Lactic Acid Jalen (0.7-2.0) mmol/L Total Protein (6.3-8.2) g/dL Albumin (3.5-5.0) g/dL Microbiology - Last 24 Hours (Table) 08/29/22 15:51 Gram Stain - Preliminary Abdomen Assessment and Plan (1) Abdominal wall abscess Status: Acute Code(s): L02.211 - CUTANEOUS ABSCESS OF ABDOMINAL WALL SNOMED Code(s): 18155157 Plan: 1patient present to hospital right lower quadrant abdominal pain and drainage in this patient with recent history of incarcerated abdominal hernia repair with evidence of thin-walled fluid collection concerning for possible postoperative seroma versus abscess 2-patient with a penicillin allergy that would limit the number of antibiotics safe to use 3-discontinue clindamycin 4-he was started patient cefepime and vancomycin while waiting for the culture to finalize We will follow on clinical condition and cultures to further adjust medication if needed Thank you for this consultation we will follow the patient along with you Time with Patient: Greater than 30
[2022-08-30] MEDS: ACETAMINOPHEN TAB 325 MG TAB PO PRN (22:23)
[2022-08-31 05:46] LABS: Glucose,Whole Blood 136 mg/dL (70-110)
[2022-08-31] MEDS: LEVOTHYROXINE 100 MCG TAB PO SCH (05:52)
[2022-08-31] MEDS: PANTOPRAZOLE 40 MG TABLET PO SCH (05:52)
--- NOTE | 2022-08-31 08:51 | P.OP ---
Date of Procedure: 08/30/22 Description of Procedure: SURGEON: EVELYN DUBOSE MD PREOPERATIVE DIAGNOSES: 1. Abdominal pain due to abdominal wall abscess 2. Morbid obesity due to excess calories, BMI 50.5 3. Generalized debility 4. Abnormal CT scan for abdominal wall abscess POSTOPERATIVE DIAGNOSES: 1. Abdominal pain due to abdominal wall seroma 2. Morbid obesity due to excess calories, BMI 50.5 3. Generalized debility OPERATION: 1. Incision and drainage of complex abdominal wall deep subcutaneous seroma 2. Intraoperative ultrasound, soft tissue abdominal wall ANESTHESIA: General and local ESTIMATED BLOOD LOSS: 5 mL SPECIMENS: None COMPLICATIONS: NONE. FINDINGS: 1. Abdominal wall seroma, deep subcutaneous tissue without abscess 2. No recurrent abdominal wall hernia identified. INDICATIONS: The patient is a 82-year-old female who over a month ago had emergency surgery for incarcerated hernia with fistula. Patient was recovering retirement with persistent abdominal pain. Outside facility obtained ultrasound demonstrating abscess hence patient was transferred to the hospital. Additional imaging demonstrated fluid collection for possibility of abscess. Urgent surgical intervention with incision and drainage described. Benefits and risks were reviewed. Informed consent was obtained. DESCRIPTION OF PROCEDURE: Patient was brought to the operating room, laid in supine position. After adequate IV sedation, the borders of the abdominal wall seroma were marked using an indelible marker. At the right lower quadrant, approximately 3 fingerbreadths above the right inguinal canal, a 22-gauge needle was used to localize the abdominal wall. A total of 40 mL of 0.25% Marcaine was injected along the right lower quadrant at the proposed incision, including along the umbilicus and epigastrium. Using an 18-gauge needle, a fine-needle aspiration was used to enter the seroma pocket. Immediate aspirate was sent for aerobic and anaerobic culture of approximately 30 mL and the needle was removed. Next a Cordis sheath was placed over a guidewire which had been exchanged through a 16-gauge seeker needle into the seroma pocket. The sheath was attached to suction. To be able to place a drain, a counter incision was made along the prominence of the abdominal wall at her proposed umbilicus. The skin had been prior localized. A transverse 2 cm incision was made into subcutaneous tissue. Next, the incision was deepened down to the plane of the anterior abdominal wall at the superficial fascial system. Next, using a hemostat, the seroma pocket was punctured and widened. A Yankauer suction was placed and used to aspirate all quadrants of the seroma pocket until the abdominal wall was completely deflated. A large Lin was inserted into the umbilical incision towards the right lower quadrant site of the Cordis. A round #19 Efren drain was positioned into the abdominal cavity using the Lin. A 2-0 nylon stitch was placed for the drain. The transverse umbilical incision was reapproximated using 3-0 Vicryl for the deep dermis and subcutaneous tissue. A running suture of 4-0 Monocryl was placed. Dermabond was then applied to the skin. A JUAN LUIS bulb was attached. Once dried, an abdominal binder was placed. At the end of the procedure, needle, sponge and instrument count had been verified correct by the nursing surgical services director. The patient was taken to the Postanesthesia Care Unit in stable condition. A total of 1500 mL of a complex hematoma/seroma was aspirated from the abdominal wall. This information was reviewed with the patient's . Strict postoperative care includes keeping the JUAN LUIS drain until minimal outputs of less than 20 mL daily. Additionally she must wear her abdominal binder at all times to completely compress the pocket.
[2022-08-31 09:18] LABS: BUN/Creat Ratio 25.54 Ratio (12.00-20.00); Blood Urea Nitrogen 33.2 mg/dL (9.0-27.0); Calcium 9.3 mg/dL (8.7-10.3); Carbon Dioxide 21.2 mmol/L (21.6-31.8); Chloride 104 mmol/L (96-109); Glucose 120 mg/dL (70-110); Potassium 4.6 mmol/L (3.5-5.5); Sodium 138 mmol/L (135-145)
[2022-08-31] MEDS: INSULIN ASPART (NovoLOG) 100 UNIT/ML VIAL SQ SCH ×4 (09:39→22:33)
[2022-08-31] MEDS: ASPIRIN 81 MG PO SCH (09:40)
[2022-08-31] MEDS: metroNIDAZOLE 500 MG TAB PO SCH ×3 (09:40→22:34)
[2022-08-31] MEDS: LORATADINE 10 MG TAB PO SCH (09:41)
[2022-08-31] MEDS: allopurinoL 300 MG TAB PO SCH (09:41)
[2022-08-31] MEDS: METOPROLOL SUCCINATE (ER) 50 MG TAB.ER.24H PO SCH (09:41)
[2022-08-31] MEDS: CEFEPIME 1 GM in SODIUM CHLORIDE 0.9% 50 ML IVPB SCH ×2 (09:44→22:33)
[2022-08-31] MEDS: SIMETHICONE 80 MG CHEWABLE PO SCH ×3 (09:44→17:27)
[2022-08-31 10:49] LABS: Basophils % (A) 0 %; Eosinophils # (A) 0.1 k/uL (0-0.7); Eosinophils % (A) 1 %; HCT 31.8 % (34.0-46.0); HGB 10.2 gm/dL (11.4-16.0); Hypochromasia Slight; Lymphocytes # (A) 3.1 k/uL (1.0-4.8); Lymphocytes % (A) 24 %; MCH 34.3 pg (25.0-35.0); MCHC 32.1 g/dL (31.0-37.0); MCV 106.8 fL (80.0-100.0); Macrocytosis Marked; Mean Platelet Volume 9.8; Monocytes # (A) 0.7 k/uL (0-1.0); Monocytes % (A) 6 %; Neutrophils # (A) 8.8 k/uL (1.3-7.7); Neutrophils % (A) 68 %; Platelet Count 293 k/uL (150-450); RBC 2.97 m/uL (3.80-5.40); RDW 15.7 % (11.5-15.5)
[2022-08-31] MEDS ORDERED: VANCOMYCIN 1,750 MG in SODIUM CHLORIDE 0.9% 500 ML 500 ML IVPB ONE (11:00)
[2022-08-31] MEDS: SODIUM CHLORIDE 0.9% 1,000 ML IV SCH ×2 (11:39→18:13)
--- NOTE | 2022-08-31 11:44 | P.PN ---
Subjective Progress Note Date: 08/31/22 CHIEF COMPLAINT: Abdominal pain HISTORY OF PRESENT ILLNESS: Patient sitting up in bed. Her pain is less today. She is postop day #1, status post incision and drainage of complex abdominal wall deep subcutaneous seroma. Cultures are pending. Patient denies any nausea or vomiting. She is tolerating diet. Afebrile. WBC is up at 13 Hgb is 10.2 platelets 293 creatinine 1.3 PHYSICAL EXAM: VITAL SIGNS: Reviewed GENERAL: Well-developed in no acute distress. HEENT: No sclera icterus. Extraocular movements grossly intact. Moist buccal mucosa. Head is atraumatic, normocephalic. Hears conversational speech. No nasal drainage. NECK: Supple without lymphadenopathy. CHEST: Non-labored respirations and equal bilateral excursions. CARDIOVASCULAR: Palpable 2+ radial pulses. ABDOMEN: Soft. Nondistended. Incisional dressings clean dry and intact MUSCULOSKELETAL: No clubbing or cyanosis. NEUROLOGIC: No focal or lateralizing signs. Cranial nerves II through XII grossly intact. PSYCH: Appropriate affect. Alert and oriented to person, place and time. SKIN: Well perfused. Good skin turgor. ASSESSMENT: 1. Abdominal pain due to abdominal wall seroma status post incision and drainage 2. Morbid obesity due to excess calories, BMI 50.5 3. Generalized debility 4. 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 Diabetes with elevated blood sugar 6. History of atrial fibrillation 7. Leukocytosis PLAN: -Continue antibiotics per ID service -Add abdominal binder -Continue to monitor CBC -Continue supportive care -Continue regular diet -Continue pain management -Okay to resume Eliquis tomorrow Physician Valet Service Attendant note has been reviewed by physician. Signing provider agrees with the documented findings, assessment, and plan of care. Objective - Vital Signs Vital signs: Vital Signs Temp 97.7 F 08/31/22 07:05 Pulse 65 08/31/22 07:05 Resp 18 08/31/22 07:05 BP 132/69 08/31/22 07:05 Pulse Ox 99 08/31/22 09:12 FiO2 Intake & Output 08/30/22 08/31/22 08/31/22 18:59 06:59 18:59 Intake Total 550 100 Output Total 200 505 Balance 350 -405 Weight 113.398 kg 113.398 kg Intake: IV 550 100 Output: Urine 200 500 Estimated Blood Loss 5 Other: # Voids 2 - Labs CBC & Chem 7: 08/31/22 05:47 08/31/22 05:47 Labs: Abnormal Lab Results - Last 24 Hours (Table) 08/30/22 08/30/22 08/31/22 Range/Units 16:28 22:08 05:45 WBC (3.8-10.6) k/uL RBC (3.80-5.40) m/uL Hgb (11.4-16.0) gm/dL Hct (34.0-46.0) % MCV (80.0-100.0) fL RDW (11.5-15.5) % Macrocytosis Carbon Dioxide (21.6-31.8) mmol/L Anion Gap (4.00-12.00) mmol/L BUN (9.0-27.0) mg/dL Est GFR (CKD-EPI) (>=60) BUN/Creatinine Ratio (12.00-20.00) Ratio Glucose (70-110) mg/dL POC Glucose (mg/dL) 188 H 171 H 136 H (70-110) mg/dL 08/31/22 08/31/22 Range/Units 05:47 05:47 WBC 13.0 H (3.8-10.6) k/uL RBC 2.97 L (3.80-5.40) m/uL Hgb 10.2 L (11.4-16.0) gm/dL Hct 31.8 L (34.0-46.0) % MCV 106.8 H (80.0-100.0) fL RDW 15.7 H (11.5-15.5) % Macrocytosis Marked A Carbon Dioxide 21.2 L (21.6-31.8) mmol/L Anion Gap 12.80 H (4.00-12.00) mmol/L BUN 33.2 H (9.0-27.0) mg/dL Est GFR (CKD-EPI) 41 L (>=60) BUN/Creatinine Ratio 25.54 H (12.00-20.00) Ratio Glucose 120 H (70-110) mg/dL POC Glucose (mg/dL) (70-110) mg/dL
[2022-08-31 12:06] LABS: Glucose,Whole Blood 155 mg/dL (70-110)
[2022-08-31 16:59] LABS: Glucose,Whole Blood 197 mg/dL (70-110)
[2022-08-31 20:09] LABS: Glucose,Whole Blood 214 mg/dL (70-110)
[2022-08-31] MEDS: HEPARIN SODIUM,PORCINE/PF 5,000 UNIT/0.5 ML SYRINGE SQ SCH (22:34)
--- NOTE | 2022-09-01 05:30 | P.PN ---
Subjective Progress Note Date: 08/31/22 82-year-old female came in for surgical site infection with in duration, nonpurulent drainage from the right lower quadrant incision from her recent bowel resection surgery for incarcerated hernia in of this month. Patient doesn't have any fever does have leukocytosis patient was on antibiotic dox ycycline at home. Patient was started on the cefepime and vancomycin. Wound cultures were obtained patient the will probably will undergo incision and drainage. Patient is also on anticoagulation at home for atrial fibrillation which is being held as patient will undergo surgical intervention today.. 08/31/2022 Patient is seen and evaluated in follow-up today and is status post incision and drainage of seroma with approximately 1500 mL of blood removed during surgery. Patient was continued on oral anticoagulation which is currently being held and will continue subcutaneous heparin for DVT prophylaxis for now. Okay to resume anti-coagulation in 24 hours per surgery. Recommend follow-up labs to monitor hemoglobin. Patient is afebrile and maintained on IV antibiotics while awaiting for cultures to finalize. Infectious disease is following. Awaiting abdominal binder. Patient reports she is having some increased secretions that she is unable to expectorate difficulty with swallowing pills. Will consult speech. Patient denies nausea or vomiting and reported not eating much. Will continue sliding scale and blood sugars elevate will resume long-acting insulin at night. Review of systems: Constitutional: No reports of fatigue, fever, or chills Cardiovascular: No reports of chest pain or palpitations Respiratory: No reports of shortness of breath or cough GI: No reports of nausea, vomiting, or diarrhea, reports of difficulty in swallowing : No reports of dysuria or retention Neurovascular: reports of generalized weakness All medications have been reviewed PHYSICAL EXAMINATION: GENERAL: The patient is alert and oriented x3, not in any acute distress. Well developed, well nourished. Morbidly obese HEENT: Pupils are round and equally reacting to light. EOMI. No scleral icterus. No conjunctival pallor. Normocephalic, atraumatic. No pharyngeal erythema. No thyromegaly. CARDIOVASCULAR: S1 and S2 present. No murmurs, rubs, or gallops. PULMONARY: Chest is clear to auscultation, no wheezing or crackles. ABDOMEN: Soft, obese, nontender, nondistended, normoactive bowel sounds. No palpable organomegaly. MUSCULOSKELETAL: No joint swelling or deformity. EXTREMITIES: No cyanosis, clubbing, or pedal edema. NEUROLOGICAL: Gross neurological examination did not reveal any focal deficits. 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 Infectious disease following and awaiting finalized cultures of the wound to determine discharge antibiotics Culture showing Morganella morganii and will be continued on antibiotics per ID Patient had incision and drainage with a large seroma with approximately 1500 ml blood removed and hemoglobin is stable. Would recommend follow-up labs to monitor hemoglobin Diet has been resumed recommend diabetic diet and continued on Accu-Cheks and sliding scale. Blood sugars minimally elevated and will resume long-acting at night Recommend speech therapy consultation is patient reports is having increased secretions with difficulty swallowing them in swallowing her pills Recommend follow-up labs to monitor CBC as well as kidney functions Awaiting abdominal binder Encouraged increased activity as tolerated We will continue to follow general surgery during hospitalization. Thank you kindly for this consultation. The impression and plan of care has been dictated by Meggan Ruiz, Nurse Practitioner as directed. MD Martin I have performed a history and examination and MDM of this patient, discussed the same with the dictator, and agree with the dictator's assessment and plan as written ,documented as a scribe. Based on total visit time, I have performed more than 50% of the visit. Objective - Vital Signs Vital signs: Vital Signs Temp 97.7 F 08/31/22 07:05 Pulse 65 08/31/22 07:05 Resp 18 08/31/22 07:05 BP 132/69 08/31/22 07:05 Pulse Ox 99 08/31/22 09:12 FiO2 Intake & Output 08/30/22 08/31/22 08/31/22 18:59 06:59 18:59 Intake Total 550 100 Output Total 200 505 Balance 350 -405 Weight 113.398 kg 113.398 kg Intake: IV 550 100 Output: Urine 200 500 Estimated Blood Loss 5 Other: # Voids 2 - Labs CBC & Chem 7: 08/31/22 05:47 08/31/22 05:47 Labs: Abnormal Lab Results - Last 24 Hours (Table) 08/30/22 08/30/22 08/30/22 Range/Units 11:21 16:28 22:08 Carbon Dioxide (21.6-31.8) mmol/L Anion Gap (4.00-12.00) mmol/L BUN (9.0-27.0) mg/dL Est GFR (CKD-EPI) (>=60) BUN/Creatinine Ratio (12.00-20.00) Ratio Glucose (70-110) mg/dL POC Glucose (mg/dL) 307 H 188 H 171 H (70-110) mg/dL 08/31/22 08/31/22 Range/Units 05:45 05:47 Carbon Dioxide 21.2 L (21.6-31.8) mmol/L Anion Gap 12.80 H (4.00-12.00) mmol/L BUN 33.2 H (9.0-27.0) mg/dL Est GFR (CKD-EPI) 41 L (>=60) BUN/Creatinine Ratio 25.54 H (12.00-20.00) Ratio Glucose 120 H (70-110) mg/dL POC Glucose (mg/dL) 136 H (70-110) mg/dL
[2022-09-01 06:17] LABS: Glucose,Whole Blood 131 mg/dL (70-110)
[2022-09-01] MEDS: LEVOTHYROXINE 100 MCG TAB PO SCH (06:33)
[2022-09-01] MEDS: INSULIN ASPART (NovoLOG) 100 UNIT/ML VIAL SQ SCH ×4 (06:36→22:35)
[2022-09-01] MEDS: PANTOPRAZOLE 40 MG TABLET PO SCH (06:51)
[2022-09-01 06:55] LABS: African American GFR (CKD) 38 (>60 ml/min/1.73 sqM); Non-African American GFR(CKD) 33 (>60 ml/min/1.73 sqM)
[2022-09-01] MEDS: SODIUM CHLORIDE 0.9% 1,000 ML IV SCH (06:55)
[2022-09-01 06:56] LABS: African American GFR (CKD) 39 (>60 ml/min/1.73 sqM); Anion Gap 7 mmol/L; Blood Urea Nitrogen 39 mg/dL (7-17); Calcium 8.7 mg/dL (8.4-10.2); Carbon Dioxide 22 mmol/L (22-30); Chloride 105 mmol/L (98-107); Glucose 114 mg/dL (74-99); Non-African American GFR(CKD) 34 (>60 ml/min/1.73 sqM); Potassium 4.7 mmol/L (3.5-5.1); Sodium 134 mmol/L (137-145)
[2022-09-01] MEDS: LORATADINE 10 MG TAB PO SCH (08:01)
[2022-09-01] MEDS: HEPARIN SODIUM,PORCINE/PF 5,000 UNIT/0.5 ML SYRINGE SQ SCH ×2 (08:01→20:34)
[2022-09-01] MEDS: ASPIRIN 81 MG PO SCH (08:01)
[2022-09-01] MEDS: METOPROLOL SUCCINATE (ER) 50 MG TAB.ER.24H PO SCH (08:01)
[2022-09-01] MEDS: SIMETHICONE 80 MG CHEWABLE PO SCH ×3 (08:01→17:03)
[2022-09-01] MEDS: allopurinoL 300 MG TAB PO SCH (08:01)
[2022-09-01] MEDS: CEFEPIME 1 GM in SODIUM CHLORIDE 0.9% 50 ML IVPB SCH ×2 (08:01→20:34)
[2022-09-01] MEDS: metroNIDAZOLE 500 MG TAB PO SCH ×3 (08:02→22:36)
--- NOTE | 2022-09-01 08:21 | P.PN ---
Subjective Progress Note Date: 08/31/22 Principal diagnosis: Abdominal wall abscess Patient is a 82-year-old female with a past medical history significant for repair of incarcerated hernia and bowel resection patient was subsequently stabilized and discharged to the local alf patient mention yesterday she noticed to have increasing drainage from her right lower abdominal surgical site, patient did have a CT abdominal pelvis concerning for 5.9X 2.1 cm thin focal abdominal low wall fluid collection. Patient did have a bedside drainage of this fluid collection by surgeon concerning for possible seroma cultures has been obtained which are pending. On today's evaluation that is 08/31/2022, patient denies having any fever or any chills, the patient is breathing comfortably on 3 L nasal cannula oxygen denies any chest pain shortness of breath or cough abdominal pain has decreased in intensity no nausea vomiting or diarrhea. Objective - Vital Signs Vital signs: Vital Signs Temp 97.7 F 08/31/22 07:05 Pulse 65 08/31/22 07:05 Resp 18 08/31/22 07:05 BP 132/69 08/31/22 07:05 Pulse Ox 99 08/31/22 09:12 FiO2 Intake & Output 08/30/22 08/31/22 08/31/22 18:59 06:59 18:59 Intake Total 550 100 Output Total 200 505 Balance 350 -405 Weight 113.398 kg 113.398 kg Intake: IV 550 100 Output: Urine 200 500 Estimated Blood Loss 5 Other: # Voids 2 - Exam GENERAL DESCRIPTION: Elderly female lying in bed in no distress RESPIRATORY SYSTEM: Unlabored breathing , decreased breath sounds at bases HEART: S1 S2 regular rate and rhythm ,no loud murmurs ABDOMEN: Soft abdominal wound is currently dressed EXTREMITIES: No edema feet - Labs CBC & Chem 7: 08/31/22 05:47 09/01/22 06:04 Labs: Abnormal Lab Results - Last 24 Hours (Table) 08/30/22 08/30/22 08/31/22 Range/Units 16:28 22:08 05:45 WBC (3.8-10.6) k/uL RBC (3.80-5.40) m/uL Hgb (11.4-16.0) gm/dL Hct (34.0-46.0) % MCV (80.0-100.0) fL RDW (11.5-15.5) % Neutrophils # (1.3-7.7) k/uL Macrocytosis Carbon Dioxide (21.6-31.8) mmol/L Anion Gap (4.00-12.00) mmol/L BUN (9.0-27.0) mg/dL Est GFR (CKD-EPI) (>=60) BUN/Creatinine Ratio (12.00-20.00) Ratio Glucose (70-110) mg/dL POC Glucose (mg/dL) 188 H 171 H 136 H (70-110) mg/dL 08/31/22 08/31/22 08/31/22 Range/Units 05:47 05:47 12:05 WBC 13.0 H (3.8-10.6) k/uL RBC 2.97 L (3.80-5.40) m/uL Hgb 10.2 L (11.4-16.0) gm/dL Hct 31.8 L (34.0-46.0) % MCV 106.8 H (80.0-100.0) fL RDW 15.7 H (11.5-15.5) % Neutrophils # 8.8 H (1.3-7.7) k/uL Macrocytosis Marked A Carbon Dioxide 21.2 L (21.6-31.8) mmol/L Anion Gap 12.80 H (4.00-12.00) mmol/L BUN 33.2 H (9.0-27.0) mg/dL Est GFR (CKD-EPI) 41 L (>=60) BUN/Creatinine Ratio 25.54 H (12.00-20.00) Ratio Glucose 120 H (70-110) mg/dL POC Glucose (mg/dL) 155 H (70-110) mg/dL Assessment and Plan (1) Abdominal wall abscess Current Visit: Yes Status: Acute Code(s): L02.211 - CUTANEOUS ABSCESS OF ABDOMINAL WALL SNOMED Code(s): 34716660 Plan: 1patient present to hospital right lower quadrant abdominal pain and drainage in this patient with recent history of incarcerated abdominal hernia repair with evidence of thin-walled fluid collection concerning for possible postoperative seroma versus abscess ,, Patient is status post bedside drainage by surgeon cultures are currently pending 2-patient with a penicillin allergy that would limit the number of antibiotics safe to use 3-Patient to continue with cefepime and vancomycin while waiting for the culture to finalize Time with Patient: Less than 30
[2022-09-01 11:12] LABS: HCT 28.9 % (37.2-46.3); MCH 33.1 pg (27.0-32.0); MCHC 31.1 d/dL (32.0-37.0); MCV 106.3 FL (80.0-97.0); Mean Platelet Volume 11.4 FL (9.5-12.2); NRBC Per 100 WBC 0 X 10*3/uL (0.00-0.01); Platelet Count 255 X 10*3/uL (140-440); RBC 2.72 X 10*6/uL (4.10-5.20); RDW 16.2 % (11.5-14.5); WBC 10.68 X 10*3/uL (4.50-10.00)
[2022-09-01 12:06] LABS: Basophils # (A) 0.05 X 10*3/uL (0.00-0.10); Basophils % (A) 0.5 %; Eosinophils # (A) 0.14 X 10*3/uL (0.04-0.35); Eosinophils % (A) 1.3 %; Lymphocytes # (A) 4.19 X 10*3/uL (0.90-5.00); Lymphocytes % (A) 39.2 %; Macrocytosis (M) 2+; Monocytes # (A) 0.99 X 10*3/uL (0.20-1.00); Monocytes % (A) 9.3 %; Neutrophils # (A) 5.28 X 10*3/uL (1.80-7.70); Neutrophils % (A) 49.4 %
[2022-09-01 12:13] LABS: Glucose,Whole Blood 183 mg/dL (70-110)
--- NOTE | 2022-09-01 14:24 | P.DS ---
Providers Date of admission: 08/29/22 16:14 Expected date of discharge: 09/01/22 Attending physician: Sahra Ashley Consults: 08/29/22 16:09 Consult Physician Urgent Consulting Provider: Henry Arriaga Consult Reason/Comments: abd wall abscess vs seroma Do you want consulting provider notified?: Yes 08/30/22 12:26 Consult Physician Routine Consulting Provider: Raffaele Gonzalez Consult Reason/Comments: medical management Do you want consulting provider notified?: Yes Primary care physician: [facility] Course: Discharge diagnosis 1. Abdominal pain due to abdominal wall seroma status post incision and drainage 2. Morbid obesity due to excess calories, BMI 50.5 3. Generalized debility 4. 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 Diabetes with elevated blood sugar 6. History of atrial fibrillation 7. Leukocytosis improving Hospital course This is a 82-year-old female who is status post robotic-assisted laparoscopic lysis of adhesions, small bowel resection of entrocutaneous fistula with primary anastomosis and repair of recurrent incarcerated incisional hernia with strangulation on 07/25/[address] Ashley. Patient has been currently at an [facility] for rehab. She was noted to have increased pain and purulent drainage from her surgical incision on the left of the abdomen. Patient reports that had been draining blood and pus. She had a computed tomography scan completed that reports a new nonspecific 5.9 x 2.1 cm focal thin-walled fluid collection in the deep subcutaneous tissue of the anterior pelvis. Postsurgical seroma would be favored. Some adjacent ill-defined fluid and fat stranding we demonstrated slightly more prominent versus prior study. No herniated bowel close seen on the current study. There are new surgical suture suspected in the anterior bowel loops left of the midline in the pelvis. Patient is status post incision and drainage of abdominal wall seroma. Her pain has improved. She is afebrile. She has been up and ambulating. She is tolerating diet. Infectious disease recommended oral antibiotics for 10 days at discharge. Patient is stable for discharge. Please refer to chart for any further details. Physician Bank Runner note has been reviewed by physician. Signing provider agrees with the documented findings, assessment, and plan of care. Patient Condition at Discharge: Stable Plan - Discharge Summary Discharge Rx Participant: No New Discharge Prescriptions: New Ciprofloxacin HCl [Cipro] 500 mg PO Q12HR 10 Days #20 tab metroNIDAZOLE [Flagyl] 500 mg PO TID 10 Days #30 tab No Action Cetirizine HCl [Zyrtec] 10 mg PO DAILY allopurinoL [Zyloprim] 300 mg PO DAILY Aspirin [Adult Low Dose Aspirin EC] 81 mg PO DAILY Ergocalciferol (Vitamin D2) [Drisdol (50,000 Iu)] 1,250 mcg PO Q7D Apixaban [Eliquis] 5 mg PO BID tab Simethicone Chew [Mylicon Chew] 160 mg PO PC-TID metFORMIN HCL [Glucophage] 850 mg PO BID Insulin Glargine-Yfgn [Semglee (Yfgn) Pen] 10 units SQ HS guaiFENesin [guaiFENesin ER] 600 mg PO BID glipiZIDE 5 mg PO DAILY Doxycycline Monohydrate [Monodox] 100 mg PO BID Magnesium Oxide [Mag-Ox] 400 mg PO BID Ferrous Sulfate [Iron (65 MG Elemental)] 325 mg PO TUFR Metoprolol Succinate (ER) [Toprol XL] 50 mg PO DAILY tab traMADol HCl [Ultram] 50 mg PO QID PRN #8 tab PRN Reason: Moderate Pain (Scale 4 To 6) Acetaminophen Tab [Tylenol] 1,000 mg PO Q6HR PRN #30 tablet PRN Reason: Pain Cyanocobalamin (Vitamin B-12) [Vitamin B-12] 1,000 mcg PO DAILY Omeprazole [PriLOSEC] 20 mg PO DAILY Levothyroxine Sodium [Synthroid] 100 mcg PO DAILY Discharge Medication List Aspirin [Adult Low Dose Aspirin EC] 81 mg PO DAILY 05/18/17 [History] Cetirizine HCl [Zyrtec] 10 mg PO DAILY 05/18/17 [History] allopurinoL [Zyloprim] 300 mg PO DAILY 05/18/17 [History] Ergocalciferol (Vitamin D2) [Drisdol (50,000 Iu)] 1,250 mcg PO Q7D 07/19/22 [History] Ferrous Sulfate [Iron (65 MG Elemental)] 325 mg PO TUFR 07/19/22 [History] Magnesium Oxide [Mag-Ox] 400 mg PO BID 07/19/22 [History] Apixaban [Eliquis] 5 mg PO BID tab 08/01/22 [Rx] Metoprolol Succinate (ER) [Toprol XL] 50 mg PO DAILY tab 08/01/22 [Rx] traMADol HCl [Ultram] 50 mg PO QID PRN #8 tab 08/01/22 [Rx] Acetaminophen Tab [Tylenol] 1,000 mg PO Q6HR PRN #30 tablet 08/02/22 [Rx] Cyanocobalamin (Vitamin B-12) [Vitamin B-12] 1,000 mcg PO DAILY 08/29/22 [History] Doxycycline Monohydrate [Monodox] 100 mg PO BID 08/29/22 [History] Insulin Glargine-Yfgn [Semglee (Yfgn) Pen] 10 units SQ HS 08/29/22 [History] Levothyroxine Sodium [Synthroid] 100 mcg PO DAILY 08/29/22 [History] Omeprazole [PriLOSEC] 20 mg PO DAILY 08/29/22 [History] Simethicone Chew [Mylicon Chew] 160 mg PO PC-TID 08/29/22 [History] glipiZIDE 5 mg PO DAILY 08/29/22 [History] guaiFENesin [guaiFENesin ER] 600 mg PO BID 08/29/22 [History] metFORMIN HCL [Glucophage] 850 mg PO BID 08/29/22 [History] Ciprofloxacin HCl [Cipro] 500 mg PO Q12HR 10 Days #20 tab 09/01/22 [Rx] metroNIDAZOLE [Flagyl] 500 mg PO TID 10 Days #30 tab 09/01/22 [Rx] Follow up Appointment(s)/Referral(s): [facility] [NON-STAFF] - 1-2 Days Georges Church MD [Primary Care Provider] - 1-2 days Sahra Ashley MD [STAFF PHYSICIAN] - 09/06/22 Activity/Diet/Wound Care/Special Instructions: Wear abdominal binder at all times for comfort. No lifting over 4 pounds in 4 weeks You May shower. No bath tub soaks for two weeks Use Tylenol scheduled for the next 24-48 hours for best pain relief. Discharge Disposition: HOME WITH HOME HEALTH SERVICES
--- NOTE | 2022-09-01 16:40 | P.PN ---
Subjective Progress Note Date: 09/01/22 82-year-old female came in for surgical site infection with in duration, nonpurulent drainage from the right lower quadrant incision from her recent bowel resection surgery for incarcerated hernia in of this month. Patient doesn't have any fever does have leukocytosis patient was on antibiotic dox ycycline at home. Patient was started on the cefepime and vancomycin. Wound cultures were obtained patient the will probably will undergo incision and drainage. Patient is also on anticoagulation at home for atrial fibrillation which is being held as patient will undergo surgical intervention today.. 08/31/2022 Patient is seen and evaluated in follow-up today and is status post incision and drainage of seroma with approximately 1500 mL of blood removed during surgery. Patient was continued on oral anticoagulation which is currently being held and will continue subcutaneous heparin for DVT prophylaxis for now. Okay to resume anti-coagulation in 24 hours per surgery. Recommend follow-up labs to monitor hemoglobin. Patient is afebrile and maintained on IV antibiotics while awaiting for cultures to finalize. Infectious disease is following. Awaiting abdominal binder. Patient reports she is having some increased secretions that she is unable to expectorate difficulty with swallowing pills. Will consult speech. Patient denies nausea or vomiting and reported not eating much. Will continue sliding scale and blood sugars elevate will resume long-acting insulin at night. 09/01/2022 Patient seen and evaluated in follow-up today currently sitting up at the side of the bed. Patient was evaluated by speech recommending dysphasia chopped diet with no difficulty swallowing. Patient is able to take all medications with no problems. Wound cultures finalized showing Morganella morganii with infectious disease following and will be continued on oral antibiotics on discharge. Patient is okay to resume oral anticoagulation and will this evening. Patient received abdominal binder and continue using with close outpatient follow-up with general surgery. Patient is medically stable and will be going to [facility] bed later today. Patient is afebrile with no reports of chest pain or shortness of breath noted. Patient is tolerating diet. Review of systems: Constitutional: No reports of fatigue, fever, or chills Cardiovascular: No reports of chest pain or palpitations Respiratory: No reports of shortness of breath or cough GI: No reports of nausea, vomiting, or diarrhea : No reports of dysuria or retention Neurovascular: reports of generalized weakness All medications have been reviewed PHYSICAL EXAMINATION: GENERAL: The patient is alert and oriented x3, not in any acute distress. Well developed, well nourished. Morbidly obese HEENT: Pupils are round and equally reacting to light. EOMI. No scleral icterus. No conjunctival pallor. Normocephalic, atraumatic. No pharyngeal erythema. No thyromegaly. CARDIOVASCULAR: S1 and S2 present. No murmurs, rubs, or gallops. PULMONARY: Chest is clear to auscultation, no wheezing or crackles. ABDOMEN: Soft, obese, nontender, nondistended, normoactive bowel sounds. No palpable organomegaly. Abdominal surgical site is dry and intact MUSCULOSKELETAL: No joint swelling or deformity. EXTREMITIES: No cyanosis, clubbing, or pedal edema. NEUROLOGICAL: Gross neurological examination did not reveal any focal deficits. 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 Infectious disease following and finalized cultures of the wound showing Morganella morganii and will continue on oral antibiotics per ID recommendations to determine Patient had incision and drainage with a large seroma with approximately 1500 ml blood removed and hemoglobin is stable. hemoglobin is stable with no bleeding noted and will be resumed on eliquis this evening Diet has been resumed recommend diabetic diet and continued on Accu-Cheks and sliding scale. Blood sugars minimally elevated and will resume long-acting at night speech therapy evaluated the patient recommending dysphasia chopped diet Would recommend outpatient labs to monitor hemoglobin and kidney functions Recommend to continue with abdominal binder per surgery recommendations Encouraged increased activity as tolerated We will continue to follow general surgery during hospitalization. Thank you kindly for this consultation. The patient is being discharged to [facility] today. Patient is [facility] stable for discharge. The impression and plan of care has been dictated by Meggan Ruiz, Nurse Practitioner as directed. MD Martin I have performed a history and examination and MDM of this patient, discussed the same with the dictator, and agree with the dictator's assessment and plan as written ,documented as a scribe. Based on total visit time, I have performed more than 50% of the visit. Objective - Vital Signs Vital signs: Vital Signs Temp 98.1 F 09/01/22 07:50 Pulse 68 09/01/22 07:50 Resp 19 09/01/22 07:50 BP 126/71 09/01/22 07:50 Pulse Ox 98 09/01/22 07:50 FiO2 Intake & Output 08/31/22 09/01/22 09/01/22 18:59 06:59 18:59 Other: # Voids 2 2 - Labs CBC & Chem 7: 09/01/22 06:04 09/01/22 06:04 Labs: Abnormal Lab Results - Last 24 Hours (Table) 08/31/22 08/31/22 09/01/22 Range/Units 16:58 20:08 06:04 WBC 10.68 H (4.50-10.00) X 10*3/uL RBC 2.72 L (4.10-5.20) X 10*6/uL Hgb 9.0 L (12.0-15.0) d/dL Hct 28.9 L (37.2-46.3) % MCV 106.3 H (80.0-97.0) FL MCH 33.1 H (27.0-32.0) pg MCHC 31.1 L (32.0-37.0) d/dL RDW 16.2 H (11.5-14.5) % Macrocytosis (manual) 2+ A Sodium (137-145) mmol/L BUN (7-17) mg/dL Creatinine (0.52-1.04) mg/dL Glucose (74-99) mg/dL POC Glucose (mg/dL) 197 H 214 H (70-110) mg/dL 09/01/22 09/01/22 09/01/22 Range/Units 06:04 06:04 06:15 WBC (4.50-10.00) X 10*3/uL RBC (4.10-5.20) X 10*6/uL Hgb (12.0-15.0) d/dL Hct (37.2-46.3) % MCV (80.0-97.0) FL MCH (27.0-32.0) pg MCHC (32.0-37.0) d/dL RDW (11.5-14.5) % Macrocytosis (manual) Sodium 134 L (137-145) mmol/L BUN 39 H (7-17) mg/dL Creatinine 1.47 H 1.43 H (0.52-1.04) mg/dL Glucose 114 H (74-99) mg/dL POC Glucose (mg/dL) 131 H (70-110) mg/dL 09/01/22 Range/Units 12:11 WBC (4.50-10.00) X 10*3/uL RBC (4.10-5.20) X 10*6/uL Hgb (12.0-15.0) d/dL Hct (37.2-46.3) % MCV (80.0-97.0) FL MCH (27.0-32.0) pg MCHC (32.0-37.0) d/dL RDW (11.5-14.5) % Macrocytosis (manual) Sodium (137-145) mmol/L BUN (7-17) mg/dL Creatinine (0.52-1.04) mg/dL Glucose (74-99) mg/dL POC Glucose (mg/dL) 183 H (70-110) mg/dL Microbiology - Last 24 Hours (Table) 08/29/22 15:51 Gram Stain - Final Abdomen Wound Culture - Final Morganella morganii
[2022-09-01 16:56] LABS: Glucose,Whole Blood 162 mg/dL (70-110)
[2022-09-01 21:47] LABS: Glucose,Whole Blood 169 mg/dL (70-110)
--- NOTE | 2022-09-01 22:25 | P.PN ---
Subjective Progress Note Date: 09/01/22 Principal diagnosis: Abdominal wall abscess Patient is a 82-year-old female with a past medical history significant for repair of incarcerated hernia and bowel resection patient was subsequently stabilized and discharged to the local long-term patient mention yesterday she noticed to have increasing drainage from her right lower abdominal surgical site, patient did have a CT abdominal pelvis concerning for 5.9X 2.1 cm thin focal abdominal low wall fluid collection. Patient did have a bedside drainage of this fluid collection by surgeon concerning for possible seroma cultures has been obtained which are pending. On today's evaluation that is 09/01/2022, the patient denies having any fever or any chills the patient is breathing comfortably abdominal pain had decreased intensity of nausea vomiting and no diarrhea, denies any chest pain shortness of breath or cough Objective - Vital Signs Vital signs: Vital Signs Temp 98.1 F 09/01/22 07:50 Pulse 68 09/01/22 07:50 Resp 19 09/01/22 07:50 BP 126/71 09/01/22 07:50 Pulse Ox 98 09/01/22 07:50 FiO2 Intake & Output 08/31/22 09/01/22 09/01/22 18:59 06:59 18:59 Other: # Voids 2 2 - Exam GENERAL DESCRIPTION: Elderly female lying in bed in no distress RESPIRATORY SYSTEM: Unlabored breathing , decreased breath sounds at bases HEART: S1 S2 regular rate and rhythm ,no loud murmurs ABDOMEN: Soft, abdominal induration has decreased EXTREMITIES: No edema feet - Labs CBC & Chem 7: 09/01/22 06:04 09/01/22 06:04 Labs: Abnormal Lab Results - Last 24 Hours (Table) 08/31/22 08/31/22 09/01/22 Range/Units 16:58 20:08 06:04 WBC 10.68 H (4.50-10.00) X 10*3/uL RBC 2.72 L (4.10-5.20) X 10*6/uL Hgb 9.0 L (12.0-15.0) d/dL Hct 28.9 L (37.2-46.3) % MCV 106.3 H (80.0-97.0) FL MCH 33.1 H (27.0-32.0) pg MCHC 31.1 L (32.0-37.0) d/dL RDW 16.2 H (11.5-14.5) % Macrocytosis (manual) 2+ A Sodium (137-145) mmol/L BUN (7-17) mg/dL Creatinine (0.52-1.04) mg/dL Glucose (74-99) mg/dL POC Glucose (mg/dL) 197 H 214 H (70-110) mg/dL 09/01/22 09/01/22 09/01/22 Range/Units 06:04 06:04 06:15 WBC (4.50-10.00) X 10*3/uL RBC (4.10-5.20) X 10*6/uL Hgb (12.0-15.0) d/dL Hct (37.2-46.3) % MCV (80.0-97.0) FL MCH (27.0-32.0) pg MCHC (32.0-37.0) d/dL RDW (11.5-14.5) % Macrocytosis (manual) Sodium 134 L (137-145) mmol/L BUN 39 H (7-17) mg/dL Creatinine 1.47 H 1.43 H (0.52-1.04) mg/dL Glucose 114 H (74-99) mg/dL POC Glucose (mg/dL) 131 H (70-110) mg/dL 09/01/22 Range/Units 12:11 WBC (4.50-10.00) X 10*3/uL RBC (4.10-5.20) X 10*6/uL Hgb (12.0-15.0) d/dL Hct (37.2-46.3) % MCV (80.0-97.0) FL MCH (27.0-32.0) pg MCHC (32.0-37.0) d/dL RDW (11.5-14.5) % Macrocytosis (manual) Sodium (137-145) mmol/L BUN (7-17) mg/dL Creatinine (0.52-1.04) mg/dL Glucose (74-99) mg/dL POC Glucose (mg/dL) 183 H (70-110) mg/dL Microbiology - Last 24 Hours (Table) 08/29/22 15:51 Gram Stain - Final Abdomen Wound Culture - Final Morganella morganii Assessment and Plan (1) Abdominal wall abscess Current Visit: Yes Status: Acute Code(s): L02.211 - CUTANEOUS ABSCESS OF ABDOMINAL WALL SNOMED Code(s): 71869953 Plan: 1patient present to hospital right lower quadrant abdominal pain and drainage in this patient with recent history of incarcerated abdominal hernia repair with evidence of thin-walled fluid collection concerning for possible postoperative seroma versus abscess ,, Patient is status post bedside drainage by surgeon cultures are currently pending 2-patient with a penicillin allergy that would limit the number of antibiotics safe to use 3-Local cultures currently growing Morganella patient to continue with cefepime vancomycin has been discontinued however patient will be able to finish therapy with oral Cipro and Flagyl x10 days discussed with the surgical MACHINE INSTALLER working on discharge Time with Patient: Less than 30
[2022-09-02] MEDS: SODIUM CHLORIDE 0.9% 1,000 ML IV SCH ×2 (02:46→10:07)
[2022-09-02 06:19] LABS: Glucose,Whole Blood 181 mg/dL (70-110)
[2022-09-02] MEDS: PANTOPRAZOLE 40 MG TABLET PO SCH (06:36)
[2022-09-02] MEDS: INSULIN ASPART (NovoLOG) 100 UNIT/ML VIAL SQ SCH ×4 (06:36→22:08)
[2022-09-02] MEDS: LEVOTHYROXINE 100 MCG TAB PO SCH (06:36)
[2022-09-02 07:29] LABS: African American GFR (CKD) 52 (>60 ml/min/1.73 sqM); Non-African American GFR(CKD) 46 (>60 ml/min/1.73 sqM)
--- NOTE | 2022-09-02 09:39 | P.PN ---
Subjective Progress Note Date: 09/02/22 Principal diagnosis: Abdominal wall seroma Patient doing well today. Says her pain is well-controlled. She does feel constipated. No nausea or vomiting. She is passing flatus. Objective - Vital Signs Vital signs: Vital Signs Temp 98.9 F 09/02/22 08:00 Pulse 66 09/02/22 08:00 Resp 17 09/02/22 08:00 BP 157/69 09/02/22 08:00 Pulse Ox 94 L 09/02/22 08:53 FiO2 Intake & Output 09/01/22 09/02/22 09/02/22 18:59 06:59 18:59 Output Total 550 Balance -550 Output: Urine 550 Other: # Voids 2 - Exam Abdomen: Soft, obese, nontender, dressings in place without drainage - Labs CBC & Chem 7: 09/01/22 06:04 09/02/22 06:23 Labs: Abnormal Lab Results - Last 24 Hours (Table) 09/01/22 09/01/22 09/01/22 Range/Units 06:04 12:11 16:52 WBC 10.68 H (4.50-10.00) X 10*3/uL RBC 2.72 L (4.10-5.20) X 10*6/uL Hgb 9.0 L (12.0-15.0) d/dL Hct 28.9 L (37.2-46.3) % MCV 106.3 H (80.0-97.0) FL MCH 33.1 H (27.0-32.0) pg MCHC 31.1 L (32.0-37.0) d/dL RDW 16.2 H (11.5-14.5) % Macrocytosis (manual) 2+ A Creatinine (0.52-1.04) mg/dL POC Glucose (mg/dL) 183 H 162 H (70-110) mg/dL 09/01/22 09/02/22 09/02/22 Range/Units 21:46 06:16 06:23 WBC (4.50-10.00) X 10*3/uL RBC (4.10-5.20) X 10*6/uL Hgb (12.0-15.0) d/dL Hct (37.2-46.3) % MCV (80.0-97.0) FL MCH (27.0-32.0) pg MCHC (32.0-37.0) d/dL RDW (11.5-14.5) % Macrocytosis (manual) Creatinine 1.13 H (0.52-1.04) mg/dL POC Glucose (mg/dL) 169 H 181 H (70-110) mg/dL Assessment and Plan (1) Abdominal wall abscess Narrative/Plan: Continue antibiotics. Continue diet as tolerated. Will add stool softeners. Await placement. Current Visit: Yes Status: Acute Code(s): L02.211 - CUTANEOUS ABSCESS OF ABDOMINAL WALL SNOMED Code(s): 01142856
[2022-09-02] MEDS: SIMETHICONE 80 MG CHEWABLE PO SCH ×3 (10:08→17:57)
[2022-09-02] MEDS: LORATADINE 10 MG TAB PO SCH (10:09)
[2022-09-02] MEDS: METOPROLOL SUCCINATE (ER) 50 MG TAB.ER.24H PO SCH (10:09)
[2022-09-02] MEDS: CEFEPIME 1 GM in SODIUM CHLORIDE 0.9% 50 ML IVPB SCH ×2 (10:09→22:07)
[2022-09-02] MEDS: LACTULOSE 20 GM/30 ML CUP PO SCH ×2 (10:09→22:13)
[2022-09-02] MEDS: allopurinoL 300 MG TAB PO SCH (10:09)
[2022-09-02] MEDS: HEPARIN SODIUM,PORCINE/PF 5,000 UNIT/0.5 ML SYRINGE SQ SCH ×2 (10:09→22:08)
[2022-09-02] MEDS: ASPIRIN 81 MG PO SCH (10:09)
[2022-09-02] MEDS: metroNIDAZOLE 500 MG TAB PO SCH ×3 (10:11→22:08)
[2022-09-02 11:27] LABS: Glucose,Whole Blood 222 mg/dL (70-110)
[2022-09-02] MEDS ORDERED: VANCOMYCIN 1,750 MG in SODIUM CHLORIDE 0.9% 500 ML 500 ML IVPB ONE (12:00)
--- NOTE | 2022-09-02 15:21 | P.PN ---
Subjective Progress Note Date: 09/02/22 Principal diagnosis: Abdominal wall abscess Patient is a 82-year-old female with a past medical history significant for repair of incarcerated hernia and bowel resection patient was subsequently stabilized and [facility] patient mention yesterday she noticed to have increasing drainage from her right lower abdominal surgical site, patient did have a CT abdominal pelvis concerning for 5.9X 2.1 cm thin focal abdominal low wall fluid collection. Patient did have a bedside drainage of this fluid collection by surgeon concerning for possible seroma cultures has been obtained which are pending. On today's evaluation that is 09/02/2022, the patient remains to be afebrile, the patient is breathing comfortably on room air, and the patient abdominal pain had decreased intensity of nausea vomiting and no diarrhea, denies any chest pain shortness of breath or cough Objective - Vital Signs Vital signs: Vital Signs Temp 98.9 F 09/02/22 08:00 Pulse 66 09/02/22 08:00 Resp 17 09/02/22 08:00 BP 157/69 09/02/22 08:00 Pulse Ox 94 L 09/02/22 08:53 FiO2 Intake & Output 09/01/22 09/02/22 09/02/22 18:59 06:59 18:59 Output Total 550 Balance -550 Output: Urine 550 Other: # Voids 2 - Exam GENERAL DESCRIPTION: Elderly female lying in bed in no distress RESPIRATORY SYSTEM: Unlabored breathing , decreased breath sounds at bases HEART: S1 S2 regular rate and rhythm ,no loud murmurs ABDOMEN: Soft, abdominal induration has decreased EXTREMITIES: No edema feet - Labs CBC & Chem 7: 09/01/22 06:04 09/02/22 06:23 Labs: Abnormal Lab Results - Last 24 Hours (Table) 09/01/22 09/01/22 09/02/22 Range/Units 16:52 21:46 06:16 Creatinine (0.52-1.04) mg/dL POC Glucose (mg/dL) 162 H 169 H 181 H (70-110) mg/dL 09/02/22 09/02/22 Range/Units 06:23 11:25 Creatinine 1.13 H (0.52-1.04) mg/dL POC Glucose (mg/dL) 222 H (70-110) mg/dL Assessment and Plan (1) Abdominal wall abscess Current Visit: Yes Status: Acute Code(s): L02.211 - CUTANEOUS ABSCESS OF ABDOMINAL WALL SNOMED Code(s): 90910709 Plan: 1patient present to hospital right lower quadrant abdominal pain and drainage in this patient with recent history of incarcerated abdominal hernia repair with evidence of thin-walled fluid collection concerning for possible postoperative seroma versus abscess ,, Patient is status post bedside drainage by surgeon cultures are currently pending 2-patient with a penicillin allergy that would limit the number of antibiotics safe to use 3-Local cultures currently growing Morganella patient to continue with cefepime while inpatient however patient will be able to finish therapy with oral Cipro and Flagyl x10 days on discharge Time with Patient: Less than 30
--- NOTE | 2022-09-02 15:49 | P.PN ---
Subjective Progress Note Date: 09/02/22 82-year-old female came in for surgical site infection with in duration, nonpurulent drainage from the right lower quadrant incision from her recent bowel resection surgery for incarcerated hernia in of this month. Patient doesn't have any fever does have leukocytosis patient was on antibiotic doxy cycline at home. Patient was started on the cefepime and vancomycin. Wound cultures were obtained patient the will probably will undergo incision and drainage. Patient is also on anticoagulation at home for atrial fibrillation which is being held as patient will undergo surgical intervention today.. 08/31/2022 Patient is seen and evaluated in follow-up today and is status post incision and drainage of seroma with approximately 1500 mL of blood removed during surgery. Patient was continued on oral anticoagulation which is currently being held and will continue subcutaneous heparin for DVT prophylaxis for now. Okay to resume anti-coagulation in 24 hours per surgery. Recommend follow-up labs to monitor hemoglobin. Patient is afebrile and maintained on IV antibiotics while awaiting for cultures to finalize. Infectious disease is following. Awaiting abdominal binder. Patient reports she is having some increased secretions that she is unable to expectorate difficulty with swallowing pills. Will consult speech. Patient denies nausea or vomiting and reported not eating much. Will continue sliding scale and blood sugars elevate will resume long-acting insulin at night. 09/01/2022 Patient seen and evaluated in follow-up today currently sitting up at the side of the bed. Patient was evaluated by speech recommending dysphasia chopped diet with no difficulty swallowing. Patient is able to take all medications with no problems. Wound cultures finalized showing Morganella morganii with infectious disease following and will be continued on oral antibiotics on discharge. Patient is okay to resume oral anticoagulation and will this evening. Patient received abdominal binder and continue using with close outpatient follow-up with general surgery. Patient is medically stable and will be going to [facility] bed later today. Patient is afebrile with no reports of chest pain or shortness of breath noted. Patient is tolerating diet. 09/02/2022 Patient is evaluated today in follow up. Resting in bed with no acute complaints at this time. Patient is pending insurance authorization for DC to [facility] bed which won't happen until Sunday as there was no insurance authorization obtained. Patient wants to discuss dc planning and financial aspect with case management prior to discharge as she is concerned with not having any income left from social security to keep her apartment while at rehab. Incisions are clean dry with dressings intact. Continues on IV cefepime and normal saline at 75 mls/hr. Creatinine is improved down to 1.13 today. Review of systems: Constitutional: No reports of fatigue, fever, or chills Cardiovascular: No reports of chest pain or palpitations Respiratory: No reports of shortness of breath or cough GI: No reports of nausea, vomiting, or diarrhea : No reports of dysuria or retention Neurovascular: reports of generalized weakness All medications have been reviewed PHYSICAL EXAMINATION: GENERAL: The patient is alert and oriented x3, not in any acute distress. Well developed, well nourished. Morbidly obese HEENT: Pupils are round and equally reacting to light. EOMI. No scleral icterus. No conjunctival pallor. Normocephalic, atraumatic. No pharyngeal erythema. No thyromegaly. CARDIOVASCULAR: S1 and S2 present. No murmurs, rubs, or gallops. PULMONARY: Chest is clear to auscultation, no wheezing or crackles. ABDOMEN: Soft, obese, nontender, nondistended, normoactive bowel sounds. No palpable organomegaly. Abdominal surgical site is dry and intact MUSCULOSKELETAL: No joint swelling or deformity. EXTREMITIES: No cyanosis, clubbing, or pedal edema. NEUROLOGICAL: Gross neurological examination did not reveal any focal deficits. 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 Infectious disease following and recommending oral cipro and flagyl for 10 days on discharge to remain on IV cefepime while inpatient Continue on dysphagia chopped diet recommending by speech therapy Eliquis resumed and repeat CBC tomorrow monitor hemoglobin Would recommend outpatient labs to monitor hemoglobin and kidney functions Recommend to continue with abdominal binder per surgery recommendations Encouraged increased activity as tolerated We will continue to follow general surgery during hospitalization. Thank you kindly for this consultation. The patient is being discharged to [facility] which is held until sunday due to accepting facility not having a physician to accept pt until sunday. Patient is medically stable for discharge. The impression and plan of care has been dictated by Tracey Mckeon, Nurse Practitioner as directed. Dr. Carlos MD I have performed a history and physical examination and medical decision making of this patient, discussed the same with the dictator, and agree with the dictators assessment and plan as written, documented as a scribe. Based on total visit time, I have performed more than 50% of this visit. Objective - Vital Signs Vital signs: Vital Signs Temp 98.3 F 09/02/22 14:00 Pulse 62 09/02/22 14:00 Resp 16 09/02/22 14:00 BP 150/73 09/02/22 14:00 Pulse Ox 95 09/02/22 14:00 FiO2 Intake & Output 09/01/22 09/02/22 09/02/22 18:59 06:59 18:59 Output Total 550 Balance -550 Output: Urine 550 Other: # Voids 2 - Labs CBC & Chem 7: 09/01/22 06:04 09/02/22 06:23 Labs: Abnormal Lab Results - Last 24 Hours (Table) 09/01/22 09/01/22 09/02/22 Range/Units 16:52 21:46 06:16 Creatinine (0.52-1.04) mg/dL POC Glucose (mg/dL) 162 H 169 H 181 H (70-110) mg/dL 09/02/22 09/02/22 Range/Units 06:23 11:25 Creatinine 1.13 H (0.52-1.04) mg/dL POC Glucose (mg/dL) 222 H (70-110) mg/dL Assessment and Plan Time with Patient: Less than 30
[2022-09-02 16:42] LABS: Glucose,Whole Blood 223 mg/dL (70-110)
[2022-09-02] MEDS ORDERED: ONDANSETRON 4 MG/2 ML VIAL IVP PRN (21:04)
[2022-09-02 21:26] LABS: Glucose,Whole Blood 178 mg/dL (70-110)
[2022-09-03] MEDS: SODIUM CHLORIDE 0.9% 1,000 ML IV SCH ×2 (02:17→09:48)
[2022-09-03 05:07] LABS: African American GFR (CKD) 51 (>60 ml/min/1.73 sqM); Anion Gap 5 mmol/L; Blood Urea Nitrogen 26 mg/dL (7-17); Calcium 8.5 mg/dL (8.4-10.2); Carbon Dioxide 24 mmol/L (22-30); Chloride 106 mmol/L (98-107); Glucose 140 mg/dL (74-99); Magnesium 1.6 mg/dL (1.6-2.3); Non-African American GFR(CKD) 44 (>60 ml/min/1.73 sqM); Potassium 4.4 mmol/L (3.5-5.1); Sodium 135 mmol/L (137-145)
[2022-09-03 05:59] LABS: Glucose,Whole Blood 197 mg/dL (70-110)
[2022-09-03] MEDS: PANTOPRAZOLE 40 MG TABLET PO SCH (06:41)
[2022-09-03] MEDS: LEVOTHYROXINE 100 MCG TAB PO SCH (06:41)
[2022-09-03] MEDS: INSULIN ASPART (NovoLOG) 100 UNIT/ML VIAL SQ SCH ×4 (06:42→21:33)
[2022-09-03 09:29] LABS: Basophils # (A) 0.04 X 10*3/uL (0.00-0.10); Basophils % (A) 0.4 %; Eosinophils # (A) 0.23 X 10*3/uL (0.04-0.35); Eosinophils % (A) 2.2 %; HCT 28.7 % (37.2-46.3); HGB 8.9 d/dL (12.0-15.0); Lymphocytes # (A) 3.75 X 10*3/uL (0.90-5.00); Lymphocytes % (A) 35.7 %; MCH 32.4 pg (27.0-32.0); MCV 104.4 FL (80.0-97.0); Mean Platelet Volume 11.8 FL (9.5-12.2); Monocytes % (A) 9.5 %; NRBC Per 100 WBC 0 X 10*3/uL (0.00-0.01); Neutrophils # (A) 5.41 X 10*3/uL (1.80-7.70); Neutrophils % (A) 51.5 %; Platelet Count 234 X 10*3/uL (140-440); RBC 2.75 X 10*6/uL (4.10-5.20); RDW 15.8 % (11.5-14.5)
[2022-09-03] MEDS ORDERED: Magnesium Replacement Protocol 1 EACH MISC MISCELLANE PRN (09:30)
[2022-09-03] MEDS: SIMETHICONE 80 MG CHEWABLE PO SCH ×3 (09:47→17:34)
[2022-09-03] MEDS: metroNIDAZOLE 500 MG TAB PO SCH ×3 (09:47→21:51)
[2022-09-03] MEDS: CEFEPIME 1 GM in SODIUM CHLORIDE 0.9% 50 ML IVPB SCH ×2 (09:47→21:33)
[2022-09-03] MEDS: LORATADINE 10 MG TAB PO SCH (09:47)
[2022-09-03] MEDS: ASPIRIN 81 MG PO SCH (09:47)
[2022-09-03] MEDS: METOPROLOL SUCCINATE (ER) 50 MG TAB.ER.24H PO SCH (09:48)
[2022-09-03] MEDS: allopurinoL 300 MG TAB PO SCH (09:48)
[2022-09-03] MEDS: LACTULOSE 20 GM/30 ML CUP PO SCH ×2 (09:48→21:33)
[2022-09-03] MEDS: HEPARIN SODIUM,PORCINE/PF 5,000 UNIT/0.5 ML SYRINGE SQ SCH ×2 (09:48→21:33)
--- NOTE | 2022-09-03 10:09 | P.PN ---
Subjective Progress Note Date: 09/03/22 Principal diagnosis: Abdominal wall seroma Patient feels better today. She had multiple bowel movements yesterday. No abdominal pain or bloating. Tolerating diet. Objective - Vital Signs Vital signs: Vital Signs Temp 97.4 F L 09/03/22 07:46 Pulse 65 09/03/22 07:46 Resp 18 09/03/22 07:46 BP 111/70 09/03/22 07:46 Pulse Ox 95 09/03/22 07:56 FiO2 Intake & Output 09/02/22 09/03/22 09/03/22 18:59 06:59 18:59 Intake Total 650 Output Total 750 650 Balance -100 -650 Intake: Intake, IV Titration 650 Amount Cefepime 1 gm In Sodium 50 Chloride 0.9% 50 ml @ 12. 5 mls/hr IVPB Q12HR [facility] Rx#:[id number] Sodium Chloride 0.9% 1, 600 000 ml @ 75 mls/hr IV . [id number] [facility] Rx#:[id number] Output: Urine 750 650 Other: Voiding Method External Catheter # Voids 1 - Exam Abdomen: Soft, nondistended, incisions clean and dry - Labs CBC & Chem 7: 09/03/22 04:37 09/03/22 04:37 Labs: Abnormal Lab Results - Last 24 Hours (Table) 09/02/22 09/02/22 09/02/22 Range/Units 11:25 16:41 21:25 WBC (4.50-10.00) X 10*3/uL RBC (4.10-5.20) X 10*6/uL Hgb (12.0-15.0) d/dL Hct (37.2-46.3) % MCV (80.0-97.0) FL MCH (27.0-32.0) pg MCHC (32.0-37.0) d/dL RDW (11.5-14.5) % Sodium (137-145) mmol/L BUN (7-17) mg/dL Creatinine (0.52-1.04) mg/dL Glucose (74-99) mg/dL POC Glucose (mg/dL) 222 H 223 H 178 H (70-110) mg/dL 09/03/22 09/03/22 09/03/22 Range/Units 04:37 04:37 05:57 WBC 10.50 H (4.50-10.00) X 10*3/uL RBC 2.75 L (4.10-5.20) X 10*6/uL Hgb 8.9 L (12.0-15.0) d/dL Hct 28.7 L (37.2-46.3) % MCV 104.4 H (80.0-97.0) FL MCH 32.4 H (27.0-32.0) pg MCHC 31.0 L (32.0-37.0) d/dL RDW 15.8 H (11.5-14.5) % Sodium 135 L (137-145) mmol/L BUN 26 H (7-17) mg/dL Creatinine 1.16 H (0.52-1.04) mg/dL Glucose 140 H (74-99) mg/dL POC Glucose (mg/dL) 197 H (70-110) mg/dL Assessment and Plan (1) Abdominal wall abscess Narrative/Plan: Patient doing well at this time. Continue antibiotics per infectious disease. Increase activity. Continue diet as ordered. Await placement. Current Visit: Yes Status: Acute Code(s): L02.211 - CUTANEOUS ABSCESS OF ABDOMINAL WALL SNOMED Code(s): 50189684
[2022-09-03 11:05] LABS: Glucose,Whole Blood 222 mg/dL (70-110)
[2022-09-03] MEDS: MAGNESIUM SULFATE-D5W PMX 1 GM in DEXTROSE/WATER 1 100ML.BAG IVPB SCH ×2 (11:21→13:09)
--- NOTE | 2022-09-03 14:43 | P.PN ---
Subjective Progress Note Date: 09/03/22 82-year-old female came in for surgical site infection with in duration, nonpurulent drainage from the right lower quadrant incision from her recent bowel resection surgery for incarcerated hernia in of this month. Patient doesn't have any fever does have leukocytosis patient was on antibiotic doxy cycline at home. Patient was started on the cefepime and vancomycin. Wound cultures were obtained patient the will probably will undergo incision and drainage. Patient is also on anticoagulation at home for atrial fibrillation which is being held as patient will undergo surgical intervention today.. 08/31/2022 Patient is seen and evaluated in follow-up today and is status post incision and drainage of seroma with approximately 1500 mL of blood removed during surgery. Patient was continued on oral anticoagulation which is currently being held and will continue subcutaneous heparin for DVT prophylaxis for now. Okay to resume anti-coagulation in 24 hours per surgery. Recommend follow-up labs to monitor hemoglobin. Patient is afebrile and maintained on IV antibiotics while awaiting for cultures to finalize. Infectious disease is following. Awaiting abdominal binder. Patient reports she is having some increased secretions that she is unable to expectorate difficulty with swallowing pills. Will consult speech. Patient denies nausea or vomiting and reported not eating much. Will continue sliding scale and blood sugars elevate will resume long-acting insulin at night. 09/01/2022 Patient seen and evaluated in follow-up today currently sitting up at the side of the bed. Patient was evaluated by speech recommending dysphasia chopped diet with no difficulty swallowing. Patient is able to take all medications with no problems. Wound cultures finalized showing Morganella morganii with infectious disease following and will be continued on oral antibiotics on discharge. Patient is okay to resume oral anticoagulation and will this evening. Patient received abdominal binder and continue using with close outpatient follow-up with general surgery. Patient is medically stable and will be going to [facility] bed later today. Patient is afebrile with no reports of chest pain or shortness of breath noted. Patient is tolerating diet. 09/02/2022 Patient is evaluated today in follow up. Resting in bed with no acute complaints at this time. Patient is pending insurance authorization for DC to [facility] bed which won't happen until Sunday as there was no insurance authorization obtained. Patient wants to discuss dc planning and financial aspect with case management prior to discharge as she is concerned with not having any income left from social security to keep her apartment while at rehab. Incisions are clean dry with dressings intact. Continues on IV cefepime and normal saline at 75 mls/hr. Creatinine is improved down to 1.13 today. 09/03/2022 Patient is evaluated today resting in bed. No acute complaints overnight. Continues on IV cefepime and oral flagyl and transition to oral antibiotics on discharge. ID following. Magnesium 1.6 today, creatinine stable at 1.16. Hemoglobin remains low at 8.9 no signs of acute GI bleeding. Review of systems: Constitutional: No reports of fatigue, fever, or chills Cardiovascular: No reports of chest pain or palpitations Respiratory: No reports of shortness of breath or cough GI: No reports of nausea, vomiting, or diarrhea : No reports of dysuria or retention Neurovascular: reports of generalized weakness All medications have been reviewed PHYSICAL EXAMINATION: GENERAL: The patient is alert and oriented x3, not in any acute distress. Well developed, well nourished. Morbidly obese HEENT: Pupils are round and equally reacting to light. EOMI. No scleral icterus. No conjunctival pallor. Normocephalic, atraumatic. No pharyngeal erythema. No thyromegaly. CARDIOVASCULAR: S1 and S2 present. No murmurs, rubs, or gallops. PULMONARY: Chest is clear to auscultation, no wheezing or crackles. ABDOMEN: Soft, obese, nontender, nondistended, normoactive bowel sounds. No palpable organomegaly. Abdominal surgical site is dry and intact MUSCULOSKELETAL: No joint swelling or deformity. EXTREMITIES: No cyanosis, clubbing, or pedal edema. NEUROLOGICAL: Gross neurological examination did not reveal any focal deficits. Diffusely weak SKIN: Surgical site infection dressing is currently dry and intact Assessment: -Infected surgical site since bowel resection earlier this month, status post incision and drainage of a large seroma, cultures finalized showing Morganella morganii -Type 2 diabetes mellitus, insulin-dependent -Anemia macrocytic likely B12/folate deficiency and levels will be checked no signs of active GI bleeding. 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 Infectious disease following and recommending oral cipro and flagyl for 10 days on discharge to remain on IV cefepime while inpatient Continue on dysphagia chopped diet recommending by speech therapy Eliquis resumed and repeat CBC tomorrow monitor hemoglobin, iron studies/B12 and folate being checked. Would recommend outpatient labs to monitor hemoglobin and kidney functions Recommend to continue with abdominal binder per surgery recommendations Encouraged increased activity as tolerated We will continue to follow general surgery during hospitalization. Thank you kindly for this consultation. The patient is being discharged to [facility] bed which is held until sunday due to accepting facility not having a physician to accept pt until sunday. Patient is medically stable for discharge. The impression and plan of care has been dictated by Tracey Mckeon Nurse Practitioner as directed. Dr. Carlos MD I have performed a history and physical examination and medical decision making of this patient, discussed the same with the dictator, and agree with the dic tators assessment and plan as written, documented as a scribe. Based on total visit time, I have performed more than 50% of this visit. Objective - Vital Signs Vital signs: Vital Signs Temp 97.4 F L 09/03/22 07:46 Pulse 65 09/03/22 07:46 Resp 18 09/03/22 07:46 BP 111/70 09/03/22 07:46 Pulse Ox 95 09/03/22 07:56 FiO2 Intake & Output 09/02/22 09/03/22 09/03/22 18:59 06:59 18:59 Intake Total 650 Output Total 750 650 Balance -100 -650 Intake: Intake, IV Titration 650 Amount Cefepime 1 gm In Sodium 50 Chloride 0.9% 50 ml @ 12. 5 mls/hr IVPB Q12HR [facility] Rx#:[id number] Sodium Chloride 0.9% 1, 600 000 ml @ 75 mls/hr IV . [id number] [facility] Rx#:[id number] Output: Urine 750 650 Other: Voiding Method External Catheter # Voids 1 - Labs CBC & Chem 7: 09/03/22 04:37 09/03/22 04:37 Labs: Abnormal Lab Results - Last 24 Hours (Table) 09/02/22 09/02/22 09/02/22 Range/Units 11:25 16:41 21:25 WBC (4.50-10.00) X 10*3/uL RBC (4.10-5.20) X 10*6/uL Hgb (12.0-15.0) d/dL Hct (37.2-46.3) % MCV (80.0-97.0) FL MCH (27.0-32.0) pg MCHC (32.0-37.0) d/dL RDW (11.5-14.5) % Sodium (137-145) mmol/L BUN (7-17) mg/dL Creatinine (0.52-1.04) mg/dL Glucose (74-99) mg/dL POC Glucose (mg/dL) 222 H 223 H 178 H (70-110) mg/dL 09/03/22 09/03/22 09/03/22 Range/Units 04:37 04:37 05:57 WBC 10.50 H (4.50-10.00) X 10*3/uL RBC 2.75 L (4.10-5.20) X 10*6/uL Hgb 8.9 L (12.0-15.0) d/dL Hct 28.7 L (37.2-46.3) % MCV 104.4 H (80.0-97.0) FL MCH 32.4 H (27.0-32.0) pg MCHC 31.0 L (32.0-37.0) d/dL RDW 15.8 H (11.5-14.5) % Sodium 135 L (137-145) mmol/L BUN 26 H (7-17) mg/dL Creatinine 1.16 H (0.52-1.04) mg/dL Glucose 140 H (74-99) mg/dL POC Glucose (mg/dL) 197 H (70-110) mg/dL Assessment and Plan Time with Patient: Less than 30
[2022-09-03 16:32] LABS: Glucose,Whole Blood 204 mg/dL (70-110)
--- NOTE | 2022-09-03 17:21 | P.PN ---
Subjective Progress Note Date: 09/03/22 Principal diagnosis: Abdominal wall abscess Patient is a 82-year-old female with a past medical history significant for repair of incarcerated hernia and bowel resection patient was subsequently stabilized and discharged to the local shelter patient mention yesterday she noticed to have increasing drainage from her right lower abdominal surgical site, patient did have a CT abdominal pelvis concerning for 5.9X 2.1 cm thin focal abdominal low wall fluid collection. Patient did have a bedside drainage of this fluid collection by surgeon concerning for possible seroma cultures has been obtained which are pending. On today's evaluation that is 09/03/2022, the patient continues to be afebrile, the patient is breathing comfortably on room air, the patient abdominal pain had decreased intensity , the patient denies nausea vomiting and no diarrhea, the patient denies any chest pain shortness of breath or cough Objective - Vital Signs Vital signs: Vital Signs Temp 97.9 F 09/03/22 13:18 Pulse 71 09/03/22 13:18 Resp 18 09/03/22 13:18 BP 127/77 09/03/22 13:18 Pulse Ox 93 L 09/03/22 13:18 FiO2 Intake & Output 09/02/22 09/03/22 09/03/22 18:59 06:59 18:59 Intake Total 650 700 Output Total 750 650 900 Balance -100 -650 -200 Intake: Intake, IV Titration 650 700 Amount Cefepime 1 gm In Sodium 50 Chloride 0.9% 50 ml @ 12. 5 mls/hr IVPB Q12HR [facility] Rx#:[id number] Magnesium Sulfate-D5w Pmx 100 1 gm In Dextrose/Water 1 100ml.bag @ 100 mls/hr IVPB Q1H [facility] Rx#: [id number] Sodium Chloride 0.9% 1, 600 600 000 ml @ 75 mls/hr IV . [id number] [facility] Rx#:[id number] Output: Urine 750 650 900 Other: Voiding Method External Catheter # Voids 1 - Exam GENERAL DESCRIPTION: Elderly female lying in bed in no distress RESPIRATORY SYSTEM: Unlabored breathing , decreased breath sounds at bases HEART: S1 S2 regular rate and rhythm ,no loud murmurs ABDOMEN: Soft, abdominal induration has decreased EXTREMITIES: No edema feet - Labs CBC & Chem 7: 09/03/22 04:37 09/03/22 04:37 Labs: Abnormal Lab Results - Last 24 Hours (Table) 09/02/22 09/02/22 09/03/22 Range/Units 16:41 21:25 04:37 WBC (4.50-10.00) X 10*3/uL RBC (4.10-5.20) X 10*6/uL Hgb (12.0-15.0) d/dL Hct (37.2-46.3) % MCV (80.0-97.0) FL MCH (27.0-32.0) pg MCHC (32.0-37.0) d/dL RDW (11.5-14.5) % Sodium 135 L (137-145) mmol/L BUN 26 H (7-17) mg/dL Creatinine 1.16 H (0.52-1.04) mg/dL Glucose 140 H (74-99) mg/dL POC Glucose (mg/dL) 223 H 178 H (70-110) mg/dL 09/03/22 09/03/22 09/03/22 Range/Units 04:37 05:57 11:04 WBC 10.50 H (4.50-10.00) X 10*3/uL RBC 2.75 L (4.10-5.20) X 10*6/uL Hgb 8.9 L (12.0-15.0) d/dL Hct 28.7 L (37.2-46.3) % MCV 104.4 H (80.0-97.0) FL MCH 32.4 H (27.0-32.0) pg MCHC 31.0 L (32.0-37.0) d/dL RDW 15.8 H (11.5-14.5) % Sodium (137-145) mmol/L BUN (7-17) mg/dL Creatinine (0.52-1.04) mg/dL Glucose (74-99) mg/dL POC Glucose (mg/dL) 197 H 222 H (70-110) mg/dL Assessment and Plan (1) Abdominal wall abscess Current Visit: Yes Status: Acute Code(s): L02.211 - CUTANEOUS ABSCESS OF ABDOMINAL WALL SNOMED Code(s): 69797891 Plan: 1patient present to hospital right lower quadrant abdominal pain and drainage in this patient with recent history of incarcerated abdominal hernia repair with evidence of thin-walled fluid collection concerning for possible postoperative seroma versus abscess ,, Patient is status post bedside drainage by surgeon cultures are currently pending 2-patient with a penicillin allergy that would limit the number of antibiotics s afe to use 3-Local cultures has grown Morganella patient to continue with cefepime while inpatient however with the plan to finish therapy with oral Cipro and Flagyl x10 days on discharge Time with Patient: Less than 30
[2022-09-03] MEDS: ACETAMINOPHEN TAB 325 MG TAB PO PRN (20:12)
[2022-09-03] MEDS ORDERED: INSULIN DETEMIR (LEVEMIR) 100 UNIT/ML SYR SQ SCH (21:00)
[2022-09-03 21:16] LABS: Glucose,Whole Blood 183 mg/dL (70-110)
[2022-09-03 23:27] LABS: % Iron Saturation 46.33 (12.00-45.00)
[2022-09-04] MEDS: SODIUM CHLORIDE 0.9% 1,000 ML IV SCH (03:58)
[2022-09-04 06:04] LABS: Glucose,Whole Blood 154 mg/dL (70-110)
[2022-09-04] MEDS: PANTOPRAZOLE 40 MG TABLET PO SCH (06:34)
[2022-09-04] MEDS: LEVOTHYROXINE 100 MCG TAB PO SCH (06:34)
[2022-09-04] MEDS: INSULIN ASPART (NovoLOG) 100 UNIT/ML VIAL SQ SCH ×2 (06:35→12:32)
[2022-09-04 07:58] VITALS: BP 125/52; PULSE 63; RESP 16; TEMP 98.1
[2022-09-04] MEDS: allopurinoL 300 MG TAB PO SCH (08:36)
[2022-09-04] MEDS: LORATADINE 10 MG TAB PO SCH (08:36)
[2022-09-04] MEDS: HEPARIN SODIUM,PORCINE/PF 5,000 UNIT/0.5 ML SYRINGE SQ SCH (08:36)
[2022-09-04] MEDS: metroNIDAZOLE 500 MG TAB PO SCH (08:36)
[2022-09-04] MEDS: METOPROLOL SUCCINATE (ER) 50 MG TAB.ER.24H PO SCH (08:36)
[2022-09-04] MEDS: ASPIRIN 81 MG PO SCH (08:37)
[2022-09-04] MEDS: CEFEPIME 1 GM in SODIUM CHLORIDE 0.9% 50 ML IVPB SCH (08:37)
[2022-09-04] MEDS: SIMETHICONE 80 MG CHEWABLE PO SCH (08:37)
[2022-09-04] MEDS: LACTULOSE 20 GM/30 ML CUP PO SCH (08:37)
--- NOTE | 2022-09-04 10:51 | P.DS ---
Providers Date of admission: 08/29/22 16:14 Expected date of discharge: 09/04/22 Attending physician: Sahra Ashley Consults: 08/29/22 16:09 Consult Physician Urgent Consulting Provider: Henry Arriaga Consult Reason/Comments: abd wall abscess vs seroma Do you want consulting provider notified?: Yes 08/30/22 12:26 Consult Physician Routine Consulting Provider: Raffaele Gonzalez Consult Reason/Comments: medical management Do you want consulting provider notified?: Yes 09/04/22 08:36 Consult Physician Routine Consulting Provider: Daon Perez Consult Reason/Comments: Medical management Do you want consulting provider notified?: Yes Primary care physician: Georges Church - Discharge Diagnosis(es) (1) Abdominal wall abscess Please refer to discharge summary dictated last Sunday. Patient was not able to be discharged because bed was not available. Did well over the weekend. Denies pain. Tolerating diet. Oral antibiotics prescriptions provided by Dr. arteaga. We'll discharge today. Current Visit: Yes Status: Acute Patient Condition at Discharge: Stable Plan - Discharge Summary Discharge Rx Participant: No New Discharge Prescriptions: New Ciprofloxacin HCl [Cipro] 500 mg PO Q12HR 10 Days #20 tab metroNIDAZOLE [Flagyl] 500 mg PO TID 10 Days #30 tab Continue Cetirizine HCl [Zyrtec] 10 mg PO DAILY allopurinoL [Zyloprim] 300 mg PO DAILY Aspirin [Adult Low Dose Aspirin EC] 81 mg PO DAILY Ergocalciferol (Vitamin D2) [Drisdol (50,000 Iu)] 1,250 mcg PO Q7D Apixaban [Eliquis] 5 mg PO BID tab Simethicone Chew [Mylicon Chew] 160 mg PO PC-TID metFORMIN HCL [Glucophage] 850 mg PO BID Insulin Glargine-Yfgn [Semglee (Yfgn) Pen] 10 units SQ HS guaiFENesin [guaiFENesin ER] 600 mg PO BID glipiZIDE 5 mg PO DAILY Magnesium Oxide [Mag-Ox] 400 mg PO BID Ferrous Sulfate [Iron (65 MG Elemental)] 325 mg PO TUFR Metoprolol Succinate (ER) [Toprol XL] 50 mg PO DAILY tab Acetaminophen Tab [Tylenol] 1,000 mg PO Q6HR PRN #30 tablet PRN Reason: Pain Cyanocobalamin (Vitamin B-12) [Vitamin B-12] 1,000 mcg PO DAILY Omeprazole [PriLOSEC] 20 mg PO DAILY Levothyroxine Sodium [Synthroid] 100 mcg PO DAILY Discontinued Doxycycline Monohydrate [Monodox] 100 mg PO BID traMADol HCl [Ultram] 50 mg PO QID PRN #8 tab PRN Reason: Moderate Pain (Scale 4 To 6) Discharge Medication List Aspirin [Adult Low Dose Aspirin EC] 81 mg PO DAILY 05/18/17 [History] Cetirizine HCl [Zyrtec] 10 mg PO DAILY 05/18/17 [History] allopurinoL [Zyloprim] 300 mg PO DAILY 05/18/17 [History] Ergocalciferol (Vitamin D2) [Drisdol (50,000 Iu)] 1,250 mcg PO Q7D 07/19/22 [History] Ferrous Sulfate [Iron (65 MG Elemental)] 325 mg PO TUFR 07/19/22 [History] Magnesium Oxide [Mag-Ox] 400 mg PO BID 07/19/22 [History] Apixaban [Eliquis] 5 mg PO BID tab 08/01/22 [Rx] Metoprolol Succinate (ER) [Toprol XL] 50 mg PO DAILY tab 08/01/22 [Rx] Acetaminophen Tab [Tylenol] 1,000 mg PO Q6HR PRN #30 tablet 08/02/22 [Rx] Cyanocobalamin (Vitamin B-12) [Vitamin B-12] 1,000 mcg PO DAILY 08/29/22 [History] Insulin Glargine-Yfgn [Semglee (Yfgn) Pen] 10 units SQ HS 08/29/22 [History] Levothyroxine Sodium [Synthroid] 100 mcg PO DAILY 08/29/22 [History] Omeprazole [PriLOSEC] 20 mg PO DAILY 08/29/22 [History] Simethicone Chew [Mylicon Chew] 160 mg PO PC-TID 08/29/22 [History] glipiZIDE 5 mg PO DAILY 08/29/22 [History] guaiFENesin [guaiFENesin ER] 600 mg PO BID 08/29/22 [History] metFORMIN HCL [Glucophage] 850 mg PO BID 08/29/22 [History] Ciprofloxacin HCl [Cipro] 500 mg PO Q12HR 10 Days #20 tab 09/01/22 [Rx] metroNIDAZOLE [Flagyl] 500 mg PO TID 10 Days #30 tab 09/01/22 [Rx] Follow up Appointment(s)/Referral(s): [facility] [NON-STAFF] - 1-2 Days Georges Church MD [Primary Care Provider] - 1-2 days (ECF please call for appointment.) Sahra Ashley MD [STAFF PHYSICIAN] - 10/03/22 1:00 pm Ambulatory/Diagnostic Orders: Basic Metabolic Panel [LAB.AMB] Time Frame: 3 Days, Location: None Selected Complete Blood Count w/diff [LAB.AMB] Location: None Selected Activity/Diet/Wound Care/Special Instructions: Wear abdominal binder at all times for comfort. No lifting over 4 pounds in 4 weeks You May shower. No bath tub soaks for two weeks Use Tylenol scheduled for the next 24-48 hours for best pain relief. Discharge Disposition: TRANSFER TO SNF/ECF
[2022-09-04 11:23] LABS: Glucose,Whole Blood 166 mg/dL (70-110)
--- NOTE | 2022-09-04 19:50 | P.PN ---
Progress Note - Text Progress Note Date: 09/04/22 82-year-old female came in for surgical site infection with in duration, nonpurulent drainage from the right lower quadrant incision from her recent bowel resection surgery for incarcerated hernia in of this month. Patient doesn't have any fever does have leukocytosis patient was on antibiotic doxycycline at home. Patient was started on the cefepime and vancomycin. Wound cultures were obtained patient the will probably will undergo incision and drainage. Patient is also on anticoagulation at home for atrial fibrillation which is being held as patient will undergo surgical intervention today.. 08/31/2022 Patient is seen and evaluated in follow-up today and is status post incision and drainage of seroma with approximately 1500 mL of blood removed during surgery. Patient was continued on oral anticoagulation which is currently being held and will continue subcutaneous heparin for DVT prophylaxis for now. Okay to resume anti-coagulation in 24 hours per surgery. Recommend follow-up labs to monitor hemoglobin. Patient is afebrile and maintained on IV antibiotics while awaiting for cultures to finalize. Infectious disease is following. Awaiting abdominal binder. Patient reports she is having some increased secretions that she is unable to expectorate difficulty with swallowing pills. Will consult speech. Patient denies nausea or vomiting and reported not eating much. Will continue sliding scale and blood sugars elevate will resume long-acting insulin at night. 09/01/2022 Patient seen and evaluated in follow-up today currently sitting up at the side of the bed. Patient was evaluated by speech recommending dysphasia chopped diet with no difficulty swallowing. Patient is able to take all medications with no problems. Wound cultures finalized showing Morganella morganii with infectious disease following and will be continued on oral antibiotics on discharge. Patient is okay to resume oral anticoagulation and will this evening. Patient received abdominal binder and continue using with close outpatient follow-up with general surgery. Patient is medically stable and will be going to [facility] bed later today. Patient is afebrile with no reports of chest pain or shortness of breath noted. Patient is tolerating diet. 09/02/2022 Patient is evaluated today in follow up. Resting in bed with no acute complaints at this time. Patient is pending insurance authorization for DC to [facility] bed which won't happen until Sunday as there was no insurance authorization obtained. Patient wants to discuss dc planning and financial aspect with case management prior to discharge as she is concerned with not having any income left from social security to keep her apartment while at rehab. Incisions are clean dry with dressings intact. Continues on IV cefepime and normal saline at 75 mls/hr. Creatinine is improved down to 1.13 today. 09/03/2022 Patient is evaluated today resting in bed. No acute complaints overnight. Continues on IV cefepime and oral flagyl and transition to oral antibiotics on discharge. ID following. Magnesium 1.6 today, creatinine stable at 1.16. Hemoglobin remains low at 8.9 no signs of acute GI bleeding. 09/04/2022: Laying in bed. Comfortable. Tolerating about 50% diet. Cleared by surgery for discharge. Will be discharged on ciprofloxacin and Flagyl. No abdominal pain. On laxatives. No nausea vomiting. Comfortable. PHYSICAL EXAMINATION: Vitals: 98.1, 63, 16, 125/52, 97% room air GENERAL: Laying in bed, comfortable HEENT: Pupils are round and equally reacting to light. EOMI. No scleral icterus. No conjunctival pallor. Normocephalic, atraumatic. No pharyngeal erythema. No thyromegaly. CARDIOVASCULAR: S1 and S2 present. No murmurs, rubs, or gallops. PULMONARY: Chest is clear to auscultation, no wheezing or crackles. ABDOMEN: Soft, obese, nontender, nondistended, normoactive bowel sounds. No palpable organomegaly. Abdominal surgical site is dry and intact MUSCULOSKELETAL: Evidence of OA EXTREMITIES: No cyanosis, clubbing, or pedal edema. NEUROLOGICAL: Gross neurological examination did not reveal any focal deficits. Diffusely weak SKIN: Surgical site infection dressing is currently dry and intact Investigations: September 03: White count 10.5 hemoglobin 8.9 platelets 234 potassium 4.4 BUN 26 creatinine 1.16 Assessment: -Infected surgical site since bowel resection earlier this month, status post incision and drainage of a large seroma, cultures finalized showing Morganella morganii -Type 2 diabetes mellitus, insulin-dependent -Anemia macrocytic likely B12/folate deficiency and levels will be checked no signs of active GI bleeding. 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 Infectious disease following and recommending oral cipro and flagyl for 10 days on discharge . Received IV cefepime while here Continue on dysphagia chopped diet recommending by speech therapy Eliquis resumed Would recommend outpatient labs to monitor hemoglobin and kidney functions Recommend to continue with abdominal binder per surgery Encouraged increased activity as tolerated Follow with Dr. Church upon discharge
--- NOTE | 2022-09-09 19:43 | P.PN ---
Subjective Progress Note Date: 09/04/22 Principal diagnosis: Abdominal wall abscess Patient is a 82-year-old female with a past medical history significant for repair of incarcerated hernia and bowel resection patient was subsequently stabilized and discharged to the local [facility] patient mention yesterday she noticed to have increasing drainage from her right lower abdominal surgical site, patient did have a CT abdominal pelvis concerning for 5.9X 2.1 cm thin focal abdominal low wall fluid collection. Patient did have a bedside drainage of this fluid collection by surgeon concerning for possible seroma cultures has been obtained which are pending. On today's evaluation that is 09/04/2022, the patient is afebrile, the patient is breathing comfortably on room air, the patient abdominal pain had decreased intensity , the patient denies nausea vomiting and no diarrhea Objective - Vital Signs Vital signs: Vital Signs Temp 98.1 F 09/04/22 07:57 Pulse 63 09/04/22 07:57 Resp 16 09/04/22 07:57 BP 125/52 09/04/22 07:57 Pulse Ox 97 09/04/22 09:53 FiO2 Intake & Output 09/03/22 09/04/22 09/04/22 18:59 06:59 18:59 Intake Total 1240 Output Total 1400 200 Balance -160 -200 Intake: Intake, IV Titration 700 Amount Magnesium Sulfate-D5w Pmx 100 1 gm In Dextrose/Water 1 100ml.bag @ 100 mls/hr IVPB Q1H [facility] Rx#: [id number] Sodium Chloride 0.9% 1, 600 000 ml @ 75 mls/hr IV . [id number] [facility] Rx#:[id number] Oral 540 Output: Urine 1400 200 Other: Voiding Method Incontinent External Catheter External Catheter - Exam GENERAL DESCRIPTION: Elderly female lying in bed in no distress RESPIRATORY SYSTEM: Unlabored breathing , decreased breath sounds at bases HEART: S1 S2 regular rate and rhythm ,no loud murmurs ABDOMEN: Soft, abdominal induration has decreased EXTREMITIES: No edema feet - Labs CBC & Chem 7: 09/03/22 04:37 09/03/22 04:37 Labs: Abnormal Lab Results - Last 24 Hours (Table) 09/03/22 09/03/22 09/03/22 Range/Units 04:37 16:31 21:15 POC Glucose (mg/dL) 204 H 183 H (70-110) mg/dL TIBC 218 L (228-460) UG/DL % Saturation 46.33 H (12.00-45.00) Transferrin 156.0 L (204.0-354.0) mg/dL 09/04/22 09/04/22 Range/Units 06:03 11:19 POC Glucose (mg/dL) 154 H 166 H (70-110) mg/dL TIBC (228-460) UG/DL % Saturation (12.00-45.00) Transferrin (204.0-354.0) mg/dL Assessment and Plan (1) Abdominal wall abscess Status: Acute Code(s): L02.211 - CUTANEOUS ABSCESS OF ABDOMINAL WALL SNOMED Code(s): 48919997 Plan: 1patient present to hospital right lower quadrant abdominal pain and drainage in this patient with recent history of incarcerated abdominal hernia repair with evidence of thin-walled fluid collection concerning for possible postoperative seroma versus abscess ,, Patient is status post bedside drainage by surgeon cultures are currently pending 2-patient with a penicillin allergy that would limit the number of antibiotics safe to use 3-Local cultures has grown Morganella patient will finish therapy with oral Cipro and Flagyl x10 days Time with Patient: Less than 30
== END 2022-09-04 13:24 | DRG 908 ==
LOC: EC 12:25 → 4SSUR 16:14
PROVIDERS: ADMIT Surgery Plastic and Reconstructive Surgery; ATTEND Surgery Plastic and Reconstructive Surgery
PROC: 0W9F00Z Drainage of Abdominal Wall with Drainage Device, Open Approach (ICD-10-PCS; principal; 2022-08-30 17:05)
DX: K91.872 Postprocedural seroma of a digestive system organ or structure following a digestive system procedure (principal); N17.9 Acute kidney failure, unspecified; Z68.43 Body mass index [BMI] 50.0-59.9, adult; E11.22 Type 2 diabetes mellitus with diabetic chronic kidney disease; B96.4 Proteus (mirabilis) (morganii) as the cause of diseases classified elsewhere; E11.65 Type 2 diabetes mellitus with hyperglycemia; I48.0 Paroxysmal atrial fibrillation; Z79.4 Long term (current) use of insulin; E66.01 Morbid (severe) obesity due to excess calories; Z66 Do not resuscitate; I12.9 Hypertensive chronic kidney disease with stage 1 through stage 4 chronic kidney disease, or unspecified chronic kidney disease; N18.2 Chronic kidney disease, stage 2 (mild); K21.9 Gastro-esophageal reflux disease without esophagitis; D53.9 Nutritional anemia, unspecified; E86.0 Dehydration; F32.A Depression, unspecified; F41.9 Anxiety disorder, unspecified; K59.00 Constipation, unspecified; K44.9 Diaphragmatic hernia without obstruction or gangrene; R47.02 Dysphasia; Z79.01 Long term (current) use of anticoagulants; Z79.82 Long term (current) use of aspirin; Z79.890 Hormone replacement therapy; Z79.84 Long term (current) use of oral hypoglycemic drugs; Z79.899 Other long term (current) drug therapy; Z85.3 Personal history of malignant neoplasm of breast; Z87.440 Personal history of urinary (tract) infections; Z91.041 Radiographic dye allergy status; Z91.040 Latex allergy status; Z88.0 Allergy status to penicillin; Z91.018 Allergy to other foods
CPT/HCPCS: 36415; 74177; 80048; 80053; 80202; 82565; 82607; 82728; 82746; 83540; 83550; 83605; 83735; 85025; 87070; 87077; 87186; 87205; 94760; 96365; 96366; 96375; 99285